=== PATIENT | male | born 1935 | race Caucasian/White ===

== ENCOUNTER → 2016-10-21 | Day surgery (SDC) | payer OTHER ==
[2016-10-09 12:16] VITALS: Ht 170.2 cm; Wt 95.5 kg
[~2016-10-21] VITALS: Ht 170.2 cm; Wt 95.5 kg
[~2016-10-21] MED LIST: EPP3/2 IM; FLEC50TA20 PO; GLUC10007 PO; IBUP-1050 PO; LIDOCAINE HCL 2% 2 ML VIAL (20MG/ML) ONE; LOPE-5 PO; METO50TA7 PO; MULT-506 PO; OMEG10007 PO; PROPOFOL IV EMULSION 10 MG/ML 20 ML VIAL IV ONE; RIVA1TAB4 PO; [UNRECOGNIZED DRUG - CODE] PO
--- NOTE | 2016-10-21 10:53 | Endo History and Physical ---
History & Physical Date of Service: October 21, 2016. Chief Complaint: diarrhea Referring Physician: Dr. Domo Montano History of Present Illness 81 yo CM who presents for Colonoscopy secondary to diarrhea. Past Medical History Atrial Fibrillation, Arthritis, Anxiety, Cancer Past Surgical History Hx Cardiac Surgery: Yes (CARDIOVERSION) Hx Internal Defibrillator: No Hx Pacemaker: No Hx Abdominal Surgery: No Hx Post-Op Nausea and Vomiting: No Hx Cancer Surgery: Yes (PROSTATECTOMY) Hx Thoracic Surgery: No Hx Orthopedic: Yes (L/R TSA, L/R TKA, LT ELBOW SURGERY (CANNOT STRAIGHTEN ARM), L/R BUNIONECTOMY) Hx Urinary Tract Surgery: No Family History Colon CA Social History Smoking Status: Never Smoker Hx Substance Use: No Hx Alcohol Use: Yes (OCCASIONAL) Allergies Coded Allergies: Yellow Hornet (Verified Allergy, Severe, ANAPHYLAXIS, 10/09/16) Yellow Jacket (Verified Allergy, Severe, ANAPHYLAXIS, 10/09/16) BEE STING (Verified Allergy, Unknown, SWELLING,SOB, 10/09/16) [place] Tree (Verified Allergy, Unknown, HIVES, 10/09/16) allergic to nuts from the trees Fire Ant (Verified Allergy, Unknown, HIVES, 10/09/16) NO KNOWN DRUG ALLERGIES (Verified Allergy, Unknown, NONE, 10/09/16) Current Medications Reported Home Medications Medications Dose Route/Sig Max Daily Dose Days Date Category Dose Instructions Diphenatol (Diphenoxylate W/ Atropine) 1 Tab Tab 1 Tab PO DIRECTED PRN 10/09/16 Reported Imodium A-D (Loperamide Hcl) 2 Mg Tab 1 Tab PO UD PRN 04/16/16 Reported Epipen (Epinephrine) 0.3 Mg/0.3 Ml Inj 0.3 Mg IM UD PRN 04/16/16 Reported Glucosamine (Glucosamine Sulfate) 1,000 Mg Tab 1,200 Mg PO BID 01/18/15 Reported GLUCOSAMINE CONDROITIN Toprol-Xl (Metoprolol Succinate) 50 Mg Tabcr 50 Mg PO QPM 01/18/15 Reported Advil (Ibuprofen) 200 Mg Tab 400 Mg PO DAILY PRN 12/26/14 Reported Jackson-3 (Fish Oil) 1 Ea Cap 1 Cap PO BID 12/26/14 Reported Xarelto (Rivaroxaban) 20 Mg Tab 20 Mg PO QPM 03/20/13 Reported Multivitamin (Multivitamins) Tab 1 Tab PO QAM 4/13/12 Reported Tambocor (Flecainide Acetate) 50 Mg Tab 50 Mg PO BID 09/18/11 Reported Vital Signs Weight (Kilograms): 95.45 Height (Feet): 5 Height (Inches): 7 Physical Exam General Appearance: WD/WN, no apparent distress Respiratory/Chest: Auscultation: breath sounds normal Cardiovascular: Heart Auscultation: RRR Abdomen: Bowel Sounds: normal Inspection & Palpation: soft, non-distended, no tenderness, guarding & rebound Assessment and Plan Assessment: 81 yo CM who presents for Colonoscopy secondary to diarrhea. Plan: Proceed with colonoscopy.
--- NOTE | 2016-10-21 12:19 | Discharge Instructions ---
Endoscopy Patient Instructions Date / Procedure(s) Performed October 21, 2016. Colonoscopy Allergy Information Coded Allergies: Yellow Hornet (Verified Allergy, Severe, ANAPHYLAXIS, 10/09/16) Yellow Jacket (Verified Allergy, Severe, ANAPHYLAXIS, 10/09/16) BEE STING (Verified Allergy, Unknown, SWELLING,SOB, 10/09/16) [place] Tree (Verified Allergy, Unknown, HIVES, 10/09/16) allergic to nuts from the trees Fire Ant (Verified Allergy, Unknown, HIVES, 10/09/16) NO KNOWN DRUG ALLERGIES (Verified Allergy, Unknown, NONE, 10/09/16) Discharge Date / Findings October 21, 2016. Non-specific colitis s/p biopsies Diverticulosis Internal hemorrhoids Stool aspirate collected Medication Instructions Stopped Medication(s): last dose Xarelto Wednesday at 17:00 OK to resume all medications today as prescribed. Start Uceris 9mg by mouth each morning for 8 weeks. Reported Home Medications Medications Dose Route/Sig Max Daily Dose Days Date Category Dose Instructions Diphenatol (Diphenoxylate W/ Atropine) 1 Tab Tab 1 Tab PO DIRECTED PRN 10/09/16 Reported Imodium A-D (Loperamide Hcl) 2 Mg Tab 1 Tab PO UD PRN 04/16/16 Reported Epipen (Epinephrine) 0.3 Mg/0.3 Ml Inj 0.3 Mg IM UD PRN 04/16/16 Reported Glucosamine (Glucosamine Sulfate) 1,000 Mg Tab 1,200 Mg PO BID 01/18/15 Reported GLUCOSAMINE CONDROITIN Toprol-Xl (Metoprolol Succinate) 50 Mg Tabcr 50 Mg PO QPM 01/18/15 Reported Advil (Ibuprofen) 200 Mg Tab 400 Mg PO DAILY PRN 12/26/14 Reported [place]-3 (Fish Oil) 1 Ea Cap 1 Cap PO BID 12/26/14 Reported Xarelto (Rivaroxaban) 20 Mg Tab 20 Mg PO QPM 03/20/13 Reported Multivitamin (Multivitamins) Tab 1 Tab PO QAM 09/18/11 Reported Tambocor (Flecainide Acetate) 50 Mg Tab 50 Mg PO BID 09/18/11 Reported Provider Instructions Activity Restrictions - No exercising or heavy lifting for 24 hours. - Do not drink alcohol the day of the procedure. - Do not drive a car or operate machinery until the day after the procedure. - Do not make any important decisions or sign important papers in 24 hours after the procedure. Following Day: - Return to full activity which may include returning to work/school. Diet Start your diet with liquids and light foods (jello, soup, juice, toast). Then eat your usual diet if not nauseated. Treatment For Common After Affects For mild abdominal pain, bloating, or excessive gas: - Rest - Eat lightly - Lie on right side Follow-Up Information Follow-up with Dr. Domo Montano as scheduled Anesthesia Information What You Should Know You have had a procedure that required some medicine to reduce anxiety and discomfort. This treatment is called moderate sedation. After receiving the treatment, you may be sleepy, but you will be able to breathe on your own. The effects of the treatment may last for several hours. Follow these instructions along with Activity/Diet recommendations noted above: * Do NOT do anything where dizziness or clumsiness would be dangerous. * Rest quietly at home today, then you can be up and about tomorrow. * Have a responsible person stay with you the rest of today. * You may have had an I.V. today. If so, you may take the dressing off later today. Recommendations Call your doctor if: * Trouble breathing * Continuous vomiting for more than 24 hours * Temperature above 101 degrees * Severe abdominal pain or bloating * Pain not relieved by pain medicine ordered * There is increased drainage or redness from any incision * A large amount of rectal bleeding greater than 2-3 tablespoons. (If you had a polyp/s removed or have hemorrhoids, a small amount of blood - from the rectum is to be expected.) * You have any unanswered questions or concerns. IN THE EVENT OF A SERIOUS EMERGENCY, GO TO THE NEAREST EMERGENCY ROOM Your discharge instructions were prepared by provider Graeme Cardona. Patient Instructions Signature Page Barry Saxena Patient (or Guardian) Signature/Date: I have read and understand the instructions given to me by my caregivers. Caregiver/RN/Doctor Signature/Date: The above-named patient and/or guardian has received patient instructions on this date. + Original Patient Signature Page (only) stays with chart. Please make copy for patient.
--- NOTE | 2016-10-21 12:27 | GI REPORT ---
Procedure Date: 10/21/2016 12:00 PM Procedure: Colonoscopy Indications: Chronic diarrhea Medicines: Monitored Anesthesia Care Complications: No immediate complications. Estimated Blood Loss: Estimated blood loss: none. Procedure: Pre-Anesthesia Assessment: - Prior to the procedure, a History and Physical was performed, and patient medications and allergies were reviewed. The patient's tolerance of previous anesthesia was also reviewed. The risks and benefits of the procedure and the sedation options and risks were discussed with the patient. All questions were answered, and informed consent was obtained. Prior Anticoagulants: The patient has taken Xarelto (rivaroxaban), last dose was 3 days prior to procedure. ASA Grade Assessment: III - A patient with severe systemic disease. After reviewing the risks and benefits, the patient was deemed in satisfactory condition to undergo the procedure. After I obtained informed consent, the scope was passed under direct vision. Throughout the procedure, the patient's blood pressure, pulse, and oxygen saturations were monitored continuously. The scope was introduced through the anus and advanced to the terminal ileum. The colonoscopy was performed without difficulty. The patient tolerated the procedure well. The quality of the bowel preparation was good. The terminal ileum, ileocecal valve, appendiceal orifice, and rectum were photographed. Findings: Diffuse mild inflammation characterized by erythema and loss of vascularity was found in the entire colon. Biopsies were taken with a cold forceps for histology. Fluid aspiration for cytology was performed in the entire colon. Multiple small-mouthed diverticula were found in the sigmoid colon. Non-bleeding internal hemorrhoids were found during retroflexion. The hemorrhoids were small. Impression: - Diffuse mild inflammation was found in the entire examined colon secondary to colitis. Biopsied. - Diverticulosis in the sigmoid colon. - Non-bleeding internal hemorrhoids. - Fluid aspiration was performed. Recommendation: - Resume previous diet. - Use Uceris (budesonide) 9 mg PO daily for 8 weeks. - Await pathology results. - Return to GI office as previously scheduled. Graeme Cardona DO 10/21/2016 12:26:50 PM This report has been signed electronically. Note Initiated On: 10/21/2016 12:00 PM I attest to the content of the Intraoperative Record and orders documented therein, exceptions below
--- NOTE | 2016-10-21 12:43 | Anesthesiology Progress Note ---
Anesthesia Post Op Note Date & Time October 21, 2016 at 12:43 Vital Signs Pain Intensity: 0 Vital Signs Past 12 Hours Date Time Temp Pulse Resp B/P Pulse Ox O2 Delivery O2 Flow Rate FiO2 10/21/16 12:34 59 18 122/69 97 Room Air 10/21/16 12:19 58 20 120/56 97 Room Air 10/21/16 10:54 36.6 67 20 152/71 96 Room Air Notes Mental Status: alert / awake / arousable, participated in evaluation Pt Amnestic to Procedure: Yes Nausea / Vomiting: adequately controlled Pain: adequately controlled Airway Patency, RR, SpO2: stable & adequate BP & HR: stable & adequate Hydration State: stable & adequate Anesthetic Complications: no major complications apparent
[2016-10-21 12:48] VITALS: BP 143/77; PULSE 59; O2SAT 98
== END | disposition home or self-care (01) ==
LOC: C.GI 10:26
PROVIDERS: ATTEND Internal Medicine
DX: K52.9 Noninfective gastroenteritis and colitis, unspecified (principal); K57.30 Diverticulosis of large intestine without perforation or abscess without bleeding; K64.8 Other hemorrhoids; I48.91 Unspecified atrial fibrillation; Z85.46 Personal history of malignant neoplasm of prostate; Z96.653 Presence of artificial knee joint, bilateral; M19.90 Unspecified osteoarthritis, unspecified site; Z90.89 Acquired absence of other organs; Z98.41 Cataract extraction status, right eye; Z98.42 Cataract extraction status, left eye; E66.9 Obesity, unspecified; Z68.33 Body mass index [BMI] 33.0-33.9, adult

== ENCOUNTER → 2016-11-05 | Outpatient (CLI) | payer OTHER ==
[~2016-11-05] MED LIST changes: -LIDOCAINE HCL 2% 2 ML VIAL (20MG/ML) ONE; -PROPOFOL IV EMULSION 10 MG/ML 20 ML VIAL IV ONE
[2016-11-05 17:04] LABS: BASO % 0.1 %; BASO ABS # 0.01 K/uL (0-0.2); COMPLETE YES; EOS % 1.5 %; HEMATOCRIT 39.6 % (42-52); IG% 0.3 %; LYMPH % 17.6 %; LYMPH ABS # 1.37 K/uL (1.2-3.4); MEAN CELL VOLUME 95.7 fL (80-100); MEAN CORPUSCULAR HEMOGLOBIN 31.4 pg (25-34); MEAN CORPUSCULAR HGB CONC 32.8 g/dl (32-36); MEAN PLATELET VOLUME 10.9 fL (7.4-10.4); MONO % 11.5 %; PLATELET COUNT 199 K/uL (130-400); RED BLOOD COUNT 4.14 M/uL (4.7-6.1)
[2016-11-05 17:23] LABS: ALT/SGPT 27 U/L (12-78); BLOOD UREA NITROGEN 21 mg/dl (7-18); BUN/CREATININE RATIO 26.4 (10-20); CALCIUM 8.4 mg/dl (8.5-10.1); CARBON DIOXIDE 29 mmol/L (21-32); CHLORIDE 105 mmol/L (98-107); CREATININE 0.79 mg/dl (0.60-1.40); GLUCOSE 90 mg/dl (70-99); SODIUM 140 mmol/L (136-145)
[2016-11-05 17:31] LABS: ALKALINE PHOSPHATASE 98 U/L (45-117); AST/SGOT 15 U/L (15-37); C-REACTIVE PROTEIN < 0.29 mg/dl (0-0.29); CHOLESTEROL 207 mg/dl (0-200); CHOLESTEROL/HDL RATIO 2.1; HDL CHOLESTEROL 97 mg/dl; LDL CHOLESTEROL CALCULATED 92 mg/dl; PROSTATE SPECIFIC ANTIGEN < 0.010 ng/ml (0.000-4.000); TRIGLYCERIDES 89 mg/dl (0-150); VERY LOW DENSITY LIPOPROT CALC 18 mg/dl
--- NOTE | 2016-11-09 09:00 | CODING QUERY MEDICAL NECESSITY ---
SUPPORTING DIAGNOSIS NEEDED Dr. Montano, A supporting diagnosis is required for the test/procedure performed on this patient in order for us to be reimbursed by the patient's insurance. Please provide a supporting diagnosis for the following test/procedure listed below next to the test name along with your signature. *If there is no additional diagnosis for this patient that would support the following test/procedure please document that below next to the test/procedure. Test(s)/Procedure(s) that require a supporting diagnosis: * ([id number]) VITAMIN D ASSAY DIAGNOSIS: * ([id number]) B12 VITAMIN LEVEL DIAGNOSIS: DATE OF SERVICE: 11/05/16 Provider Signature: Date: Thank you Jean Claude [facility] Information Management Once completed, please kindly fax back to [phone] For questions please call [phone]
[2016-11-11 16:52] LABS: 5-HIAA 3.2 mg/24 h (<=6.0)
== END | disposition home or self-care (01) ==
LOC: C.LABBC 15:27
PROVIDERS: ATTEND Internal Medicine Geriatric Medicine
DX: I48.0 Paroxysmal atrial fibrillation (principal); C61 Malignant neoplasm of prostate; D64.9 Anemia, unspecified; R19.7 Diarrhea, unspecified; E04.2 Nontoxic multinodular goiter; K52.832 Lymphocytic colitis; I25.10 Atherosclerotic heart disease of native coronary artery without angina pectoris; R63.4 Abnormal weight loss; E53.8 Deficiency of other specified B group vitamins; Z79.899 Other long term (current) drug therapy

== ENCOUNTER → 2017-03-10 | Outpatient (CLI) | payer OTHER | END | disposition home or self-care (01) | LOC: C.LABSPEC 17:23 | PROVIDERS: ATTEND Urology | DX: N39.0 Urinary tract infection, site not specified (principal); N35.9 Urethral stricture, unspecified ==

== ENCOUNTER → 2017-03-19 | Outpatient (CLI) | payer OTHER | END | disposition home or self-care (01) | LOC: C.LABSPEC 14:59 | PROVIDERS: ATTEND Urology | DX: N39.0 Urinary tract infection, site not specified (principal) ==

== ENCOUNTER → 2017-03-25 | Outpatient (CLI) | payer OTHER ==
[2017-03-25 14:12] LABS: BASO % 0.2 %; BASO ABS # 0.02 K/uL (0-0.2); COMPLETE YES; EOS % 1.1 %; HEMATOCRIT 36.9 % (42-52); IG% 0.1 %; LYMPH % 17.4 %; LYMPH ABS # 1.43 K/uL (1.2-3.4); MEAN CELL VOLUME 98.7 fL (80-100); MEAN CORPUSCULAR HEMOGLOBIN 32.1 pg (25-34); MEAN CORPUSCULAR HGB CONC 32.5 g/dl (32-36); MEAN PLATELET VOLUME 10.5 fL (7.4-10.4); MONO % 10.2 %; PLATELET COUNT 194 K/uL (130-400); RED BLOOD COUNT 3.74 M/uL (4.7-6.1); WHITE BLOOD COUNT 8.21 K/uL (4.8-10.8)
[2017-03-25 16:59] LABS: BLOOD UREA NITROGEN 19 mg/dl (7-18); BUN/CREATININE RATIO 20.1 (10-20); CALCIUM 9.1 mg/dl (8.5-10.1); CARBON DIOXIDE 30 mmol/L (21-32); CHLORIDE 102 mmol/L (98-107); CREATININE 0.93 mg/dl (0.60-1.40); GLUCOSE 90 mg/dl (70-99); POTASSIUM 4.1 mmol/L (3.5-5.1); SODIUM 137 mmol/L (136-145)
== END | disposition home or self-care (01) ==
LOC: C.LABBC 12:14
PROVIDERS: ATTEND Internal Medicine Geriatric Medicine
DX: Z51.81 Encounter for therapeutic drug level monitoring (principal); D64.9 Anemia, unspecified; Z79.01 Long term (current) use of anticoagulants; K52.832 Lymphocytic colitis; E53.8 Deficiency of other specified B group vitamins

== ENCOUNTER → 2017-03-29 | Outpatient (CLI) | payer OTHER ==
[~2017-03-29] MED LIST changes: +OPTIRAY 320 IV PRN
--- NOTE | 2017-03-29 12:32 | DIAGNOSTIC IMAGING REPORT ---
ABD/PELVIS COMBO HISTORY: 81 years-old Male C61 Prostate zeetctI75.0 [id number] Urinary retentionN history of urethral stricture with urinary tract infection. COMPARISON: CT abdomen and pelvis 04/28/2016 TECHNIQUE: Multiple axial CT images of the abdomen and pelvis were obtained both with and without the use of 94 mL Optiray 320. A dose lowering technique was used consistent with the principals of CHAU. FINDINGS: Symmetric bilateral gynecomastia. Mild dependent bibasilar atelectasis. Mild cardiomegaly with coronary arterial disease. No pneumoperitoneum identified. Diffuse fatty infiltration of the liver. No focal hepatic mass lesions or intrahepatic biliary ductal dilation. Small gallstones are seen layering within the gallbladder lumen. No CT evidence of acute cholecystitis. There are a few nonspecific scattered punctate splenic calcifications present. Pancreas and adrenal glands are within normal limits. 7 x 6 mm calculus of the posterior aspect inferior pole right kidney is again seen. 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 No ureteral calculi or hydronephrosis. Postsurgical changes of prior prostatectomy. Surgical clips are seen within the pelvis. Calcifications are noted adjacent to the pubic symphysis, anterior to the urinary bladder lumen. Urinary bladder is mostly collapsed with trabeculation of the wall suggesting sequela of chronic bladder outlet obstruction. No filling defects identified within either collecting system or ureter. Ureters are normal in caliber. Bilateral low attenuating lesions suggesting renal cysts are present, largest the left measuring 2.9 x 2.7 cm. There are multiple left greater than right renal sinus cyst present. The abdominal aorta is normal in both course and caliber with moderate atherosclerotic plaquing. No bulky adenopathy. No evidence of metastatic disease. Small duodenal diverticulum. No bowel obstruction or focal bowel wall thickening. Colonic diverticulosis without diverticulitis. The appendix appears normal. Soft tissues are within normal limits. The bones are moderately demineralized. No suspicious lytic or blastic bony lesions. Severe multilevel degenerative changes of the spine. Age-indeterminate anterior endplate compression deformity of T10, new from 04/28/2016. No associated retropulsion. IMPRESSION: 1. Prior prostatectomy with findings of the bladder suggesting sequela of chronic bladder outlet obstruction. Bladder however is mostly collapsed. 2. 7 x 6 mm nonobstructing calculus of the right kidney. No ureteral calculi, obstructive uropathy or collecting system filling defects identified. 3. Bilateral renal cysts with left greater than right renal sinus cysts. 4. Age-indeterminate anterior endplate compression deformity of T10 is new from 04/28/2016 however appears chronic without retropulsion. 5. Fatty infiltration of the liver. 6. Cholelithiasis without CT evidence of acute cholecystitis. The above report was generated using voice recognition software. It may contain grammatical, syntax or spelling errors. Electronically signed by: David Betancourt M.D. 03/29/2017 12:31 PM Dictated Date/Time: 03/29/2017 12:18 PM
== END | disposition home or self-care (01) ==
LOC: C.CTS 10:52
PROVIDERS: ATTEND Urology
DX: C61 Malignant neoplasm of prostate (principal); N20.0 Calculus of kidney; N35.9 Urethral stricture, unspecified; N39.0 Urinary tract infection, site not specified; R33.9 Retention of urine, unspecified; Z90.79 Acquired absence of other genital organ(s); N28.1 Cyst of kidney, acquired; R93.7 Abnormal findings on diagnostic imaging of other parts of musculoskeletal system; K76.0 Fatty (change of) liver, not elsewhere classified; K80.20 Calculus of gallbladder without cholecystitis without obstruction

== ENCOUNTER → 2017-10-06 | Outpatient (CLI) | payer OTHER ==
[~2017-10-06] MED LIST changes: -METO50TA7 PO; +METO50TA8 PO; -OPTIRAY 320 IV PRN
== END | disposition home or self-care (01) ==
LOC: C.LABSPEC 16:56
PROVIDERS: ATTEND Urology
DX: N39.0 Urinary tract infection, site not specified (principal)

== ENCOUNTER 2020-03-29 15:00 | Observation (INO) ==
--- NOTE | 2020-03-29 15:32 | Emergency Department Note ---
Impression & Plan Acute UTI, Abdominal pain, lower ED Provider Note INFORMANT: Patient ED PROVIDER(S): Lazaro Coleman MD CHIEF COMPLAINT: Urinary symptoms PLAN: Disposition: Admitted Condition: Good MEDICAL DECISION MAKING: Patient presented to the emergency department because of continued urinary symptoms and lower abdominal pain. He declined analgesia initially and on reassessment. He noted moderate pain but did not want to have medication for it. He was concerned about an intra-abdominal process in light of his symptoms. He underwent a work-up. His blood work revealed a moderate leukocytosis concerning for infection. Urinalysis is still concerning for infection despite being on the Bactrim. Chemistry panel revealed some mild dehydration. CT scan of the abdomen pelvis was performed. There was no evidence of acute intra- abdominal pathology. I discussed the case with the ED pharmacist because of the Enterobacter identified. Given his age, white blood cell count, and symptoms it was felt that he would be best treated by using IV Invanz and if improved could be switched to oral quinolone after inpatient treatment. I did discuss this with Dr. Figueroa of the hospitalist service. He evaluated the patient for further management. Triage Nursing notes reviewed and agree them. Additional history obtained from patient's Prior medical records reviewed regarding recent visit and his culture. Nitrofurantoin resistant Enterobacter. Vital Signs: reviewed and remarkable for no significant abnormalities Differential diagnosis: Appendicitis, cystitis, UTI, testicular torsion, infections, diverticulitis, obstruction, mesenteric ischemia, aortic pathology, inflammatory bowel disease, renal colic, PUD, pancreatitis, biliary pathology, hernia, volvulus, constipation, as well as other pathologies. Diagnostics interpreted by me: Imaging studies: CT scan of the abdomen pelvis was negative for acute pathology. I refer you to the EMR for further details. Consultation(s): Dr. Figueroa of internal medicine HPI: The patient is a 84 year old male who presents to the Emergency Room with complaints of lower abd pain. This started 3-4 days ago and is persisting. The patient also notes the following associated symptoms, urinary difficultly, weakness. The patient has been given bactrim for relieving factors. Current pain is rated as 8/10. Gave a urine culture at [facility] and it is growing a bactrim sensitive enterobacter. Pt denies LOC, headache, fevers, chills, diaphoresis, visual changes, neck pain, chest pain, breathing difficulties, nausea, vomiting, back pain, melena, hematochezia, numbness, lymphadenopathy, rash, or other complaints. ROS: See above HPI for pertinent positives & negatives. A total of 10 systems reviewed and were otherwise negative. PAST MEDICAL HISTORY:See Below, AFIB PAST SURGICAL HISTORY:See Below,anticoagulated FAMILY HISTORY:See Below SOCIAL HISTORY:See Below, HOME MEDICATIONS:See Below ALLERGIES:See Below VITALS:See Below PHYSICAL EXAMINATION: GENERAL: Awake, alert, uncomfortable-appearing, in no distress HENT: Normocephalic, atraumatic. Oropharynx unremarkable. EYES: Normal conjunctiva. Sclera non-icteric. NECK: Inspection normal. Non-tender. Supple. No nuchal rigidity. FROM. No masses. RESPIRATORY: Clear to auscultation. No wheezes. No rales. Normal respiratory effort. CARDIAC: Normal rate. Normal rhythm. No murmurs. No rubs. Extremities warm and well perfused. Pulses equal. No JVD. GI: Soft, non-distended. Lower tenderness to palpation. No rebound or guarding. No masses. RECTAL: Deferred. MUSCULOSKELETAL: Atraumatic. Chest examination reveals no tenderness. The back is symmetrical on inspection without obvious abnormality. There is no CVA tenderness to palpation. No joint edema. LOWER EXTREMITIES: Calves are equal size bilaterally and non-tender. No edema. No discoloration. NEURO: Normal sensorium. No sensory or motor deficits noted. SKIN: No rash or jaundice noted. Lazaro Coleman MD Past Med/Surg History Medical History (Updated 03/29/20 @ 18:08 by Ghassan Figueroa MD) Chronic low back pain Chronic venous stasis History of prostate cancer (~1999) Followed by Urology Lymphocytic colitis followed by GI. colonoscopy (10/21) demonstrated diffuse inflammation. Biopsies were consistent with lymphocytic colitis. Treated with Uceris which he has since discontinued. He also had IBD 7 panel consistent with Crohn's disease. Video swallow 11/2017 unremarkable. Obstructive sleep apnea CPAP Paroxysmal atrial fibrillation Followed by Cardiology Urinary retention Self Catheterization Surgical History (Updated 01/09/20 @ 14:03 by Tonny Huber DO) H/O elbow surgery History of colonoscopy History of prostate surgery S/P bunionectomy S/P cataract surgery S/P total knee arthroplasty Bilateral Status post total shoulder arthroplasty Bilateral Family History (Updated 01/02/20 @ 14:29 by Halley Da Silva) Father Prostate cancer Diabetes Mother Leukemia Cancer Denies family history of Ovarian cancer Alzheimer disease Crohn's disease Myocardial infarction Breast cancer Lung cancer Colorectal cancer Hypertension Stroke Social History (Updated 01/02/20 @ 14:30 by Halley Da Silva) Smoking Status: Never smoker Second Hand Exposure: No; Hx Alcohol Use: Yes Hx Substance Use: No Preferred Language: Turkish Communication Ability: Effective Visual Impairment: No Limitations Hearing Ability: Normal 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 Beliefs That Will Affect Care: None marital status: Current Living Situation: Spouse current occupational status: retired Other Information That Helps Us Care for You: Yes Feels Safe at Home: Yes Safety Concerns: Feels Safe At This Time Childhood Exposure to Second-Hand Smoke: No Dental Care, Regularly: Yes Physical Activity Frequency: 1-2 Times per Week Seatbelt Use: always Sunscreen Use: No Assistive Devices: Cane and Glasses Allergies Allergies Allergy/AdvReac Type Severity Reaction Status Date / Time hornet venom Allergy Severe ANAPHYLAXIS Verified 01/24/20 08:43 bee venom protein (honey bee) Allergy Unknown SWELLING,SO Verified 01/24/20 08:43 B black walnut Allergy Unknown HIVES Verified 01/24/20 08:43 fire ant Allergy Unknown HIVES Verified 01/24/20 08:43 No Known Drug Allergies Allergy Unknown NONE Verified 01/24/20 08:43 Home Meds Home Medications Medication Instructions Recorded Confirmed acetaminophen 500 mg tablet 1,000 mg PO TID PRN #90 tab 02/28/19 03/29/20 epinephrine 0.3 mg/0.3 mL 0.3 ml IM DIRECTED PRN #1 ea 02/28/19 03/29/20 injection, auto-injector multivitamin 1 tab PO DAILY 02/28/19 03/29/20 flecainide 50 mg tablet 50 mg PO Q12H tab 01/09/20 03/29/20 budesonide 9 mg PO QAM 03/29/20 03/29/20 glucosamine sulfate [Glucosamine] 0 mg PO BID 03/29/20 03/29/20 krill oil 0 mg PO QAM 03/29/20 03/29/20 rivaroxaban [Xarelto] 20 mg PO QPM 03/29/20 03/29/20 Previous Rx's Medication Instructions Recorded methenamine hippurate 1 gram tablet 1 gm PO HS #30 tab 12/26/19 sulfamethoxazole 800 1 tab PO BID 4 Days #8 tab 03/27/20 mg-trimethoprim 160 mg tablet Results & Data (ED) Vital Signs Vital Signs - 24 hr 03/29/20 15:08 03/29/20 17:24 Temperature 36.8 C Temperature Source Oral Pulse Rate 98 H Pulse Rate [Finger] 72 Pulse Rhythm Regular Pulse Rhythm [Finger] Regular Pulse Strength Normal Respiratory Rate 20 18 Respiratory Effort / Characteristics Non-Labored Non-Labored Respiratory Depth Normal Normal Respiratory Pattern Regular Regular Blood Pressure 122/71 Blood Pressure [Right Arm] 143/92 H Blood Pressure Mean 88 Blood Pressure Mean [Right Arm] 109 Blood Pressure Position Sitting Blood Pressure Position [Right Arm] Lying Pulse Oximetry 95 96 Oxygen Delivery Method Room Air Room Air Sepsis Recent Fever Within 48 Hours No Sepsis New/Unexplained Change in Mental Status No Sepsis Action Taken by Nursing No Action Required Laboratory Data Result diagrams: 03/29/20 15:56 03/29/20 15:56 Lab Results 03/29/20 03/29/20 03/29/20 Range/Units 15:56 15:56 16:13 WBC 13.43 H (4.8-10.8) K/uL RBC 3.47 L (4.7-6.1) M/uL Hgb 11.3 L (14.0-18.0) g/dL Hct 33.9 L (42-52) % MCV 97.7 (80-100) fL MCH 32.6 (25-34) pg MCHC 33.3 (32-36) g/dL RDW Std Deviation 47.4 H (36.4-46.3) fL RDW Coeff of [place] 13.3 (11.5-14.5) % Plt Count 187 (130-400) K/uL MPV 10.4 (7.4-10.4) fL Immature Gran % (Auto) 0.6 % Neut % (Auto) 85.7 % Lymph % (Auto) 4.8 % Coal % (Auto) 8.7 % Eos % (Auto) 0.1 % Baso % (Auto) 0.1 % Neut # (Auto) 11.52 H (1.4-6.5) K/uL Lymph # (Auto) 0.64 L (1.2-3.4) K/uL Coal # (Auto) 1.17 H (0.11-0.59) K/uL Eos # (Auto) 0.01 (0-0.5) K/uL Baso # (Auto) 0.01 (0-0.2) K/uL Immature Gran # (Auto) 0.08 H (0.00-0.02) K/uL Sodium 135 L (136-145) mmol/L Potassium 3.9 (3.5-5.1) mmol/L Chloride 102 (98-107) mmol/L Carbon Dioxide 26 (21-32) mmol/L Anion Gap 7.0 (3-11) BUN 23 H (7-18) mg/dl Creatinine 1.10 (0.6-1.4) mg/dl Est Cr Clr Drug Dosing 54.0 ml/min Est GFR ( Amer) 70.1 Est GFR (Non-Af Amer) 60.5 BUN/Creatinine Ratio 20.6 H (10-20) Glucose 125 H (70-99) mg/dl Calcium 8.9 (8.5-10.1) mg/dl Total Bilirubin 0.3 (0.2-1) mg/dl AST 28 (15-37) U/L ALT 38 (12-78) U/L Alkaline Phosphatase 111 (45-117) U/L Total Protein 7.0 (6.4-8.2) gm/dl Albumin 2.3 L (3.4-5.0) gm/dl Globulin 4.7 H (2.5-4.0) gm/dl Albumin/Globulin Ratio 0.5 L (0.9-2) Lipase 70 L (73-393) U/L Urine Color Yellow Urine Appearance Clear (Clear) Urine pH 5.5 (4.5-7.5) Ur Specific [place] 1.019 (1.000-1.030) Urine Protein Trace H (Negative) Urine Glucose (UA) Negative (Negative) Urine Ketones Negative (Negative) Urine Blood 1+ H (Negative) Urine Nitrite Negative (Negative) Urine Bilirubin Negative (Negative) Urine Urobilinogen Negative (Negative) Ur Leukocyte Esterase 1+ H (Negative) Urine WBC (Auto) 10-30 H (0-5) /hpf Urine RBC (Auto) 5-10 H (0-4) /hpf U Hyaline Cast (Auto) 1-5 (0-5) /lpf U Epithel Cells (Auto) 10-20 H (0-5) /lpf Urine Bacteria (Auto) Negative (Negative) Administered Medications Acetaminophen (Acetaminophen 500 Mg Tab) 1,000 mg PO TID HERLINDA Stop: 04/28/20 20:59 Last Admin: 03/29/20 21:22 Dose: 1,000 mg Documented by: [id number] Celecoxib (Celecoxib 100 Mg Cap) 100 mg PO DAILY HERLINDA Stop: 04/28/20 19:11 Last Admin: 03/29/20 21:23 Dose: 100 mg Documented by: [id number] Hydrocortisone Sodium (Succinate 50 mg/ Syringe) 1 mls @ 4 mls/min IV Q8H HERLINDA Stop: 03/30/20 12:01 Last Admin: 03/29/20 20:40 Dose: 4 mls/min Documented by: [id number] Lidocaine (Lidocaine 5% 1 Patch) 1 patch TD QAM HERLINDA Stop: 04/28/20 19:11 Last Admin: 03/29/20 21:23 Dose: 1 patch Documented by: [id number] Miscellaneous (Remove Lidoderm Patch) 1 ea N/A DAILY@2100 HERLINDA Stop: 04/28/20 22:59 Last Admin: 03/29/20 21:25 Dose: Not Given Documented by: [id number] Discontinued Medications Ertapenem (Invanz) 10 mls @ 2 mls/min IV NOW STA Stop: 03/29/20 17:03 Last Admin: 03/29/20 17:25 Dose: 2 mls/min Documented by: [id number] Discharge Plan Visit Data Chief Complaint: Urinary Symptoms Stated Complaint: UTI,NOT GETTING BETTER ON MEDS,BODYACHES ED Provider: Lazaro Coleman Discharge Problem: Acute UTI, Abdominal pain, lower Patient Disposition: Admitted As Inpatient Discharge Instructions Interventions: ED Discharge Assessment Last Done: 03/29/20 18:29
[2020-03-29 16:18] LABS: Basophils # (auto) 0.01 K/uL (0-0.2); Basophils % (auto) 0.1 %; Eosinophils # (auto) 0.01 K/uL (0-0.5); Eosinophils % (auto) 0.1 %; Hematocrit (blood only) 33.9 % (42-52); Hemoglobin 11.3 g/dL (14.0-18.0); Immature Granulocytes # (auto) 0.08 K/uL (0.00-0.02); Immature Granulocytes % (auto) 0.6 %; Lymphocytes # (auto) 0.64 K/uL (1.2-3.4); Lymphocytes % (auto) 4.8 %; Mean Corpuscular Hemoglobin 32.6 pg (25-34); Mean Corpuscular Hgb Conc 33.3 g/dL (32-36); Mean Corpuscular Volume 97.7 fL (80-100); Mean Platelet Volume 10.4 fL (7.4-10.4); Monocytes # (auto) 1.17 K/uL (0.11-0.59); Monocytes % (auto) 8.7 %; Neutrophils # (auto) 11.52 K/uL (1.4-6.5); Neutrophils % (auto) 85.7 %; Platelet Count 187 K/uL (130-400); RDW Coefficient of Variation 13.3 % (11.5-14.5); RDW Standard Deviation 47.4 fL (36.4-46.3); Red Blood Count 3.47 M/uL (4.7-6.1); White Blood Count 13.43 K/uL (4.8-10.8)
--- NOTE | 2020-03-29 16:27 | CT Scan Report ---
CT SCAN OF THE ABDOMEN AND PELVIS WITHOUT CONTRAST CLINICAL HISTORY: Lower abdominal pain COMPARISON STUDY: March 2017 TECHNIQUE: CT scan of the abdomen and pelvis was performed from the lung bases to the proximal femurs . Images are reviewed in the axial, sagittal, and coronal planes. IV contrast was not administered fo r this examination. A dose lowering technique was utilized adhering to the principles of ALARA. CT DOSE: 793.78 mGy.cm FINDINGS: Lower chest: There is respiratory motion artifact. There is no basilar consolidation. There are no si gnificant pleural effusions. Liver: There is hepatic steatosis. No masses are visualized on this noncontrast study. Gallbladder: Unremarkable. Spleen: Normal in size and attenuation. Pancreas: Unremarkable. Adrenal glands: Unremarkable. Kidneys: There are hypodense left renal lesions consistent with cortical and parapelvic cysts. There is a 2.5 mm lower pole left renal calculus. There is a 1 cm lower pole right renal calculus. 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 No ureteral or bladder calculi are visualized. Bowel: There are no transition zones indicate bowel obstruction. There is no evidence of acute divert iculitis. There is barba colonic diverticulosis. There is no evidence of acute appendicitis. The append ix is visualized and appears normal Peritoneum: There is no intraperitoneal free air or abdominal ascites. There is a tiny fat-containing umbilical hernia Vasculature: The abdominal aorta is normal in course and caliber. Adenopathy: None. Pelvic viscera: There are postsurgical changes of a prior prostatectomy. Skeletal structures: There is posterior spurring arising from the symphysis pubis. Arthritic changes are present within the hips. No destructive lesions are visualized. There is multilevel degenerative changes within the lumbar spine with multilevel spinal stenosis. IMPRESSION: 1. No evidence of bowel obstruction. No evidence of free air 2. Normal appendix 3. Diverticulosis. No evidence of acute diverticulitis 4. Bilateral nephrolithiasis. No ureteral calculi identified 5. Hepatic steatosis ACT 112: Negative or not required by law. Electronically signed by: Krzysztof Craft M.D. 03/29/2020 4:26 PM
[2020-03-29 16:35] LABS: Appearance Urine Clear (Clear); Bacteria Urine Automated Negative (Negative); Bilirubin Urine Negative (Negative); Blood Urine 1+ (Negative); Color Urine Yellow; Glucose Urine UA Negative (Negative); Ketones Urine Negative (Negative); Leukocyte Esterase Urine 1+ (Negative); Nitrite Urine Negative (Negative); Protein Urine Trace (Negative); Specific Gravity Urine 1.019 (1.000-1.030); Urobilinogen Urine Negative (Negative); pH Urine 5.5 (4.5-7.5)
[2020-03-29 16:35] LABS: Albumin Level 2.3 gm/dl (3.4-5.0); BUN Creatinine Ratio 20.6 (10-20); Calcium 8.9 mg/dl (8.5-10.1); Est GFR (African American) 70.1; Est GFR (Non-African American) 60.5; Potassium 3.9 mmol/L (3.5-5.1)
[2020-03-29 16:38] LABS: Albumin Globulin Ratio 0.5 (0.9-2); Bilirubin,Total 0.3 mg/dl (0.2-1); Globulin 4.7 gm/dl (2.5-4.0)
[2020-03-29] MEDS ORDERED: ERTAPENEM SODIUM 10 ML IV STA (16:59)
--- NOTE | 2020-03-29 17:11 | History & Physical Report ---
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 will try to reduce inflamation by 24 hours of stress steroids given his endocort use, lidoderm, scheduled tylenol and celebrex along with prn opiates, will have PT/OT. May need ortho referral, or pain management (2) Acute UTI: Patient had persistent abdominal symptoms with a recent Enterobacter urinary tract infection. He had Enterobacter in his urine also previously and December 2019 prior to that he had coagulation negative staph followed by urology. He was referred to our office from their office. He was placed on outpatient Bactrim therapy but did not feel in any good improvement. In the emergency department there was some concern about an in vivo resistant to sulfa drugs for Enterobacter by pharmacy advisor. Subsequent is felt he should be given a dose of ertapenem which he was administered. She was on methenamine hippurate to try to suppress infection prior to this (3) Paroxysmal atrial fibrillation: Flecainide therapy will be continued is also on rivaroxaban for anticoagulation his heart rate is mildly elevated on presentation (4) Obstructive sleep apnea: pt uses cpap at night (5) Chronic low back pain: (6) Lymphocytic colitis: Pt takes endocort, will use 24 hours of steroids, and return to endocort History of Present Illness Primary Care Provider: Tonny Huber, Allergies Allergy/AdvReac Type Severity Reaction Status Date / Time hornet venom Allergy Severe ANAPHYLAXIS Verified 01/24/20 08:43 bee venom protein (honey bee) Allergy Unknown SWELLING,SO Verified 01/24/20 08:43 B black walnut Allergy Unknown HIVES Verified 01/24/20 08:43 fire ant Allergy Unknown HIVES Verified 01/24/20 08:43 No Known Drug Allergies Allergy Unknown NONE Verified 01/24/20 08:43 Home Medications Home Medications Medication Instructions Recorded Confirmed Type acetaminophen 500 mg tablet 1,000 mg PO TID PRN #90 tab 02/28/19 03/29/20 Hi story epinephrine 0.3 mg/0.3 mL 0.3 ml IM DIRECTED PRN #1 ea 02/28/19 03/29/20 History injection, auto-injector multivitamin 1 tab PO DAILY 02/28/19 03/29/20 History methenamine hippurate 1 gram tablet 1 gm PO HS #30 tab 12/26/19 03/29/20 Rx flecainide 50 mg tablet 50 mg PO Q12H tab 01/09/20 03/29/20 History sulfamethoxazole 800 1 tab PO BID 4 Days #8 tab 03/27/20 03/29/20 Rx mg-trimethoprim 160 mg tablet budesonide 9 mg PO QAM 03/29/20 03/29/20 History glucosamine sulfate [Glucosamine] 0 mg PO BID 03/29/20 03/29/20 History krill oil 0 mg PO QAM 03/29/20 03/29/20 History rivaroxaban [Xarelto] 20 mg PO QPM 03/29/20 03/29/20 History Past Med/Surg History Medical History (Updated 03/29/20 @ 18:08 by Ghassan Figueroa MD) Chronic low back pain Chronic venous stasis History of prostate cancer (~1999) Followed by Urology Lymphocytic colitis followed by GI. colonoscopy (10/21) demonstrated diffuse inflammation. Biopsies were consistent with lymphocytic colitis. Treated with Uceris which he has since discontinued. He also had IBD 7 panel consistent with Crohn's disease. Video swallow 11/2017 unremarkable. Obstructive sleep apnea CPAP Paroxysmal atrial fibrillation Followed by Cardiology Urinary retention Self Catheterization Surgical History (Updated 01/09/20 @ 14:03 by Tonny Huber DO) H/O elbow surgery History of colonoscopy History of prostate surgery S/P bunionectomy S/P cataract surgery S/P total knee arthroplasty Bilateral Status post total shoulder arthroplasty Bilateral Family History (Updated 01/02/20 @ 14:29 by Halley Da Silva) Father Prostate cancer Diabetes Mother Leukemia Cancer Denies family history of Ovarian cancer Alzheimer disease Crohn's disease Myocardial infarction Breast cancer Lung cancer Colorectal cancer Hypertension Stroke Social History (Updated 01/02/20 @ 14:30 by Halley Da Silva) Smoking Status: Never smoker Second Hand Exposure: No; Hx Alcohol Use: Yes (social) Hx Substance Use: No Preferred Language: Slovenian Communication Ability: Effective Visual Impairment: No Limitations Hearing Ability: Normal marital status: Current Living Situation: Spouse current occupational status: retired Feels Safe at Home: Yes Childhood Exposure to Second-Hand Smoke: No Dental Care, Regularly: Yes Physical Activity Frequency: 1-2 Times per Week Seatbelt Use: always Sunscreen Use: No Review of Systems Review of Systems: Mild distress and fatigue no headache, blurry or double vision no speech or swallowing issues no chest pain, pressure or palpitations no shortness of breath, cough or wheezes no abdominal pain, nausea or vomiting, diarrhea or constipation no dysuria, hematuria or frequency no focal joint pain or swelling no back pain, CVA tenderness or radicular pain no bruising, bleeding or rashes no focal signs of weakness or numbness or altered sensation no complaints of anxiety or depression. Physical Exam Physical Exam: The patient appeared well nourished and normally developed. Vital signs as documented. Head exam is normocephalic atraumatic no scleral icterus Neck is without JVD, thyromegaly, or carotid bruits. Lungs are clear to auscultation, no focal loss of breath sounds Cardiac exam, Rhythm is regular.. No murmurs, rubs or gallops. Abdominal exam reveals normal bowel sounds, soft non tender, no masses Extremities are nonedematous and both pedal pulses are present Neurologic exam is alert and oriented, no focal loss of strength or sensation Skin is without bruises or rashes Psychologically is without concerns for anxiety or depression. Results & Data Results & Data ([facility]) Vital Signs (Past 12 Hours) Vital Signs Temp Pulse Resp BP Pulse Ox 03/29/20 15:08 98.2 F 98 H 20 122/[address] Abd pelvis 03/29/20 IMPRESSION: 1. No evidence of bowel obstruction. No evidence of free air 2. Normal appendix 3. Diverticulosis. No evidence of acute diverticulitis 4. Bilateral nephrolithiasis. No ureteral calculi identified 5. Hepatic steatosis PG Care Time/CCT Total # of Minutes Spent Total Time Spent with Patient: Total time spent is greater than 50% in coordination of care (as documented) at patient's floor/unit and/or counseling patient: Coding Level of Care Code 88675 OBS Care - Level 3 Diagnoses Osteitis pubis M86.9 Acute UTI N39.0 Paroxysmal atrial fibrillation I48.0 Obstructive sleep apnea G47.33 Chronic low back pain M54.5; G89.29 Lymphocytic colitis K52.832
[2020-03-29] MEDS ORDERED: MoRPHine SULFATE 2 MG/ML CARP IV PRN (19:12)
[2020-03-29] MEDS ORDERED: HYDROCORTISONE SOD SUCCINATE 100 MG/2 ML VIAL IV SCH (19:12)
[2020-03-29] MEDS ORDERED: ONDANSETRON INJ 2 MG/ML 2 ML VIAL IV PRN (19:12)
[2020-03-29] MEDS ORDERED: ACETAMINOPHEN 500 MG TAB PO PRN (19:12)
[2020-03-29] MEDS ORDERED: oxyCODONE HCL IR 5 MG TAB (IMMEDIATE RELEASE) PO PRN (19:12)
[2020-03-29] MEDS: HYDROCORTISONE SOD 50 MG in SYRINGE 0 ML IV SCH (20:40)
[2020-03-29] MEDS ORDERED: HEPARIN SOD 5,000 UNIT/0.5 ML VIAL SQ SCH (21:00)
[2020-03-29] MEDS: ACETAMINOPHEN 500 MG TAB PO SCH (21:22)
[2020-03-29] MEDS: CELECOXIB 100 MG CAP PO SCH (21:23)
[2020-03-29] MEDS: LIDOCAINE 5% 1 PATCH TD SCH (21:23)
[2020-03-30] MEDS: HYDROCORTISONE SOD 50 MG in SYRINGE 0 ML IV SCH ×2 (03:56→11:36)
[2020-03-30 06:58] LABS: BUN Creatinine Ratio 25.2 (10-20); Calcium 8.8 mg/dl (8.5-10.1); Creatinine Clr Calc Pharmacy 63.8 ml/min; Est GFR (African American) 85.9; Est GFR (Non-African American) 74.1; Potassium 4.7 mmol/L (3.5-5.1)
[2020-03-30] MEDS: LIDOCAINE 5% 1 PATCH TD SCH (08:16)
[2020-03-30] MEDS: CELECOXIB 100 MG CAP PO SCH (08:16)
[2020-03-30] MEDS: ACETAMINOPHEN 500 MG TAB PO SCH ×3 (08:18→20:01)
[2020-03-30] MEDS ORDERED: RIVAROXABAN 20 MG TAB PO SCH (09:00)
[2020-03-30] MEDS ORDERED: FLECAINIDE ACETATE 100 MG TABLET PO SCH (09:00)
--- NOTE | 2020-03-30 11:54 | Hospitalist Progress Note ---
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 CT scan shows significant destruction at that site after review with urology. He has had multiple recurrences of UTIs. He self catheterizes for urinary r etention Has a history of prostatectomy Urology recommends continuing antibiotics, and involving orthopedic surgery and infectious disease consultations ESR checked and is greater than 90, CRP also significantly elevated at 13.5 Blood cultures were drawn today, of note he had already received 1 dose of IV ertapenem the day prior to blood cultures being drawn -Given history of Enterobacter cloacae as well as coagulase-negative Staphylococcus and urine cultures, will continue with IV ceftriaxone for now Okay to continue Celebrex and lidocaine patch for pain, make Tylenol as needed instead of scheduled Morphine for severe pain however he seems to be much improved (2) Acute UTI: With frequent UTIs, most recently growing Enterobacter Failed Bactrim treatment most likely due to the fact that he has osteitis pubis as above Continue IV ceftriaxone as above (3) Paroxysmal atrial fibrillation: Is in a regular rhythm here -Continue flecainide but this is actually prescribed as twice daily-changed today -Continue Xarelto and moved to p.m. with dinner as he takes it like this at home (4) Obstructive sleep apnea: pt uses cpap at night (5) Chronic low back pain: No acute issues (6) Lymphocytic colitis: Continue home budesonide but changed to 9 mg once daily which is home dose Received IV hydrocortisone stress dose steroids x24 hours which are now discontinued (7) Anticoagulant long-term use: Xarelto as above for atrial fibrillation (8) Urinary retention: Self catheterizes about once daily-ordered this for once daily and ordered bladder scans every shift (9) DVT prophylaxis: Xarelto Disposition-continued stay Admission and Anticipated Discharge Date Admission Date: March 29, 2020 Subjective Patient reports pain control is much improved since being here and having lidocaine patch and steroids as well as Celebrex given. He denies any fevers at home. He self catheterizes his bladder for a long time and follows with sophy ellis. I discussed his care with Dr. Venegas of urology who thinks that the patient has a significant osteitis pubis which could be related to his frequent episodes of cystitis. He recommends orthopedic surgery input, continued pain control possibly with steroids or anti-inflammatories, and possible infectious disease consultation. Patient denies chest pain or shortness of breath, no nausea or vomiting. Review of Systems Review of Systems: All systems reviewed & are unremarkable except as noted in HPI & below Physical Exam Constitutional: WD/WN, vitals as above Eyes: + anicteric sclerae Neck: trachea midline, no thyromegaly Respiratory: normal respiratory effort, lungs clear to auscultation Cardiovascular: RRR, no murmur, no edema Chest (Breasts): Chest: normal inspection of chest Gastrointestinal (Abdomen): Inspection/Auscultation: abdomen normal to inspection and normal bowel sounds; abdomen not distended Percussion/Palpation: + abdomen tender (Direct tenderness to palpation over the pubic symphysis) and abdomen soft; no guarding Musculoskeletal: Extremities: extremities normal to inspection; no cyanosis a nd no clubbing Skin: no rashes, warm and dry Neurologic: moves all extremities and awake; no focal motor deficits Psychiatric: A+Ox3, euthymic affect Lymphatic: no lymphedema Results & Data Results & Data ([facility]) Vital Signs (Past 12 Hours) Vital Signs Temp Pulse Resp BP BP Pulse Ox 03/30/20 11:30 37.1 C 60 18 157/89 H 146/80 H 95 03/30/20 08:00 37.1 C 60 18 157/89 H 95 Laboratory Results 03/30/20 03/30/20 03/30/20 Range/Units 12:01 12:01 12:01 WBC 12.67 H (4.8-10.8) K/uL RBC 3.86 L (4.7-6.1) M/uL Hgb 12.5 L (14.0-18.0) g/dL Hct 37.9 L (42-52) % MCV 98.2 (80-100) fL MCH 32.4 (25-34) pg MCHC 33.0 (32-36) g/dL RDW Std Deviation 47.1 H (36.4-46.3) fL RDW Coeff of [place] 13.2 (11.5-14.5) % Plt Count 275 (130-400) K/uL MPV 10.7 H (7.4-10.4) fL Immature Gran % (Auto) 0.5 % Neut % (Auto) 87.0 % Lymph % (Auto) 6.4 % Dougherty % (Auto) 6.0 % Eos % (Auto) 0.0 % Baso % (Auto) 0.1 % Neut # (Auto) 11.03 H (1.4-6.5) K/uL Lymph # (Auto) 0.81 L (1.2-3.4) K/uL Dougherty # (Auto) 0.76 H (0.11-0.59) K/uL Eos # (Auto) 0.00 (0-0.5) K/uL Baso # (Auto) 0.01 (0-0.2) K/uL Immature Gran # (Auto) 0.06 H (0.00-0.02) K/uL ESR > 90 H (0-14) mm/hr Sodium (136-145) mmol/L Potassium (3.5-5.1) mmol/L Chloride (98-107) mmol/L Carbon Dioxide (21-32) mmol/L Anion Gap (3-11) BUN (7-18) mg/dl Creatinine (0.6-1.4) mg/dl Est Cr Clr Drug Dosing ml/min Est GFR ( Amer) Est GFR (Non-Af Amer) BUN/Creatinine Ratio (10-20) Glucose (70-99) mg/dl Calcium (8.5-10.1) mg/dl C-Reactive Protein 13.50 H (0-0.29) mg/dl 03/30/20 Range/Units 06:05 WBC (4.8-10.8) K/uL RBC (4.7-6.1) M/uL Hgb (14.0-18.0) g/dL Hct (42-52) % MCV (80-100) fL MCH (25-34) pg MCHC (32-36) g/dL RDW Std Deviation (36.4-46.3) fL RDW Coeff of Gordo (11.5-14.5) % Plt Count (130-400) K/uL MPV (7.4-10.4) fL Immature Gran % (Auto) % Neut % (Auto) % Lymph % (Auto) % Dougherty % (Auto) % Eos % (Auto) % Baso % (Auto) % Neut # (Auto) (1.4-6.5) K/uL Lymph # (Auto) (1.2-3.4) K/uL Dougherty # (Auto) (0.11-0.59) K/uL Eos # (Auto) (0-0.5) K/uL Baso # (Auto) (0-0.2) K/uL Immature Gran # (Auto) (0.00-0.02) K/uL ESR (0-14) mm/hr Sodium 137 (136-145) mmol/L Potassium 4.7 D (3.5-5.1) mmol/L Chloride 104 (98-107) mmol/L Carbon Dioxide 28 (21-32) mmol/L Anion Gap 5.0 (3-11) BUN 23 H (7-18) mg/dl Creatinine 0.93 (0.6-1.4) mg/dl Est Cr Clr Drug Dosing 63.8 ml/min Est GFR ( Amer) 85.9 Est GFR (Non-Af Amer) 74.1 BUN/Creatinine Ratio 25.2 H (10-20) Glucose 120 H (70-99) mg/dl Calcium 8.8 (8.5-10.1) mg/dl C-Reactive Protein (0-0.29) mg/dl PG Care Time/CCT Total # of Minutes Spent Total Time Spent with Patient: Total time spent is greater than 50% in coordination of care (as documented) at patient's floor/unit and/or counseling patient: Coding Level of Care Code 31961 Subseq Hosp Care Lvl 3 Diagnoses Osteitis pubis M86.9 Acute UTI N39.0 Paroxysmal atrial fibrillation I48.0 Obstructive sleep apnea G47.33 Chronic low back pain M54.5; G89.29 Lymphocytic colitis K52.832 Anticoagulant long-term use Z79.01 Urinary retention R33.9 DVT prophylaxis Z29.9
[2020-03-30] MEDS ORDERED: cefTRIAXone SODIUM 1,000 MG in DEXTROSE 5% 50 ML IV SCH (12:00)
--- NOTE | 2020-03-30 12:10 | Urology Consultation ---
Date of Consultation March 30, 2020 Assessment & Plan (1) Osteitis pubis: Longtime patient of urology with known history of incomplete emptying, history of prostate cancer status post prostatectomy and radiation, and UTI issues. Patient had presumed UTI and was placed on Bactrim but did not improve. Developed sudden severe pain in the pelvic and groin going down into the legs with issues walking. Was then seen in the ER started on broad-spectrum antibiotics for presumed resistant infection and found to have severe osteitis of the pubic bone. Major destructive process on imaging. Discussed findings. Discussed possible preventions. Patient will likely need intervention. Difficult to determine if infectious or inflammatory or combination of issues. Patient does have a history of pelvic radiation. Would likely need to consider antibiotic coverage. Consultation has been placed and patient is going to be seen by orthopedics to assess and discuss different options. Likely explains a majority of the patient's severe pelvic pain issues and episodes of cystitis which may be due to inflammation due to severity of local disease of the pubic bone. At this point agree with plans for supportive care. Will defer management to orthopedics and possibly infectious disease if felt to be dealing with a true infection into the bone. May need to consider catheter. Also would be available if any issues if patient does require surgical debridement. Patient complicated medical and surgical history was reviewed and summarized above. All imaging was reviewed interpreted by myself. History of Present Illness Attending Physician: Mary Lou Cotter MD History of Present Illness New consultation for known urology patient with history of radical prostatectomy and radiation with history of incomplete emptying, UTI/Pyelo, discomfort, and ill feelings. Patient developed sudden onset of pain into leg and pelvis going down and radiating into groin and back in waves comes and goes. Can be severe at times. Patient had been on antibiotics with no major improvement. Was sent to the ER after contacting our office due to the severity of pain in the groin with difficulty walking. On evaluation in the ER patient found to have severe osteitis of the pubic bone with considerable destruction of the architecture. Patient was given supportive care and broad-spectrum antibiotics. There was a presumed resistant infection and was given ertapenem. Discussed and reviewed patient's family history for any history of issues, infections, and disease. Also, discussed patient's medical/surgery history especially related to any history of urinary issues or stone disease. Patient was admitted and is undergoing observation with broad spectrum IV an tibiotics. Allergies Allergy/AdvReac Type Severity Reaction Status Date / Time hornet venom Allergy Severe ANAPHYLAXIS Verified 01/24/20 08:43 bee venom protein (honey bee) Allergy Unknown SWELLING,SO Verified 01/24/20 08:43 B black walnut Allergy Unknown HIVES Verified 01/24/20 08:43 fire ant Allergy Unknown HIVES Verified 01/24/20 08:43 No Known Drug Allergies Allergy Unknown NONE Verified 01/24/20 08:43 Home Medications Home Medications Medication Instructions Recorded Confirmed Type acetaminophen 500 mg tablet 1,000 mg PO TID PRN #90 tab 02/28/19 03/29/20 History epinephrine 0.3 mg/0.3 mL 0.3 ml IM DIRECTED PRN #1 ea 02/28/19 03/29/20 H istory injection, auto-injector multivitamin 1 tab PO DAILY 02/28/19 03/29/20 History methenamine hippurate 1 gram tablet 1 gm PO HS #30 tab 12/26/19 03/29/20 Rx flecainide 50 mg tablet 50 mg PO Q12H tab 01/09/20 03/29/20 History sulfamethoxazole 800 1 tab PO BID 4 Days #8 tab 03/27/20 03/29/20 Rx mg-trimethoprim 160 mg tablet budesonide 9 mg PO QAM 03/29/20 03/29/20 History glucosamine sulfate [Glucosamine] 0 mg PO BID 03/29/20 03/29/20 History krill oil 0 mg PO QAM 03/29/20 03/29/20 History rivaroxaban [Xarelto] 20 mg PO QPM 03/29/20 03/29/20 History Patient History Medical History Chronic low back pain Chronic venous stasis History of prostate cancer (~1999) Followed by Urology Lymphocytic colitis followed by GI. colonoscopy (10/21) demonstrated diffuse inflammation. Biopsies were consistent with lymphocytic colitis. Treated with Uceris which he has since discontinued. He also had IBD 7 panel consistent with Crohn's disease. Video swallow 11/2017 unremarkable. Obstructive sleep apnea CPAP Paroxysmal atrial fibrillation Followed by Cardiology Urinary retention Self Catheterization Surgical History H/O elbow surgery History of colonoscopy History of prostate surgery S/P bunionectomy S/P cataract surgery S/P total knee arthroplasty Bilateral Status post total shoulder arthroplasty Bilateral Family History Father Prostate cancer Diabetes Mother Leukemia Cancer Denies family history of Ovarian cancer Alzheimer disease Crohn's disease Myocardial infarction Breast cancer Lung cancer Colorectal cancer Hypertension Stroke Social History Smoking Status: Never smoker Second Hand Exposure: No; Hx Alcohol Use: Yes Hx Substance Use: No Preferred Language: Hungarian Communication Ability: Effective Visual Impairment: No Limitations Hearing Ability: Normal Ornament Stapler Required: No Beliefs That Will Affect Care: None marital status: Current Living Situation: Spouse current occupational status: retired Other Information That Helps Us Care for You: Yes Feels Safe at Home: Yes Safety Concerns: Feels Safe At This Time Childhood Exposure to Second-Hand Smoke: No Dental Care, Regularly: Yes Physical Activity Frequency: 1-2 Times per Week Seatbelt Use: always Sunscreen Use: No Assistive Devices: Glasses Review of Systems Review of Systems: All systems reviewed & are unremarkable except as noted in HPI & below Physical Exam Physical Exam: General: Alert and oriented x 3 in no acute distress. Patient is well nourished and well kept. HEENT: Normocephalic Atraumatic. Inspection normal. Cranial Nerves 2-12 Brannon sly intact. Nares are clear. Neck is supple. Normal inspection of face. Normal inspection of neck. Neurologic: No deficits on inspection. Baseline for motor function and sensory. Psychologic: Normal affect. Respiratory: Nonlabored. No use of accessory muscles. No tachypnea or dyspnea. Cardiovascular: No tachycardia Skin: [place] and Dry. No rashes or visible lesions. Extremities: Moving without issues. No motor deficits on inspection Lymphatics: No edema Abdomen: Soft Non-distended. No acites. No rebound or guarding. Results & Data ([facility]) Vital Signs (Past 12 Hours) Vital Signs Temp Pulse Resp BP BP Pulse Ox 03/30/20 11:30 37.1 C 60 18 157/89 H 146/80 H 95 03/30/20 08:00 37.1 C 60 18 157/89 H 95 PG Care Time/CCT Total # of Minutes Spent Total Time Spent with Patient: Total time spent is greater than 50% in coordination of care (as documented) at patient's floor/unit and/or counseling patient: Coding Level of Care Code 53984 Initial Inpt Care Lvl 3 Diagnoses Osteitis pubis M86.9
[2020-03-30 12:35] LABS: Basophils # (auto) 0.01 K/uL (0-0.2); Basophils % (auto) 0.1 %; Hematocrit (blood only) 37.9 % (42-52); Hemoglobin 12.5 g/dL (14.0-18.0); Immature Granulocytes # (auto) 0.06 K/uL (0.00-0.02); Immature Granulocytes % (auto) 0.5 %; Lymphocytes # (auto) 0.81 K/uL (1.2-3.4); Lymphocytes % (auto) 6.4 %; Mean Corpuscular Hemoglobin 32.4 pg (25-34); Mean Corpuscular Volume 98.2 fL (80-100); Mean Platelet Volume 10.7 fL (7.4-10.4); Monocytes # (auto) 0.76 K/uL (0.11-0.59); Neutrophils # (auto) 11.03 K/uL (1.4-6.5); Platelet Count 275 K/uL (130-400); RDW Coefficient of Variation 13.2 % (11.5-14.5); RDW Standard Deviation 47.1 fL (36.4-46.3); Red Blood Count 3.86 M/uL (4.7-6.1); White Blood Count 12.67 K/uL (4.8-10.8)
[2020-03-30] MEDS: cefTRIAXone SODIUM 2,000 MG in DEXTROSE 5% 50 ML IV SCH (13:06)
[2020-03-31] MEDS ORDERED: ACETAMINOPHEN 500 MG TAB PO PRN
[2020-03-31 06:32] LABS: Hematocrit (blood only) 33.6 % (42-52); Hemoglobin 11.2 g/dL (14.0-18.0); Mean Corpuscular Hemoglobin 32.7 pg (25-34); Mean Corpuscular Hgb Conc 33.3 g/dL (32-36); Mean Corpuscular Volume 98.2 fL (80-100); Platelet Count 239 K/uL (130-400); RDW Coefficient of Variation 13.2 % (11.5-14.5); RDW Standard Deviation 47.2 fL (36.4-46.3); Red Blood Count 3.42 M/uL (4.7-6.1); White Blood Count 10.25 K/uL (4.8-10.8)
[2020-03-31 07:05] LABS: BUN Creatinine Ratio 32.2 (10-20); Calcium 8.5 mg/dl (8.5-10.1); Creatinine Clr Calc Pharmacy 69.8 ml/min; Est GFR (African American) 91.4; Est GFR (Non-African American) 78.9; Potassium 3.6 mmol/L (3.5-5.1)
[2020-03-31] MEDS: CELECOXIB 100 MG CAP PO SCH (08:27)
[2020-03-31] MEDS: LIDOCAINE 5% 1 PATCH TD SCH (08:28)
--- NOTE | 2020-03-31 08:47 | Orthopedic Consultation ---
Date of Consultation March 31, 2020 Assessment & Plan (1) Osteitis pubis: Fortunately I do not believe that there is infection going on in his pubic symphysis. I reviewed the CT scan in detail with the radiologist and we do not see anything more than age-related arthritic changes. He can be treated for his urinary tract infection with antibiotics. He is feeling better. We will see how he does today when he is up and ambulating. He is orthopedically stable for discharge when medically ready. He can follow-up with me in the office as needed. Present on Admission?: Yes History of Present Illness Reason for Consultation: Osteitis pubis Attending Physician: Mary Lou Cotter MD History of Present Illness 4-year-old male who is well-known to me. I have done a couple shoulder replacement on him in the past. He has a long history of prostate and urinary issues. He has had radiation to that area. He presented to the hospital with significant pelvic and groin pain. CT of the abdomen pelvis did show some osteophytes around the pubic symphysis. He was treated for a UTI and placed on some antibiotics. He was evaluated by the urologist. The urologist was a little bit concerned about the advanced arthritis in the pubic symphysis area and wanted to rule out any possibilities of infection. Fortunately he is already feeling better in the area. Orthopedics was consulted to evaluate and treat. Allergies Allergy/AdvReac Type Severity Reaction Status Date / Time hornet venom Allergy Severe ANAPHYLAXIS Verified 01/24/20 08:43 bee venom protein (honey bee) Allergy Unknown SWELLING,SO Verified 01/24/20 08:43 B black walnut Allergy Unknown HIVES Verified 01/24/20 08:43 fire ant Allergy Unknown HIVES Verified 01/24/20 08:43 No Known Drug Allergies Allergy Unknown NONE Verified 01/24/20 08:43 Home Medications Home Medications Medication Instructions Recorded Confirmed Type acetaminophen 500 mg tablet 1,000 mg PO TID PRN #90 tab 02/28/19 03/29/20 History epinephrine 0.3 mg/0.3 mL 0.3 ml IM DIRECTED PRN #1 ea 02/28/19 03/29/20 History injection, auto-injector multivitamin 1 tab PO DAILY 02/28/19 03/29/20 History methenamine hippurate 1 gram tablet 1 gm PO HS #30 tab 12/26/19 03/29/20 Rx flecainide 50 mg tablet 50 mg PO Q12H tab 01/09/20 03/29/20 History sulfamethoxazole 800 1 tab PO BID 4 Days #8 tab 03/27/20 03/29/20 Rx mg-trimethoprim 160 mg tablet budesonide 9 mg PO QAM 03/29/20 03/29/20 History glucosamine sulfate [Glucosamine] 0 mg PO BID 03/29/20 03/29/20 History krill oil 0 mg PO QAM 03/29/20 03/29/20 History rivaroxaban [Xarelto] 20 mg PO QPM 03/29/20 03/29/20 History Patient History Medical History Anticoagulant long-term use Chronic low back pain Chronic venous stasis History of prostate cancer (~1999) Followed by Urology Lymphocytic colitis followed by GI. colonoscopy (10/21) demonstrated diffuse inflammation. Biopsies were consistent with lymphocytic colitis. Treated with Uceris which he has since discontinued. He also had IBD 7 panel consistent with Crohn's disease. Video swallow 11/2017 unremarkable. Obstructive sleep apnea CPAP Osteitis pubis Paroxysmal atrial fibrillation Followed by Cardiology Urinary retention Self Catheterization Surgical History H/O elbow surgery History of colonoscopy History of prostate surgery S/P bunionectomy S/P cataract surgery S/P total knee arthroplasty Bilateral Status post total shoulder arthroplasty Bilateral Family History Father Prostate cancer Diabetes Mother Leukemia Cancer Denies family history of Ovarian cancer Alzheimer disease Crohn's disease Myocardial infarction Breast cancer Lung cancer Colorectal cancer Hypertension Stroke Social History Smoking Status: Never smoker Second Hand Exposure: No; Hx Alcohol Use: Yes Hx Substance Use: No Preferred Language: American Communication Ability: Effective Visual Impairment: No Limitations Hearing Ability: Normal Gill Box Operator Required: No Beliefs That Will Affect Care: None marital status: Current Living Situation: Spouse current occupational status: retired Other Information That Helps Us Care for You: Yes Feels Safe at Home: Yes Safety Concerns: Feels Safe At This Time Childhood Exposure to Second-Hand Smoke: No Dental Care, Regularly: Yes Physical Activity Frequency: 1-2 Times per Week Seatbelt Use: always Sunscreen Use: No Assistive Devices: Glasses Review of Systems Review of Systems: All systems reviewed & are unremarkable except as noted in HPI & below Physical Exam Constitutional: WD/WN, vitals as above Eyes: PERRL, conjunctivae normal, anicteric sclerae ENMT: external ear and nose normal, oropharynx normal Neck: trachea midline, no thyromegaly Respiratory: normal respiratory effort Cardiovascular: RRR, no murmur, no edema Gastrointestinal (Abdomen): normal bowel sounds, soft, nontender, no hepatosplenomegaly Musculoskeletal: On physical examination, he has no pain over the pubic symp hysis today. He has good range of motion of his hips. There is no swelling or erythema in the area. There is no signs of acute infection. Psychiatric: A+Ox3, euthymic affect Results & Data ([facility]) Vital Signs (Past 12 Hours) Vital Signs Temp Pulse Resp BP Pulse Ox 03/31/20 07:00 36.5 C 67 18 151/83 H 95 03/30/20 23:02 36.6 C 61 20 156/[address] scan of the abdomen and pelvis was reviewed extensively. There is some degenerative changes of the pubic symphysis and some posterior osteophyte formation. There is possible old fractures of the right pubic rami. I do not see any signs of infection. It appears to be mostly age-related degenerative changes. I spoke with the radiologist personally as well. We reviewed the CT scan together I did not see any evidence of infection or destructive process. PG Care Time/CCT Total # of Minutes Spent Total Time Spent with Patient: Total time spent is greater than 50% in coordination of care (as documented) at patient's floor/unit and/or counseling patient: Coding Level of Care Code 93794 Inpt Consult Level 3 Diagnoses Osteitis pubis M86.9
[2020-03-31] MEDS ORDERED: FLECAINIDE ACETATE 100 MG TABLET PO SCH (09:00)
[2020-03-31] MEDS ORDERED: BUDESONIDE EC 3 MG CAP PO SCH ×2 (09:00)
[2020-03-31] MEDS: cefTRIAXone SODIUM 2,000 MG in DEXTROSE 5% 50 ML IV SCH (12:30)
--- NOTE | 2020-03-31 12:37 | Discharge Summary ---
Date of Service March 31, 2020 Admission HPI Per Admitting Provider Patient is an 84-year-old male who presented with lower abdominal pain, ongoing UTI and concern for osteitis pubis. Principal Diagnosis Osteitis pubis, UTI Discharge Exam Constitutional WD/WN, vitals as above Eyes + anicteric sclerae Neck trachea midline, no thyromegaly Respiratory normal respiratory effort, lungs clear to auscultation Cardiovascular RRR, no murmur, no edema Chest (Breasts) Chest: normal inspection of chest Gastrointestinal (Abdomen) Inspection/Auscultation: abdomen normal to inspection and normal bowel sounds; abdomen not distended Percussion/Palpation: + abdomen tender (Direct tenderness to palpation over the pubic symphysis very mild and improved from previous) and abdomen soft; no guarding Musculoskeletal Extremities: extremities normal to inspection; no cyanosis and no clubbing Skin no rashes, warm and dry Neurologic moves all extremities and awake; no focal motor deficits Psychiatric A+Ox3, euthymic affect Lymphatic no lymphedema Discharge Data Allergies Allergy/AdvReac Type Severity Reaction Status Date / Time hornet venom Allergy Severe ANAPHYLAXIS Verified 01/24/20 08:43 bee venom protein (honey bee) Allergy Unknown SWELLING,SO Verified 01/24/20 08:43 B black walnut Allergy Unknown HIVES Verified 01/24/20 08:43 fire ant Allergy Unknown HIVES Verified 01/24/20 08:43 No Known Drug Allergies Allergy Unknown NONE Verified 01/24/20 08:43 Consultations 03/30/20 11:40 Consult Urology Routine 03/30/20 11:41 Consult Orthopedic Surgery Routine Ordered Studies 03/29/20 15:32 CT abd pelvis wo con Stat Hospital Course (1) Osteitis pubis: Patient presents with pain and tenderness at the pubic symphysis. CT scan of the abdomen/pelvis read as radiology as posterior spurring arising from the symphysis pubis. Urology interpretation of CT was that it shows significant destruction at the symphysis pubis and there was concern for the possibility of infection He has had multiple recurrences of UTIs. He self catheterizes for urinary retention Has a history of prostatectomy Urology recommended continuing antibiotics, and involving orthopedic surgery and possibly infectious disease consultations ESR checked and is greater than 90, CRP also significantly elevated at 13.5 Blood cultures were drawn and remain no growth to date-of note he had already received 1 dose of IV ertapenem the day prior to blood cultures being drawn Orthopedic surgery saw the patient and because his pain was improved after receiving some IV steroids and Celebrex, did not think that it seemed infectious in nature. Orthopedics also reviewed the CAT scan with the radiologist who did not think that there was evidence of an infectious bony process going on. Recommended discharge to home with pain control as needed Okay to continue Celebrex 100 mg p.o. once daily as needed for pain Recommend following up with PCP and repeating the ESR and CRP within 1 week. If pain in symphysis pubis increases again or develops fevers, would recommend further work-up for osteomyelitis and follow-up with orthopedic surgery as an outpatient. Could also consider outpatient follow-up with infectious disease at [facility] with Dr. Palencia. Of note, infectious disease consultation was not available through the weekend when the patient was admitted. (2) Acute UTI: With frequent UTIs, most recently growing Enterobacter Possibly failed Bactrim treatment although pain on presentation was from the osteitis pubis and not from the UTI Received 1 dose of IV ertapenem, followed by 2 doses of IV ceftriaxone after admission -We will send home to finish out a 7-day course of antibiotics with cefdinir 300 mg p.o. twice daily as per urology recommendations for 1 week of antibiotics Follow-up with urology-consider prophylactic daily antibiotics Hold home methenamine and restart after antibiotics completed. He self catheterizes and this may just be colonization (3) Paroxysmal atrial fibrillation: Is in a regular rhythm here -Continue flecainide -Continue Xarelto (4) Obstructive sleep apnea: pt uses cpap at night (5) Chronic low back pain: No acute issues (6) Lymphocytic colitis: Continue home budesonide 9 mg once daily Received IV hydrocortisone stress dose steroids x24 hours which are now discontinued (7) Anticoagulant long-term use: Xarelto as above for atrial fibrillation (8) Urinary retention: Self catheterizes about once daily-ordered this for once daily and ordered bladder scans every shift (9) DVT prophylaxis: Xarelto Disposition-stable for discharge to home with close follow-up with PCP Total Time Total Time Spent Total Time Spent (In Minutes): 40 minutes Total Time Includes: Examination of the Patient, Discharge Planning, Medication Reconciliation and Communication With Other Providers (Urology) Discharge Plan Discharge Items Patient Disposition: Home - Self-Care Reason For Visit: ABDOMINAL PAIN Discharge Diagnosis: Osteitis pubis, urinary tract infection Condition on Discharge: Good Activity: As commented below Lifting: Gradually increase as tolerated Bathing: No limitations Exercise/Sports: Gradually increase as tolerated Non-emergency contact: Primary Care Provider, Surgeon and Urologist Call non-emergency contact if: you have any medication questions, your symptoms worsen, your pain is not controlled, your pain is worsening, your pain is unusual for you, your pain is concerning for you, you have a fever and your temperature is above 101 Follow-up/Referrals: Chilango Jacinto MD [Physician] - (Follow-up within 1 to 2 weeks.) Tonny Huber DO [Primary Care Provider] - 04/09/20 2:30 pm () Tonny Gandhi DO [Physician] - (Follow-up only as needed if pubic bone pain returns.) Diet: Regular Addtl Attending Provider Instructions: Please finish out the course of oral antibiotics for 4 more days. You can take Celebrex once daily as needed for pain. Follow-up with Dr. Jacinto of urology within 2 weeks. You will need to follow-up with Dr. Gandhi orthopedic surgery if your pubic bone pain returns. Please follow-up with your primary care physician within 1 to 2 weeks. He should repeat blood work to check your markers of inflammation at that time. Pending Studies at Discharge: Yes (Blood cultures-no growth to date) Stand-Alone Forms: My [facility] Medications and DC Order Prescriptions: New celecoxib [Celebrex] 100 mg Capsule 100 mg PO DAILY PRN (Reason: Pain) Qty: 14 RF: 0 cefdinir 300 mg capsule 300 mg PO BID 5 Days Qty: 10 RF: 0 Continued methenamine hippurate 1 gram tablet 1 gm PO HS Qty: 30 RF: 11 flecainide 50 mg tablet 50 mg PO Q12H RF: 0 multivitamin [Daily Multi-Vitamin] tablet 1 tab PO DAILY RF: 0 acetaminophen 500 mg tablet 1,000 mg PO TID PRN (Reason: Fever Or Pain) Qty: 90 RF: 0 epinephrine 0.3 mg/0.3 mL auto-injector 0.3 ml IM DIRECTED PRN (Reason: hypersensitivity reaction) Qty: 1 RF: 0 glucosamine sulfate [Glucosamine] 500 mg Tablet 0 mg PO BID RF: 0 krill oil 500 mg Capsule 0 mg PO QAM RF: 0 Xarelto 20 mg Tablet 20 mg PO QPM RF: 0 budesonide 9 mg tablet,delayed and ext.release 9 mg PO QAM RF: 0 Discontinued sulfamethoxazole-trimethoprim [Bactrim DS] 800-160 mg tablet 1 tab PO BID 4 Days Qty: 8 RF: 0 Discharge Orders: Discharge Order (Routine); Ordered 03/31/20 Ordered By: Mary Lou Cotter Admission Data Admit Date/Time: 03/29/20 17:31 Attending Provider: Mary Lou Cotter Admit Provider: Ghassan Figueroa Primary Care Provider: Tonny Huber Other Providers: Alek Venegas ; Tonny Gandhi Other Interventions: Discharge Summary Assessment (RN) Last Done: 03/31/20 12:24 Coding Level of Care Code 64668 OBS Care - Discharge Diagnoses Osteitis pubis M86.9 Acute UTI N39.0 Paroxysmal atrial fibrillation I48.0 Obstructive sleep apnea G47.33 Chronic low back pain M54.5; G89.29 Lymphocytic colitis K52.832 Anticoagulant long-term use Z79.01 Urinary retention R33.9 DVT prophylaxis Z29.9
[2020-03-31] MEDS ORDERED: RIVAROXABAN 20 MG TAB PO SCH (16:30)
== END 2020-03-31 13:25 | disposition home or self-care (01) ==
LOC: ED 15:00 → 2N 15:00 → SUATTDRO 17:31 → 2N 18:29

== ENCOUNTER 2020-05-19 18:26 | Inpatient (IN) ==
[2020-05-19] MEDS ORDERED: ACETAMINOPHEN 1,000 MG/100 ML VIAL IV STA (18:40)
[2020-05-19] MEDS ORDERED: SODIUM CHLORIDE 0.9% 1000ML 1,000 ML IV ONE ×2 (18:43→19:59)
[2020-05-19] MEDS ORDERED: PIPERACILLIN/TAZOBACTAM 4.5 GM/120 ML BAG IV ONE (18:44)
[2020-05-19] MEDS ORDERED: levoFLOXacin/D5W 750 MG/150 ML BAG IV STA (18:44)
[2020-05-19] MEDS ORDERED: VANCOMYCIN HCL 1,000 MG in SODIUM CHLORIDE 0.9% 500 ML IV ONE (18:44)
[2020-05-19] MEDS ORDERED: PIPERACILL/TAZOBAC CONSULT ACTIVE PRN ×2 (18:44→23:37)
[2020-05-19] MEDS ORDERED: VANCOMYCIN CONSULT ACTIVE PRN ×2 (18:44→23:37)
[2020-05-19 18:53] LABS: Eosinophils # (auto) 0.01 K/uL (0-0.5); Eosinophils % (auto) 0.2 %; Hematocrit (blood only) 31.5 % (42-52); Hemoglobin 10.6 g/dL (14.0-18.0); Immature Granulocytes # (auto) 0.01 K/uL (0.00-0.02); Immature Granulocytes % (auto) 0.2 %; Lymphocytes # (auto) 0.18 K/uL (1.2-3.4); Lymphocytes % (auto) 4.3 %; Mean Corpuscular Hemoglobin 31.8 pg (25-34); Mean Corpuscular Hgb Conc 33.7 g/dL (32-36); Mean Corpuscular Volume 94.6 fL (80-100); Mean Platelet Volume 9.9 fL (7.4-10.4); Monocytes # (auto) 0.02 K/uL (0.11-0.59); Monocytes % (auto) 0.5 %; Neutrophils # (auto) 3.98 K/uL (1.4-6.5); Neutrophils % (auto) 94.8 %; Platelet Count 239 K/uL (130-400); RDW Coefficient of Variation 13.7 % (11.5-14.5); RDW Standard Deviation 47.4 fL (36.4-46.3); Red Blood Count 3.33 M/uL (4.7-6.1)
[2020-05-19 19:01] LABS: Alanine Aminotransferase 106 U/L (12-78); Albumin Level 2.3 gm/dl (3.4-5.0); Aspartate Aminotransferase 233 U/L (15-37); BUN Creatinine Ratio 14.4 (10-20); Blood Urea Nitrogen 28 mg/dl (7-18); Carbon Dioxide 23 mmol/L (21-32); Chloride 101 mmol/L (98-107); Est GFR (African American) 35.3; Est GFR (Non-African American) 30.5; Glucose 118 mg/dl (70-99); Magnesium 1.6 mg/dl (1.8-2.4); Sodium 135 mmol/L (136-145)
[2020-05-19 19:04] LABS: Albumin Globulin Ratio 0.4 (0.9-2); Alkaline Phosphatase 283 U/L (45-117); Bilirubin,Total 1.2 mg/dl (0.2-1); Creatine Kinase 27 U/L (39-308); Creatine Kinase MB < 1.0 ng/ml (0.5-3.6); Globulin 5.2 gm/dl (2.5-4.0); NT Pro B Type Natriuretic Pept 2477 pg/ml (0-1800); Total Protein 7.5 gm/dl (6.4-8.2); Troponin I < 0.015 ng/ml (0-0.045)
[2020-05-19 19:06] LABS: iSTAT Creatinine 1.5 mg/dl (0.6-1.3); iSTAT Hemoglobin 9.9 g/dl (14.0-18.0); iSTAT Ionized Calcium 1.03 mmol/l (1.12-1.32); iSTAT Potassium 5.6 mmol/L (3.3-5.0)
[2020-05-19 19:11] LABS: INR 1.4 (0.9-1.1); Partial Thromboplastin Time 27.7 Seconds (21.0-31.0); Prothrombin Time 14.5 Seconds (9.0-12.0)
--- NOTE | 2020-05-19 19:17 | XRay Report ---
XR chest 1V portable HISTORY: SEPSIS COMPARISON: Chest 12/24/2014. FINDINGS: Progressive perihilar interstitial and vascular thickening consistent with mild congestive change. No pneumothorax. The heart is mildly enlarged. Suspect trace bilateral pleural effusions. The re is a left shoulder prosthesis. No pneumothorax. IMPRESSION: Cardiomegaly with mild congestive change and trace bilateral pleural effusions. ACT 112: Negative or not required by law. Electronically signed by: Niko Woodson M.D. 05/19/2020 7:16 PM
[2020-05-19 19:30] LABS: D Dimer 7830 ug/L FEU (0-500)
[2020-05-19] MEDS ORDERED: OPTIRAY 320 125ml IV ONE (19:42)
--- NOTE | 2020-05-19 20:01 | CT Scan Report ---
CHEST CTA for PULMONARY ARTERIES CT DOSE: HISTORY: Shortness of breath. TECHNIQUE: Multiaxial CT images of the chest were performed following the intravenous administration of contrast to evaluate the pulmonary arteries. Maximal intensity projection images were also obtaine d. A dose lowering technique was utilized adhering to the principles of ALARA. COMPARISON STUDY: Chest CT 05/09/2009. FINDINGS: Old mild anterior wedge-shaped compression deformity at T11. Normal caliber thoracic aorta with no evidence for dissection. The heart is mildly enlarged. No pleural or pericardial effusions. N ondiagnostic evaluation of the majority of the segmental and subsegmental pulmonary arteries due to t he respiratory motion artifact. The main and lobar pulmonary arteries appear patent. Please refer to the same day abdomen and pelvis CT for further evaluation of the abdominal structures. No mediastinal or hilar lymphadenopathy. Bilateral shoulder prostheses are noted. No suspicious lytic or blastic os seous lesions. No pneumothorax. The central airways appear patent. Suboptimal evaluation of the lungs due to the respiratory motion. Mild dependent changes seen at the lung bases. There appears be a yariel nt groundglass density within the left upper lobe anteriorly on image 148. IMPRESSION: 1. No evidence for central pulmonary embolus. 2. Possible faint groundglass density within the left upper lobe anteriorly. This could represent a v iral pneumonia. 3. Please refer to the same day abdomen and pelvis CT for further evaluation of the abdominal structu res. ACT 112: Negative or not required by law. Electronically signed by: Niko Woodson M.D. 05/19/2020 8:00 PM
--- NOTE | 2020-05-19 20:12 | CT Scan Report ---
ABDOMEN AND PELVIS CT WITH IV CONTRAST CT DOSE: 2209.63 mGy.cm HISTORY: Pt c/o Sepsis TECHNIQUE: Multiaxial CT images of the abdomen and pelvis were performed following the use of intrave nous contrast. A dose lowering technique was utilized adhering to the principles of ALARA. COMPARISON STUDY: Abdomen and pelvis CT 03/29/2020. FINDINGS: No pneumoperitoneum. No pneumatosis. Old, healed right pubic ring fractures. Soft tissue th ickening at the symphysis pubis with focal area of erosive change within the left side of the symphys is pubis best in image 393. The focal erosion measures 9 mm. This is new from the prior study. There is also punctate foci of gas at the symphysis pubis which is new from the prior study. The large oste ophytes at this location abut the anterior bladder wall. This remains unchanged. The bladder jacobson mo derately thickened. There is a small amount of gas within the bladder lumen. The prostate gland is palacios rgically absent. There is a punctate stone within the left kidney. There are multiple left peripelvic renal cysts. There are few bilateral cortical renal cysts. There is moderate right hydroureteronephr osis secondary to an obstructing 8 mm stone within the mid right ureter best seen on image 262. The l iver, spleen, and pancreas appear unremarkable. A few small diverticula within the duodenum. Essentia lly nondiagnostic evaluation of the gallbladder. Normal caliber abdominal aorta. No retroperitoneal l ymphadenopathy. Colonic diverticulosis. No evidence for acute diverticulitis. No evidence for bowel o bstruction. Normal appendix. IMPRESSION: 1. Moderate right hydroureteronephrosis secondary to an obstructing 8 mm stone within the mid right u reter. 2. Left-sided nephrolithiasis. No left-sided left hydronephrosis. 3. Progressive soft tissue thickening with a new focal erosion and small amount of gas at the symphys is pubis. Findings raise the possibility of a septic arthritis/osteomyelitis. Of note, the anterior b ladder wall abuts this region and also contains a small focus of gas. Although considered less likely , a fistula from the anterior bladder wall to the symphysis pubis cannot be excluded. 4. Moderate bladder wall thickening. Recommend correlation with urinalysis. This could be reactive to the adjacent abnormality of the symphysis pubis. 5. Additional findings as described above. ACT 112: Negative or not required by law. Electronically signed by: Niko Woodson M.D. 05/19/2020 8:11 PM
[2020-05-19 20:13] LABS: Influenza A virus by PCR Negative (Neg); Influenza B virus by PCR Negative (Neg); RSV by PCR Negative (Neg); SARS CoV2 RNA(COVID-19) InHosp NEGATIVE (Negative)
--- NOTE | 2020-05-19 20:15 | CT Scan Report ---
HEAD CT NONCONTRAST CT DOSE: HISTORY: Altered mental status. Pt c/o sepsis TECHNIQUE: Multiaxial CT images of the head were performed without the use of intravenous contrast. A utomated exposure control was utilized for this study. A dose lowering technique was utilized adheri ng to the principles of ALARA. Comparison: Head CT 09/18/2011. Findings: The paranasal sinuses and mastoid air cells are clear. The calvarium and skull base are int act. There is no mass, hematoma, midline shift, acute infarct. White matter hypodensity is nonspecifi c but suggestive of microvascular ischemic change. The ventricles and sulci demonstrate mild age-rela howie involutional changes. Impression: No acute intracranial abnormality. Atrophy and microvascular ischemic changes. ACT 112: Negative or not required by law. Electronically signed by: Niko Woodson M.D. 05/19/2020 8:14 PM
--- NOTE | 2020-05-19 21:15 | Urology Consultation ---
Date of Consultation May 19, 2020 Assessment & Plan (1) Bladder neck contracture: Patient with severe sepsis with multi organ effects and septic shock with a obstructing right ureteral stone and history of bladder neck contracture with retention. Spoke with son who is a joint power of tax associate attorney. Patient is acutely ill and delirious. Need for emergent stent placement. Risk and benefits have been discussed. Patient's family knowledge need. They are hesitant about need for intubation did explain that likely will be able to utilize sedation but patient would be at risk for respiratory failure due to severity of infection and sepsis. Discussed possible issues related to patient's known history of retention of bladder neck contracture. Discussed retention issues. Discussed stone disease and problems. Discussed need for emergent decompression. We will proceed with emergent cystoscopy with right stent. (2) Ureteral stone: (3) Sepsis: (4) History of prostate cancer: History of Present Illness History of Present Illness Urgent/emergent consultation for acutely ill and septic patient with UTI/Pyelo, discomfort, and ill feelings. Patient developed sudden onset of pain into flank going down and radiating into groin and back in waves comes and goes. Can be severe at times. Altered mental status due to acute illness Discussed and reviewed patient's personal medical, surgical, social, and family history for any history of issues, infections, and disease. Also, discussed patient's medical/surgery history especially related to any history of urinary issues or stone disease. Patient is undergoing intense/critical management for acute illness and is being admitted to undergo critical care. Hospitalist/ICU team has admitted and is undergoing observation with broad spectrum IV antibiotics. Allergies Allergy/AdvReac Type Severity Reaction Status Date / Time bee venom protein (honey bee) Allergy Severe SWELLING,SO Verified 05/19/20 20:11 B hornet venom Allergy Severe ANAPHYLAXIS Verified 05/19/20 20:10 black walnut Allergy Intermediate HIVES Verified 05/19/20 20:11 fire ant Allergy Intermediate HIVES Verified 05/19/20 20:11 Home Medications Medication Instructions Recorded Confirmed Type acetaminophen 500 mg tablet 1,000 mg PO TID PRN #90 tab 02/28/19 05/19/20 History epinephrine 0.3 mg/0.3 mL 0.3 ml IM DIRECTED PRN #1 ea 02/28/19 05/19/20 History injection, auto-injector multivitamin 1 tab PO DAILY 02/28/19 05/19/20 History methenamine hippurate 1 gram tablet 1 gm PO HS #30 tab 12/26/19 05/19/20 Rx Xarelto 20 mg PO QPM 03/29/20 05/19/20 History glucosamine sulfate [Glucosamine] 0 mg PO BID 03/29/20 05/19/20 History krill oil 0 mg PO QAM 03/29/20 05/19/20 History celecoxib [Celebrex] 100 mg PO DAILY PRN #14 cap 03/31/20 05/19/20 Rx budesonide 9 mg tablet,delayed and See Rx Instructions .ROUTE 04/03/20 05/19/20 Rx extended release .COMPLEX #30 tablet flecainide 50 mg tablet 50 mg PO BID tab 04/09/20 05/19/20 History cefuroxime axetil 250 mg tablet 250 mg PO BID 10 Days #20 tab 05/15/20 05/19/20 Rx Patient History Medical History (Updated 05/19/20 @ 21:17 by Alek Venegas DO) Anticoagulant long-term use Chronic low back pain Chronic venous stasis History of prostate cancer (~1999) Followed by Urology Obstructive sleep apnea CPAP Osteitis pubis Paroxysmal atrial fibrillation Followed by Cardiology Urinary retention Self Catheterization Surgical History H/O elbow surgery History of colonoscopy History of prostate surgery S/P bunionectomy S/P cataract surgery S/P total knee arthroplasty Bilateral Status post total shoulder arthroplasty Bilateral Family History Father Prostate cancer Diabetes Mother Leukemia Cancer Denies family history of Ovarian cancer Alzheimer disease Crohn's disease Myocardial infarction Breast cancer Lung cancer Colorectal cancer Hypertension Stroke Social History Smoking Status: Never smoker Second Hand Exposure: No; Hx Alcohol Use: Yes Hx Substance Use: No Preferred Language: Irish Communication Ability: Effective Visual Impairment: No Limitations Hearing Ability: Normal 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 Undergoing critical care management for acute severe infection HEENT: Normocephalic Atraumatic. Inspection normal. Cranial Nerves 2-12 Grossly intact. Nares are clear. Neck is supple. Normal inspection of face. Normal inspection of neck. Neurologic: No deficits on inspection. Baseline for motor function and sensory. Psychologic: Anxious, acute delirium secondary to illness Respiratory: Mild labored. No use of accessory muscles. No severe dyspnea. Cardiovascular: tachycardia Skin: [place] and Dry. No rashes or visible lesions. Febrile Extremities: Moving without issues. No motor deficits on inspection Lymphatics: Mild edema Abdomen: Mildly distended. No rebound or guarding. Mild suprapubic/flank tenderness Results & Data ([facility]) Vital Signs (Past 12 Hours) Vital Signs Temp Pulse Resp BP Pulse Ox 05/19/20 20:21 120 H 29 H 100 05/19/20 20:20 119 H 29 H 68/44 L 100 05/19/20 20:11 120 H 29 H 100 05/19/20 20:10 122 H 29 H 70/50 L 100 05/19/20 20:06 122 H 31 H 82/49 L 100 05/19/20 20:01 124 H 29 H 146/128 H 100 05/19/20 20:00 126 H 34 H 100 05/19/20 19:57 127 H 30 H 05/19/20 19:31 130 H 34 H 100 05/19/20 19:30 131 H 34 H 93/60 L 100 05/19/20 19:20 128 H 05/19/20 19:16 141 H 101/71 05/19/20 19:10 145 H 100 05/19/20 19:01 152 H 89/48 L 05/19/20 19:00 152 H 05/19/20 18:51 38.0 C H 145 H 30 H 97 05/19/20 18:50 146 H 05/19/20 18:40 143 H 99 05/19/20 18:39 152 H 24 100/67 94 05/19/20 18:37 154 H 24 95 PG Care Time/CCT Total # of Minutes Spent Total Time Spent with Patient: Total time spent is greater than 50% in coordination of care (as documented) at patient's floor/unit and/or counseling patient: Coding Level of Care Code 71145 Inpt Consult Level 5 Diagnoses Bladder neck contracture N32.0 Ureteral stone N20.1 Sepsis A41.9 History of prostate cancer Z85.46
[2020-05-19] MEDS: ALBUMIN 25% 12.5 GM/50 ML VIAL IV SCH ×3 (21:28→22:27)
--- NOTE | 2020-05-19 21:36 | Anesthesiology Consultation ---
Date of Service May 19, 2020 Covid 19 negative today. The patient is hypotensive with sepsis in the ER. Dr. Venegas believes that the obstruction is causing the sepsis and that stent placement is necessary. Consent was obtained from his son by phone. Assessment & Plan (1) Encounter for pre-operative examination: (2) Encounter for pre-operative examination: Chart Review Chart Review: Acceptable Risk for Surgery (necessary surgery) and Patient NOT seen in Pre Admission Testing Consults Requested none History Surgery Operation Date: 05/19/20 21:00 Proposed Procedures p Cystoscopy Retrograde - Alek Venegas, DO Height/Weight Height: 5 ft 8 in Weight: 91.3 kg Allergies Allergy/AdvReac Type Severity Reaction Status Date / Time bee venom protein (honey bee) Allergy Severe SWELLING,SO Verified 05/19/20 20:11 B hornet venom Allergy Severe ANAPHYLAXIS Verified 05/19/20 20:10 black walnut Allergy Intermediate HIVES Verified 05/19/20 20:11 fire ant Allergy Intermediate HIVES Verified 05/19/20 20:11 Medications Home Medications Medication Instructions Recorded Confirmed Last Taken acetaminophen 500 mg tablet 1,000 mg PO TID PRN #90 tab 02/28/19 05/19/20 Unknown epinephrine 0.3 mg/0.3 mL 0.3 ml IM DIRECTED PRN #1 ea 02/28/19 05/19/20 Unknown injection, auto-injector multivitamin 1 tab PO DAILY 02/28/19 05/19/20 03/29/20 methenamine hippurate 1 gram tablet 1 gm PO HS #30 tab 12/26/19 05/19/20 03/28/20 Xarelto 20 mg PO QPM 03/29/20 05/19/20 03/28/20 glucosamine sulfate [Glucosamine] 0 mg PO BID 03/29/20 05/19/20 03/29/20 AM DOSE krill oil 0 mg PO QAM 03/29/20 05/19/20 03/29/20 celecoxib [Celebrex] 100 mg PO DAILY PRN #14 cap 03/31/20 05/19/20 Unknown budesonide 9 mg tablet,delayed and See Rx Instructions .ROUTE 04/03/20 05/19/20 Unknown extended release .COMPLEX #30 tablet flecainide 50 mg tablet 50 mg PO BID tab 11/03/20 12/13/20 Unknown cefuroxime axetil 250 mg tablet 250 mg PO BID 10 Days #20 tab 05/15/20 05/19/20 Unknown Active Medications Generic Name Dose Route Start Last Admin Trade Name Aggie PRN Reason Stop Dose Admin Albumin Human 12.5 gm in 50 mls @ 50 mls/hr 05/19/20 21:00 05/19/20 21:28 Albumin 25% IV 05/20/20 00:59 50 mls/hr Q1H HERLINDA Administration Past Medical History Medical History Anemia Anticoagulant long-term use Chronic low back pain Chronic venous stasis History of prostate cancer (~1999) Followed by Urology Obstructive sleep apnea CPAP Osteitis pubis Paroxysmal atrial fibrillation Followed by Cardiology Urinary retention Self Catheterization Past Family History Family History Father Prostate cancer Diabetes Mother Leukemia Cancer Denies family history of Ovarian cancer Alzheimer disease Crohn's disease Myocardial infarction Breast cancer Lung cancer Colorectal cancer Hypertension Stroke Past Surgical History Surgical History H/O elbow surgery History of colonoscopy History of prostate surgery S/P bunionectomy S/P cataract surgery S/P total knee arthroplasty Bilateral Status post total shoulder arthroplasty Bilateral Social History Smoking Status: Never smoker Hx Alcohol Use: Yes alcohol intake frequency: holidays/special occasions only Hx Substance Use: No Physical Exam Vital Signs Last Vital Signs Temp 38.0 C H 05/19/20 18:51 Pulse 120 H 05/19/20 20:21 Resp 29 H 05/19/20 20:21 BP 68/44 L 05/19/20 20:20 Pulse Ox 100 05/19/20 20:21 Testing Laboratory Results 05/19/20 18:30 05/19/20 18:30 PT 14.5 Seconds (9.0-12.0) H 05/19/20 18:30 INR 1.4 (0.9-1.1) H 05/19/20 18:30 APTT 27.7 Seconds (21.0-31.0) 05/19/20 18:30 Blood Type A Positive 05/19/20 18:55 Antibody Screen NEGATIVE 05/19/20 18:55 05/19/20 18:53 POC Glucose (other) 128 H Electrocardiogram Date: 05/13/20 Findings: + AFIB @ (71) pulmonary disease pattern Chest X-Ray Date: 05/19/20 XR chest 1V portable HISTORY: SEPSIS COMPARISON: Chest 12/24/2014. FINDINGS: Progressive perihilar interstitial and vascular thickening consistent with mild congestive change. No pneumothorax. The heart is mildly enlarged. Suspect trace bilateral pleural effusions. There is a left shoulder prosthesis. No pneumothorax. IMPRESSION: Cardiomegaly with mild congestive change and trace bilateral pleural effusions. ACT 112: Negative or not required by law. Electronically signed by: Niko Woodson M.D. 05/19/2020 7:16 PM Dictated: 05/19/201913 Echocardiogram Date: 04/23/20 EF: 55-60 Other Findings: + LVH (moderate) Other Testing HEAD CT NONCONTRAST CT DOSE: HISTORY: Altered mental status. Pt c/o sepsis TECHNIQUE: Multiaxial CT images of the head were performed without the use of intravenous contrast. Automated exposure control was utilized for this study. A dose lowering technique was utilized adhering to the principles of ALARA. Comparison: Head CT 09/18/2011. Findings: The paranasal sinuses and mastoid air cells are clear. The calvarium and skull base are intact. There is no mass, hematoma, midline shift, acute infarct. White matter hypodensity is nonspecific but suggestive of microvascular ischemic change. The ventricles and sulci demonstrate mild age-related involutional changes. Impression: No acute intracranial abnormality. Atrophy and microvascular ischemic changes. ACT 112: Negative or not required by law. Electronically signed by: Niko Woodson M.D. 05/19/2020 8:14 PM Dictated: 05/19/202010Transcribed: 05/19/202010 ' CHEST CTA for PULMONARY ARTERIES CT DOSE: HISTORY: Shortness of breath. TECHNIQUE: Multiaxial CT images of the chest were performed following the intravenous administration of contrast to evaluate the pulmonary arteries. Maximal intensity projection images were also obtained. A dose lowering technique was utilized adhering to the principles of ALARA. COMPARISON STUDY: Chest CT 05/09/2009. FINDINGS: Old mild anterior wedge-shaped compression deformity at T11. Normal caliber thoracic aorta with no evidence for dissection. The heart is mildly enlarged. No pleural or pericardial effusions. Nondiagnostic evaluation of the majority of the segmental and subsegmental pulmonary arteries due to the respiratory motion artifact. The main and lobar pulmonary arteries appear patent. Please refer to the same day abdomen and pelvis CT for further evaluation of the abdominal structures. No mediastinal or hilar lymphadenopathy. Bilateral shoulder prostheses are noted. No suspicious lytic or blastic osseous lesions. No pneumothorax. The central airways appear patent. Suboptimal evaluation of the lungs due to the respiratory motion. Mild dependent changes seen at the lung bases. There appears be a faint groundglass density within the left upper lobe anteriorly on image 148. IMPRESSION: 1. No evidence for central pulmonary embolus. 2. Possible faint groundglass density within the left upper lobe anteriorly. This could represent a viral pneumonia. 3. Please refer to the same day abdomen and pelvis CT for further evaluation of the abdominal structures. ACT 112: Negative or not required by law. Electronically signed by: Niko Woodson M.D. 05/19/2020 8:00 PM Dictated: 05/19/201954Transcribed: 05/19/201954 ABDOMEN AND PELVIS CT WITH IV CONTRAST CT DOSE: 2209.63 mGy.cm HISTORY: Pt c/o Sepsis TECHNIQUE: Multiaxial CT images of the abdomen and pelvis were performed following the use of intravenous contrast. A dose lowering technique was utilized adhering to the principles of ALARA. COMPARISON STUDY: Abdomen and pelvis CT 03/29/2020. FINDINGS: No pneumoperitoneum. No pneumatosis. Old, healed right pubic ring fractures. Soft tissue thickening at the symphysis pubis with focal area of erosive change within the left side of the symphysis pubis best in image 393. The focal erosion measures 9 mm. This is new from the prior study. There is also punctate foci of gas at the symphysis pubis which is new from the prior study. The large osteophytes at this location abut the anterior bladder wall. This remains unchanged. The bladder jacobson moderately thickened. There is a small amount of gas within the bladder lumen. The prostate gland is surgically absent. There is a punctate stone within the left kidney. There are multiple left peripelvic renal cysts. There are few bilateral cortical renal cysts. There is moderate right hydroureteronephrosis secondary to an obstructing 8 mm stone within the mid right ureter best seen on image 262. The liver, spleen, and pancreas appear unremarkable. A few small diverticula within the duodenum. Essentially nondiagnostic evaluation of the gallbladder. Normal caliber abdominal aorta. No retroperitoneal lymphadenopathy. Colonic diverticulosis. No evidence for acute diverticulitis. No evidence for bowel obstruction. Normal appendix. IMPRESSION: 1. Moderate right hydroureteronephrosis secondary to an obstructing 8 mm stone within the mid right ureter. 2. Left-sided nephrolithiasis. No left-sided left hydronephrosis. 3. Progressive soft tissue thickening with a new focal erosion and small amount of gas at the symphysis pubis. Findings raise the possibility of a septic arthritis/osteomyelitis. Of note, the anterior bladder wall abuts this region and also contains a small focus of gas. Although considered less likely, a fistula from the anterior bladder wall to the symphysis pubis cannot be excluded. 4. Moderate bladder wall thickening. Recommend correlation with urinalysis. This could be reactive to the adjacent abnormality of the symphysis pubis. 5. Additional findings as described above. ACT 112: Negative or not required by law. Electronically signed by: Niko Woodson M.D. 05/19/2020 8:11 PM Dictated: 05/19/201999Transcribed: 05/19/201999
[2020-05-19] MEDS ORDERED: ePHEDrine sulfate 50 MG/ML AMP IV PRN (21:40)
[2020-05-19] MEDS ORDERED: PHENYLEPHRINE 100MCG/ML 5ML SYR IV PRN (21:40)
[2020-05-19] MEDS ORDERED: ONDANSETRON INJ 2 MG/ML 2 ML VIAL IV PRN (21:40)
[2020-05-19] MEDS ORDERED: ATROPINE SULFATE 0.1 MG/ML 10ML SYR IV PRN (21:40)
[2020-05-19] MEDS ORDERED: STAT IV Infusion **Titration per Protocol STA (21:42)
--- NOTE | 2020-05-19 21:43 | Critical Care Consultation ---
Date of Consultation May 19, 2020 Assessment & Plan (1) Admitted to intensive care unit: Reason Critically Ill: 84-year-old male with severe sepsis and septic shock from UTI with retained right-sided ureteral stone with associated ureteral hydronephrosis requiring emergent cystoscopy with RIGHT-sided stent placement. Patient requiring close hemodynamic monitoring with need for vasoactive support to maintain adequate blood pressure/MAPs. NEURO - * CAM ICU: Initially positive in the emergency department. Patient has improved with improvement of his blood pressure. * Altered mental status: * Degree of metabolic encephalopathy secondary to severity of illness. * CT head unremarkable. * No focal neurological deficits. * Patient is already starting to clear status post surgical intervention. CARDIAC/VASCULAR - * Hypotension: * Secondary to severe sepsis with septic shock. * Initially resuscitated with 3 L crystalloid. * Requiring Levophed at low doses. * Initial H&H of 10.6 and 31.5 which is down from his baseline. Will repeat and transfuse if needed. * Will check random cortisol. * Paroxysmal A. fib: * Will hold on flecainide for now. * Continue Xarelto when felt appropriate by surgical team. * EKG: Sinus tachycardia at [address] depressions inferiorly and laterally. No ST elevations appreciated. QTc 485 ms. * Monitor on telemetry. RESPIRATORY - * Initially requiring supplemental oxygen in the emergency department. * Not requiring supplemental oxygen to this point. * Question degree of poor perfusion resulting in hypoxemia. * Chest x-ray without significant infiltrative findings. * Supplemental oxygen as needed. * Home CPAP as required. GI/NUTRITION - * Transaminitis: * Likely secondary to hypoperfusion in the hypotensive, septic patient. * Continue to monitor. * N.p.o. status post surgical intervention and while on pressors. * Prophylaxis: Famotidine RENAL/LYTES - * SCARLET: * Initially received 3 L crystalloid in the emergency department. * Continue with ongoing IV fluids for now. * IVF: LR at 100 mL's per hour - * Infected retained RIGHT ureteral stone with hydroureteronephrosis: * Resulting in severe sepsis. * Status post cystoscopy with RIGHT-sided ureteral stent placement. * Continue with antibiotics. See ID. * Fernandez in place - Strict I&Os. ENDO - * No history of diabetes or thyroid disease. * BSGs per unit protocol. ISS --> gtt per unit policy. HEME - * Anemia: * Patient with slight anemia from baseline with a hemoglobin and hematocrit of 10.6 and 31.5, respectively * Will repeat H&H status post surgical intervention. * No overt signs of bleeding at this time. * Patient currently anticoagulated on Xarelto. * Will hold Xarelto in the interim. * Transfuse PRBCs if needed. Patient verbally consents. Transfusion consent on operative consent. ID - * Severe sepsis with septic shock - urinary source: * Initially received vancomycin, Zosyn, and Levaquin in the emergency department. * CT findings also demonstrated air near the pubic symphysis. While this may reflect normal finding of osteoporotic individual, given the acuity of illness, will cover with clindamycin for rare chance of gas producing organism. * Antibiotics to be changed to Zosyn and clindamycin. * Lactate greater than 4. Trending down at this time. * Procalcitonin elevated. * PCR COVID-19 testing negative. LINES/IV ACCESS - * PIVs x2 * RIGHT IJ CVL * RIGHT radial arterial line * Fernandez catheter DVT PROPHYLAXIS - * Previously anticoagulated on Xarelto for A. fib. * Holding chemoprophylaxis at this time in the setting of recent surgical intervention and drop in H&H. * SCDs I have personally spent 65 minutes of critical care time in the direct management of this patient. This is a life/limb threatening event. This includes time spent evaluating patient, direct bedside care, chart review, placing orders, interpretation of diagnostic studies, discussion with consultants, patient, and family members, as well as other required patient management activities. This time is exclusive of all separately billable procedures, and teaching time and separate from and in addition to any other critical care service time. Thank you for allowing us to participate in the care of this patient. Please refer to my attending physician's documentation for any further recommendations. (2) Severe sepsis with septic shock: (3) Ureteral stone with hydronephrosis: (4) S/P cystoscopy with ureteral stent placement: (5) Anemia: (6) Recurrent UTI (urinary tract infection): (7) Bladder neck contracture: (8) Paroxysmal atrial fibrillation: (9) Anticoagulant long-term use: (10) Obstructive sleep apnea: (11) SCARLET (acute kidney injury): (12) Hypotension: (13) Transaminitis: History of Present Illness History of Present Illness Patient is an 84-year-old male with a significant past medical history of obstructive sleep apnea, history of prostate cancer, bladder neck contracture, paroxysmal atrial fibrillation anticoagulated on Xarelto, recurrent UTI, and history of nephrolithiasis. In conversation with the patient's , she reports that patient was doing fine this morning. She states that he did have a decreased appetite, but otherwise was without complaint. She reported that earlier in the afternoon, he stated that he was feeling tired. He sat in the living room and was watching television and she reports that at approximately 430 to 5 PM, he was complaining of shivering and feeling cold. She provided warm blankets and states that he began to mumble and become incoherent. At this point, she contacted EMS and the patient was brought directly to the emergency department. On evaluation in the emergency department, the patient was found to be hypotensive, tachycardic, and febrile. Extensive laboratory assessment demonstrates leukopenia with elevated lactate of 4.5. Procalcitonin greater than 9. Multiple imaging studies concerning for obstructing 8 mm stone in the RIGHT ureter with hydroureteronephrosis. Additionally, findings are concerning for bladder wall thickening as well as small area of erosion with gas at the symphysis pubis. Patient received aggressive antibiotics in the form of Levaquin, vancomycin, and Zosyn. Central line was placed, the patient was started on Levophed. Patient was taken to the operative suite where he underwent cystoscopy with ureteral stent placement. Initially, I had assessed the patient at bedside in the emergency department. The patient was awake, but pleasantly confused and ill-appearing. Upon assessment in the ICU, the patient is awake, alert, and oriented. He is ill- appearing, but does report feeling better than initially when he arrived to the emergency department. He is requesting that I call his to provide her an update. Other than complaints of burning in his penis and sensation of needing to void, he offers no other complaints other than generally feeling poor. Allergies Allergy/AdvReac Type Severity Reaction Status Date / Time bee venom protein (honey bee) Allergy Severe SWELLING,SO Verified 05/19/20 20:11 B hornet venom Allergy Severe ANAPHYLAXIS Verified 05/19/20 20:10 black walnut Allergy Intermediate HIVES Verified 05/19/20 20:11 fire ant Allergy Intermediate HIVES Verified 05/19/20 20:11 Home Medications Medication Instructions Recorded Confirmed Type acetaminophen 500 mg tablet 1,000 mg PO TID PRN #90 tab 02/28/19 05/19/20 History epinephrine 0.3 mg/0.3 mL 0.3 ml IM DIRECTED PRN #1 ea 02/28/19 05/19/20 History injection, auto-injector multivitamin 1 tab PO DAILY 02/28/19 05/19/20 History methenamine hippurate 1 gram tablet 1 gm PO HS #30 tab 12/26/19 05/19/20 Rx Xarelto 20 mg PO QPM 03/29/20 05/19/20 History glucosamine sulfate [Glucosamine] 0 mg PO BID 03/29/20 05/19/20 History krill oil 0 mg PO QAM 03/29/20 05/19/20 History celecoxib [Celebrex] 100 mg PO DAILY PRN #14 cap 03/31/20 05/19/20 Rx budesonide 9 mg tablet,delayed and See Rx Instructions .ROUTE 04/03/20 05/19/20 Rx extended release .COMPLEX #30 tablet flecainide 50 mg tablet 50 mg PO BID tab 04/09/20 05/19/20 History cefuroxime axetil 250 mg tablet 250 mg PO BID 10 Days #20 tab 05/15/20 05/19/20 Rx Patient History Medical History Anemia Anticoagulant long-term use Chronic low back pain Chronic venous stasis History of prostate cancer (~1999) Followed by Urology Obstructive sleep apnea CPAP Osteitis pubis Paroxysmal atrial fibrillation Followed by Cardiology Urinary retention Self Catheterization Surgical History H/O elbow surgery History of colonoscopy History of prostate surgery S/P bunionectomy S/P cataract surgery S/P total knee arthroplasty Bilateral Status post total shoulder arthroplasty Bilateral Family History Father Prostate cancer Diabetes Mother Leukemia Cancer Denies family history of Ovarian cancer Alzheimer disease Crohn's disease Myocardial infarction Breast cancer Lung cancer Colorectal cancer Hypertension Stroke Social History Smoking Status: Never smoker Second Hand Exposure: No; Hx Alcohol Use: Yes Alcohol type: beer Hx Substance Use: No Preferred Language: [place] Communication Ability: Effective Visual Impairment: No Limitations Hearing Ability: Normal Steel 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 All else were negative. Physical Exam Physical Exam: VITAL SIGNS - Vital signs and nursing notes were reviewed. GENERAL - 84-year-old male appearing his stated age who is in no acute distress. Slightly confused, but answers questions appropriately and is oriented. SKIN - Without rashes. HEAD - NC/AT. EYES - PERRL with EOMI bilaterally. Sclera anicteric. EARS - No deformities of external structures noted on gross examination bilaterally. NOSE - Midline and without cyanosis. No epistaxis or purulent drainage noted. MOUTH/OROPHARYNX - Without perioral cyanosis. Buccal mucosa pink and dry. NECK - Neck with FROM. Supple to palpation. No nuchal rigidity. LUNGS - Chest wall symmetric without accessory muscle use, intercostals retractions, or central cyanosis. Normal vesicular breath sounds CTA B/L. No wheezes, rales, or rhonchi appreciated. CARDIAC - RRR with S1/S2. No murmur, rubs, or gallops appreciated. ABDOMEN - Abdominal contour obese without pulsations or visible masses. BS nor moactive all four quadrants. No tenderness, palpable masses, hepatosplenomegaly, or ascites noted. EXTREMITIES - No clubbing or peripheral cyanosis. No pretibial edema present. +3/5 radial and dorsalis pedis pulses palpated throughout. +5/5 strength noted in UE/LE bilaterally. NEUROLOGIC - Cranial nerves II through XII grossly intact. Sensory intact to light touch throughout. PSYCH - A&Ox3 and cooperates fully with examiner. He is drowsy and occasionally repeats questions. Otherwise, he is able to carry on normal conversation when asked complex questions. Results & Data Results & Data ([facility]) Vital Signs (Past 12 Hours) Vital Signs Temp Pulse Resp BP Pulse Ox 05/19/20 20:21 120 H 29 H 100 05/19/20 20:20 119 H 29 H 68/44 L 100 05/19/20 20:11 120 H 29 H 100 05/19/20 20:10 122 H 29 H 70/50 L 100 05/19/20 20:06 122 H 31 H 82/49 L 100 05/19/20 20:01 124 H 29 H 146/128 H 100 05/19/20 20:00 126 H 34 H 100 05/19/20 19:57 127 H 30 H 05/19/20 19:31 130 H 34 H 100 05/19/20 19:30 131 H 34 H 93/60 L 100 05/19/20 19:20 128 H 05/19/20 19:16 141 H 101/71 05/19/20 19:10 145 H 100 05/19/20 19:01 152 H 89/48 L 05/19/20 19:00 152 H 05/19/20 18:51 38.0 C H 145 H 30 H 97 05/19/20 18:50 146 H 05/19/20 18:40 143 H 99 05/19/20 18:39 152 H 24 100/67 94 05/19/20 18:37 154 H 24 95 Coding Level of Care Code Critical Care 1st 30-74 mins Diagnoses Admitted to intensive care unit Z78.9 Severe sepsis with septic shock A41.9; R65.21 Ureteral stone with hydronephrosis N13.2 S/P cystoscopy with ureteral stent placement Z96.0 Anemia D64.9 Recurrent UTI (urinary tract infection) N39.0 Bladder neck contracture N32.0 Paroxysmal atrial fibrillation I48.0 Anticoagulant long-term use Z79.01 Obstructive sleep apnea G47.33 SCARLET (acute kidney injury) N17.9 Hypotension I95.9 Transaminitis R74.01 Time Spent (min) 65
--- NOTE | 2020-05-19 21:45 | Procedure Note ---
Procedure Note Date of Service May 19, 2020 Procedure: Arterial Line Placement Attending: Dr. Pham APC: Harshad Sawant PA-C Indication: Monitoring on Pressors Anesthesia: Lidocaine 1% Emergent consent implied in the setting of severe sepsis with septic shock secondary to retained ureteral stone requiring close hemodynamic monitoring, particularly with need to go to the OR urgently. Patient unable to make decisions at this time. A time-out was completed verifying correct patient, procedure, site, positioning, and implant(s) or special equipment if applicable. Allens test was performed to ensure adequate perfusion. Patients RIGHT wrist was prepped and draped in the usual sterile fashion. Ultrasound guidance was used to aid needle placement. A 20g Arrow arterial line was introduced into the RIGHT Radial artery. Catheter was threaded, and the needle was removed with appropriate blood return. Good waveform was observed. The patient tolerated the procedure well. Confirmation of placement with ultrasound. Blood Loss: Minimal Complications: None Procedural Ultrasound Guidance: Procedure Date: 05/19/2020 Indication: Pressors, frequent labs, poor peripheral access Attending: Dr. Pham APC: Harshad Sawant PA-C Artery Identified: YES Line confirmed in Artery with ultrasound: YES Complications: NONE Patient tolerated procedure: WELL Coding CPT Codes Tubes, Drains, and Vasc Access - Tubes, Drains, and Vasc Access: [id number] Place Catheter In Artery ([id number]) [facility] [place] Procedure Codes (Charges) Tubes, Drains, and Vasc Access Procedure 1: Tubes, Drains, and Vasc Access: [id number] Place Catheter In Artery
--- NOTE | 2020-05-19 22:18 | History & Physical Report ---
Date of Service May 19, 2020 Assessment & Plan (1) Severe sepsis with septic shock: Severe sepsis with septic shock/hypotension/status post cystoscopy with ureteral stent placement for obstructing stone and pyelonephritis- Broad-spectrum antibiotic coverage: Vancomycin IV, Zosyn IV and levofloxacin IV. Levophed drip. Continue IV fluid resuscitation and completion of albumin load Present on Admission?: Yes (2) Hypotension: See above Present on Admission?: Yes (3) Ureteral stone with hydronephrosis: See above Present on Admission?: Yes (4) S/P cystoscopy with ureteral stent placement: See above Present on Admission?: Yes (5) Paroxysmal atrial fibrillation: On flecainide 50 mg p.o. twice daily, and Xarelto, both of which will be held while n.p.o. We will monitor patient, and determine if control can be had with IV Lopressor, or whether patient may need amiodarone drip Present on Admission?: Yes (6) Anticoagulant long-term use: Has been on Xarelto. When okay with urology, patient will need to be placed on therapeutic Lovenox Present on Admission?: Yes (7) Admitted to intensive care unit: Service Liaison Representative team has been consulted Present on Admission?: Yes (8) Transaminitis: Likely secondary to sepsis. Full laboratory serially Present on Admission?: Yes History of Present Illness Chief Complaint: The patient is brought to the emergency department in a semiresponsive state, due to an unresponsive episode that occurred prior to arrival. Primary Care Provider: Tonny Huber DO The patient is a 84-year-old male with a past medical history including anemia, sepsis, ureteral stone, bilateral nephrolithiasis, recurrent UTI, bladder neck contracture, paroxysmal atrial fibrillation, long-term anticoagulant use, chronic low back pain, osteitis pubis, lymphocytic colitis, frequent PVCs, history of prostate cancer, chronic venous stasis and obstructive sleep apnea. He had unresponsive episode prior to arrival, and was minimally responsive upon arrival to the ED, with increased heart rate and decreased blood pressure. Patient was assessed via septic protocol, was found to have an infected kidney stone as probable source, had a central line placed while in ED, and was given 3 L of normal saline IV, 50 g of albumin IV, and started on the Levophed drip. Patient was going to be taken to the OR emergently by urology Dr. Alek Venegas, with plan to admit to the ICU afterwards Allergies Allergy/AdvReac Type Severity Reaction Status Date / Time bee venom protein (honey bee) Allergy Severe SWELLING,SO Verified 05/19/20 20:11 B hornet venom Allergy Severe ANAPHYLAXIS Verified 05/19/20 20:10 black walnut Allergy Intermediate HIVES Verified 05/19/20 20:11 fire ant Allergy Intermediate HIVES Verified 05/19/20 20:11 Home Medications Medication Instructions Recorded Confirmed Type acetaminophen 500 mg tablet 1,000 mg PO TID PRN #90 tab 02/28/19 05/19/20 History epinephrine 0.3 mg/0.3 mL 0.3 ml IM DIRECTED PRN #1 ea 02/28/19 05/19/20 History injection, auto-injector multivitamin 1 tab PO DAILY 02/28/19 05/19/20 History methenamine hippurate 1 gram tablet 1 gm PO HS #30 tab 12/26/19 05/19/20 Rx Xarelto 20 mg PO QPM 03/29/20 05/19/20 History glucosamine sulfate [Glucosamine] 0 mg PO BID 03/29/20 05/19/20 History krill oil 0 mg PO QAM 03/29/20 05/19/20 History celecoxib [Celebrex] 100 mg PO DAILY PRN #14 cap 03/31/20 05/19/20 Rx budesonide 9 mg tablet,delayed and See Rx Instructions .ROUTE 04/03/20 05/19/20 Rx extended release .COMPLEX #30 tablet flecainide 50 mg tablet 50 mg PO BID tab 04/09/20 05/19/20 History cefuroxime axetil 250 mg tablet 250 mg PO BID 10 Days #20 tab 05/15/20 05/19/20 Rx Past Med/Surg History Medical History Anemia Anticoagulant long-term use Chronic low back pain Chronic venous stasis History of prostate cancer (~1999) Followed by Urology Obstructive sleep apnea CPAP Osteitis pubis Paroxysmal atrial fibrillation Followed by Cardiology Urinary retention Self Catheterization Surgical History H/O elbow surgery History of colonoscopy History of prostate surgery S/P bunionectomy S/P cataract surgery S/P total knee arthroplasty Bilateral Status post total shoulder arthroplasty Bilateral Family History Father Prostate cancer Diabetes Mother Leukemia Cancer Denies family history of Ovarian cancer Alzheimer disease Crohn's disease Myocardial infarction Breast cancer Lung cancer Colorectal cancer Hypertension Stroke Social History Smoking Status: Never smoker Second Hand Exposure: No; Hx Alcohol Use: Yes Alcohol type: beer Hx Substance Use: No Preferred Language: Spanish Communication Ability: Effective Visual Impairment: No Limitations Hearing Ability: Normal 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 HEENT--PERRL, EOMI, mucous membranes and oropharynx very dry. Neck--supple. No JVD. No bruits. Thyroid normal, trachea midline, no adenopathy. Heart--normal S1 and S2. No murmurs, rubs or gallops. Lungs--coarse breath sounds bilaterally. Mild respiratory distress with accessory muscle use. Abdomen--normal bowel sounds and soft. Nondistended. Extremities--no cyanosis or clubbing. No edema. Dermatologic--extremities are mottled appearing Neurologic--cranial nerves II through XII grossly intact. Rheumatologic--limited exam Psychiatric--unresponsive Results & Data Results & Data ([facility]) Vital Signs (Past 12 Hours) Vital Signs Temp Pulse Resp BP Pulse Ox 05/19/20 21:50 117 H 29 H 100 05/19/20 21:40 119 H 100 05/19/20 21:31 120 H 27 H 100 05/19/20 21:30 120 H 31 H 67/38 L 100 05/19/20 21:21 120 H 22 91 05/19/20 21:20 119 H 90/56 L 100 12/13/20 21:11 117 H 31 H 95 20 21:10 120 H 32 H 95/53 L 95 20 21:01 117 H 32 H 71/52 L 100 20 21:00 120 H 31 H 100 20 20:50 118 H 31 H 100 1320 20:41 119 H 28 H 100 20 20:40 120 H 31 H 78/48 L 100 20 20:31 119 H 22 100 20 20:30 119 H 30 H 81/43 L 100 20 20:21 120 H 29 H 100 20 20:20 119 H 29 H 68/44 L 100 20 20:11 120 H 29 H 100 20 20:10 122 H 29 H 70/50 L 100 20 20:06 122 H 31 H 82/49 L 100 20 20:01 124 H 29 H 146/128 H 100 05/19/20 20:00 126 H 34 H 100 05/19/20 19:57 127 H 30 H 05/19/20 19:31 130 H 34 H 100 20 19:30 131 H 34 H 93/60 L 100 20 19:20 128 H 05/19/20 19:16 141 H 101/71 05/19/20 19:10 145 H 100 20 19:01 152 H 89/48 L 05/19/20 19:00 152 H 05/19/20 18:51 100.4 F H 145 H 30 H 97 05/19/20 18:50 146 H 20 18:40 143 H 99 05/19/20 18:39 152 H 24 100/67 94 05/19/20 18:37 154 H 24 95 Laboratory Results Laboratory Results WBC 27.83 K/uL (4.8-10.8) H D 05/20/20 03:31 RBC 2.51 M/uL (4.7-6.1) L 05/20/20 03:31 Hgb 7.8 g/dL (14.0-18.0) L 05/20/20 03:31 POC Hgb 9.9 g/dl (14.0-18.0) L 05/19/20 18:53 Hct 23.7 % (42-52) L 05/20/20 03:31 POC Hct 29 % (42-52) L 05/19/20 18:53 MCV 94.4 fL (80-100) 05/20/20 03:31 MCH 31.1 pg (25-34) 05/20/20 03:31 MCHC 32.9 g/dL (32-36) 05/20/20 03:31 RDW Std Deviation 47.9 fL (36.4-46.3) H 05/20/20 03:31 RDW Coeff of [place] 13.9 % (11.5-14.5) 05/20/20 03:31 Plt Count 161 K/uL (130-400) 05/20/20 03:31 MPV 9.0 fL (7.4-10.4) 05/20/20 03:31 Immature Gran % (Auto) 2.6 % 05/20/20 03:31 Neut % (Auto) 93.2 % 05/20/20 03:31 Lymph % (Auto) 0.9 % 05/20/20 03:31 Cloud % (Auto) 3.0 % 05/20/20 03:31 Eos % (Auto) 0.3 % 05/20/20 03:31 Baso % (Auto) 0.0 % 05/20/20 03:31 Neut # (Auto) 25.93 K/uL (1.4-6.5) H 05/20/20 03:31 Lymph # (Auto) 0.26 K/uL (1.2-3.4) L 05/20/20 03:31 Cloud # (Auto) 0.84 K/uL (0.11-0.59) H 05/20/20 03:31 Eos # (Auto) 0.08 K/uL (0-0.5) 05/20/20 03:31 Baso # (Auto) 0.00 K/uL (0-0.2) 05/20/20 03:31 Immature Gran # (Auto) 0.72 K/uL (0.00-0.02) H 05/20/20 03:31 Dohle Bodies Occasional 05/20/20 03:31 ESR > 90 mm/hr (0-14) H 05/19/20 18:30 PT 16.3 Seconds (9.0-12.0) H 05/20/20 03:31 INR 1.6 (0.9-1.1) H 05/20/20 03:31 APTT 39.6 Seconds (21.0-31.0) H 05/20/20 03:31 PTT Ratio 1.4 05/20/20 03:31 D-Dimer 7830 ug/L FEU (0-500) H* 05/19/20 18:30 POC Sodium 132 mmol/L (135-144) L 05/19/20 18:53 Sodium 138 mmol/L (136-145) 05/20/20 03:31 POC Potassium 5.6 mmol/L (3.3-5.0) H 05/19/20 18:53 Potassium 4.2 mmol/L (3.5-5.1) D 05/20/20 03:31 POC Chloride 101 mmol/L (101-112) 05/19/20 18:53 Chloride 107 mmol/L (98-107) 05/20/20 03:31 Carbon Dioxide 22 mmol/L (21-32) 05/20/20 03:31 POC Total CO2 24 mmol/L (24-31) 05/19/20 18:53 Anion Gap 9.0 (3-11) 05/20/20 03:31 POC Anion Gap 13.0 mmol/L (16-25) L 05/19/20 18:53 POC BUN 39 mg/dl (7-18) H 05/19/20 18:53 BUN 26 mg/dl (7-18) H 05/20/20 03:31 Creatinine 1.54 mg/dl (0.6-1.4) H 05/20/20 03:31 POC Creatinine 1.5 mg/dl (0.6-1.3) H 05/19/20 18:53 Est Cr Clr Drug Dosing 37.6 ml/min 05/20/20 03:31 Est GFR ( Amer) 46.7 05/20/20 03:31 Est GFR (Non-Af Amer) 40.3 05/20/20 03:31 BUN/Creatinine Ratio 16.9 (10-20) 05/20/20 03:31 Glucose 125 mg/dl (70-99) H 05/20/20 03:31 POC Glucose (other) 128 mg/dl (70-99) H 05/19/20 18:53 Lactate 2.9 mmol/L (0.4-2.0) H* 05/19/20 23:32 Calcium 7.9 mg/dl (8.5-10.1) L 05/20/20 03:31 POC Ioniz Calcium Josafat 1.03 mmol/l (1.12-1.32) L 05/19/20 18:53 Phosphorus 3.3 mg/dl (2.5-4.9) D 05/20/20 03:31 Magnesium 2.0 mg/dl (1.8-2.4) 05/20/20 03:31 Ferritin 450.0 ng/ml (8-388) H 05/19/20 18:30 Total Bilirubin 1.0 mg/dl (0.2-1) 05/20/20 03:31 AST 87 U/L (15-37) H 05/20/20 03:31 ALT 77 U/L (12-78) 05/20/20 03:31 Alkaline Phosphatase 159 U/L (45-117) H 05/20/20 03:31 Lactate Dehydrogenase 369 U/L (87-241) H 05/19/20 18:30 Total Creatine Kinase 27 U/L (39-308) L 05/19/20 18:30 CK-MB (CK-2) < 1.0 ng/ml (0.5-3.6) 05/19/20 18:30 CK/CKMB % Calc TNP 05/19/20 18:30 Troponin I < 0.015 ng/ml (0-0.045) 05/19/20 18:30 C-Reactive Protein 15.50 mg/dl (0-0.29) H 05/19/20 18:30 NT-Pro-B Natriuret Pep 2477 pg/ml (0-1800) H 05/19/20 18:30 Total Protein 5.7 gm/dl (6.4-8.2) L D 05/20/20 03:31 Albumin 2.0 gm/dl (3.4-5.0) L 05/20/20 03:31 Globulin 3.7 gm/dl (2.5-4.0) 05/20/20 03:31 Albumin/Globulin Ratio 0.5 (0.9-2) L 05/20/20 03:31 Procalcitonin 9.23 ng/ml (0-0.5) H 05/19/20 18:30 Random Cortisol 70.52 mcg/dl 05/19/20 23:32 Urine Color Dark Yellow 05/19/20 22:45 Urine Appearance Turbid (Clear) A 05/19/20 22:45 Urine pH 5.0 (4.5-7.5) 05/19/20 22:45 Ur Specific [place] 1.042 (1.000-1.030) H 05/19/20 22:45 Urine Protein 1+ (Negative) H 05/19/20 22:45 Urine Glucose (UA) Negative (Negative) 05/19/20 22:45 Urine Ketones Negative (Negative) 05/19/20 22:45 Urine Blood 3+ (Negative) H 05/19/20 22:45 Urine Nitrite Positive (Negative) A 05/19/20 22:45 Urine Bilirubin Negative (Negative) 05/19/20 22:45 Urine Urobilinogen Negative (Negative) 05/19/20 22:45 Ur Leukocyte Esterase 3+ (Negative) H 05/19/20 22:45 Urine WBC (Auto) >30 /hpf (0-5) H 05/19/20 22:45 Urine RBC (Auto) >30 /hpf (0-4) H 05/19/20 22:45 U Hyaline Cast (Auto) 1-5 /lpf (0-5) 05/19/20 22:45 U Epithel Cells (Auto) 10-20 /lpf (0-5) H 05/19/20 22:45 Urine Bacteria (Auto) 2+ (Negative) H 05/19/20 22:45 Granular Casts 1-5 /lpf (0) H 05/19/20 22:45 Urine Yeast Budding w/ Hyphae (None Prsent) A 05/19/20 22:45 Nasal Screen MRSA (PCR) Negative (Negative) 05/19/20 23:18 COVID-19 Eval Order [facility]Rsv at [facility] 05/19/20 19:00 SARS-CoV-2 (PCR) NEGATIVE (Negative) 05/19/20 19:00 Influenza Type A (PCR) Negative (Neg) 05/19/20 19:00 Influenza Type B (PCR) Negative (Neg) 05/19/20 19:00 RSV (RT-PCR) Negative (Neg) 05/19/20 19:00 Blood Type A Positive 05/19/20 18:55 Antibody Screen NEGATIVE 05/19/20 18:55 Diagnostic Findings [facility], [id number] CT Scan Report Patient: SEB DAVIS Date: 05/19/20MR#: [id number]: [address] [facility] DRAcct ID:[id number]: [facility] Zip: [place], [place] [address]Sun: 84Location: EDSex: MRoom/Bed:Att Phy:Diagnosis: SEMI RESPONSIVEPri Phy: Tonny Huber, DOService Date: 05/19/20Fam Phy:Interpreting Phy: Niko Woodson MDAdmit Phy: Ordering Phy: Elbert Damon MD cc: ~ ABDOMEN AND PELVIS CT WITH IV CONTRAST CT DOSE: 2209.63 mGy.cm HISTORY: Pt c/o Sepsis TECHNIQUE: Multiaxial CT images of the abdomen and pelvis were performed following the use of intravenous contrast. A dose lowering technique was utilized adhering to the principles of ALARA. COMPARISON STUDY: Abdomen and pelvis CT 03/29/2020. FINDINGS: No pneumoperitoneum. No pneumatosis. Old, healed right pubic ring fractures. Soft tissue thickening at the symphysis pubis with focal area of erosive change within the left side of the symphysis pubis best in image 393. The focal erosion measures 9 mm. This is new from the prior study. There is also punctate foci of gas at the symphysis pubis which is new from the prior study. The large osteophytes at this location abut the anterior bladder wall. This remains unchanged. The bladder jacobson moderately thickened. There is a small amount of gas within the bladder lumen. The prostate gland is surgically absent. There is a punctate stone within the left kidney. There are multiple left peripelvic renal cysts. There are few bilateral cortical renal cysts. There is moderate right hydroureteronephrosis secondary to an obstructing 8 mm stone within the mid right ureter best seen on image 262. The liver, spleen, and pancreas appear unremarkable. A few small diverticula within the duodenum. Essentially nondiagnostic evaluation of the gallbladder. Normal caliber abdominal aorta. No retroperitoneal lymphadenopathy. Colonic diverticulosis. No evidence for acute diverticulitis. No evidence for bowel obstruction. Normal appendix. IMPRESSION: 1. Moderate right hydroureteronephrosis secondary to an obstructing 8 mm stone within the mid right ureter. 2. Left-sided nephrolithiasis. No left-sided left hydronephrosis. 3. Progressive soft tissue thickening with a new focal erosion and small amount of gas at the symphysis pubis. Findings raise the possibility of a septic arthritis/osteomyelitis. Of note, the anterior bladder wall abuts this region and also contains a small focus of gas. Although considered less likely, a fistula from the anterior bladder wall to the symphysis pubis cannot be excluded. 4. Moderate bladder wall thickening. Recommend correlation with urinalysis. This could be reactive to the adjacent abnormality of the symphysis pubis. 5. Additional findings as described above. ACT 112: Negative or not required by law. Electronically signed by: Niko Woodson M.D. 05/19/2020 8:11 PM Dictated: 05/19/201999Transcribed: 05/19/201999 [facility], [id number] CT Scan Report Patient: SEB DAVIS Date: 05/19/20#: [id number]: [address] [facility] DRAcct ID:[id number]: Date: [address] [place] [address] Zip: [place], [place] [address]Cao: 84Location: EDSex: MRoom/Bed:Att Phy:Diagnosis: SEMI RESPONSIVEPri Phy: Tonny Huber, DOService Date: 05/19/20Fa Phy:Interpreting Phy: Niko Woodson MDAdmit Phy: Ordering Phy: Elbert Damon MD cc: ~ CHEST CTA for PULMONARY ARTERIES CT DOSE: HISTORY: Shortness of breath. TECHNIQUE: Multiaxial CT images of the chest were performed following the intravenous administration of contrast to evaluate the pulmonary arteries. Maximal intensity projection images were also obtained. A dose lowering technique was utilized adhering to the principles of ALARA. COMPARISON STUDY: Chest CT 05/09/2009. FINDINGS: Old mild anterior wedge-shaped compression deformity at T11. Normal caliber thoracic aorta with no evidence for dissection. The heart is mildly enlarged. No pleural or pericardial effusions. Nondiagnostic evaluation of the majority of the segmental and subsegmental pulmonary arteries due to the respiratory motion artifact. The main and lobar pulmonary arteries appear patent. Please refer to the same day abdomen and pelvis CT for further evaluation of the abdominal structures. No mediastinal or hilar lymphadenopathy. Bilateral shoulder prostheses are noted. No suspicious lytic or blastic osseous lesions. No pneumothorax. The central airways appear patent. Suboptimal evaluation of the lungs due to the respiratory motion. Mild dependent changes seen at the lung bases. There appears be a faint groundglass density within the left upper lobe anteriorly on image 148. IMPRESSION: 1. No evidence for central pulmonary embolus. 2. Possible faint groundglass density within the left upper lobe anteriorly. This could represent a viral pneumonia. 3. Please refer to the same day abdomen and pelvis CT for further evaluation of the abdominal structures. ACT 112: Negative or not required by law. Electronically signed by: Niko Woodson M.D. 05/19/2020 8:00 PM Dictated: 05/19/201954Transcribed: 05/19/201954 [facility], [id number] XRay Report Patient: SEB DAVIS Date: 05/19/20MR#: [id number]: [address] [facility] DRAcct ID:[id number]: Date: [address] [place] [address] Zip: [place], [place] [address]Zmu: 84Location: EDSex: MRoom/Bed:Att Phy:Diagnosis: SEMI RESPONSIVEPri Phy: Tonny Huber, DOService Date: 05/19/20Fa Phy:Interpreting Phy: Niko Woodson MDAdmit Phy: Ordering Phy: Elbert Damon MD cc: ~ XR chest 1V portable HISTORY: SEPSIS COMPARISON: Chest 12/24/2014. FINDINGS: Progressive perihilar interstitial and vascular thickening consistent with mild congestive change. No pneumothorax. The heart is mildly enlarged. Suspect trace bilateral pleural effusions. There is a left shoulder prosthesis. No pneumothorax. IMPRESSION: Cardiomegaly with mild congestive change and trace bilateral pleural effusions. ACT 112: Negative or not required by law. Electronically signed by: Niko Woodson M.D. 05/19/2020 7:16 PM Dictated: 05/19/201913Transcribed: 05/19/201913 [facility], [id number] CT Scan Report Patient: SEB DAVIS Date: 05/19/20MR#: [id number]: [address] [facility] DRAcct ID:[id number]: [facility] Zip: [place], [place] [address]Hzz: 84Location: EDSex: MRoom/Bed:Att Phy:Diagnosis: SEMI RESPONSIVEPri Phy: Tonny Huber, DOService Date: 05/19/20Fam Phy:Interpreting Phy: Niko Woodson MDAdmit Phy: Ordering Phy: Elbert Damon MD cc: ~ HEAD CT NONCONTRAST CT DOSE: HISTORY: Altered mental status. Pt c/o sepsis TECHNIQUE: Multiaxial CT images of the head were performed without the use of intravenous contrast. Automated exposure control was utilized for this study. A dose lowering technique was utilized adhering to the principles of ALARA. Comparison: Head CT 09/18/2011. Findings: The paranasal sinuses and mastoid air cells are clear. The calvarium and skull base are intact. There is no mass, hematoma, midline shift, acute infarct. White matter hypodensity is nonspecific but suggestive of microvascular ischemic change. The ventricles and sulci demonstrate mild age-related involutional changes. Impression: No acute intracranial abnormality. Atrophy and microvascular ischemic changes. ACT 112: Negative or not required by law. Electronically signed by: Niko Woodson M.D. 05/19/2020 8:14 PM Dictated: 05/19/202010Transcribed: 05/19/202010 Code Status & VTE Plan Code Status Full code VTE Prophylaxis Plan VTE Prophylaxis will be ordered: Yes Critical Care Time Critical Care Time: Yes Total Critical Care Time: 45 PG Care Time/CCT Total # of Minutes Spent Total Time Spent with Patient: Total time spent is greater than 50% in coordination of care (as documented) at patient's floor/unit and/or counseling patient: Critical Care Time: Yes Total Critical Care Time: 45 Coding Level of Care Code 51954 Initial Inpt Care Lvl 3 Diagnoses Severe sepsis with septic shock A41.9; R65.21 Hypotension I95.9 Ureteral stone with hydronephrosis N13.2 S/P cystoscopy with ureteral stent placement Z96.0 Paroxysmal atrial fibrillation I48.0 Anticoagulant long-term use Z79.01 Admitted to intensive care unit Z78.9 Transaminitis R74.01 Additional Codes Critical Care Time - Critical Care Time: Yes ([id number]) Time Spent (min) 45
--- NOTE | 2020-05-19 22:22 | Emergency Department Note ---
History of Present Illness General Chief complaint: Illness Stated complaint: SEMI RESPONSIVE Time Seen by Provider: 05/19/20 18:33 Source: patient, family (son), EMS, RN notes reviewed and old records reviewed Mode of arrival: EMS Limitations: altered mental status History of Present Illness Provider complaint: Unresponsive Onset (ago): hour(s) less than 1 Location: head Current Pain Intensity: 0 Associated symptoms: + confusion, + fever/chills, + shortness of breath and + weakness Treatments prior to arrival: other (oxygen) This is an 84-year-old male who presents the emergency department over concerns that the patient had an unresponsive episode prior to arrival. Upon arrival to the emergency department he is febrile tachycardic and hypotensive. The patient himself has no complaints and just moans. Home Medications Medication Instructions Recorded Confirmed Type acetaminophen 500 mg tablet 1,000 mg PO TID PRN #90 tab 02/28/19 05/19/20 History epinephrine 0.3 mg/0.3 mL 0.3 ml IM DIRECTED PRN #1 ea 02/28/19 05/19/20 History injection, auto-injector multivitamin 1 tab PO DAILY 02/28/19 05/19/20 History methenamine hippurate 1 gram tablet 1 gm PO HS #30 tab 12/26/19 05/19/20 Rx Xarelto 20 mg PO QPM 03/29/20 05/19/20 History glucosamine sulfate [Glucosamine] 0 mg PO BID 03/29/20 05/19/20 History krill oil 0 mg PO QAM 03/29/20 05/19/20 History celecoxib [Celebrex] 100 mg PO DAILY PRN #14 cap 03/31/20 05/19/20 Rx budesonide 9 mg tablet,delayed and See Rx Instructions .ROUTE 04/03/20 05/19/20 Rx extended release .COMPLEX #30 tablet flecainide 50 mg tablet 50 mg PO BID tab 04/09/20 05/19/20 History cefuroxime axetil 250 mg tablet 250 mg PO BID 10 Days #20 tab 05/15/20 05/19/20 Rx Allergies Allergy/AdvReac Type Severity Reaction Status Date / Time bee venom protein (honey bee) Allergy Severe SWELLING,SO Verified 05/19/20 20:11 B hornet venom Allergy Severe ANAPHYLAXIS Verified 05/19/20 20:10 black walnut Allergy Intermediate HIVES Verified 05/19/20 20:11 fire ant Allergy Intermediate HIVES Verified 05/19/20 20:11 Past Med/Surg History Medical History Anemia Anticoagulant long-term use Chronic low back pain Chronic venous stasis History of prostate cancer (~1999) Followed by Urology Obstructive sleep apnea CPAP Osteitis pubis Paroxysmal atrial fibrillation Followed by Cardiology Urinary retention Self Catheterization Surgical History H/O elbow surgery History of colonoscopy History of prostate surgery S/P bunionectomy S/P cataract surgery S/P total knee arthroplasty Bilateral Status post total shoulder arthroplasty Bilateral Family History Father Prostate cancer Diabetes Mother Leukemia Cancer Denies family history of Ovarian cancer Alzheimer disease Crohn's disease Myocardial infarction Breast cancer Lung cancer Colorectal cancer Hypertension Stroke Social History Smoking Status: Never smoker Second Hand Exposure: No; Hx Alcohol Use: Yes Alcohol type: beer Hx Substance Use: No Preferred Language: Andorran Communication Ability: Effective Visual Impairment: No Limitations Hearing Ability: Normal Group Cio Required: No Beliefs That Will Affect Care: None marital status: Current Living Situation: Spouse current occupational status: retired Feels Safe at Home: Yes Childhood Exposure to Second-Hand Smoke: No Dental Care, Regularly: Yes Physical Activity Frequency: 1-2 Times per Week Seatbelt Use: always Sunscreen Use: No Assistive Devices: Glasses Review of Systems Unobtainable due to reduced consciousness Physical Exam Vital Signs Vital Signs - 24 hr 05/19/20 18:37 05/19/20 18:39 05/19/20 18:40 Temperature Temperature Source Pulse Rate 154 H 152 H 143 H Pulse Rate from SpO2 Sensor 155 H 152 H 141 H Respiratory Rate 24 24 Respiratory Effort / Characteristics Blood Pressure 100/67 Blood Pressure Mean 82 Pulse Oximetry 95 94 99 Oxygen Delivery Method Oxygen Flow Rate Sepsis Recent Fever Within 48 Hours Sepsis New/Unexplained Change in Mental Status Sepsis Action Taken by Nursing 05/19/20 18:50 05/19/20 18:51 05/19/20 19:00 Temperature 38.0 C H Temperature Source Oral Pulse Rate 146 H 145 H 152 H Pulse Rate from SpO2 Sensor Respiratory Rate 30 H Respiratory Effort / Characteristics Non-Labored Blood Pressure Blood Pressure Mean Pulse Oximetry 97 Oxygen Delivery Method Nasal Cannula Oxygen Flow Rate 4 Sepsis Recent Fever Within 48 Hours Yes Sepsis New/Unexplained Change in Mental Status N/A Sepsis Action Taken by Nursing Physician Notified 05/19/20 19:01 05/19/20 19:10 05/19/20 19:16 Temperature Temperature Source Pulse Rate 152 H 145 H 141 H Pulse Rate from SpO2 Sensor 146 H Respiratory Rate Respiratory Effort / Characteristics Blood Pressure 89/48 L 101/71 Blood Pressure Mean 63 83 Pulse Oximetry 100 Oxygen Delivery Method Oxygen Flow Rate Sepsis Recent Fever Within 48 Hours Sepsis New/Unexplained Change in Mental Status Sepsis Action Taken by Nursing 05/19/20 19:20 05/19/20 19:30 05/19/20 19:31 Temperature Temperature Source Pulse Rate 128 H 131 H 130 H Pulse Rate from SpO2 Sensor 130 H 131 H 130 H Respiratory Rate 34 H 34 H Respiratory Effort / Characteristics Blood Pressure 93/60 L Blood Pressure Mean 71 Pulse Oximetry 100 100 Oxygen Delivery Method Oxygen Flow Rate Sepsis Recent Fever Within 48 Hours Sepsis New/Unexplained Change in Mental Status Sepsis Action Taken by Nursing 05/19/20 19:57 05/19/20 20:00 05/19/20 20:01 Temperature Temperature Source Pulse Rate 127 H 126 H 124 H Pulse Rate from SpO2 Sensor 126 H 124 H Respiratory Rate 30 H 34 H 29 H Respiratory Effort / Characteristics Blood Pressure 146/128 H Blood Pressure Mean 137 Pulse Oximetry 100 100 Oxygen Delivery Method Nasal Cannula Oxygen Flow Rate 4 Sepsis Recent Fever Within 48 Hours Sepsis New/Unexplained Change in Mental Status Sepsis Action Taken by Nursing 05/19/20 20:06 05/19/20 20:10 05/19/20 20:11 Temperature Temperature Source Pulse Rate 122 H 122 H 120 H Pulse Rate from SpO2 Sensor 122 H 122 H 121 H Respiratory Rate 31 H 29 H 29 H Respiratory Effort / Characteristics Blood Pressure 82/49 L 70/50 L Blood Pressure Mean 64 55 Pulse Oximetry 100 100 100 Oxygen Delivery Method Nasal Cannula Nasal Cannula Nasal Cannula Oxygen Flow Rate 4 4 4 Sepsis Recent Fever Within 48 Hours Sepsis New/Unexplained Change in Mental Status Sepsis Action Taken by Nursing 05/19/20 20:20 05/19/20 20:21 05/19/20 20:30 Temperature Temperature Source Pulse Rate 119 H 120 H 119 H Pulse Rate from SpO2 Sensor 119 H 120 H 119 H Respiratory Rate 29 H 29 H 30 H Respiratory Effort / Characteristics Blood Pressure 68/44 L 81/43 L Blood Pressure Mean 50 51 Pulse Oximetry 100 100 100 Oxygen Delivery Method Nasal Cannula Nasal Cannula Oxygen Flow Rate 4 4 Sepsis Recent Fever Within 48 Hours Sepsis New/Unexplained Change in Mental Status Sepsis Action Taken by Nursing 05/19/20 20:31 05/19/20 20:40 05/19/20 20:41 Temperature Temperature Source Pulse Rate 119 H 120 H 119 H Pulse Rate from SpO2 Sensor 119 H 120 H 119 H Respiratory Rate 22 31 H 28 H Respiratory Effort / Characteristics Blood Pressure 78/48 L Blood Pressure Mean 55 Pulse Oximetry 100 100 100 Oxygen Delivery Method Oxygen Flow Rate Sepsis Recent Fever Within 48 Hours Sepsis New/Unexplained Change in Mental Status Sepsis Action Taken by Nursing 05/19/20 20:50 05/19/20 21:00 05/19/20 21:01 Temperature Temperature Source Pulse Rate 118 H 120 H 117 H Pulse Rate from SpO2 Sensor 119 H 120 H 118 H Respiratory Rate 31 H 31 H 32 H Respiratory Effort / Characteristics Blood Pressure 71/52 L Blood Pressure Mean 55 Pulse Oximetry 100 100 100 Oxygen Delivery Method Oxygen Flow Rate Sepsis Recent Fever Within 48 Hours Sepsis New/Unexplained Change in Mental Status Sepsis Action Taken by Nursing VITAL SIGNS - Vital signs and nursing notes were reviewed. GENERAL - 84-year-old male appearing stated age who is in moderate distress. Pt moans in response to painful stimuli SKIN - Without rashes. HEAD - NC/AT. EYES - PERRL with EOMI bilaterally. Sclera anicteric. Palpebral conjunctiva pink and moist with no injection noted. EARS - No deformities of external structures noted on gross examination bilaterally. No pain elicited with palpation of the tragus bilaterally. External auditory canals without discharge or otorrhea. Tympanic membranes pearly leon without retraction or bulging. No fluid or purulent material visualized behind the TM. Handle of malleus, umbo, cone of light, pars tensa/flaccid all easily visualized. NOSE - Midline and without cyanosis. No epistaxis or purulent drainage noted. S eptum midline without deviation or septal hematoma noted. MOUTH/OROPHARYNX - Without perioral cyanosis. Buccal mucosa pink and moist and without leukoplakia. Tongue midline with equal elevation of palate bilaterally. No tonsillar hypertrophy, erythema, or exudates noted. dentition noted. NECK - Neck with FROM. Supple to palpation. lymphadenopathy noted. No nuchal rigidity. LUNGS - Chest wall symmetric without accessory muscle use, intercostals retractions, or central cyanosis. Normal vesicular breath sounds CTA B/L. No wheezes, rales, or rhonchi appreciated. CARDIAC - RRR with S1/S2. No murmur, rubs, or gallops appreciated. ABDOMEN - Abdominal contour without pulsations or visible masses. BS normoactive all four quadrants. No tenderness, palpable masses, hepatosplenomegaly, or ascites noted. EXTREMITIES - No clubbing or peripheral cyanosis. No pretibial edema present. +3/5 radial, posterior tibial, and dorsalis pedis pulses palpated throughout. +5/5 strength noted in UE/LE bilaterally. NEUROLOGIC - Cranial nerves II through XII grossly intact. Sensory intact to light touch throughout. Patellar reflexes +2/4. Procedures Central Line Placement Right IJ: Time Out Performed: Yes (I performed the procedure) Patient Placed on Monitor/Pulse Ox: Yes MD Prep: mask, gown and gloves Central Line Prep: Chlorhexidine scrub and sterile drapes applied Local Anesthetic: lidocaine 1% Amount of anesthesia used (mL): 4 Ultrasound Used for Placement: Yes Central Line Lumen Inserted: single and triple Post Procedure: sutured in place, good blood return, all ports aspirated, flushed, capped and sterile dressing applied Post Procedure X-Ray: tip of catheter in good position Patient Tolerated Procedure: well and no complications Course Administered Medications Norepinephrine Bitartrate (Levophed/D5w) 8 mg in 508 mls @ 17.393 mls/hr IV .Q24H [facility]; Protocol Stop: 06/18/20 21:44 Last Titration: 05/20/20 08:05 Dose: 0 mcg/kg/min, 0 mls/hr Documented by: [id number] Titration: 05/20/20 02:43 Dose: 0.02 mcg/kg/min, 7 mls/hr Documented by: [id number] Titration: 05/20/20 02:00 Dose: 0.03 mcg/kg/min, 10.4 mls/hr Documented by: [id number] Titration: 05/20/20 01:44 Dose: 0.04 mcg/kg/min, 13.9 mls/hr Documented by: [id number] Admin: 05/19/20 22:27 Dose: 0.05 mcg/kg/min, 17.4 mls/hr Documented by: [id number] Cosigned by: [id number] Piperacillin Sod/Tazobactam (Sod 3.375 gm/ Dextrose) 115 mls @ 30 mls/hr IV Q8H [facility]; Protocol Stop: 05/30/20 00:59 Last Infusion: 05/20/20 15:30 Dose: 0 mls/hr Documented by: [id number] Admin: 05/20/20 11:19 Dose: 30 mls/hr Documented by: [id number] Infusion: 05/20/20 05:17 Dose: 0 mls/hr Documented by: [id number] Admin: 05/20/20 01:15 Dose: 30 mls/hr Documented by: [id number] Discontinued Medications Acetaminophen (Ofirmev) 1,000 mg in 100 mls @ 400 mls/hr IV NOW STA Stop: 05/19/20 18:54 Last Infusion: 05/19/20 19:50 Dose: 0 mls/hr Documented by: [id number] Admin: 05/19/20 19:01 Dose: 400 mls/hr Documented by: [id number] Sodium Chloride (Nss 1000ml) 1,000 mls @ 999 mls/hr IV .Q1H1M ONE Stop: 05/19/20 19:43 Last Infusion: 05/19/20 20:02 Dose: 0 mls/hr Documented by: [id number] Admin: 05/19/20 19:01 Dose: 999 mls/hr Documented by: [id number] Piperacillin Sod/Tazobactam Sod (Zosyn) 4.5 gm in 120 mls @ 240 mls/hr IV NOW ONE Stop: 05/19/20 19:13 Last Infusion: 05/19/20 19:50 Dose: 0 mls/hr Documented by: [id number] Admin: 05/19/20 19:09 Dose: 240 mls/hr Documented by: [id number] Levofloxacin/Dextrose (Levaquin/D5w) 750 mg in 150 mls @ 100 mls/hr IV NOW STA Stop: 05/19/20 20:13 Last Infusion: 05/20/20 00:22 Dose: 0 mls/hr Documented by: [id number] Admin: 05/19/20 19:09 Dose: 100 mls/hr Documented by: [id number] Vancomycin HCl 1,000 mg/ (Sodium Chloride) 520 mls @ 200 mls/hr IV NOW ONE Stop: 05/19/20 21:13 Last Infusion: 05/20/20 00:22 Dose: 0 mls/hr Documented by: [id number] Admin: 05/19/20 19:09 Dose: 200 mls/hr Documented by: [id number] Sodium Chloride (Nss 1000ml) 1,000 mls @ 999 mls/hr IV .Q1H1M ONE Stop: 05/19/20 20:59 Last Infusion: 05/20/20 00:22 Dose: 0 mls/hr Documented by: [id number] Admin: 05/19/20 20:02 Dose: 999 mls/hr Documented by: [id number] Albumin Human (Albumin 25%) 12.5 gm in 50 mls @ 50 mls/hr IV Q1H [facility] Stop: 05/20/20 00:59 Last Infusion: 05/20/20 00:22 Dose: 0 mls/hr Documented by: [id number] Admin: 05/19/20 22:27 Dose: 50 mls/hr Documented by: [id number] Infusion: 05/19/20 22:27 Dose: 50 mls/hr Documented by: [id number] Admin: 05/19/20 22:27 Dose: 50 mls/hr Documented by: [id number] Infusion: 05/19/20 22:27 Dose: 50 mls/hr Documented by: [id number] Admin: 05/19/20 21:47 Dose: 50 mls/hr Documented by: [id number] Infusion: 05/19/20 21:47 Dose: 50 mls/hr Documented by: [id number] Admin: 05/19/20 21:28 Dose: 50 mls/hr Documented by: [id number] Lactated Ringer's (Lr) 1,000 mls @ 100 mls/hr IV .Q10H [facility] Stop: 06/18/20 23:44 Last Infusion: 05/20/20 10:48 Dose: 0 mls/hr Documented by: [id number] Admin: 05/20/20 00:23 Dose: 100 mls/hr Documented by: [id number] Sodium Chloride (Nss 1000ml) 1,000 mls @ 100 mls/hr IV .Q10H [facility] Stop: 06/18/20 23:36 Last Admin: 05/20/20 01:38 Dose: Not Given Documented by: [id number] Famotidine 20 mg/ Syringe 5 mls @ 2.5 mls/min IV Q12 [facility] Stop: 06/18/20 23:36 Last Admin: 05/20/20 13:47 Dose: Not Given Documented by: [id number] Admin: 05/20/20 00:31 Dose: 2.5 mls/min Documented by: [id number] Levofloxacin/Dextrose (Levaquin/D5w) 500 mg in 100 mls @ 100 mls/hr IV Q24H [facility] Stop: 05/29/20 23:36 Last Admin: 05/20/20 01:38 Dose: Not Given Documented by: [id number] Potassium Chloride (K Fercho / Wtr) 20 meq in 100 mls @ 50 mls/hr IV Q2H [facility] Stop: 05/20/20 04:05 Last Infusion: 05/20/20 04:44 Dose: 0 mls/hr Documented by: [id number] Admin: 05/20/20 02:41 Dose: 50 mls/hr Documented by: [id number] Infusion: 05/20/20 02:31 Dose: 50 mls/hr Documented by: [id number] Admin: 05/20/20 00:31 Dose: 50 mls/hr Documented by: [id number] Magnesium Sulfate/Dextrose (Magnesium Sulfate / D5w) 1 gm in 100 mls @ 50 mls/hr IV Q2H [facility] Stop: 05/20/20 04:05 Last Infusion: 05/20/20 05:17 Dose: 0 mls/hr Documented by: [id number] Admin: 05/20/20 03:15 Dose: 50 mls/hr Documented by: [id number] Infusion: 05/20/20 03:14 Dose: 50 mls/hr Documented by: [id number] Admin: 05/20/20 01:14 Dose: 50 mls/hr Documented by: [id number] Clindamycin Phosphate 600 mg/ (Dextrose) 54 mls @ 100 mls/hr IV Q8H [facility] Stop: 07/01/20 01:59 Last Infusion: 05/20/20 01:44 Dose: 0 mls/hr Documented by: [id number] Admin: 05/20/20 01:16 Dose: 100 mls/hr Documented by: [id number] Potassium Phosphate 21 mmol/ (Sodium Chloride) 507 mls @ 88 mls/hr IV ONE ONE Stop: 05/20/20 06:15 Last Infusion: 05/20/20 07:52 Dose: 0 mls/hr Documented by: [id number] Admin: 05/20/20 00:50 Dose: 88 mls/hr Documented by: [id number] Calcium Gluconate 2,000 mg/ (Sodium Chloride) 70 mls @ 280 mls/hr IV NOW STA Stop: 05/20/20 00:29 Last Infusion: 05/20/20 01:38 Dose: 0 mls/hr Documented by: [id number] Admin: 05/20/20 00:50 Dose: 280 mls/hr Documented by: [id number] Vancomycin HCl 2,000 mg/ (Sodium Chloride) 540 mls @ 200 mls/hr IV TODAY@0600 [facility] Stop: 05/20/20 08:41 Last Infusion: 05/20/20 08:38 Dose: 0 mls/hr Documented by: [id number] Admin: 05/20/20 06:06 Dose: 200 mls/hr Documented by: [id number] Albumin Human (Albumin 25%) 12.5 gm in 50 mls @ 50 mls/hr IV Q1H [facility] Stop: 05/20/20 11:59 Last Infusion: 05/20/20 13:20 Dose: 0 mls/hr Documented by: [id number] Admin: 05/20/20 12:20 Dose: 50 mls/hr Documented by: [id number] Infusion: 05/20/20 12:20 Dose: 50 mls/hr Documented by: [id number] Admin: 05/20/20 11:20 Dose: 50 mls/hr Documented by: [id number] Infusion: 05/20/20 11:20 Dose: 50 mls/hr Documented by: [id number] Admin: 05/20/20 10:48 Dose: 50 mls/hr Documented by: [id number] Infusion: 05/20/20 10:11 Dose: 0 mls/hr Documented by: [id number] Admin: 05/20/20 08:55 Dose: 50 mls/hr Documented by: [id number] Calcium Chloride 1,000 mg/ (Sodium Chloride) 60 mls @ 240 mls/hr IV NOW STA Stop: 05/20/20 08:29 Last Infusion: 05/20/20 10:08 Dose: 0 mls/hr Documented by: [id number] Admin: 05/20/20 08:55 Dose: 240 mls/hr Documented by: [id number] Ioversol (Optiray 320 125ml) 119 ml IV ONCE ONE Stop: 05/19/20 19:43 Last Admin: 05/19/20 19:42 Dose: 119 ml Documented by: [id number] Lidocaine HCl (Xylocaine 1%/Sod Bicarb 20 Ml Vial) 20 ml INFIL NOW ONE Stop: 05/20/20 00:09 Last Admin: 05/20/20 00:50 Dose: 20 ml Documented by: [id number] Critical Care Time I have personally spent greater than 90 minutes of critical care time in the direct management of this patient. This includes bedside care, interpretation of diagnostic studies, and testing, discussion with consultants, patient, and family members, and other required patient management activities. This 90 minutes is in excess of all separately billable procedures. Medical Decision Making Differential Diagnosis Sepsis, UTI, pneumonia, metabolic, electrolyte abnormalities, cardiac sources, intracerebral event, toxicologic, neurologic, as well as other pathologies. Medical Records Attestation: I reviewed the patient's medical records. Home Medications Current Medication List: was personally reviewed by me Laboratory Data Attestation: I reviewed the patient's lab results. Result diagrams: 05/20/20 10:19 05/20/20 03:31 Lab Results 05/19/20 05/19/20 05/19/20 Range/Units 18:30 18:30 18:30 WBC 4.20 L (4.8-10.8) K/uL RBC 3.33 L (4.7-6.1) M/uL Hgb 10.6 L (14.0-18.0) g/dL POC Hgb (14.0-18.0) g/dl Hct 31.5 L (42-52) % POC Hct (42-52) % MCV 94.6 (80-100) fL MCH 31.8 (25-34) pg MCHC 33.7 (32-36) g/dL RDW Std Deviation 47.4 H (36.4-46.3) fL RDW Coeff of Gordo 13.7 (11.5-14.5) % Plt Count 239 (130-400) K/uL MPV 9.9 (7.4-10.4) fL Immature Gran % (Auto) 0.2 % Neut % (Auto) 94.8 % Lymph % (Auto) 4.3 % [facility] % (Auto) 0.5 % Eos % (Auto) 0.2 % Baso % (Auto) 0.0 % Neut # (Auto) 3.98 (1.4-6.5) K/uL Lymph # (Auto) 0.18 L (1.2-3.4) K/uL [facility] # (Auto) 0.02 L (0.11-0.59) K/uL Eos # (Auto) 0.01 (0-0.5) K/uL Baso # (Auto) 0.00 (0-0.2) K/uL Immature Gran # (Auto) 0.01 (0.00-0.02) K/uL ESR > 90 H (0-14) mm/hr PT 14.5 H (9.0-12.0) Seconds INR 1.4 H (0.9-1.1) APTT 27.7 (21.0-31.0) Seconds PTT Ratio 1.0 D-Dimer 7830 H* (0-500) ug/L FEU POC Sodium (135-144) mmol/L Sodium (136-145) mmol/L POC Potassium (3.3-5.0) mmol/L Potassium (3.5-5.1) mmol/L POC Chloride (101-112) mmol/L Chloride (98-107) mmol/L Carbon Dioxide (21-32) mmol/L POC Total CO2 (24-31) mmol/L Anion Gap (3-11) POC Anion Gap (16-25) mmol/L POC BUN (7-18) mg/dl BUN (7-18) mg/dl Creatinine (0.6-1.4) mg/dl POC Creatinine (0.6-1.3) mg/dl Est Cr Clr Drug Dosing ml/min Est GFR ( Amer) Est GFR (Non-Af Amer) BUN/Creatinine Ratio (10-20) Glucose (70-99) mg/dl POC Glucose (other) (70-99) mg/dl Lactate (0.4-2.0) mmol/L Calcium (8.5-10.1) mg/dl POC Ioniz Calcium Josafat (1.12-1.32) mmol/l Magnesium (1.8-2.4) mg/dl Ferritin (8-388) ng/ml Total Bilirubin (0.2-1) mg/dl AST (15-37) U/L ALT (12-78) U/L Alkaline Phosphatase (45-117) U/L Lactate Dehydrogenase (87-241) U/L Total Creatine Kinase (39-308) U/L CK-MB (CK-2) (0.5-3.6) ng/ml CK/CKMB % Calc Troponin I (0-0.045) ng/ml C-Reactive Protein (0-0.29) mg/dl NT-Pro-B Natriuret Pep (0-1800) pg/ml Total Protein (6.4-8.2) gm/dl Albumin (3.4-5.0) gm/dl Globulin (2.5-4.0) gm/dl Albumin/Globulin Ratio (0.9-2) Procalcitonin (0-0.5) ng/ml COVID-19 Eval Order SARS-CoV-2 (PCR) (Negative) Influenza Type A (PCR) (Neg) Influenza Type B (PCR) (Neg) RSV (RT-PCR) (Neg) Blood Type Antibody Screen 05/19/20 05/19/20 05/19/20 Range/Units 18:30 18:30 18:30 WBC (4.8-10.8) K/uL RBC (4.7-6.1) M/uL Hgb (14.0-18.0) g/dL POC Hgb (14.0-18.0) g/dl Hct (42-52) % POC Hct (42-52) % MCV (80-100) fL MCH (25-34) pg MCHC (32-36) g/dL RDW Std Deviation (36.4-46.3) fL RDW Coeff of Gordo (11.5-14.5) % Plt Count (130-400) K/uL MPV (7.4-10.4) fL Immature Gran % (Auto) % Neut % (Auto) % Lymph % (Auto) % [facility] % (Auto) % Eos % (Auto) % Baso % (Auto) % Neut # (Auto) (1.4-6.5) K/uL Lymph # (Auto) (1.2-3.4) K/uL [facility] # (Auto) (0.11-0.59) K/uL Eos # (Auto) (0-0.5) K/uL Baso # (Auto) (0-0.2) K/uL Immature Gran # (Auto) (0.00-0.02) K/uL ESR (0-14) mm/hr PT (9.0-12.0) Seconds INR (0.9-1.1) APTT (21.0-31.0) Seconds PTT Ratio D-Dimer (0-500) ug/L FEU POC Sodium (135-144) mmol/L Sodium 135 L (136-145) mmol/L POC Potassium (3.3-5.0) mmol/L Potassium 4.0 (3.5-5.1) mmol/L POC Chloride (101-112) mmol/L Chloride 101 (98-107) mmol/L Carbon Dioxide 23 (21-32) mmol/L POC Total CO2 (24-31) mmol/L Anion Gap 11.0 (3-11) POC Anion Gap (16-25) mmol/L POC BUN (7-18) mg/dl BUN 28 H (7-18) mg/dl Creatinine 1.94 H (0.6-1.4) mg/dl POC Creatinine (0.6-1.3) mg/dl Est Cr Clr Drug Dosing 30.0 ml/min Est GFR ( Amer) 35.3 Est GFR (Non-Af Amer) 30.5 BUN/Creatinine Ratio 14.4 (10-20) Glucose 118 H (70-99) mg/dl POC Glucose (other) (70-99) mg/dl Lactate (0.4-2.0) mmol/L Calcium 9.0 (8.5-10.1) mg/dl POC Ioniz Calcium Josafat (1.12-1.32) mmol/l Magnesium 1.6 L (1.8-2.4) mg/dl Ferritin 450.0 H (8-388) ng/ml Total Bilirubin 1.2 H (0.2-1) mg/dl AST 233 H (15-37) U/L ALT 106 H (12-78) U/L Alkaline Phosphatase 283 H (45-117) U/L Lactate Dehydrogenase 369 H (87-241) U/L Total Creatine Kinase 27 L (39-308) U/L CK-MB (CK-2) < 1.0 (0.5-3.6) ng/ml CK/CKMB % Calc TNP Troponin I < 0.015 (0-0.045) ng/ml C-Reactive Protein 15.50 H (0-0.29) mg/dl NT-Pro-B Natriuret Pep 2477 H (0-1800) pg/ml Total Protein 7.5 (6.4-8.2) gm/dl Albumin 2.3 L (3.4-5.0) gm/dl Globulin 5.2 H (2.5-4.0) gm/dl Albumin/Globulin Ratio 0.4 L (0.9-2) Procalcitonin 9.23 H (0-0.5) ng/ml COVID-19 Eval Order SARS-CoV-2 (PCR) (Negative) Influenza Type A (PCR) (Neg) Influenza Type B (PCR) (Neg) RSV (RT-PCR) (Neg) Blood Type Antibody Screen 05/19/20 05/19/20 05/19/20 Range/Units 18:53 18:55 18:55 WBC (4.8-10.8) K/uL RBC (4.7-6.1) M/uL Hgb (14.0-18.0) g/dL POC Hgb 9.9 L (14.0-18.0) g/dl Hct (42-52) % POC Hct 29 L (42-52) % MCV (80-100) fL MCH (25-34) pg MCHC (32-36) g/dL RDW Std Deviation (36.4-46.3) fL RDW Coeff of Gordo (11.5-14.5) % Plt Count (130-400) K/uL MPV (7.4-10.4) fL Immature Gran % (Auto) % Neut % (Auto) % Lymph % (Auto) % [facility] % (Auto) % Eos % (Auto) % Baso % (Auto) % Neut # (Auto) (1.4-6.5) K/uL Lymph # (Auto) (1.2-3.4) K/uL [facility] # (Auto) (0.11-0.59) K/uL Eos # (Auto) (0-0.5) K/uL Baso # (Auto) (0-0.2) K/uL Immature Gran # (Auto) (0.00-0.02) K/uL ESR (0-14) mm/hr PT (9.0-12.0) Seconds INR (0.9-1.1) APTT (21.0-31.0) Seconds PTT Ratio D-Dimer (0-500) ug/L FEU POC Sodium 132 L (135-144) mmol/L Sodium (136-145) mmol/L POC Potassium 5.6 H (3.3-5.0) mmol/L Potassium (3.5-5.1) mmol/L POC Chloride 101 (101-112) mmol/L Chloride (98-107) mmol/L Carbon Dioxide (21-32) mmol/L POC Total CO2 24 (24-31) mmol/L Anion Gap (3-11) POC Anion Gap 13.0 L (16-25) mmol/L POC BUN 39 H (7-18) mg/dl BUN (7-18) mg/dl Creatinine (0.6-1.4) mg/dl POC Creatinine 1.5 H (0.6-1.3) mg/dl Est Cr Clr Drug Dosing ml/min Est GFR ( Amer) Est GFR (Non-Af Amer) BUN/Creatinine Ratio (10-20) Glucose (70-99) mg/dl POC Glucose (other) 128 H (70-99) mg/dl Lactate 4.5 H* (0.4-2.0) mmol/L Calcium (8.5-10.1) mg/dl POC Ioniz Calcium Josafat 1.03 L (1.12-1.32) mmol/l Magnesium (1.8-2.4) mg/dl Ferritin (8-388) ng/ml Total Bilirubin (0.2-1) mg/dl AST (15-37) U/L ALT (12-78) U/L Alkaline Phosphatase (45-117) U/L Lactate Dehydrogenase (87-241) U/L Total Creatine Kinase (39-308) U/L CK-MB (CK-2) (0.5-3.6) ng/ml CK/CKMB % Calc Troponin I (0-0.045) ng/ml C-Reactive Protein (0-0.29) mg/dl NT-Pro-B Natriuret Pep (0-1800) pg/ml Total Protein (6.4-8.2) gm/dl Albumin (3.4-5.0) gm/dl Globulin (2.5-4.0) gm/dl Albumin/Globulin Ratio (0.9-2) Procalcitonin (0-0.5) ng/ml COVID-19 Eval Order SARS-CoV-2 (PCR) (Negative) Influenza Type A (PCR) (Neg) Influenza Type B (PCR) (Neg) RSV (RT-PCR) (Neg) Blood Type A Positive Antibody Screen NEGATIVE 05/19/20 05/19/20 Range/Units 19:00 19:00 WBC (4.8-10.8) K/uL RBC (4.7-6.1) M/uL Hgb (14.0-18.0) g/dL POC Hgb (14.0-18.0) g/dl Hct (42-52) % POC Hct (42-52) % MCV (80-100) fL MCH (25-34) pg MCHC (32-36) g/dL RDW Std Deviation (36.4-46.3) fL RDW Coeff of [place]ordo (11.5-14.5) % Plt Count (130-400) K/uL MPV (7.4-10.4) fL Immature Gran % (Auto) % Neut % (Auto) % Lymph % (Auto) % [facility] % (Auto) % Eos % (Auto) % Baso % (Auto) % Neut # (Auto) (1.4-6.5) K/uL Lymph # (Auto) (1.2-3.4) K/uL [facility] # (Auto) (0.11-0.59) K/uL Eos # (Auto) (0-0.5) K/uL Baso # (Auto) (0-0.2) K/uL Immature Gran # (Auto) (0.00-0.02) K/uL ESR (0-14) mm/hr PT (9.0-12.0) Seconds INR (0.9-1.1) APTT (21.0-31.0) Seconds PTT Ratio D-Dimer (0-500) ug/L FEU POC Sodium (135-144) mmol/L Sodium (136-145) mmol/L POC Potassium (3.3-5.0) mmol/L Potassium (3.5-5.1) mmol/L POC Chloride (101-112) mmol/L Chloride (98-107) mmol/L Carbon Dioxide (21-32) mmol/L POC Total CO2 (24-31) mmol/L Anion Gap (3-11) POC Anion Gap (16-25) mmol/L POC BUN (7-18) mg/dl BUN (7-18) mg/dl Creatinine (0.6-1.4) mg/dl POC Creatinine (0.6-1.3) mg/dl Est Cr Clr Drug Dosing ml/min Est GFR ( Amer) Est GFR (Non-Af Amer) BUN/Creatinine Ratio (10-20) Glucose (70-99) mg/dl POC Glucose (other) (70-99) mg/dl Lactate (0.4-2.0) mmol/L Calcium (8.5-10.1) mg/dl POC Ioniz Calcium Josafat (1.12-1.32) mmol/l Magnesium (1.8-2.4) mg/dl Ferritin (8-388) ng/ml Total Bilirubin (0.2-1) mg/dl AST (15-37) U/L ALT (12-78) U/L Alkaline Phosphatase (45-117) U/L Lactate Dehydrogenase (87-241) U/L Total Creatine Kinase (39-308) U/L CK-MB (CK-2) (0.5-3.6) ng/ml CK/CKMB % Calc Troponin I (0-0.045) ng/ml C-Reactive Protein (0-0.29) mg/dl NT-Pro-B Natriuret Pep (0-1800) pg/ml Total Protein (6.4-8.2) gm/dl Albumin (3.4-5.0) gm/dl Globulin (2.5-4.0) gm/dl Albumin/Globulin Ratio (0.9-2) Procalcitonin (0-0.5) ng/ml COVID-19 Eval Order CovFluRsv at [facility] SARS-CoV-2 (PCR) NEGATIVE (Negative) Influenza Type A (PCR) Negative (Neg) Influenza Type B (PCR) Negative (Neg) RSV (RT-PCR) Negative (Neg) Blood Type Antibody Screen Imaging Data Radiologist's Impression: [facility], [phone] XRay Report Patient: SEB DAVIS RAdmit Date: 05/19/20MR#: [id number]: [address] [facility] DRAcct ID:[id number]: Date: 1935[facility] Zip: [place], [place] [address]Jql: 84Location: 1ESex: MRoom/Bed: [id number] Phy: Joselo Davis, MDDiagnosis: SEPSIS DUE TO INFECTED KIDNEY STONEPri Phy: Tonny Pinon, DOService Date: 05/19/20Fa Phy:Interpreting Phy: Niko Woodson MDAdmit Phy: Humberto Mendoza M.D. Ordering Phy: Elbert Damon MD cc: ~ XR chest 1V portable HISTORY: line placement COMPARISON: Chest 05/19/2020. FINDINGS: Interval placement of a right jugular central venous catheter with the tip terminating at the distal SVC. No pneumothorax. No pleural effusions. The heart is mildly enlarged. There is mild central pulmonary vascular congestion without overt edema. No new focal lung consolidations. A few bibasilar linear densities favor subsegmental atelectasis. There is a right shoulder prosthesis. IMPRESSION: Right jugular central venous catheter terminates at the distal SVC. No pneumothorax. ACT 112: Negative or not required by law. Electronically signed by: Niko Woodson M.D. 05/20/2020 8:22 AM Dictated: 05/20/20820Transcribed: 05/20/20820 [facility], [phone] CT Scan Report Patient: SEB DAVIS RAdmit Date: 05/19/20MR#: [id number]: [address] [facility] DRAcct ID:[id number]: Date: [address] [place] [address] Zip: [place], [place] [address]Ufn: 86Location: EDSex: MRoom/Bed:Att Phy:Diagnosis: SEMI RESPONSIVEPri Phy: Tonny Huber, DOService Date: 05/19/20Fam Phy:Interpreting Phy: Niko Anne Phy: Ordering Phy: Elbert Damon MD cc: ~ HEAD CT NONCONTRAST CT DOSE: HISTORY: Altered mental status. Pt c/o sepsis TECHNIQUE: Multiaxial CT images of the head were performed without the use of intravenous contrast. Automated exposure control was utilized for this study. A dose lowering technique was utilized adhering to the principles of ALARA. Comparison: Head CT 09/18/2011. Findings: The paranasal sinuses and mastoid air cells are clear. The calvarium and skull base are intact. There is no mass, hematoma, midline shift, acute infarct. White matter hypodensity is nonspecific but suggestive of microvascular ischemic change. The ventricles and sulci demonstrate mild age-related involutional changes. Impression: No acute intracranial abnormality. Atrophy and microvascular ischemic changes. ACT 112: Negative or not required by law. Electronically signed by: Niko Woodson M.D. 05/19/2020 8:14 PM Dictated: 05/19/202010Transcribed: 05/19/202010 [facility], [phone] XRay Report Patient: SEB DAVIS Date: 05/19/20MR#: [id number]: [address] [facility] DRAcct ID:[id number]: Date: [address] [place] [address] Zip: [place], [place] [address]Etb: 86Location: EDSex: MRoom/Bed:Att Phy:Diagnosis: SEMI RESPONSIVEPri Phy: Tonny Huber, DOService Date: 05/19/20Fam Phy:Interpreting Phy: Niko Woodson MDAdmit Phy: Ordering Phy: Elbert Damon MD cc: ~ XR chest 1V portable HISTORY: SEPSIS COMPARISON: Chest 12/24/2014. FINDINGS: Progressive perihilar interstitial and vascular thickening consistent with mild congestive change. No pneumothorax. The heart is mildly enlarged. Suspect trace bilateral pleural effusions. There is a left shoulder prosthesis. No pneumothorax. IMPRESSION: Cardiomegaly with mild congestive change and trace bilateral pleural effusions. ACT 112: Negative or not required by law. Electronically signed by: Niko Woodson M.D. 05/19/2020 7:16 PM Dictated: 05/19/201913Transcribed: 05/19/201913 [facility], [phone] CT Scan Report Patient: SEB DAVIS Date: 05/19/20MR#: [id number]: [address] [facility] DRAcct ID:[id number]: Date: [address] [place] [address] Zip: [place], [place] [address]Dol: 86Location: EDSex: MRoom/Bed:Att Phy:Diagnosis: SEMI RESPONSIVEPri Phy: Tonny Huber, DOService Date: 05/19/20Fam Phy:Interpreting Phy: Niko Woodson MDAdmit Phy: Ordering Phy: Elbert Damon MD cc: ~ CHEST CTA for PULMONARY ARTERIES CT DOSE: HISTORY: Shortness of breath. TECHNIQUE: Multiaxial CT images of the chest were performed following the intravenous administration of contrast to evaluate the pulmonary arteries. Maximal intensity projection images were also obtained. A dose lowering technique was utilized adhering to the principles of ALARA. COMPARISON STUDY: Chest CT 05/09/2009. FINDINGS: Old mild anterior wedge-shaped compression deformity at T11. Normal caliber thoracic aorta with no evidence for dissection. The heart is mildly enlarged. No pleural or pericardial effusions. Nondiagnostic evaluation of the majority of the segmental and subsegmental pulmonary arteries due to the respiratory motion artifact. The main and lobar pulmonary arteries appear patent. Please refer to the same day abdomen and pelvis CT for further evaluation of the abdominal structures. No mediastinal or hilar lymphadenopathy. Bilateral shoulder prostheses are noted. No suspicious lytic or blastic osseous lesions. No pneumothorax. The central airways appear patent. Suboptimal evaluation of the lungs due to the respiratory motion. Mild dependent changes seen at the lung bases. There appears be a faint groundglass density within the left upper lobe anteriorly on image 148. IMPRESSION: 1. No evidence for central pulmonary embolus. 2. Possible faint groundglass density within the left upper lobe anteriorly. This could represent a viral pneumonia. 3. Please refer to the same day abdomen and pelvis CT for further evaluation of the abdominal structures. ACT 112: Negative or not required by law. Electronically signed by: Niko Woodson M.D. 05/19/2020 8:00 PM Dictated: 05/19/201954Transcribed: 05/19/201954 [facility], [phone] CT Scan Report Patient: SEB DAVIS Date: 05/19/20MR#: [id number]: [address] [facility] DRAcct ID:[id number]: Date: [address] [place] [address] Zip: [place], [place] [address]Sby: 86Location: EDSex: MRoom/Bed:Att Phy:Diagnosis: SEMI RESPONSIVEPri Phy: Tonny Huber, DOService Date: 05/19/20Fam Phy:Interpreting Phy: Niko Woodson MDAdmit Phy: Ordering Phy: Elbert Damon MD cc: ~ ABDOMEN AND PELVIS CT WITH IV CONTRAST CT DOSE: 2209.63 mGy.cm HISTORY: Pt c/o Sepsis TECHNIQUE: Multiaxial CT images of the abdomen and pelvis were performed following the use of intravenous contrast. A dose lowering technique was utilized adhering to the principles of ALARA. COMPARISON STUDY: Abdomen and pelvis CT 03/29/2020. FINDINGS: No pneumoperitoneum. No pneumatosis. Old, healed right pubic ring fractures. Soft tissue thickening at the symphysis pubis with focal area of erosive change within the left side of the symphysis pubis best in image 393. The focal erosion measures 9 mm. This is new from the prior study. There is also punctate foci of gas at the symphysis pubis which is new from the prior study. The large osteophytes at this location abut the anterior bladder wall. This remains unchanged. The bladder jacobson moderately thickened. There is a small amount of gas within the bladder lumen. The prostate gland is surgically absent. There is a punctate stone within the left kidney. There are multiple left peripelvic renal cysts. There are few bilateral cortical renal cysts. There is moderate right hydroureteronephrosis secondary to an obstructing 8 mm stone within the mid right ureter best seen on image 262. The liver, spleen, and pancreas appear unremarkable. A few small diverticula within the duodenum. Essentially nondiagnostic evaluation of the gallbladder. Normal caliber abdominal aorta. No retroperitoneal lymphadenopathy. Colonic diverticulosis. No evidence for acute diverticulitis. No evidence for bowel obstruction. Normal appendix. IMPRESSION: 1. Moderate right hydroureteronephrosis secondary to an obstructing 8 mm stone within the mid right ureter. 2. Left-sided nephrolithiasis. No left-sided left hydronephrosis. 3. Progressive soft tissue thickening with a new focal erosion and small amount of gas at the symphysis pubis. Findings raise the possibility of a septic arthritis/osteomyelitis. Of note, the anterior bladder wall abuts this region and also contains a small focus of gas. Although considered less likely, a fistula from the anterior bladder wall to the symphysis pubis cannot be excluded. 4. Moderate bladder wall thickening. Recommend correlation with urinalysis. This could be reactive to the adjacent abnormality of the symphysis pubis. 5. Additional findings as described above. ACT 112: Negative or not required by law. Electronically signed by: Niko Woodson M.D. 05/19/2020 8:11 PM Dictated: 05/19/201999Transcribed: 05/19/201999 ECG Data Attestation: I personally reviewed and interpreted this ECG as follows: Indication: + weakness Rate (beats per minute): 149 Rhythm: + sinus tachycardia ECG Intervals/blocks: + Normal QT-c (485) ECG Bonham: + Left axis deviation ECG ST segments: no ST depression and no ST elevation Comparison ECG Date: from (03/20/2013) Change: the following changes noted (Vent rate increased by 92) MDM Narrative Patient was seen and evaluated as above in room B8. Review was performed of nursing notes and vital signs. I did review pertinent previous visits and p atient history. After obtaining a thorough history and physical examination the above work up was performed. This is an 84-year-old male who presents the emergency department with an altered mental status. Upon arrival to the emergency department patient was febrile tachycardic and hypotensive. A sepsis alert was immediately initiated. He was given 30 mils per kilogram of fluid with improvement in the patient's heart rate as well as his blood pressure. The patient continued to be hypotensi ve. Because of this a central line was placed as above. I did discuss the patient's prognosis and findings with his son x2 and expressed how critically ill the patient is. His Covid test is negative however he appears to have an infected stone on CAT scan of the abdomen pelvis. Based on this I did discuss the case with the urologist who asked that a central line be placed. He is going to take the patient to the operating room. In the meantime I did discuss the case with both the ICU as well as the hospitalist service who did agree to admit the patient. Patient's lactate was found to be elevated. While in the department, I personally reevaluated the patient several times and each time the patient was found to be resting comfortably. The patient was educated upon management, educated upon todays findings/results, educated upon importance of follow up from today's visit, educated upon symptoms in which to return, had questions answered prior to discharge, verbalized understanding, and was discharged home in good condition. An order was placed for continuous cardiac monitoring. The monitor shows a rate of 120 with Sinus rhythm. The patient was evaluated during a period of high volume and high acuity while the hospital was at overcapacity during the global COVID-19 pandemic, and that diagnosis was suspected/considered upon their initial presentation. Their evaluation, treatment and testing was consistent with current guidelines for patients who present with complaints or symptoms that may be related to COVID- 19. Impression & Plan Severe sepsis with septic shock, SCARLET (acute kidney injury), Hypotension, Ureteral stone with hydronephrosis Discharge Plan Visit Data Chief Complaint: Illness Stated Complaint: SEMI RESPONSIVE ED Provider: Elbert Damon Discharge Problem: Severe sepsis with septic shock, SCARLET (acute kidney injury), Hypotension, Ureteral stone with hydronephrosis Patient Disposition: Still a Patient Discharge Instructions Interventions: ED Discharge Assessment Last Done: 05/19/20 21:08 Discharge Problem: Hypotension Qualifiers: Hypotension type: unspecified hypotension type Qualified Code(s): I95.9 - Hypotension, unspecified
[2020-05-19] MEDS: NOREPINEPHRINE/D5W 8 MG/508 ML BAG IV SCH (22:27)
[2020-05-19] MEDS ORDERED: PHENYLEPHRINE 100MCG/ML 5ML SYR ONE (22:36)
[2020-05-19] MEDS ORDERED: PROPOFOL IV EMULSION 10 MG/ML 20 ML VIAL IV ONE (22:38)
--- NOTE | 2020-05-19 22:54 | Operative Report ---
PG Post Operative Report Pre & Post Diagnosis Operation Date: 05/19/20 21:00 Pre-Op Diagnosis: ureteral stone sepsis Post-Op Diagnosis: ureteral stone sepsis I identified the patient and participated in the time-out.: Yes Procedure Operation Date: 05/19/20 21:00 Actual Procedures Cystoscopy with retrograde urethrogram, urethral dilation, meatal dilation, dilation of bladder neck contracture Right Aspiration, Retrograde pyelogram, and stent - Alek Venegas, Surgeon Alek Venegas, II, DO Client Relations Associate None Estimated Blood Loss 1 Findings Consistent with Post-Op Diagnosis Stent placed in good position. Severe stricture of meatus, mid pendulous urethra, and bladder neck. Specimens Urine Right renal pelvis. Drains 6 Fr Multilength 20 Fr [place] Tip Catheter Anesthesia Type MAC Complications none Disposition Disposition: Recovery Room Indications Patient with obstruction and sepsis. Risks and benefits discussed at length. Description of Procedure Patient was consented and brought back to the operating room. Patient was placed under anesthesia in the supine position and moved to the dorsal lithotomy position. Patient was prepped and draped in the regular sterile fashion. A time out was completed. A 30degree Cystoscope was attempted to be placed. The meatus was severely na rrowed and required dilation. The scope then encountered a stricture. A retrograde urethrogram was completed with approx 5 cc of contrast. Multiple strictures were noted. A wire was advanced and able to enter into the bladder confirmed with fluoroscopy. The Aleks dilators were selected and the strictures dilated. The scope was advanced to the bladder neck and a final stricture/bladder neck contracture was discovered. This was dilated over the wire and then the scope was placed into the bladder and the entire bladder was examined. The UO's were identified. The UO was cannulized with a catheter and advanced past the stone. Urine from the pelvis was aspirated and a retrograde pyelogram was completed. A wire was then placed. With the wire in place, a 6 Fr Double J stent was placed. It was confirmed with fluoroscopy. With the stent in place, the bladder was emptied. The scope was removed. The patient was cleaned, aroused from anesthesia, and transferred to the pacu in stable condition having tolerated the procedure well with no complications. I was present and participated in all aspects of the procedure. The patient will be monitored in the PACU until transferred. I attest to the content of the Intraoperative Record and any orders documented therein. Any exceptions are noted below.
--- NOTE | 2020-05-19 23:16 | Anesthesiology Progress Note ---
Date of Service May 19, 2020 Anesthesia Post Procedure Vital Signs Vital Signs: Temp Pulse Pulse Resp BP BP Pulse Ox 05/19/20 23:00 36.4 C L 126 H 16 119/53 L 100 20 21:50 117 H 29 H 100 20 21:40 119 H 100 20 21:31 120 H 27 H 100 20 21:30 120 H 31 H 67/38 L 100 20 21:21 120 H 22 91 05/19/20 21:20 119 H 90/56 L 100 20 21:11 117 H 31 H 95 05/19/20 21:10 120 H 32 H 95/53 L 95 05/19/20 21:01 117 H 32 H 71/52 L 100 05/19/20 21:00 120 H 31 H 100 20 20:50 118 H 31 H 100 20 20:41 119 H 28 H 100 20 20:40 120 H 31 H 78/48 L 100 20 20:31 119 H 22 100 20 20:30 119 H 30 H 81/43 L 100 20 20:21 120 H 29 H 100 20 20:20 119 H 29 H 68/44 L 100 20 20:11 120 H 29 H 100 20 20:10 122 H 29 H 70/50 L 100 20 20:06 122 H 31 H 82/49 L 100 20 20:01 124 H 29 H 146/128 H 100 20 20:00 126 H 34 H 100 20 19:57 127 H 30 H 05/19/20 19:31 130 H 34 H 100 20 19:30 131 H 34 H 93/60 L 100 20 19:20 128 H 20 19:16 141 H 101/71 05/19/20 19:10 145 H 100 20 19:01 152 H 89/48 L 20 19:00 152 H 20 18:51 38.0 C H 145 H 30 H 97 20 18:50 146 H 20 18:40 143 H 99 05/19/20 18:39 152 H 24 100/67 94 05/19/20 18:37 154 H 24 95 Transfer of Care Handoff Completed per policy Notes Mental Status: alert / awake / arousable Patient Amnestic to Procedure: Yes Nausea / Vomiting: adequately controlled Pain: adequately controlled Airway Patency, RR, SpO2: stable & adequate BP & HR: see Notes below Hydration State: stable & adequate and see Notes below Anesthetic Complications: no major complications apparent and Pt Satisfied with anesthetic care Notes: The patient came to the ER in sepsis due to an obstructing ureteral stone. He had an arterial line and central line placed in the ER. He was given albumin IV and started on a norepinephrine. The patient was given minimum sedation in the OR. His SBP was greater than 100 throughout but he was in afib with RVR HR 130s throughout as well. SpO2 remained in the high 90s to 100. The patient is awake and alert in the ICU. Sign out was given to Harshad in the ICU.
[2020-05-19] MEDS ORDERED: VANCOMYCIN HCL 1,000 MG in SODIUM CHLORIDE 0.9% 250 ML IV SCH (23:37)
[2020-05-19] MEDS ORDERED: levoFLOXacin/D5W 500 MG/100 ML BAG IV SCH (23:37)
[2020-05-19] MEDS ORDERED: ACETAMINOPHEN 1000 MG/100 ML IV IV PRN (23:37)
[2020-05-19] MEDS ORDERED: ICU PROTOCOL FOR HYPERGLYCEMIA PRN (23:37)
[2020-05-19] MEDS ORDERED: SODIUM CHLORIDE 0.9% 1000ML 1,000 ML IV SCH (23:37)
[2020-05-19] MEDS ORDERED: ALBUT/IPRATROP 3MG/0.5MG NEB 3 ML VIAL INH PRN (23:37)
[2020-05-19] MEDS ORDERED: LACTATED RINGER'S 1,000 ML IV SCH (23:45)
[2020-05-20 00:01] LABS: Hematocrit (blood only) 23.3 % (42-52); Hemoglobin 7.7 g/dL (14.0-18.0)
[2020-05-20 00:02] LABS: BUN Creatinine Ratio 16.2 (10-20); Calcium 7.7 mg/dl (8.5-10.1); Creatinine Clr Calc Pharmacy 32.5 ml/min; Est GFR (African American) 39.2; Est GFR (Non-African American) 33.8; Magnesium 1.5 mg/dl (1.8-2.4); Phosphorus 1.4 mg/dl (2.5-4.9); Potassium 3.4 mmol/L (3.5-5.1)
[2020-05-20] MEDS ORDERED: POTASSIUM PHOS 3 MMOL/1 ML INFUSION IV STA (00:06)
[2020-05-20] MEDS ORDERED: CALCIUM GLUCONATE 10% 10 ML VIAL IV STA (00:06)
[2020-05-20] MEDS ORDERED: XYLOCAINE 1%/SOD BICARB 20 ML VIAL INFIL ONE (00:08)
[2020-05-20 00:12] LABS: Appearance Urine Turbid (Clear); Bacteria Urine Automated 2+ (Negative); Bilirubin Urine Negative (Negative); Blood Urine 3+ (Negative); Color Urine Dark Yellow; Glucose Urine UA Negative (Negative); Ketones Urine Negative (Negative); Leukocyte Esterase Urine 3+ (Negative); Nitrite Urine Positive (Negative); Protein Urine 1+ (Negative); Specific Gravity Urine 1.042 (1.000-1.030); Urobilinogen Urine Negative (Negative); WBC Urine Automated >30 /hpf (0-5)
[2020-05-20] MEDS ORDERED: CALCIUM GLUCONATE 10% 2,000 MG in SODIUM CHLORIDE 0.9% 50 ML IV STA (00:15)
[2020-05-20] MEDS ORDERED: POTASSIUM PHOSPHATE 21 MMOL in SODIUM CHLORIDE 0.9% 500 ML IV ONE (00:30)
[2020-05-20] MEDS: FAMOTIDINE 20 MG in SYRINGE 3 ML IV SCH ×2 (00:31→13:47)
[2020-05-20] MEDS: POTASSIUM CHLORIDE / WTR 20 MEQ/100 ML PLCT IV SCH ×2 (00:31→02:41)
[2020-05-20 00:35] LABS: RBC Urine Automated >30 /hpf (0-4)
[2020-05-20] MEDS: MAGNESIUM SULFATE / D5W 1 GM/100 ML BAG IV SCH ×2 (01:14→03:15)
[2020-05-20] MEDS: PIPERACILLIN/TAZOBACTAM 3.375 GM in DEXTROSE 5% 100 ML IV SCH ×3 (01:15→19:19)
[2020-05-20] MEDS ORDERED: CLINDAMYCIN 600 MG in DEXTROSE 5% 50 ML IV SCH (02:00)
[2020-05-20 03:55] LABS: INR 1.6 (0.9-1.1); Partial Thromboplastin Ratio 1.4; Partial Thromboplastin Time 39.6 Seconds (21.0-31.0); Prothrombin Time 16.3 Seconds (9.0-12.0)
[2020-05-20 03:59] LABS: Hematocrit (blood only) 23.7 % (42-52); Hemoglobin 7.8 g/dL (14.0-18.0); Mean Corpuscular Hemoglobin 31.1 pg (25-34); Mean Corpuscular Hgb Conc 32.9 g/dL (32-36); Mean Corpuscular Volume 94.4 fL (80-100); Platelet Count 161 K/uL (130-400); RDW Coefficient of Variation 13.9 % (11.5-14.5); RDW Standard Deviation 47.9 fL (36.4-46.3); Red Blood Count 2.51 M/uL (4.7-6.1); White Blood Count 27.83 K/uL (4.8-10.8)
[2020-05-20 04:08] LABS: Dohle Bodies Occasional; Eosinophils # (auto) 0.08 K/uL (0-0.5); Eosinophils % (auto) 0.3 %; Immature Granulocytes # (auto) 0.72 K/uL (0.00-0.02); Immature Granulocytes % (auto) 2.6 %; Lymphocytes # (auto) 0.26 K/uL (1.2-3.4); Lymphocytes % (auto) 0.9 %; Monocytes # (auto) 0.84 K/uL (0.11-0.59); Neutrophils # (auto) 25.93 K/uL (1.4-6.5); Neutrophils % (auto) 93.2 %
[2020-05-20 04:28] LABS: Albumin Globulin Ratio 0.5 (0.9-2); BUN Creatinine Ratio 16.9 (10-20); Calcium 7.9 mg/dl (8.5-10.1); Creatinine Clr Calc Pharmacy 37.6 ml/min; Est GFR (African American) 46.7; Est GFR (Non-African American) 40.3; Globulin 3.7 gm/dl (2.5-4.0); Phosphorus 3.3 mg/dl (2.5-4.9); Potassium 4.2 mmol/L (3.5-5.1); Total Protein 5.7 gm/dl (6.4-8.2)
[2020-05-20] MEDS ORDERED: VANCOMYCIN HCL 2,000 MG in SODIUM CHLORIDE 0.9% 500 ML IV SCH (06:00)
--- NOTE | 2020-05-20 08:00 | Critical Care Progress Note ---
Date of Service May 20, 2020 Assessment & Plan (1) Severe sepsis with septic shock: Impression: 84-year-old male admitted 05/19 with severe sepsis and acute renal failure due to hydronephrosis and infected stone status post emergent cystoscopy with right-sided stent placement. 24-hour events: The patient presented to the emergency room and was taken urgently to the OR for stent placement. He was initiated on broad-spectrum antibiotics and vasopressor agents. Central access was obtained. He is been observed in the ICU. His hemodynamics are improved but he still requires norepi nephrine. Recommendations: 1. Neuro: Patient presented with some acute delirium. This appears to be clearing and was likely metabolic in nature. Continue to follow. 2. Cardiovascular: Severe sepsis with septic shock: Patient appears adequately fluid resuscitated currently. We will continue to wean pressors as tolerated. May require blood products. See comments below. History of atrial fi brillation. Holding flecainide as well as Xarelto. Remains tachycardic and if this continues to be an issue we may need to transition from norepinephrine to phenylephrine. Lactate has decreased from 2.9 down to 2. Random cortisol over 70 indicating appropriate response. Will restart anticoagulation once hemoglobin and hematocrit are stable. 3. Pulmonary: Mild basilar atelectasis. Continue supplemental oxygen as needed titrated to keep saturations at or above 88 4. ID: Urosepsis/pyelonephritis with obstructing stone status post cystoscopy and stent placement. Blood cultures are showing E. coli. The patient is day #2 Zosyn, Clinda, and vancomycin. The patient grew a sensitive Klebsiella 05/13/2020 so suspect this may be the same organism. He was to be taking cefuroxime at home. Unclear if he failed this antibiotic or if the complicated UTI due to infected stone resulted in failure of outpatient antimicrobial therapy. Can discontinue clindamycin and vancomycin 5. Renal: Patient presented with mild acute renal injury which is improved this morning. Suspect this is related to hydronephrosis as well as septic shock and hypoperfusion. We will continue to trend over time. Judicious electrolyte replacement 6. GI: Okay to advance to a clear liquid diet and see how he does. Can advance diet further once he is off vasopressor agents. On H2 donald 7. Hematology oncology: Leukocytosis secondary to urosepsis. Continue to follow. No evidence of acute blood loss. Continue to trend hemoglobin and transfuse for hemoglobin less than 7. Patient remains critically ill at this point time with possibility of deterioration. A total of 40 minutes critical care time was spent in evaluation management of this patient including discussion with ICU staff and on multi disciplinary rounds. (2) Anemia: (3) Sepsis: (4) Ureteral stone: Admission and Anticipated Discharge Date Admission Date: May 19, 2020 Subjective Patient seen and examined. States he is feeling somewhat better. He is complaining of some pain in his right third fourth and fifth fingers associated with the arterial line. He is neurovascularly intact. Is not having any nausea or vomiting. No chest pain palpitations. He is thirsty and starting to get an appetite back. Review of Systems Review of Systems: All systems reviewed & are unremarkable except as noted in HPI & below Physical Exam Constitutional: well developed; no acute distress and not ill appearing Neck: trachea midline, no thyromegaly Respiratory: normal respiratory effort, lungs clear to auscultation Cardiovascular: RRR, no murmur, no edema Gastrointestinal (Abdomen): normal bowel sounds, soft, nontender, no hepatosplenomegaly Musculoskeletal: Extremities: extremities normal to inspection Skin: no rashes, warm and dry Neurologic: Nonfocal exam Lymphatic: no cervical lymphadenopathy Results & Data Results & Data ([facility]) Vital Signs (Past 12 Hours) Vital Signs Temp Pulse Pulse Resp BP BP BP 05/20/20 04:00 36.8 C 115 H 29 H 108/70 05/20/20 03:30 113 H 22 89/61 L 05/20/20 03:01 117 H 23 95/58 L 05/20/20 02:30 103 H 24 103/61 05/20/20 02:00 121 H 23 109/65 05/20/20 01:30 122 H 23 112/64 05/20/20 01:01 110 H 22 106/65 05/20/20 00:37 132 H 23 128/64 05/20/20 00:30 129 H 28 H 107/68 05/20/20 00:00 36.4 C L 126 H 23 102/66 05/19/20 23:30 129 H 22 125/67 05/19/20 23:24 127 H 24 101/59 L 05/19/20 23:20 36.4 C L 129 H 22 101/59 L 114/49 L 05/19/20 23:10 132 H 132 H 26 H 121/67 121/67 106/54 L 05/19/20 23:06 133 H 28 H 113/66 05/19/20 23:00 36.4 C L 126 H 16 119/53 L 20 21:50 117 H 29 H 20 21:40 119 H 05/19/20 21:31 120 H 27 H 05/19/20 21:30 120 H 31 H 67/38 L 20 21:21 120 H 22 05/19/20 21:20 119 H 90/56 L 20 21:11 117 H 31 H 05/19/20 21:10 120 H 32 H 95/53 L 05/19/20 21:01 117 H 32 H 71/52 L 05/19/20 21:00 120 H 31 H 05/19/20 20:50 118 H 31 H 05/19/20 20:41 119 H 28 H 05/19/20 20:40 120 H 31 H 78/48 L 05/19/20 20:31 119 H 22 05/19/20 20:30 119 H 30 H 81/43 L 20 20:21 120 H 29 H 20 20:20 119 H 29 H 68/44 L 20 20:11 120 H 29 H 05/19/20 20:10 122 H 29 H 70/50 L 05/19/20 20:06 122 H 31 H 82/49 L 05/19/20 20:01 124 H 29 H 146/128 H 05/19/20 20:00 126 H 34 H 05/19/20 19:57 127 H 30 H Pulse Ox 05/20/20 04:00 100 05/20/20 03:30 100 05/20/20 03:01 100 05/20/20 02:30 100 05/20/20 02:00 99 05/20/20 01:30 96 05/20/20 01:01 94 05/20/20 00:37 95 05/20/20 00:30 100 05/20/20 00:00 96 05/19/20 23:30 100 05/19/20 23:24 99 05/19/20 23:20 100 05/19/20 23:10 99 12/13/20 23:06 99 05/19/20 23:00 100 05/19/20 21:50 100 05/19/20 21:40 100 05/19/20 21:31 100 05/19/20 21:30 100 05/19/20 21:21 91 05/19/20 21:20 100 05/19/20 21:11 95 05/19/20 21:10 95 05/19/20 21:01 100 05/19/20 21:00 100 05/19/20 20:50 100 05/19/20 20:41 100 05/19/20 20:40 100 05/19/20 20:31 100 05/19/20 20:30 100 05/19/20 20:21 100 05/19/20 20:20 100 05/19/20 20:11 100 05/19/20 20:10 100 05/19/20 20:06 100 05/19/20 20:01 100 05/19/20 20:00 100 05/19/20 19:57 Laboratory Results 05/20/20 03:31 05/20/20 03:31 Diagnostic Findings No new imaging Coding Level of Care Code Critical Care 1st 30-74 mins Diagnoses Severe sepsis with septic shock A41.9; R65.21 Anemia D64.9 Sepsis A41.9 Ureteral stone N20.1 Time Spent (min) 40
[2020-05-20] MEDS ORDERED: CALCIUM CHLORIDE 10% 1,000 MG in SODIUM CHLORIDE 0.9% 50 ML IV STA (08:15)
--- NOTE | 2020-05-20 08:20 | Fluoroscopy Report ---
FL retrograde includes kub CLINICAL HISTORY: RIGHT SIDE CYSTO/STENT COMPARISON STUDY: None. FLUOROSCOPY TIME: 30 seconds. FINDINGS: 8 fluoroscopic spot images of the abdomen and pelvis were submitted. There is a Fernandez withi n the catheter. Retrograde opacification the right renal collecting system and ureter with placement of a right ureteral stent. The stent appears in good position. IMPRESSION: Fluoroscopy provided for right ureteral stent placement which appears in good position. ACT 112: Negative or not required by law. Electronically signed by: Niko Woodson M.D. 05/20/2020 8:19 AM
--- NOTE | 2020-05-20 08:23 | XRay Report ---
XR chest 1V portable HISTORY: line placement COMPARISON: Chest 05/19/2020. FINDINGS: Interval placement of a right jugular central venous catheter with the tip terminating at t he distal SVC. No pneumothorax. No pleural effusions. The heart is mildly enlarged. There is mild kole tral pulmonary vascular congestion without overt edema. No new focal lung consolidations. A few bibas ilar linear densities favor subsegmental atelectasis. There is a right shoulder prosthesis. IMPRESSION: Right jugular central venous catheter terminates at the distal SVC. No pneumothorax. ACT 112: Negative or not required by law. Electronically signed by: Niko Woodson M.D. 05/20/2020 8:22 AM
[2020-05-20] MEDS: ALBUMIN 25% 12.5 GM/50 ML VIAL IV SCH ×4 (08:55→12:20)
--- NOTE | 2020-05-20 09:38 | Urology Progress Note ---
Date of Service May 20, 2020 Assessment & Plan (1) Ureteral stone with hydronephrosis: (2) Sepsis: (3) S/P cystoscopy with ureteral stent placement: 84 yo M POD#1 s/p cystoscopy with retrograde urethrogram, urethral dilation, meatal dilation, dilation of bladder neck contracture, right aspiration, and right stent placement with Dr. Venegas. - Pt s/p emergent right stent placement secondary to 8 mm right ureteral stone, severe sepsis. - Labs reviewed - creatinine improved to 1.54 today, WBC elevated to 27.83, Hgb 7.8. - BCx showing gram negative bacilli, UC&S pending. Continue broad-spectrum IV antibiotics - follow cultures. - Continue supportive care and medical management per primary service. - Recommend maintain Fernandez catheter upon discharge. Likely maintain for extended period due to multiple strictures. - Will arrange outpatient follow-up with our service to discuss definitive stone management. Thank you for allowing us to participate in the acute care of Mr. Saxena. Please reconsult us with additional questions, concerns or changes in patient status. ATTENDING NOTE: Agree with note. Independently evaluated and assess and agree with findings and notation. Improving. Still on managing with volume control and pressors for hypotension. Titrating down. Urine from right renal pelvis pending. Continue supportive care. Maintain catheter until after stone treated in 2-4 weeks. Deesculate abx as cultures come back. Admission and Anticipated Discharge Date Admission Date: May 19, 2020 Subjective 84 yo M POD#1 s/p cystoscopy with retrograde urethrogram, urethral dilation, meatal dilation, dilation of bladder neck contracture, right aspiration, and right stent placement with Dr. Venegas. Patient s/p emergent right stent placement secondary to 8 mm right ureteral stone, severe sepsis. Patient seen and examined at bedside this AM. He is awake, alert and sitting up in bed finishing breakfast. Tolerating ureteral stent with minimal bother. Denies flank or abdominal pain. Tolerated breakfast this morning. No nausea or vomiting. Reports BM this morning. Fernandez catheter intact, patent, and draining clear yellow urine. No dysuria. No fever or chills. No additional concerns today. Chart review: Tmax 38.0 on 05/19 @ 1850 BCx - gram negative bacilli UC&S - pending Creatinine 1.54 (previously 1.78) WBC 27.83 (previously 4.20) Hgb 7.8 (previously 7.7) On IV Zosyn (Clindamycin and Vancomycin discontinued today) Per notes, weaning pressors today Review of Systems Constitutional: as per Subjective / HPI Gastrointestinal: as per Subjective / HPI Genitourinary: + as per Subjective / HPI Physical Exam Constitutional: well developed and well nourished; no acute distress and not ill appearing Respiratory: normal respiratory effort and able to speak in complete sentences; no respiratory distress and no labored breathing Cardiovascular: Extremities: no pedal edema Gastrointestinal (Abdomen): Inspection/Auscultation: abdomen normal to inspection; abdomen not distended Percussion/Palpation: abdomen soft; abdomen nontender and no guarding Musculoskeletal: Head/Neck/Chest: normocephalic and head atraumatic Skin: no rashes, warm and dry Neurologic: moves all extremities and awake Psychiatric: Orientation: alert and oriented x 3 forgetful at times Genitourinary: no CVA tenderness Fernandez catheter intact, patent and draining clear yellow urine Results & Data ([facility]) Vital Signs (Past 12 Hours) Vital Signs Temp Pulse Pulse Resp BP BP BP 05/20/20 04:00 36.8 C 115 H 29 H 108/70 05/20/20 03:30 113 H 22 89/61 L 05/20/20 03:01 117 H 23 95/58 L 05/20/20 02:30 103 H 24 103/61 05/20/20 02:00 121 H 23 109/65 05/20/20 01:30 122 H 23 112/64 05/20/20 01:01 110 H 22 106/65 05/20/20 00:37 132 H 23 128/64 05/20/20 00:30 129 H 28 H 107/68 05/20/20 00:00 36.4 C L 126 H 23 102/66 05/19/20 23:30 129 H 22 125/67 05/19/20 23:24 127 H 24 101/59 L 05/19/20 23:20 36.4 C L 129 H 22 101/59 L 114/49 L 05/19/20 23:10 132 H 132 H 26 H 121/67 121/67 106/54 L 05/19/20 23:06 133 H 28 H 113/66 05/19/20 23:00 36.4 C L 126 H 16 119/53 L 05/19/20 21:50 117 H 29 H 05/19/20 21:40 119 H Pulse Ox 05/20/20 04:00 100 05/20/20 03:30 100 05/20/20 03:01 100 05/20/20 02:30 100 05/20/20 02:00 99 05/20/20 01:30 96 05/20/20 01:01 94 05/20/20 00:37 95 05/20/20 00:30 100 05/20/20 00:00 96 05/19/20 23:30 100 05/19/20 23:24 99 05/19/20 23:20 100 05/19/20 23:10 99 05/19/20 23:06 99 05/19/20 23:00 100 05/19/20 21:50 100 05/19/20 21:40 100 PG Care Time/CCT Total # of Minutes Spent Total Time Spent with Patient: Total time spent is greater than 50% in coordination of care (as documented) at patient's floor/unit and/or counseling patient: Coding Level of Care Code 12619 Subseq Hosp Care Lvl 2 Diagnoses Ureteral stone with hydronephrosis N13.2 Sepsis A41.9 S/P cystoscopy with ureteral stent placement Z96.0
[2020-05-20 10:32] LABS: Hematocrit (blood only) 23.3 % (42-52); Hemoglobin 7.5 g/dL (14.0-18.0)
--- NOTE | 2020-05-20 12:16 | Hospitalist Progress Note ---
Date of Service May 20, 2020 Assessment & Plan (1) Ureteral stone with hydronephrosis: S/p cystoscopy with retrograde urethrogram, urethral dilation, meatal dilation, dilation of bladder neck contracture, right aspiration, and right stent placement with Dr. Venegas on 05/19. - Follow cultures - Zosyn per ICU team (2) Severe sepsis with septic shock: Severe sepsis with septic shock/hypotension/status post cystoscopy with ureteral stent placement for obstructing stone and pyelonephritis. - Pressors as needed per ICU (3) Paroxysmal atrial fibrillation: On flecainide 50 mg p.o. twice daily, and Xarelto, both of which will be held for now. - Per ICU team (4) Transaminitis: Likely secondary to sepsis. - Monitor (5) DVT prophylaxis: SCDs - Low DVT risk per admission calculator. Will restart Xarelto when able for afib. Admission and Anticipated Discharge Date Admission Date: May 19, 2020 Subjective No major issues at present. No dysuria. Reports no fevers/chills, chest pain, shortness of breath, abdominal pain, nausea, or vomiting. Physical Exam Constitutional: WD/WN, vitals as above Eyes: EOM intact bilaterally; no conjunctival abnormality ENMT: external ear and nose normal, oropharynx normal Neck: trachea midline, no thyromegaly normal visual inspection Respiratory: + labored breathing and + tachypneic; no respiratory distress Cardiovascular: RRR, no murmur, no edema Gastrointestinal (Abdomen): Inspection/Auscultation: abdomen normal to inspection; abdomen not distended Musculoskeletal: no cyanosis or clubbing, extremities motor strength 5/5 Skin: no rashes, warm and dry Neurologic: moves all extremities and awake Psychiatric: Orientation: alert, oriented to person and cooperative Results & Data Results & Data ([facility]) Vital Signs (Past 12 Hours) Vital Signs Temp Pulse Resp BP Pulse Ox 05/20/20 08:00 88 05/20/20 04:00 36.8 C 115 H 29 H 108/70 100 05/20/20 03:30 113 H 22 89/61 L 100 05/20/20 03:01 117 H 23 95/58 L 100 05/20/20 02:30 103 H 24 103/61 100 05/20/20 02:00 121 H 23 109/65 99 05/20/20 01:30 122 H 23 112/64 96 05/20/20 01:01 110 H 22 106/65 94 05/20/20 00:37 132 H 23 128/64 95 05/20/20 00:30 129 H 28 H 107/68 100 PG Care Time/CCT Total # of Minutes Spent Total Time Spent with Patient: Total time spent is greater than 50% in coordination of care (as documented) at patient's floor/unit and/or counseling patient: Coding Level of Care Code 38472 Subseq Hosp Care Lvl 3 Diagnoses Ureteral stone with hydronephrosis N13.2 Severe sepsis with septic shock A41.9; R65.21 Paroxysmal atrial fibrillation I48.0 Transaminitis R74.01 DVT prophylaxis Z29.9
--- NOTE | 2020-05-20 19:34 | Electrocardiogram Report ---
Test Reason : Blood Pressure : / mmHG Vent. Rate : 149 BPM Atrial Rate : 441 BPM P-R Int : 000 ms QRS Dur : 090 ms QT Int : 308 ms P-R-T Axes : 000 -61 075 degrees QTc Int : 485 ms Poor data quality, interpretation may be adversely affected Possible Sinus tachycardia Left axis deviation Possible Inferior infarct Possible Anterior infarct Abnormal ECG When compared with ECG of 20-MAR-2013 11:41, Vent. rate has increased BY 92 BPM QRS axis Shifted left ST now depressed in Lateral leads Nonspecific T wave abnormality has replaced inverted T waves in Inferior leads T wave inversion now evident in Lateral leads Confirmed by Martín De Leon ([id number]) on 05/20/2020 7:34:17 PM Referred By: REFERRED SELF Confirmed By:Martín De Leon
[2020-05-21] MEDS: ACETAMINOPHEN 325 MG TAB PO PRN ×2 (00:36→17:23)
[2020-05-21] MEDS: PIPERACILLIN/TAZOBACTAM 3.375 GM in DEXTROSE 5% 100 ML IV SCH ×3 (00:37→17:34)
[2020-05-21 05:02] LABS: Hematocrit (blood only) 21.1 % (42-52); Hemoglobin 6.9 g/dL (14.0-18.0); Mean Corpuscular Hemoglobin 30.5 pg (25-34); Mean Corpuscular Hgb Conc 32.7 g/dL (32-36); Mean Corpuscular Volume 93.4 fL (80-100); Mean Platelet Volume 10.2 fL (7.4-10.4); Platelet Count 149 K/uL (130-400); RDW Coefficient of Variation 13.9 % (11.5-14.5); RDW Standard Deviation 47.3 fL (36.4-46.3); Red Blood Count 2.26 M/uL (4.7-6.1); White Blood Count 23.75 K/uL (4.8-10.8)
[2020-05-21 05:03] LABS: INR 1.4 (0.9-1.1); Partial Thromboplastin Ratio 1.6; Partial Thromboplastin Time 44.7 Seconds (21.0-31.0); Prothrombin Time 14.4 Seconds (9.0-12.0)
[2020-05-21 05:04] LABS: Basophils # (auto) 0.01 K/uL (0-0.2); Echinocytes 1+; Eosinophils # (auto) 0.05 K/uL (0-0.5); Eosinophils % (auto) 0.2 %; Immature Granulocytes # (auto) 0.46 K/uL (0.00-0.02); Immature Granulocytes % (auto) 1.9 %; Lymphocytes # (auto) 0.61 K/uL (1.2-3.4); Lymphocytes % (auto) 2.6 %; Monocytes # (auto) 0.75 K/uL (0.11-0.59); Monocytes % (auto) 3.2 %; Neutrophils # (auto) 21.87 K/uL (1.4-6.5); Neutrophils % (auto) 92.1 %
[2020-05-21 05:07] LABS: Albumin Globulin Ratio 0.5 (0.9-2); Albumin Level 1.7 gm/dl (3.4-5.0); BUN Creatinine Ratio 21.7 (10-20); Bilirubin,Total 0.5 mg/dl (0.2-1); Calcium 6.9 mg/dl (8.5-10.1); Creatinine Clr Calc Pharmacy 71.9 ml/min; Est GFR (African American) 93.8; Est GFR (Non-African American) 80.9; Globulin 3.1 gm/dl (2.5-4.0); Magnesium 1.7 mg/dl (1.8-2.4); Total Protein 4.8 gm/dl (6.4-8.2)
[2020-05-21] MEDS ORDERED: SODIUM CHLORIDE 0.9% 250 ML IV PRN (05:16)
[2020-05-21] MEDS: MAGNESIUM SULFATE / D5W 1 GM/100 ML BAG IV SCH ×2 (06:41→07:47)
[2020-05-21 07:01] LABS: Phosphorus 2.1 mg/dl (2.5-4.9); Potassium 3.2 mmol/L (3.5-5.1)
[2020-05-21] MEDS ORDERED: POTASSIUM PHOS 3 MMOL/1 ML INFUSION IV STA (07:02)
[2020-05-21] MEDS ORDERED: POTASSIUM CHLORIDE CRTAB 20 MEQ TABCR PO ONE (07:15)
[2020-05-21 07:21] LABS: INR 1.4 (0.9-1.1); Partial Thromboplastin Ratio 1.6; Partial Thromboplastin Time 43.9 Seconds (21.0-31.0)
[2020-05-21] MEDS: NOREPINEPHRINE/D5W 8 MG/508 ML BAG IV SCH (07:21)
[2020-05-21] MEDS ORDERED: POTASSIUM PHOSPHATE 30 MMOL in SODIUM CHLORIDE 0.9% 500 ML IV ONE (07:30)
[2020-05-21] MEDS ORDERED: ALBUT/IPRATROP 3MG/0.5MG NEB 3 ML VIAL NEB STA (07:41)
--- NOTE | 2020-05-21 07:42 | Critical Care Progress Note ---
Date of Service May 21, 2020 Assessment & Plan (1) Severe sepsis with septic shock: Impression: 84-year-old male admitted 05/19 with severe sepsis and acute renal failure due to hydronephrosis and infected stone status post emergent cystoscopy with right-sided stent placement. 24-hour events: Patient is remained off vasopressor agents for over 24 hours and is doing well. He is actually on the hypertensive side. Kidney function and urine output have done well. He is tolerating a diet.. Recommendations: 1. Neuro: Patient presented with some acute delirium. This appears to be clearing and was likely metabolic in nature. Continue to follow. 2. Cardiovascular: Severe sepsis with septic shock: Resolved and now off pressors. Restart flecainide. Given his A. fib and hypertension, will place him on a low-dose of metoprolol. Would hold anticoagulation for now given the need for transfusion but again do not see an obvious source of bleeding or acute blood loss. Discontinue arterial line 3. Pulmonary: Mild basilar atelectasis. He is experiencing increasing wheezing this morning which may be secondary to fluid redistribution. Will give DuoNeb and Lasix and check chest x-ray. Continue oxygen supplementation to keep saturations at or above 88%. 4. ID: Urosepsis/pyelonephritis with obstructing stone status post cystoscopy and stent placement. Blood cultures are showing gram-negative rods 2 out of 2. The patient is day #3 Zosyn. The patient grew a sensitive Klebsiella 05/13/2020 so suspect this may be the same organism. He was to be taking cefuroxime at home. Unclear if he failed this antibiotic or if the complicated UTI due to infected stone resulted in failure of outpatient antimicrobial therapy. Continue Zosyn pending speciation and sensitivities 5. Renal: Patient presented with mild acute renal injury which is resolved this morning. Okay to discontinue Fernandez catheter at this point time. Potassium magnesium and calcium repletion ordered 6. GI: Advancing diet to regular. 7. Hematology oncology: Leukocytosis secondary to urosepsis. His hemoglobin continued to drop and he received a unit of packed cells this morning. No evidence of acute bleeding and unclear the etiology of his acute blood loss. Will follow posttransfusion hematocrit 8. Out of bed as tolerated. PT and OT consultations. Discontinue Fernandez and arterial line Patient was discussed on multidisciplinary rounds and with the bedside ICU nurse as well as with the patient bedside. He appears stable to downgrade from the ICU. We will sign off at this point time and defer additional care to his admitting hospitalist. Please contact us if we can be of additional assistance (2) Anemia: (3) Sepsis: (4) Ureteral stone: Admission and Anticipated Discharge Date Admission Date: May 19, 2020 Subjective Patient seen and examined. Has been off pressors for over 24 hours. He did have some shooting pain in the left side of his face last evening which resolved with magnesium supplementation. His blood pressure has been good to on the slightly high side his kidney functions improved. He is wheezing a little bit this morning. Review of Systems Review of Systems: All systems reviewed & are unremarkable except as noted in HPI & below Physical Exam Constitutional: well developed; no acute distress and not ill appearing Neck: trachea midline, no thyromegaly Respiratory: normal respiratory effort, lungs clear to auscultation Cardiovascular: RRR, no murmur, no edema Gastrointestinal (Abdomen): normal bowel sounds, soft, nontender, no hepatosplenomegaly Musculoskeletal: Extremities: extremities normal to inspection Skin: no rashes, warm and dry Lymphatic: no cervical lymphadenopathy Results & Data Results & Data ([facility]) Vital Signs (Past 12 Hours) Vital Signs Temp Pulse Resp BP Pulse Ox 05/21/20 06:33 36.7 C 81 20 160/89 H 96 05/21/20 06:14 36.8 C 80 24 122/78 98 05/21/20 05:57 78 25 H 165/97 H 99 05/21/20 04:56 75 23 165/85 H 99 05/21/20 03:56 78 25 H 99 05/21/20 02:56 72 23 150/81 H 98 05/21/20 01:57 73 23 133/101 H 95 05/21/20 00:56 36.8 C 74 27 H 131/67 100 05/20/20 23:56 76 20 139/96 100 05/20/20 22:56 76 24 134/76 99 05/20/20 21:02 78 21 128/56 L 100 05/20/20 20:31 36.7 C 77 24 143/62 H 100 Laboratory Results 05/21/20 04:18 05/21/20 04:18 Blood cultures still with gram-negative rods not speciated Diagnostic Findings X-ray from this morning pending Coding Level of Care Code 30613 Subseq Hosp Care Lvl 3 Diagnoses Severe sepsis with septic shock A41.9; R65.21 Anemia D64.9 Sepsis A41.9 Ureteral stone N20.1
[2020-05-21] MEDS ORDERED: POTASSIUM CHLORIDE / WTR 20 MEQ/100 ML PLCT IV ONE (08:00)
[2020-05-21] MEDS ORDERED: CALCIUM CHLORIDE 10% 1,000 MG in SODIUM CHLORIDE 0.9% 50 ML IV ONE (08:00)
[2020-05-21] MEDS ORDERED: FUROSEMIDE 20 MG in SYRINGE 0 ML IV ONE (08:00)
[2020-05-21] MEDS: POTASSIUM CHLORIDE PWD 20 MEQ PACK PO SCH ×3 (08:16→21:48)
[2020-05-21] MEDS: METOPROLOL TARTRATE 25 MG TAB PO SCH ×2 (08:17→21:48)
[2020-05-21] MEDS: FLECAINIDE ACETATE 100 MG TABLET PO SCH ×2 (08:17→21:48)
--- NOTE | 2020-05-21 08:55 | XRay Report ---
SINGLE VIEW CHEST CLINICAL HISTORY: Wheezing. Hypoxia. FINDINGS: An AP, portable, upright chest radiograph is compared to chest x-ray and chest CT dated . The examination is degraded by portable technique and patient rotation. A right internal jug ular central venous catheter is unchanged in position. The heart is enlarged noting atherosclerotic c alcification and uncoiling of the thoracic aorta. The pulmonary vasculature is noncongested. There is patchy airspace consolidation the right midlung. Airspace consolidation is also seen at the left isai g base. Trace pleural effusions are suspected. No pneumothorax is seen. The skeletal structures are o steopenic. The bony thorax is grossly intact. There are bilateral shoulder arthroplasties. IMPRESSION: 1. Cardiomegaly without radiographic evidence of congestive failure. 2. There are patchy airspace opacities in the right midlung as well as left basilar consolidation. Th is has increased from previous. Correlate clinically for evidence of an infectious/inflammatory pneum onitis. 3. Suspect trace pleural effusions. ACT 112: Negative or not required by law. Electronically signed by: Ibrahima Chase M.D. 05/21/2020 8:54 AM
--- NOTE | 2020-05-21 21:30 | Hospitalist Progress Note ---
Date of Service May 21, 2020 Assessment & Plan (1) Facial pain: Possible trigeminal neuralgia given symptoms. First episode. - Discuss with neurology tomorrow - Will get facial x-rays to r/o tooth/TMJ issue (2) Ureteral stone with hydronephrosis: S/p cystoscopy with retrograde urethrogram, urethral dilation, meatal dilation, dilation of bladder neck contracture, right aspiration, and right stent placement with Dr. Venegas on 05/19. - Follow cultures - growing Gram(-) at present. - Continue Zosyn - Keep Fernandez on discharge; will need urology follow up (3) Severe sepsis with septic shock: Severe sepsis with septic shock/hypotension/status post cystoscopy with ureteral stent placement for obstructing stone and pyelonephritis. - Pressors off since 05/20 (4) Paroxysmal atrial fibrillation: On flecainide 50 mg p.o. twice daily, and Xarelto, both of which will be held for now. - Restart flecainide and beta-donald - Hold anticoagulation (5) Transaminitis: Likely secondary to sepsis. - Monitor (6) DVT prophylaxis: SCDs - Low DVT risk per admission calculator. Will restart Xarelto when able for afib. Admission and Anticipated Discharge Date Admission Date: May 19, 2020 Subjective Experiencing pain in the right ear to right face overnight and this morning. Reports no fevers/chills, chest pain, shortness of breath, abdominal pain, nausea, or vomiting. Physical Exam Constitutional: WD/WN, vitals as above Eyes: EOM intact bilaterally; no conjunctival abnormality ENMT: external ear and nose normal, oropharynx normal Neck: trachea midline, no thyromegaly normal visual inspection Respiratory: + labored breathing and + tachypneic; no respiratory distress Cardiovascular: RRR, no murmur, no edema Gastrointestinal (Abdomen): Inspection/Auscultation: abdomen normal to inspection; abdomen not distended Musculoskeletal: no cyanosis or clubbing, extremities motor strength 5/5 Skin: no rashes, warm and dry Neurologic: moves all extremities and awake Psychiatric: Orientation: alert, oriented to person and cooperative Results & Data Results & Data ([place]) Vital Signs (Past 12 Hours) Vital Signs Temp Pulse Pulse Resp BP BP BP 05/21/20 19:46 36.6 C 75 20 148/75 H 05/21/20 16:21 36.4 C L 82 18 105/61 05/21/20 15:40 79 05/21/20 14:34 36.7 C 77 16 131/70 05/21/20 14:02 05/21/20 12:18 37.2 C 82 22 123/87 05/21/20 10:41 76 18 138/82 05/21/20 10:16 86 20 158/95 H 05/21/20 10:01 78 20 05/21/20 10:00 82 23 170/90 H 05/21/20 09:46 79 24 154/87 H 05/21/20 09:31 87 23 159/70 H 05/21/20 09:30 87 28 H Pulse Ox 05/21/20 19:46 94 05/21/20 16:21 93 05/21/20 15:40 05/21/20 14:34 95 05/21/20 14:02 94 05/21/20 12:18 94 05/21/20 10:41 100 05/21/20 10:16 100 05/21/20 10:01 100 05/21/20 10:00 100 05/21/20 09:46 100 05/21/20 09:31 100 05/21/20 09:30 98 PG Care Time/CCT Total # of Minutes Spent Total Time Spent with Patient: Total time spent is greater than 50% in coordination of care (as documented) at patient's floor/unit and/or counseling patient: Coding Level of Care Code 06783 Subseq Hosp Care Lvl 3 Diagnoses Facial pain R51.9 Ureteral stone with hydronephrosis N13.2 Severe sepsis with septic shock A41.9; R65.21 Paroxysmal atrial fibrillation I48.0 Transaminitis R74.01 DVT prophylaxis Z29.9
[2020-05-21] MEDS ORDERED: oxyCODONE HCL IR 5 MG TAB (IMMEDIATE RELEASE) PO STA (22:35)
[2020-05-22] MEDS: PIPERACILLIN/TAZOBACTAM 3.375 GM in DEXTROSE 5% 100 ML IV SCH ×2 (00:05→07:54)
[2020-05-22] MEDS: METOPROLOL TARTRATE 25 MG TAB PO SCH ×2 (07:54→20:21)
[2020-05-22] MEDS: FLECAINIDE ACETATE 100 MG TABLET PO SCH ×2 (07:54→20:21)
--- NOTE | 2020-05-22 08:05 | XRay Report ---
FACIAL BONES 3 VIEWS; TEMPOROMANDIBULAR JOINTS 5 VIEWS CLINICAL HISTORY: Facial/dental pain. FINDINGS: 3 views of the facial bones and 5 views of the temporal mandibular joints are correlated [facility] CT of the brain dated 05/19/2020. The skeletal structures are osteopenic. There is no evidence of facial bone fracture. The bony orbits appear intact. The mastoid air cells are well pneumatized. The paranasal sinuses appear clear. There is no radiographic evidence of mandibular fracture. Numerous de ntal prostheses are in place. The mandibular condyles are normal alignment within the temporomandibul ar joints on the closed mouth views. There is normal anterior translation of the mandibular condyles on the open-mouth views. A right internal jugular central venous catheter is partially imaged. IMPRESSION: 1. No acute bony abnormality is identified. 2. No abnormality is seen involving the temporomandibular joints. Electronically signed by: Ibrahima Chase M.D. 05/22/2020 8:04 AM
--- NOTE | 2020-05-22 08:05 | XRay Report ---
FACIAL BONES 3 VIEWS; TEMPOROMANDIBULAR JOINTS 5 VIEWS CLINICAL HISTORY: Facial/dental pain. FINDINGS: 3 views of the facial bones and 5 views of the temporal mandibular joints are correlated [facility] CT of the brain dated 05/19/2020. The skeletal structures are osteopenic. There is no evidence of facial bone fracture. The bony orbits appear intact. The mastoid air cells are well pneumatized. The paranasal sinuses appear clear. There is no radiographic evidence of mandibular fracture. Numerous de ntal prostheses are in place. The mandibular condyles are normal alignment within the temporomandibul ar joints on the closed mouth views. There is normal anterior translation of the mandibular condyles on the open-mouth views. A right internal jugular central venous catheter is partially imaged. IMPRESSION: 1. No acute bony abnormality is identified. 2. No abnormality is seen involving the temporomandibular joints. Electronically signed by: Ibrahima Chase M.D. 05/22/2020 8:04 AM
[2020-05-22 08:08] LABS: Basophils # (auto) 0.02 K/uL (0-0.2); Basophils % (auto) 0.1 %; Eosinophils # (auto) 0.15 K/uL (0-0.5); Eosinophils % (auto) 0.8 %; Hemoglobin 9.1 g/dL (14.0-18.0); Immature Granulocytes # (auto) 0.09 K/uL (0.00-0.02); Immature Granulocytes % (auto) 0.5 %; Lymphocytes # (auto) 1.01 K/uL (1.2-3.4); Lymphocytes % (auto) 5.2 %; Mean Corpuscular Hemoglobin 29.9 pg (25-34); Mean Corpuscular Hgb Conc 32.5 g/dL (32-36); Mean Corpuscular Volume 92.1 fL (80-100); Mean Platelet Volume 10.8 fL (7.4-10.4); Monocytes % (auto) 3.1 %; Neutrophils # (auto) 17.54 K/uL (1.4-6.5); Neutrophils % (auto) 90.3 %; Platelet Count 185 K/uL (130-400); RDW Coefficient of Variation 14.3 % (11.5-14.5); RDW Standard Deviation 48.3 fL (36.4-46.3); Red Blood Count 3.04 M/uL (4.7-6.1); White Blood Count 19.41 K/uL (4.8-10.8)
[2020-05-22 08:24] LABS: INR 1.2 (0.9-1.1); Partial Thromboplastin Ratio 1.2; Partial Thromboplastin Time 32.5 Seconds (21.0-31.0); Prothrombin Time 12.3 Seconds (9.0-12.0)
[2020-05-22 08:52] LABS: Albumin Globulin Ratio 0.5 (0.9-2); BUN Creatinine Ratio 20.1 (10-20); Bilirubin,Total 0.6 mg/dl (0.2-1); Calcium 8.7 mg/dl (8.5-10.1); Creatinine Clr Calc Pharmacy 56.9 ml/min; Est GFR (African American) 77.7; Globulin 3.9 gm/dl (2.5-4.0); Magnesium 2.1 mg/dl (1.8-2.4); Potassium 4.3 mmol/L (3.5-5.1); Total Protein 5.9 gm/dl (6.4-8.2)
--- NOTE | 2020-05-22 09:44 | Neurology Consultation ---
Date of Consultation May 22, 2020 Assessment & Plan (1) Facial pain: Possible trigeminal neuralgia localizing primarily to the right maxillary division, beginning 2 days ago in the context of patient's current hospitalization for urosepsis. It is not entirely clear what may have triggered his facial pain. I would recommend completion of an MRI of the brain with attention to the trigeminal nerves. Would also recommend symptomatic treatment with Trileptal, start with 150 mg twice daily and increase to 300 mg twice daily after 5 days. May also consider adding baclofen 10 mg twice daily as an adjunctive medication if necessary. I would also suggest an outpatient ENT assessment as he does have hearing loss to the right ear and his facial pain does seem to originate just anterior to the right ear. Also, this patient does have multiple dental implants and I am unable to completely exclude dental pathology as an underlying etiology for his facial pain at this point in time. He should also consult with his dentist or oral maxillofacial surgeon as an outpatient. Patient may follow-up with me in clinic for further management of presumed trigeminal neuralgia. History of Present Illness Reason for Consultation: Facial pain/trigeminal neuralgia/ Requesting Physician: Joselo Saxena MD Attending Physician: Joselo Saxena MD History of Present Illness The patient is an 84-year-old male who presented to the [facility] on May 19, 2020 for further evaluation of altered mental status. He was admitted with a diagnosis of sepsis status post cystoscopy with ureteral stent placement for obstructing stone and pyelonephritis. History also notable for paroxysmal atrial fibrillation and anticoagulation. His medical condition has stabilized. However, he began complaining of right sided facial pain about 2 days ago. The pain originates just anterior to the right ear and radiates to the front of the right side of the face. The pain has a stabbing quality and has been occurring intermittently. Speaking and chewing sometimes trigger these episodes. He denies experiencing similar episodes of facial pain in the past and does not have a known history of trigeminal neuralgia. He did have x-rays of the temporomandibular joint and facial bones last night. He does have multiple dental implants. Otherwise, the x-rays are unremarkable. The patient complained of a brief episode of right-sided facial pain as above during my assessment of him this morning. Allergies Allergy/AdvReac Type Severity Reaction Status Date / Time bee venom protein (honey bee) Allergy Severe SWELLING,SO Verified 05/19/20 20:11 B hornet venom Allergy Severe ANAPHYLAXIS Verified 05/19/20 20:10 black walnut Allergy Intermediate HIVES Verified 05/19/20 20:11 fire ant Allergy Intermediate HIVES Verified 05/19/20 20:11 Home Medications Medication Instructions Recorded Confirmed Type acetaminophen 500 mg tablet 1,000 mg PO TID PRN #90 tab 02/28/19 05/19/20 History epinephrine 0.3 mg/0.3 mL 0.3 ml IM DIRECTED PRN #1 ea 02/28/19 05/19/20 History injection, auto-injector multivitamin 1 tab PO DAILY 02/28/19 05/19/20 History methenamine hippurate 1 gram tablet 1 gm PO HS #30 tab 12/26/19 05/19/20 Rx Xarelto 20 mg PO QPM 03/29/20 05/19/20 History glucosamine sulfate [Glucosamine] 0 mg PO BID 03/29/20 05/19/20 History krill oil 0 mg PO QAM 03/29/20 05/19/20 History celecoxib [Celebrex] 100 mg PO DAILY PRN #14 cap 03/31/20 05/19/20 Rx budesonide 9 mg tablet,delayed and See Rx Instructions .ROUTE 04/03/20 05/19/20 Rx extended release .COMPLEX #30 tablet flecainide 50 mg tablet 50 mg PO BID tab 04/09/20 05/19/20 History cefuroxime axetil 250 mg tablet 250 mg PO BID 10 Days #20 tab 05/15/20 05/19/20 Rx Patient History Medical History Anemia Anticoagulant long-term use Chronic low back pain Chronic venous stasis History of prostate cancer (~1999) Followed by Urology Obstructive sleep apnea CPAP Osteitis pubis Paroxysmal atrial fibrillation Followed by Cardiology Urinary retention Self Catheterization Surgical History H/O elbow surgery History of colonoscopy History of prostate surgery S/P bunionectomy S/P cataract surgery S/P total knee arthroplasty Bilateral Status post total shoulder arthroplasty Bilateral Family History Father Prostate cancer Diabetes Mother Leukemia Cancer Denies family history of Ovarian cancer Alzheimer disease Crohn's disease Myocardial infarction Breast cancer Lung cancer Colorectal cancer Hypertension Stroke Social History Smoking Status: Never smoker Second Hand Exposure: No; Hx Alcohol Use: Yes Alcohol type: beer Hx Substance Use: No Preferred Language: Thai Communication Ability: Effective Visual Impairment: No Limitations Hearing Ability: Normal [employer] Required: No Beliefs That Will Affect Care: None marital status: Current Living Situation: Spouse current occupational status: retired Feels Safe at Home: Yes Childhood Exposure to Second-Hand Smoke: No Dental Care, Regularly: Yes Physical Activity Frequency: 1-2 Times per Week Seatbelt Use: always Sunscreen Use: No Assistive Devices: Walker Review of Systems Constitutional: no fever and no chills Eyes: no blind spots and no diplopia Ear, Nose, Mouth, Throat: + hearing loss (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) Respiratory: no cough and no dyspnea Cardiovascular: no chest pain and no palpitations Gastrointestinal: no nausea and no vomiting Genitourinary: + dysuria Musculoskeletal: no neck pain and no myalgia Integumentary: no rash and no lesions Neurologic: as per Subjective / HPI; no localized weakness, no loss of sensation, no abnormal movements and no memory loss Psychiatric: no depression and no anxiety Hematologic / Lymphatic: no easy bleeding and no easy bruising Exam (Neuro) Constitutional: well developed and well nourished; no acute distress Eyes: normal visual figueroa by confrontation, PERRL, normal accommodation and EOM intact bilaterally; no fundoscopic abnormality, no nystagmus and no papilledema Cardiovascular: Vessels: normal carotid upstroke; no carotid bruit Neurologic: Oriented to:: Person, Place and Time Memory: Short Term Intact and Remote Intact Attention: Span Intact and Concentration Intact Language: Naming Objects and Repeating Phrases Speech Fluency: negative Dysarthria Speech Aphasia: negative Aphasia Fund of Knowledge: Current Events, Past History and Vocabulary Cranial Nerves: Normal II (Visual figueroa full to confrontation, visual acuity normal), III, IV, (Pupils equal round reactive to light and accommodation, eye movements normal), V (Facial sensation intact), VII (There is no facial droop or weakness), IX, X (Palate elevates to midline), XI (Shoulder shrug intact) and XII (Tongue protrudes to midline); Abnorm VIII (Moderately diminished hearing to finger rub for the right ear noted.) Motor Strength: Normal Lower Extremities and Normal Upper Extremities; negative Pronator Drift Motor Tone: Normal Lower Extremities and Normal Upper Extremities Muscle Bulk/Involuntary Movements: No Involuntary Movements; negative Muscle Atrophy Sensation: Light Touch Intact, Pain/Temperature Intact, Vibration Intact and Proprioception Intact Coordination: Normal; negative Limited Balance, Dysdiadochokinesia, Finger-Nose Abnormal and Heel-Perez Abnormal Deep Tendon Reflexes: Rt Triceps: 1+, Lt Triceps: 1+, Rt Biceps: 1+, Lt Biceps: 1+, Rt Brachioradialis: 1+, Lt Brachioradialis: 1+, Rt Patellar: 1+, Lt Patellar: 1+, Rt Ankle: 1+ and Lt Ankle: 1+ Special Tests: negative Babinski Present Details: Gait not tested in the context of patient's current medical status. Results & Data ([facility]) Vital Signs (Past 12 Hours) Vital Signs Temp Pulse Pulse Resp BP BP Pulse Ox 05/22/20 07:38 67 05/22/20 07:14 36.5 C 69 18 154/82 H 93 05/22/20 03:38 36.7 C 66 18 135/89 92 05/22/20 00:07 36.6 C 70 18 137/78 93 Laboratory Results WBC 19.41, hemoglobin 9.1, hematocrit 28.0, platelet count 185, sodium 137, potassium 4.3, BUN 20, creatinine 1.01, glucose 78, calcium 8.7, magnesium 2.1, AST 23, ALT [address] of the head completed May 19, 2020 revealed atrophy and chronic microvascular ischemic disease, no hemorrhage or acute process. X-rays of the face and temporomandibular joints obtained last night revealed multiple dental prostheses. No acute bony abnormality. No abnormality involving the temporomandibular joints. These findings were observed by the interpreting radiologist. I reviewed the images pertaining to the studies and agree. Electrocardiogram completed May 13, 2020 revealed atrial fibrillation. A follow-up ECG completed May 19 revealed sinus tachycardia. Coding Level of Care Code 40735 Initial Inpt Care Lvl 3 Diagnoses Facial pain R51.9
[2020-05-22] MEDS: OXcarbazepine 150 MG TABLET PO SCH ×2 (10:38→20:22)
[2020-05-22] MEDS ORDERED: GADOBUTROL 65ML VIAL IV ONE (12:10)
--- NOTE | 2020-05-22 12:23 | Magnetic Resonance Report ---
MRI OF THE BRAIN COMBO TRIGEMINAL NERVE PROTOCOL CLINICAL HISTORY: Right-sided facial pain. COMPARISON STUDY: CT of the brain dated 05/19/2020. TECHNIQUE: MRI of the brain was performed utilizing various T1 and T2-weighted sequences in the axial , sagittal, and coronal planes. Contrast-enhanced sequences were acquired following the administratio n of 9 cc of Gadavist. Additional high-resolution imaging was performed through the skull base both p re and post contrast to assess the internal trigeminal nerves. The examination is modestly degraded b y motion artifact. FINDINGS: Brain parenchyma: There is age-related involutional change noting moderate subcortical and periventri cular microangiopathic disease. There is no hemorrhage or mass effect. There is no restricted diffusi on to suggest acute ischemia. No enhancing mass lesion is identified on the postcontrast images. Donato -white matter differentiation is preserved. No extra-axial fluid collection is seen. The cerebellar t onsils are normal in configuration. Ventricles, sulci, and cisterns: Prominent secondary to involutional change. Cavum septum pellucidum is incidentally noted. Trigeminal nerves: The trigeminal nerves are normal in morphology and symmetric bilaterally. No abnor mal postcontrast enhancement is identified. Internal auditory canal structures are normal as imaged. Pituitary and sella: Partially empty sella is incidentally noted. Intracranial vasculature: Normal flow voids are maintained at the skull base. Orbits: The bony orbits are grossly intact. Orbital contents are normal in appearance noting bilatera l ocular lens implants. Sinuses and mastoids: Clear. Calvarium: Unremarkable. Cervical cord: Partially visualized cervical spinal cord is normal in morphology and signal intensity . IMPRESSION: 1. No acute intracranial abnormality. 2. Unremarkable MRI assessment of the trigeminal nerves. ACT 112: Negative or not required by law. Electronically signed by: Ibrahima Chase M.D. 05/22/2020 12:21 PM
--- NOTE | 2020-05-22 14:47 | Hospitalist Progress Note ---
Date of Service May 22, 2020 Assessment & Plan (1) Facial pain: Possible trigeminal neuralgia given symptoms. First episode. - Facial x-rays on 05/21 showed no tooth/TMJ issue. Brain MRI on 05/22 did not show any abnormality of the trigeminal nerve. - Continue oxcarbazepine 150 mg PO BID x 5 days, then 300 mg PO BID. (2) Ureteral stone with hydronephrosis: S/p cystoscopy with retrograde urethrogram, urethral dilation, meatal dilation, dilation of bladder neck contracture, right aspiration, and right stent placement with Dr. Venegas on 05/19. - Follow cultures - growing barba-sensitive Klebsiella as well as Luz. - Continue ceftriaxone - Will need 6 weeks of antibiotics per ID. - Keep Fernandez on discharge; will need urology follow up (3) Severe sepsis with septic shock: Severe sepsis with septic shock/hypotension/status post cystoscopy with ureteral stent placement for obstructing stone and pyelonephritis. - Pressors off since 05/20 (4) Paroxysmal atrial fibrillation: On flecainide 50 mg p.o. twice daily, and Xarelto, both of which will be held for now. - Restart flecainide and beta-donald - Hold anticoagulation (5) Transaminitis: Likely secondary to sepsis. - Monitor (6) DVT prophylaxis: SCDs - Low DVT risk per admission calculator. Will restart Xarelto when able for afib. Admission and Anticipated Discharge Date Admission Date: May 19, 2020 Subjective Doing some better. Less facial pain. Some pain in the suprapubic area. Reports no fevers/chills, chest pain, shortness of breath, abdominal pain, nausea, or vomiting. Physical Exam Constitutional: WD/WN, vitals as above Eyes: EOM intact bilaterally; no conjunctival abnormality ENMT: external ear and nose normal, oropharynx normal Neck: trachea midline, no thyromegaly normal visual inspection Respiratory: + labored breathing and + tachypneic; no respiratory distress Cardiovascular: RRR, no murmur, no edema Gastrointestinal (Abdomen): Inspection/Auscultation: abdomen normal to inspection; abdomen not distended Musculoskeletal: no cyanosis or clubbing, extremities motor strength 5/5 Skin: no rashes, warm and dry Neurologic: moves all extremities and awake Psychiatric: Orientation: alert, oriented to person and cooperative Results & Data Results & Data ([facility]) Vital Signs (Past 12 Hours) Vital Signs Temp Pulse Pulse Resp BP BP Pulse Ox 05/22/20 07:38 67 05/22/20 07:14 36.5 C 69 18 154/82 H 93 05/22/20 03:38 36.7 C 66 18 135/89 92 PG Care Time/CCT Total # of Minutes Spent Total Time Spent with Patient: Total time spent is greater than 50% in coordination of care (as documented) at patient's floor/unit and/or counseling patient: Coding Level of Care Code 19768 Subseq Hosp Care Lvl 2 Diagnoses Facial pain R51.9 Ureteral stone with hydronephrosis N13.2 Severe sepsis with septic shock A41.9; R65.21 Paroxysmal atrial fibrillation I48.0 Transaminitis R74.01 DVT prophylaxis Z29.9
[2020-05-22] MEDS ORDERED: cefTRIAXone SODIUM 1,000 MG in DEXTROSE 5% 50 ML IV SCH (15:00)
[2020-05-22] MEDS: cefTRIAXone SODIUM 2,000 MG in DEXTROSE 5% 50 ML IV SCH (15:56)
[2020-05-22] MEDS: ACETAMINOPHEN 325 MG TAB PO PRN (20:22)
[2020-05-23 06:43] LABS: Hematocrit (blood only) 30.2 % (42-52); Hemoglobin 9.8 g/dL (14.0-18.0); Mean Corpuscular Hemoglobin 29.9 pg (25-34); Mean Corpuscular Hgb Conc 32.5 g/dL (32-36); Mean Corpuscular Volume 92.1 fL (80-100); Mean Platelet Volume 10.6 fL (7.4-10.4); Platelet Count 170 K/uL (130-400); RDW Coefficient of Variation 13.9 % (11.5-14.5); RDW Standard Deviation 46.5 fL (36.4-46.3); Red Blood Count 3.28 M/uL (4.7-6.1); White Blood Count 12.62 K/uL (4.8-10.8)
[2020-05-23 07:18] LABS: Potassium 3.9 mmol/L (3.5-5.1)
[2020-05-23 07:19] LABS: BUN Creatinine Ratio 20.6 (10-20); Calcium 8.5 mg/dl (8.5-10.1); Creatinine Clr Calc Pharmacy 73.8 ml/min; Est GFR (African American) 94.7; Est GFR (Non-African American) 81.7; Magnesium 2.1 mg/dl (1.8-2.4)
[2020-05-23] MEDS: OXcarbazepine 150 MG TABLET PO SCH ×2 (07:57→21:03)
[2020-05-23] MEDS: METOPROLOL TARTRATE 25 MG TAB PO SCH ×2 (07:57→21:01)
[2020-05-23] MEDS: FLECAINIDE ACETATE 100 MG TABLET PO SCH ×2 (07:57→21:02)
[2020-05-23] MEDS: cefTRIAXone SODIUM 2,000 MG in DEXTROSE 5% 50 ML IV SCH (16:14)
--- NOTE | 2020-05-23 18:26 | Hospitalist Progress Note ---
Date of Service May 23, 2020 Assessment & Plan (1) Facial pain: Possible trigeminal neuralgia given symptoms. First episode. - Facial x-rays on 05/21 showed no tooth/TMJ issue. Brain MRI on 05/22 did not show any abnormality of the trigeminal nerve. - Continue oxcarbazepine 150 mg PO BID x 5 days, then 300 mg PO BID. (Switch on 05/27). - Will need to follow up with dental and ENT to be sure no ear canal or tooth pathology. (2) Ureteral stone with hydronephrosis: S/p cystoscopy with retrograde urethrogram, urethral dilation, meatal dilation, dilation of bladder neck contracture, right aspiration, and right stent placement with Dr. Venegas on 05/19. - Follow cultures - grew barba-sensitive Klebsiella as well as Luz. - Continue ceftriaxone - Will need 6 weeks of antibiotics per ID. - Keep Fernandez on discharge; will need urology follow up (3) Severe sepsis with septic shock: Severe sepsis with septic shock/hypotension/status post cystoscopy with ureteral stent placement for obstructing stone and pyelonephritis. - Pressors off since 05/20 (4) Paroxysmal atrial fibrillation: On flecainide 50 mg p.o. twice daily, and Xarelto, both of which will be held for now. - Restart flecainide and beta-donald - Restart anticoagulation on 05/24 (5) Transaminitis: Likely secondary to sepsis. - Monitor (6) DVT prophylaxis: SCDs - Low DVT risk per admission calculator. Admission and Anticipated Discharge Date Admission Date: May 19, 2020 Subjective Doing well today. The pain in the right face is still present, but is improving overall. The suprapubic pain is improving. Physical Exam Constitutional: WD/WN, vitals as above Eyes: EOM intact bilaterally; no conjunctival abnormality ENMT: external ear and nose normal, oropharynx normal Neck: trachea midline, no thyromegaly normal visual inspection Respiratory: + tachypneic; no respiratory distress and no labored breathing Cardiovascular: RRR, no murmur, no edema Gastrointestinal (Abdomen): Inspection/Auscultation: abdomen normal to inspection; abdomen not distended Musculoskeletal: no cyanosis or clubbing, extremities motor strength 5/5 Skin: no rashes, warm and dry Neurologic: moves all extremities and awake Psychiatric: Orientation: alert, oriented to person and cooperative Results & Data Results & Data ([facility]) Vital Signs (Past 12 Hours) Vital Signs Temp Pulse Pulse Resp BP Pulse Ox 05/23/20 16:00 60 05/23/20 11:50 36.6 C 56 L 19 143/80 H 93 05/23/20 09:12 36.4 C L 63 18 156/80 H 94 05/23/20 07:12 65 PG Care Time/CCT Total # of Minutes Spent Total Time Spent with Patient: Total time spent is greater than 50% in coordination of care (as documented) at patient's floor/unit and/or counseling patient: Coding Level of Care Code 52125 Subseq Hosp Care Lvl 2 Diagnoses Facial pain R51.9 Ureteral stone with hydronephrosis N13.2 Severe sepsis with septic shock A41.9; R65.21 Paroxysmal atrial fibrillation I48.0 Transaminitis R74.01 DVT prophylaxis Z29.9
[2020-05-23] MEDS: ACETAMINOPHEN 325 MG TAB PO PRN (23:07)
[2020-05-24 06:14] LABS: Hemoglobin 9.8 g/dL (14.0-18.0); Mean Corpuscular Hemoglobin 30.1 pg (25-34); Mean Corpuscular Hgb Conc 32.7 g/dL (32-36); Mean Platelet Volume 10.6 fL (7.4-10.4); Platelet Count 165 K/uL (130-400); RDW Coefficient of Variation 13.9 % (11.5-14.5); RDW Standard Deviation 46.4 fL (36.4-46.3); Red Blood Count 3.26 M/uL (4.7-6.1); White Blood Count 9.58 K/uL (4.8-10.8)
[2020-05-24 06:50] LABS: Calcium 8.2 mg/dl (8.5-10.1); Creatinine Clr Calc Pharmacy 91.8 ml/min; Est GFR (African American) 104.1; Est GFR (Non-African American) 89.8; Magnesium 1.9 mg/dl (1.8-2.4); Potassium 3.8 mmol/L (3.5-5.1)
[2020-05-24] MEDS: OXcarbazepine 150 MG TABLET PO SCH (07:53)
[2020-05-24] MEDS: FLECAINIDE ACETATE 100 MG TABLET PO SCH (07:53)
[2020-05-24] MEDS: METOPROLOL TARTRATE 25 MG TAB PO SCH (07:54)
[2020-05-24] MEDS ORDERED: RIVAROXABAN 20 MG TAB PO SCH (09:00)
[2020-05-24] MEDS ORDERED: MICONAZOLE NITRATE POWDER 43 GM EXT PRN (09:44)
--- NOTE | 2020-05-24 17:09 | Discharge Summary ---
Date of Service May 24, 2020 Admission HPI Per Admitting Provider The patient is a 84-year-old male with a past medical history including anemia, sepsis, ureteral stone, bilateral nephrolithiasis, recurrent UTI, bladder neck contracture, paroxysmal atrial fibrillation, long-term anticoagulant use, chronic low back pain, osteitis pubis, lymphocytic colitis, frequent PVCs, history of prostate cancer, chronic venous stasis and obstructive sleep apnea. He had unresponsive episode prior to arrival, and was minimally responsive upon arrival to the ED, with increased heart rate and decreased blood pressure. Patient was assessed via septic protocol, was found to have an infected kidney stone as probable source, had a central line placed while in ED, and was given 3 L of normal saline IV, 50 g of albumin IV, and started on the Levophed drip. Patient was going to be taken to the OR emergently by urology Dr. Alek Venegas, with plan to admit to the ICU afterwards Principal Diagnosis Infected kidney stone; possible osteomyelitis Presumed trigeminal neuralgia Discharge Exam Constitutional WD/WN, vitals as above Eyes EOM intact bilaterally; no conjunctival abnormality ENMT external ear and nose normal, oropharynx normal Neck trachea midline, no thyromegaly normal visual inspection Respiratory + tachypneic; no respiratory distress and no labored breathing Cardiovascular RRR, no murmur, no edema Gastrointestinal (Abdomen) Inspection/Auscultation: abdomen normal to inspection; abdomen not distended Musculoskeletal no cyanosis or clubbing, extremities motor strength 5/5 Skin no rashes, warm and dry Neurologic moves all extremities and awake Psychiatric Orientation: alert, oriented to person and cooperative Discharge Data Allergies Allergy/AdvReac Type Severity Reaction Status Date / Time bee venom protein (honey bee) Allergy Severe SWELLING,SO Verified 05/19/20 20:11 B hornet venom Allergy Severe ANAPHYLAXIS Verified 05/19/20 20:10 black walnut Allergy Intermediate HIVES Verified 05/19/20 20:11 fire ant Allergy Intermediate HIVES Verified 05/19/20 20:11 Consultations 05/19/20 19:49 ED Decision to Admit Stat 05/19/20 20:23 Consult Dough Molder Stat Consult Urology Stat 05/19/20 23:37 Consult Case Management - Discharge Planning Routine Consult Dough Molder Routine 05/21/20 21:34 Consult Neurology Routine 05/22/20 10:35 Consult Infectious Diseases Routine Procedures Performed Operation Date: 05/19/20 21:00 Actual Procedures p Cystoscopy Retrograde; dilation; stent placement(Right) - Alek Venegas, DO Ordered Studies 05/19/20 [place] retrograde includes kub Routine 05/19/20 18:40 CT abd pelvis IV con only Stat CT angio chest PE protocol Stat CT head/brain wo con Stat 05/22/20 10:03 MR brain trigeminal wo/w con Routine Hospital Course (1) Ureteral stone with hydronephrosis: S/p cystoscopy with retrograde urethrogram, urethral dilation, meatal dilation, dilation of bladder neck contracture, right aspiration, and right stent placement with Dr. Venegas on 05/19. - Follow cultures - grew barba-sensitive Klebsiella as well as Luz. - Will need 6 weeks of antibiotics per ID. - Keep Fernandez in for 3-4 weeks. Discharge on Cipro 500 mg PO BID x 4-5 weeks. The reason ID recs longer is that they are presuming it is osteomyelitis; however, this may also be radiation damage from prostate cancer. No real way to tell on imaging alone. (2) Facial pain: Possible trigeminal neuralgia given symptoms. First episode. - Facial x-rays on 05/21 showed no tooth/TMJ issue. Brain MRI on 05/22 did not show any abnormality of the trigeminal nerve. - Continue oxcarbazepine 150 mg PO BID x 5 days, then 300 mg PO BID. (Switch on 05/27). - Will need to follow up with dental and ENT to be sure no ear canal or tooth pathology. (3) Severe sepsis with septic shock: Severe sepsis with septic shock/hypotension/status post cystoscopy with ureteral stent placement for obstructing stone and pyelonephritis. - Pressors off since 05/20 (4) Paroxysmal atrial fibrillation: On flecainide 50 mg p.o. twice daily, and Xarelto, both of which will be held for now. - Restarted flecainide - Restarted anticoagulation on 05/24 (5) Transaminitis: Likely secondary to sepsis. - Returned to normal by discharge. (6) DVT prophylaxis: SCDs - Low DVT risk per admission calculator. Total Time Total Time Spent Total Time Spent (In Minutes): 35 Discharge Plan Discharge Items Patient Disposition: Home - Home Health Services Reason For Visit: SEPSIS DUE TO INFECTED KIDNEY STONE Discharge Diagnosis: Infected kidney stone and possible infection of the pubic bone Activity: Resume your previous activity Non-emergency contact: Primary Care Provider and Urologist Call non-emergency contact if: your symptoms worsen Follow-up/Referrals: Tonny Ferreira MD [Physician] - 06/27/20 8:30 am (You have an appt with Dr. Ferreira on June 27 at 0830am. Please arrive 15 minutes prior to your appt. It is important that you keep this appt. If for any reason this appt does not fit into your schedule please call [phone] to reschedule. ) Alek Venegas DO [Physician] - (Please call Dr. Venegas's office to schedule a follow up.) Tonny Huber DO [Primary Care Provider] - 06/10/20 11:30 am (You have an appt with Dr. Huber on WednesdayJune 10 at 1130am. Please arrive 15 minutes prior to appt. It is important that you keep this appt, if for any reason this appt does not fit your schedule please call [phone] to reschedule. ) Diet: Heart Healthy Addtl Attending Provider Instructions: You were admitted for confusion resulting from an infection. The infection was in your bladder and by the kidney from a kidney stone. The urology team put in a stent and this has allowed the bacteria to be flushed out. Please keep the Fernandez in place for at least [address] Venegas removes it in the office. Because of your prior prostate cancer and radiation, there is some damage to the pubic bone from the radiation. There is also a chance some of the bacteria got into the bone from the bladder. This isn't entirely clear because even CT scans can't see that closely into the bone to see if there are bacteria there. The infectious disease doctors feels that taking an antibiotic for at least 4-5 weeks is important to fully eliminate the possible bacteria, but fortunately, the antibiotic can be a pill. Please take the pill two times every day for the next [address] Venegas feels you need to take it for another week, he can prescribe it, or we can refer you to an infectious disease doctor. Second, you have been having pain on the right side of your face. We do not see any issue with the ear, teeth, or jaw. This may be something called trigeminal neuralgia which is an irritation of the nerves that cross the face. Dr. Ferreira saw you and recommended you follow up with the ENT and dentist to fully rule out any other issues with the jaw or teeth, but we have started you on a medication that will hopefully help reduce the pain and frequency of the attacks. Please follow up with him in the clinic in 2-3 weeks to see how you are doing. Pending Studies at Discharge: No Stand-Alone Forms: My [facility] [address], Smoking Cessation Medications and DC Order Prescriptions: New oxcarbazepine 300 mg tablet 300 mg PO BID Qty: 60 RF: 0 ciprofloxacin HCl 500 mg tablet 500 mg PO BID Qty: 60 RF: 0 Continued budesonide 9 mg tablet,delayed and ext.release See Rx Instructions .ROUTE .COMPLEX Qty: 30 RF: 1 flecainide 50 mg tablet 50 mg PO BID RF: 0 multivitamin [Daily Multi-Vitamin] tablet 1 tab PO DAILY RF: 0 acetaminophen 500 mg tablet 1,000 mg PO TID PRN (Reason: Fever Or Pain) Qty: 90 RF: 0 epinephrine 0.3 mg/0.3 mL auto-injector 0.3 ml IM DIRECTED PRN (Reason: hypersensitivity reaction) Qty: 1 RF: 0 glucosamine sulfate [Glucosamine] 500 mg Tablet 0 mg PO BID RF: 0 krill oil 500 mg Capsule 0 mg PO QAM RF: 0 Xarelto 20 mg Tablet 20 mg PO QPM RF: 0 celecoxib [Celebrex] 100 mg Capsule 100 mg PO DAILY PRN (Reason: Pain) Qty: 14 RF: 0 Discontinued cefuroxime axetil 250 mg tablet 250 mg PO BID 10 Days Qty: 20 RF: 0 methenamine hippurate 1 gram tablet 1 gm PO HS Qty: 30 RF: 11 Discharge Orders: Discharge Order (Routine); Ordered 05/24/20 Ordered By: Joselo Ruiz/Other Patient Handouts: Emptying and Cleaning Your ..., Indwelling Urinary Catheter Dc, Discharge Instructions Caring for ..., ED Trigeminal Neuralgia Admission Data Admit Date/Time: 05/19/20 21:09 Attending Provider: Joselo Saxena Admit Provider: Humberto Mendoza Primary Care Provider: Tonny Huber Other Providers: Tonny Pham ; Joselo Saxena ; Humberto Mendoza ; Alek Venegas ; Tonny Ferreira ; Zachariah Coates ; Bobbi Jain ; Eugenio Bledsoe I. ; Vini Zamorano II ; Mony Hemphill ; Pierre Ford ; [facility] Other Interventions: Discharge Summary Assessment (RN) Last Done: 05/24/20 11:54 Coding Level of Care Code D/C Day Management >30 mins Diagnoses Ureteral stone with hydronephrosis N13.2 Facial pain R51.9 Severe sepsis with septic shock A41.9; R65.21 Paroxysmal atrial fibrillation I48.0 Transaminitis R74.01 DVT prophylaxis Z29.9
--- NOTE | 2020-05-25 06:10 | Electrocardiogram Report ---
Test Reason : Blood Pressure : / mmHG Vent. Rate : 067 BPM Atrial Rate : 067 BPM P-R Int : 188 ms QRS Dur : 098 ms QT Int : 446 ms P-R-T Axes : 058 -42 -21 degrees QTc Int : 471 ms Sinus rhythm with Premature supraventricular complexes Left axis deviation Minimal voltage criteria for LVH, may be normal variant Cannot rule out Anterior infarct , age undetermined Abnormal ECG When compared with ECG of 19-MAY-2020 18:41, HR has decreased by 82 bpm T wave inversion now evident in Inferior leads Confirmed by Martín De Leon ([id number]) on 05/25/2020 6:10:11 AM Referred By: REFERRED SELF Confirmed By:Martín De Leon
== END 2020-05-24 14:50 | disposition home health service (06) | DRG 853 ==
LOC: ED 18:26 → OR 21:08 → 1E 21:09 → SUATTDRO 21:09 → 2N 05-21 11:53

== ENCOUNTER 2021-06-02 15:11 | Observation (INO) ==
[2021-06-02] MEDS ORDERED: SODIUM CHLORIDE 0.9% 500 ML IV STA (15:19)
[2021-06-02] MEDS ORDERED: PANTOprazole 80 MG in DEXTROSE 5% 100 ML IV ONE (15:24)
[2021-06-02] MEDS ORDERED: PANTOPRAZOLE BOLUS/DRIP 1 EA IV STA (15:24)
--- NOTE | 2021-06-02 15:24 | Emergency Department Note ---
Impression & Plan Anemia ADMIT ED Provider Note HPI: Patient arrived to the ED via EMS ambulance The patient is an 85-year-old male with history of paroxysmal atrial fibrillation, he is on anticoagulation with Xarelto which was recently held, indwelling suprapubic Fernandez catheter, presents the emergency department from [facility] over concern for GI bleeding. Patient is a poor historian, tells me "I think I have been bleeding from my stool". He denies any focal complaint of pain on arrival. On arrival here to the ED the patient is hemodynamically stable, he is in no acute distress, denies any focal complaint of pain, states he did have an episode of emesis recently but he is unsure exactly when that was. He is a relatively poor historian. Per EMS report he did require blood transfusion earlier this month, he has not had a recent colonoscopy or EGD, per EMS report he is on Xarelto for atrial fibrillation but this was held over the past several days over concern for dropping hemoglobin. He reportedly had a hemoglobin less than 8 today at his facility and therefore was sent to the ED. ROS: -General: Abnormal lab work/anemia on outpatient labs *10 point review systems was conducted and is otherwise negative unless stated above *Outpatient medications and allergy history reviewed PE: General: Alert, NAD HEENT: Normocephalic, atraumatic, trachea midline Eyes: Extraocular eye movement is intact, no scleral erythema Pulmonary: Clear to auscultation bilaterally, no wheezing Cardio: Regular rate and rhythm GI: Abdomen is soft, nontender, rectal examination performed with female RN to bedside, no evidence of gross bleeding, occult stool test is negative : No suprapubic tenderness MSK: No evidence of trauma or malformation of the extremities, no edema Skin: No evidence of rash Neuro: Alert, no focal deficits Psychiatric: Cooperative hospitalist physician: - An order was placed for continuous cardiac monitoring - Patient was noted to be in sinus rhythm with rate of 80 EKG: Rate: 84 Rhythm: Sinus rhythm Intervals: Within normal limits ST changes: No ST elevation Time: 1523 Medical Decision Making: Patient presented with concern for anemia on outpatient lab work, he has had some recent rectal bleeding according to EMS report. I also did speak with his daughter, Kaitlynn, on the phone, tells me he has had some blood per rectum recently at the nursing facility. He was scheduled for colonoscopy earlier this month but he became ill and had some vomiting prior to the procedure therefore it was not done. He did require blood transfusion in early May for anemia less than 7. Labwork here in the ED shows evidence of a hemoglobin of 8.7, patient is otherwise hemodynamically stable. His occult stool test is negative. Patient states he has had some vomiting recently that was dark in coloration, unclear whether or not he may have been experiencing upper GI bleed. Therefore he was started on Protonix gtt following a bolus. Interventions included IV fluids, IV Protonix. Imaging was obtained including chest x-ray that does not show any evidence of pneumonia or acute process. COVID-19 testing is negative. On re-evaluation the patient remains hemodynamically stable, I did discuss the case with on-call gastroenterology for Dr. Cardona, Dr. Oconnor, who recommended the patient be admitted and prepped for colonoscopy and EGD this evening in preparation for procedure likely tomorrow morning. I discussed this with the patient he is in agreement. Patient was admitted in stable condition to the hospitalist service of [facility] for further care. Diagnosis: 1. Anemia 2. Concern for upper GI bleed 3. Nausea and vomiting 4. History of blood per rectum on oral anticoagulation Disposition: Admission Pierre Almaraz DO Emergency Medicine Past Med/Surg History Medical History SCARLET (acute kidney injury) Anemia Anticoagulant long-term use Chronic low back pain Chronic venous stasis Facial pain History of Clostridioides difficile colitis History of prostate cancer (~1999) Followed by Urology History of UTI Hypotension Lymphocytic colitis Obstructive sleep apnea CPAP Osteitis pubis Paroxysmal atrial fibrillation Followed by Cardiology Presence of suprapubic catheter Right foot pain Sacral decubitus ulcer Severe sepsis with septic shock hx Syncope Ureteral stone with hydronephrosis Urinary retention Self Catheterization Walker as ambulation aid Surgical History H/O elbow surgery H/O pelvic surgery [place] a [place] [facility] [place] History of colonoscopy History of prostate surgery S/P bunionectomy S/P cataract surgery S/P cystoscopy with ureteral stent placement S/P total knee arthroplasty Bilateral Status post total shoulder arthroplasty Bilateral Family History Father Prostate cancer Diabetes Mother Leukemia Cancer Denies family history of Ovarian cancer Alzheimer disease Crohn's disease Myocardial infarction Breast cancer Lung cancer Colorectal cancer Hypertension Stroke Social History Smoking Status: Never smoker Second Hand Exposure: No; Hx Alcohol Use: Yes Alcohol type: beer Hx Substance Use: No Preferred Language: [place] Communication Ability: Effective Visual Impairment: No Limitations Hearing Ability: Normal Level Vial Sealer Required: No Beliefs That Will Affect Care: None marital status: Current Living Situation: Alf current occupational status: retired Feels Safe at Home: Yes Childhood Exposure to Second-Hand Smoke: No Dental Care, Regularly: Yes Physical Activity Frequency: 1-2 Times per Week Seatbelt Use: always Sunscreen Use: No Assistive Devices: Cane, Glasses and Walker Allergies Allergies Allergy/AdvReac Type Severity Reaction Status Date / Time bee venom protein (honey bee) Allergy Severe SWELLING,SO Verified 06/02/21 16:06 B hornet venom Allergy Severe ANAPHYLAXIS Verified 06/02/21 16:06 black walnut Allergy Intermediate HIVES Verified 06/02/21 16:06 fire ant Allergy Intermediate HIVES Verified 06/02/21 16:06 Home Meds Home Medications Medication Instructions Recorded Confirmed epinephrine 0.3 mg/0.3 mL 0.3 ml IM DIRECTED PRN #1 ea 02/28/19 06/02/21 injection, auto-injector multivitamin (Daily Multi-Vitamin) 1 tab PO QAM 02/28/19 06/02/21 glucosamine sulfate 500 mg tablet 500 mg PO BID 03/29/20 06/02/21 (Glucosamine) krill oil 500 mg capsule 500 mg PO QAM 03/29/20 06/02/21 docusate sodium 100 mg capsule 100 mg PO DAILY PRN 07/02/20 06/02/21 polyethylene glycol 3350 17 17 g PO DAILY PRN 07/02/20 06/02/21 gram/dose oral powder (Miralax) budesonide 9 mg tablet,delayed and 9 mg PO QAM 05/07/21 06/02/21 extended release cyanocobalamin (vitamin B-12) 1,000 mcg PO QAM 05/07/21 06/02/21 1,000 mcg tablet sertraline 100 mg tablet 100 mg PO HS 05/07/21 06/02/21 sulfamethoxazole 400 1 tab PO QAM 05/07/21 06/02/21 mg-trimethoprim 80 mg tablet (Bactrim) zinc oxide-cod liver oil 40 % 1 applic TOPICAL BID 05/07/21 06/02/21 topical paste (Desitin) omeprazole 40 mg capsule,delayed 40 mg PO BID 05/14/21 06/02/21 release acetaminophen 325 mg tablet 650 mg PO Q4 PRN MDD 3 GRAMS/24 06/02/21 06/02/21 (Tylenol) HOURS sodium chloride 0.9 % 10 ml Q12H 06/02/21 06/02/21 Previous Rx's Medication Instructions Recorded flecainide 50 mg tablet 50 mg PO BID #60 tab 08/09/20 midodrine 2.5 mg tablet 2.5 mg PO TID #90 tab 02/24/21 Results & Data (ED) Vital Signs Vital Signs - 24 hr 06/02/21 15:20 06/02/21 15:21 06/02/21 16:30 Temperature 36.8 C Temperature Source Oral Pulse Rate 86 Pulse Rate [Left Finger] 78 Pulse Rhythm Regular Pulse Rhythm [Left Finger] Regular Pulse Strength Normal Pulse Strength [Left Finger] Normal Respiratory Rate 20 20 Respiratory Effort / Characteristics Non-Labored Spontaneous Non-Labored Spontaneous Respiratory Depth Normal Normal Respiratory Pattern Regular Regular Blood Pressure 115/82 Blood Pressure [Right Arm] 132/70 Blood Pressure Mean 93 Blood Pressure Mean [Right Arm] 90 Blood Pressure Position Sitting Blood Pressure Position [Right Arm] Sitting Pulse Oximetry 96 94 95 Oxygen Delivery Method Room Air Room Air Room Air Sepsis Recent Fever Within 48 Hours No Sepsis New/Unexplained Change in Mental Status No Sepsis Action Taken by Nursing No Action Required Laboratory Data Result diagrams: 06/02/21 15:46 06/02/21 15:46 Lab Results 06/02/21 06/02/21 06/02/21 Range/Units 15:46 15:46 15:46 WBC (4.8-10.8) K/uL RBC (4.7-6.1) M/uL Hgb (14.0-18.0) g/dL Hct (42-52) % MCV (80-100) fL MCH (25-34) pg MCHC (32-36) g/dL RDW Std Deviation (36.4-46.3) fL RDW Coeff of Gordo (11.5-14.5) % Plt Count (130-400) K/uL MPV (7.4-10.4) fL Immature Gran % (Auto) % Neut % (Auto) % Lymph % (Auto) % [place] % (Auto) % Eos % (Auto) % Baso % (Auto) % Neut # (Auto) (1.4-6.5) K/uL Lymph # (Auto) (1.2-3.4) K/uL [place] # (Auto) (0.11-0.59) K/uL Eos # (Auto) (0-0.5) K/uL Baso # (Auto) (0-0.2) K/uL Immature Gran # (Auto) (0.00-0.02) K/uL Tear Drop Cells PT 9.9 (9.0-12.0) Seconds INR 1.0 (0.9-1.1) Sodium 136 (136-145) mmol/L Potassium 3.7 (3.5-5.1) mmol/L Chloride 103 (98-107) mmol/L Carbon Dioxide 25 (21-32) mmol/L Anion Gap 8.0 (3-11) BUN 20 H (7-18) mg/dl Creatinine 0.97 (0.6-1.4) mg/dl Est Cr Clr Drug Dosing 59.0 ml/min Est GFR ( Amer) 81.0 ml/min Est GFR (Non-Af Amer) 69.9 ml/min BUN/Creatinine Ratio 20.5 H (10-20) Glucose 118 H (70-99) mg/dl Lactate 2.2 H* (0.4-2.0) mmol/L Calcium 8.7 (8.5-10.1) mg/dl Total Bilirubin 0.2 (0.2-1) mg/dl AST 9 L (15-37) U/L ALT 21 (12-78) Alkaline Phosphatase 87 D (45-117) U/L Troponin I < 0.015 (0-0.045) ng/ml Total Protein 6.3 L (6.4-8.2) gm/dl Albumin 2.3 L (3.4-5.0) gm/dl Globulin 4.0 (2.5-4.0) gm/dl Albumin/Globulin Ratio 0.6 L (0.9-2) Lipase 110 (73-393) U/L SARS-CoV-2, RNA, NAAT (NEGATIVE) Blood Type Antibody Screen 06/02/21 06/02/21 06/02/21 Range/Units 15:46 15:46 16:31 WBC 11.74 H (4.8-10.8) K/uL RBC 3.13 L (4.7-6.1) M/uL Hgb 8.7 L (14.0-18.0) g/dL Hct 28.8 L (42-52) % MCV 92.0 (80-100) fL MCH 27.8 (25-34) pg MCHC 30.2 L (32-36) g/dL RDW Std Deviation 57.8 H (36.4-46.3) fL RDW Coeff of Gordo 17.2 H (11.5-14.5) % Plt Count 243 (130-400) K/uL MPV 9.7 (7.4-10.4) fL Immature Gran % (Auto) 0.7 % Neut % (Auto) 82.7 % Lymph % (Auto) 13.6 % [place] % (Auto) 2.0 % Eos % (Auto) 0.8 % Baso % (Auto) 0.2 % Neut # (Auto) 9.71 H (1.4-6.5) K/uL Lymph # (Auto) 1.60 (1.2-3.4) K/uL [place] # (Auto) 0.24 (0.11-0.59) K/uL Eos # (Auto) 0.09 (0-0.5) K/uL Baso # (Auto) 0.02 (0-0.2) K/uL Immature Gran # (Auto) 0.08 H (0.00-0.02) K/uL Tear Drop Cells 1+ PT (9.0-12.0) Seconds INR (0.9-1.1) Sodium (136-145) mmol/L Potassium (3.5-5.1) mmol/L Chloride (98-107) mmol/L Carbon Dioxide (21-32) mmol/L Anion Gap (3-11) BUN (7-18) mg/dl Creatinine (0.6-1.4) mg/dl Est Cr Clr Drug Dosing ml/min Est GFR ( Amer) ml/min Est GFR (Non-Af Amer) ml/min BUN/Creatinine Ratio (10-20) Glucose (70-99) mg/dl Lactate (0.4-2.0) mmol/L Calcium (8.5-10.1) mg/dl Total Bilirubin (0.2-1) mg/dl AST (15-37) U/L ALT (12-78) Alkaline Phosphatase (45-117) U/L Troponin I (0-0.045) ng/ml Total Protein (6.4-8.2) gm/dl Albumin (3.4-5.0) gm/dl Globulin (2.5-4.0) gm/dl Albumin/Globulin Ratio (0.9-2) Lipase (73-393) U/L SARS-CoV-2, RNA, NAAT NEGATIVE (NEGATIVE) Blood Type A Positive Antibody Screen NEGATIVE Administered Medications Pantoprazole Sodium 40 mg/ (Dextrose) 100 mls @ 20 mls/hr IV Q5H HERLINDA Stop: 07/02/21 15:44 Last Admin: 06/02/21 16:25 Dose: 8 mg/hr, 20 mls/hr Documented by: [id number] Discontinued Medications Sodium Chloride (Nss) 500 mls @ 999 mls/hr IV .Q31M STA Stop: 06/02/21 15:49 Last Infusion: 06/02/21 16:08 Dose: 0 mls/hr Documented by: [id number] Admin: 06/02/21 15:37 Dose: 999 mls/hr Documented by: [id number] Pantoprazole Sodium (Protonix Bolus/Drip) 0 mls @ 1 mls/hr IV ONE STA Stop: 06/02/21 15:25 Last Admin: 06/02/21 16:08 Dose: 1 mls/hr Documented by: [id number] Pantoprazole Sodium 80 mg/ (Dextrose) 120 mls @ 400 mls/hr IV NOW ONE Stop: 06/02/21 15:41 Last Infusion: 06/02/21 16:22 Dose: 0 mls/hr Documented by: [id number] Admin: 06/02/21 16:04 Dose: 400 mls/hr Documented by: [id number] Imaging Data Radiologist's Impression: Chest X-Ray 06/02/21 15:20 SINGLE VIEW CHEST CLINICAL HISTORY: Hematemesis FINDINGS: An AP, portable, upright chest radiograph is compared to study dated 02/10/2021. The heart is enlarged noting atherosclerotic calcification of the thoracic aorta. The pulmonary vasculature is noncongested. Chronic interstitial thickening is similar to previous. There is bibasilar scarring/atelectasis. The lungs and pleural spaces are otherwise clear. No pneumothorax is seen. The skeletal structures are osteopenic. The bony thorax is grossly intact. Bilateral shoulder arthroplasties are in place. IMPRESSION: Cardiomegaly with no acute cardiopulmonary abnormality. ACT 112: Negative or not required by law. Electronically signed by: Ibrahima Chase M.D. 06/02/2021 4:09 PM Discharge Plan Visit Data Chief Complaint: GI Bleed ED Provider: Pierre Almaraz Discharge Problem: Anemia Forms Stand Alone Forms: [facility] Prescriptions Prescriptions: No Action flecainide 50 mg tablet 50 mg PO BID Qty: 60 RF: 5 midodrine 2.5 mg tablet 2.5 mg PO TID Qty: 90 RF: 3 polyethylene glycol 3350 [Miralax] 17 gram/dose powder 17 g PO DAILY PRN (Reason: Constipation) RF: 0 docusate sodium 100 mg capsule 100 mg PO DAILY PRN (Reason: Constipation) RF: 0 omeprazole 40 mg capsule,delayed release(DR/EC) 40 mg PO BID RF: 0 multivitamin [Daily Multi-Vitamin] tablet 1 tab PO QAM RF: 0 epinephrine 0.3 mg/0.3 mL auto-injector 0.3 ml IM DIRECTED PRN (Reason: hypersensitivity reaction) Qty: 1 RF: 0 glucosamine sulfate [Glucosamine] 500 mg Tablet 500 mg PO BID RF: 0 krill oil 500 mg Capsule 500 mg PO QAM RF: 0 sulfamethoxazole-trimethoprim [Bactrim] 400-80 mg Tablet 1 tab PO QAM RF: 0 sertraline 100 mg Tablet 100 mg PO HS RF: 0 cyanocobalamin (vitamin B-12) 1,000 mcg Tablet 1,000 mcg PO QAM RF: 0 Desitin 40 % Paste 1 applic TOPICAL BID RF: 0 budesonide 9 mg tablet,delayed and ext.release 9 mg PO QAM RF: 0 acetaminophen [Tylenol] 325 mg Tablet 650 mg PO Q4 MDD 3 GRAMS/24 HOURS PRN (Reason: PAIN/FEVER=>100) RF: 0 sodium chloride 0.9 % [Normal Saline] Solution 10 ml Q12H RF: 0 Referrals Referrals: Ping Salmeron Chaplin [Primary Care Provider] - Discharge Problem: Anemia Qualifiers: Anemia type: unspecified type Qualified Code(s): D64.9 - Anemia, unspecified
[2021-06-02 15:55] LABS: Hematocrit (blood only) 28.8 % (42-52); Hemoglobin 8.7 g/dL (14.0-18.0); Mean Corpuscular Hemoglobin 27.8 pg (25-34); Mean Corpuscular Hgb Conc 30.2 g/dL (32-36); Mean Platelet Volume 9.7 fL (7.4-10.4); Platelet Count 243 K/uL (130-400); RDW Coefficient of Variation 17.2 % (11.5-14.5); RDW Standard Deviation 57.8 fL (36.4-46.3); Red Blood Count 3.13 M/uL (4.7-6.1); White Blood Count 11.74 K/uL (4.8-10.8)
[2021-06-02 16:05] LABS: Prothrombin Time 9.9 Seconds (9.0-12.0)
--- NOTE | 2021-06-02 16:10 | XRay Report ---
SINGLE VIEW CHEST CLINICAL HISTORY: Hematemesis FINDINGS: An AP, portable, upright chest radiograph is compared to study dated 02/10/2021. The heart is enlarged noting atherosclerotic calcification of the thoracic aorta. The pulmonary vasculature is no ncongested. Chronic interstitial thickening is similar to previous. There is bibasilar scarring/atele ctasis. The lungs and pleural spaces are otherwise clear. No pneumothorax is seen. The skeletal struc tures are osteopenic. The bony thorax is grossly intact. Bilateral shoulder arthroplasties are in jc ce. IMPRESSION: Cardiomegaly with no acute cardiopulmonary abnormality. ACT 112: Negative or not required by law. Electronically signed by: Ibrahima Chase M.D. 06/02/2021 4:09 PM
[2021-06-02 16:20] LABS: Alanine Aminotransferase 21 (12-78); Albumin Level 2.3 gm/dl (3.4-5.0); Aspartate Aminotransferase 9 U/L (15-37); BUN Creatinine Ratio 20.5 (10-20); Blood Urea Nitrogen 20 mg/dl (7-18); Calcium 8.7 mg/dl (8.5-10.1); Carbon Dioxide 25 mmol/L (21-32); Chloride 103 mmol/L (98-107); Est GFR (Non-African American) 69.9 ml/min; Glucose 118 mg/dl (70-99); Lipase 110 U/L (73-393); Potassium 3.7 mmol/L (3.5-5.1); Sodium 136 mmol/L (136-145)
[2021-06-02 16:24] LABS: Albumin Globulin Ratio 0.6 (0.9-2); Alkaline Phosphatase 87 U/L (45-117); Bilirubin,Total 0.2 mg/dl (0.2-1); Total Protein 6.3 gm/dl (6.4-8.2); Troponin I < 0.015 ng/ml (0-0.045)
[2021-06-02] MEDS: PANTOprazole 40 MG in DEXTROSE 5% 100 ML IV SCH ×2 (16:25→22:02)
--- NOTE | 2021-06-02 17:05 | History & Physical Report ---
Date of Service June 02, 2021 Assessment & Plan (1) Symptomatic anemia: (2) Rectal bleeding: Plan: This is an 85yo M with a PMH paroxysmal atrial fibrillation on Coumadin, idiopathic hypotension, history of prostate cancer and obstructive uropathy with suprapubic catheter, JOSE and other medical problems listed below who presents from [facility] with rectal bleeding. Downtrending hgb over past few months requiring transfusion of 1u prbc on 05/12/21 Intermittent rectal bleeding over the past few weeks, Xarelto has been held Hgb 8.7 today (baseline ~10). VSS, no nausea, vomiting or abdominal pain Due for EGD/colonoscopy in AM. Dr. Oconnor of [facility] consulted Golytely prep to begin at 1800 Continue Protonix bolus and drip Consented for blood products, type and screen ordered Holding Xarelto Keep NPO H&H Q12H (3) Obstructive and reflux uropathy: Plan: Follows with Dr. 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 Briggs. Please see addendum. History of Present Illness Chief Complaint: rectal bleeding Primary Care Provider: [facility] [place] This is an 85yo M with a PMH paroxysmal atrial fibrillation on Coumadin, idiopathic hypotension, history of prostate cancer and obstructive uropathy with suprapubic catheter, histoory of lymphocytic colitis, JOSE and other medical problems listed below who presents from [facility] with rectal bleeding. Downtrending hgb over past few months requiring transfusion of 1u prbc on 05/12/21. Has continued to feel weak and had intermittent rectal bleeding since then. Per [facility] notes, bright red rectal bleeding reported on 05/25/21. His Xarelto has been on hold due to anemia and suspected GI bleeding but was incidentally resumed on 05/20/21. Was placed on hold again yesterday after rectal bleeding was again apparent. Patient states bleeding yesterday was darker red in color. Denies any lightheadedness, dizziness, nausea, vomiting or abdominal pain. Was scheduled for outpatient EGD and colonoscopy given suspected GI bleeding but procedure was rescheduled. No fever, chills, chest pain, palpitations, SOB, dysuria, hematuria or diarrhea. Ambulates with walker but has been more sedentary lately due to recent infection and weakness in setting of ongoing anemia. Allergies Allergy/AdvReac Type Severity Reaction Status Date / Time bee venom protein (honey bee) Allergy Severe SWELLING,SO Verified 06/02/21 16:06 B hornet venom Allergy Severe ANAPHYLAXIS Verified 06/02/21 16:06 black walnut Allergy Intermediate HIVES Verified 06/02/21 16:06 fire ant Allergy Intermediate HIVES Verified 06/02/21 16:06 Home Medications Medication Instructions Recorded Confirmed Type epinephrine 0.3 mg/0.3 mL 0.3 ml IM DIRECTED PRN #1 ea 02/28/19 06/02/21 History injection, auto-injector multivitamin (Daily Multi-Vitamin) 1 tab PO QAM 02/28/19 06/02/21 History glucosamine sulfate 500 mg tablet 500 mg PO BID 03/29/20 06/02/21 History (Glucosamine) krill oil 500 mg capsule 500 mg PO QAM 03/29/20 06/02/21 History docusate sodium 100 mg capsule 100 mg PO DAILY PRN 07/02/20 06/02/21 History polyethylene glycol 3350 17 17 g PO DAILY PRN 07/02/20 06/02/21 History gram/dose oral powder (Miralax) flecainide 50 mg tablet 50 mg PO BID #60 tab 08/09/20 06/02/21 Rx midodrine 2.5 mg tablet 2.5 mg PO TID #90 tab 02/24/21 06/02/21 Rx budesonide 9 mg tablet,delayed and 9 mg PO QAM 05/07/21 06/02/21 History extended release cyanocobalamin (vitamin B-12) 1,000 mcg PO QAM 05/07/21 06/02/21 History 1,000 mcg tablet sertraline 100 mg tablet 100 mg PO HS 05/07/21 06/02/21 History sulfamethoxazole 400 1 tab PO QAM 05/07/21 06/02/21 History mg-trimethoprim 80 mg tablet (Bactrim) zinc oxide-cod liver oil 40 % 1 applic TOPICAL BID 05/07/21 06/02/21 History topical paste (Desitin) omeprazole 40 mg capsule,delayed 40 mg PO BID 05/14/21 06/02/21 History release acetaminophen 325 mg tablet 650 mg PO Q4 PRN MDD 3 GRAMS/24 06/02/21 06/02/21 History (Tylenol) HOURS rivaroxaban 20 mg tablet (Xarelto) 20 mg PO DAILY@1800 06/02/21 06/02/21 History sodium chloride 0.9 % 10 ml Q12H 06/02/21 06/02/21 History Past Med/Surg History Medical History (Updated 06/02/21 @ 18:15 by Colleen Bledsoe PA-C) Anemia Anticoagulant long-term use Chronic low back pain Chronic venous stasis Depression Facial pain History of Clostridioides difficile colitis History of prostate cancer (~1999) Followed by Urology History of UTI Hypotension Lymphocytic colitis Lymphocytic colitis Obstructive and reflux uropathy Obstructive sleep apnea CPAP Osteitis pubis Paroxysmal atrial fibrillation Followed by Cardiology Presence of suprapubic catheter Right foot pain Sacral decubitus ulcer Severe sepsis with septic shock hx Syncope Ureteral stone with hydronephrosis Urinary retention Self Catheterization Walker as ambulation aid Surgical History H/O elbow surgery H/O pelvic surgery repair of a bladder fistula at [facility] in 11/2020. History of colonoscopy History of prostate surgery S/P bunionectomy S/P cataract surgery S/P cystoscopy with ureteral stent placement S/P total knee arthroplasty Bilateral Status post total shoulder arthroplasty Bilateral Family History Father Prostate cancer Diabetes Mother Leukemia Cancer Denies family history of Ovarian cancer Alzheimer disease Crohn's disease Myocardial infarction Breast cancer Lung cancer Colorectal cancer Hypertension Stroke Social History Smoking Status: Never smoker Second Hand Exposure: No; Hx Alcohol Use: Yes Alcohol type: beer Hx Substance Use: No Preferred Language: Greek Communication Ability: Effective Visual Impairment: No Limitations Hearing Ability: Normal Negative Turner Required: No Beliefs That Will Affect Care: None marital status: Current Living Situation: Senior Care current occupational status: retired Feels Safe at Home: Yes Childhood Exposure to Second-Hand Smoke: No Dental Care, Regularly: Yes Physical Activity Frequency: 1-2 Times per Week Seatbelt Use: always Sunscreen Use: No Assistive Devices: Cane, Glasses and Walker Review of Systems Review of Systems: At least ten systems reviewed and negative except as noted in the HPI. Physical Exam Physical Exam: General Appearance: WD/WN, vitals as above, NAD, sitting up in bed, pleasant, conversing easily Head: normocephalic, atraumatic Eyes: normal inspection, PERRL, conjunctivae normal, anicteric sclerae ENT: hard of hearing, external ear and nose normal, oropharynx normal Neck: normal visual inspection, trachea midline, no thyromegaly Respiratory: normal respiratory effort, lungs clear to auscultation, no wheeze, rales, rhonchi. No accessory muscle use Cardiovascular: regular rate, rhythm, no murmur, normal peripheral pulses, no BLE edema. Vessels: no JVD Chest: normal inspection of chest Abdomen/GI: normal bowel sounds, soft, nontender, no hepatosplenomegaly Extremities/Musculoskeletal: no cyanosis or clubbing, extremities motor strength 5/5 Neurologic: PERRL, EOMI, accommodation nl, no face palsy, no dysarthria, CN's II-XI intact bilaterally and moves all extremities Psychiatric: A+Ox3, euthymic affect Skin: no rashes, normal color, warm/dry Results & Data Results & Data ([facility]) Vital Signs (Past 12 Hours) Vital Signs Temp Pulse Pulse Resp BP BP Pulse Ox 06/02/21 16:30 78 20 132/70 95 06/02/21 15:21 36.8 C 86 20 115/82 94 06/02/21 15:20 96 Laboratory Results Short CBC 06/02/21 Range/Units 15:46 WBC 11.74 H (4.8-10.8) K/uL Hgb 8.7 L (14.0-18.0) g/dL Hct 28.8 L (42-52) % Plt Count 243 (130-400) K/uL BMP 06/02/21 15:46 Sodium 136 Potassium 3.7 Chloride 103 Carbon Dioxide 25 BUN 20 H Creatinine 0.97 Glucose 118 H Calcium 8.7 Cardiac Enzymes 06/02/21 Range/Units 15:46 Troponin I < 0.015 (0-0.045) ng/ml Liver Function 06/02/21 Range/Units 15:46 Total Bilirubin 0.2 (0.2-1) mg/dl AST 9 L (15-37) U/L ALT 21 (12-78) Alkaline Phosphatase 87 D (45-117) U/L Albumin 2.3 L (3.4-5.0) gm/dl Diagnostic Findings Chest X-Ray 06/02/21 15:20 SINGLE VIEW CHEST CLINICAL HISTORY: Hematemesis FINDINGS: An AP, portable, upright chest radiograph is compared to study dated 02/10/2021. The heart is enlarged noting atherosclerotic calcification of the thoracic aorta. The pulmonary vasculature is noncongested. Chronic interstitial thickening is similar to previous. There is bibasilar scarring/atelectasis. The lungs and pleural spaces are otherwise clear. No pneumothorax is seen. The skeletal structures are osteopenic. The bony thorax is grossly intact. Bilateral shoulder arthroplasties are in place. IMPRESSION: Cardiomegaly with no acute cardiopulmonary abnormality. ACT 112: Negative or not required by law. Electronically signed by: Ibrahima Chase M.D. 06/02/2021 4:09 PM Supervising Physician Co-Signing Physician Notes History and exam performed by me as detailed by Colleen Mak PA-C Agree with plans as detailed above
[2021-06-02 17:06] LABS: Basophils # (auto) 0.02 K/uL (0-0.2); Basophils % (auto) 0.2 %; Eosinophils # (auto) 0.09 K/uL (0-0.5); Eosinophils % (auto) 0.8 %; Immature Granulocytes # (auto) 0.08 K/uL (0.00-0.02); Immature Granulocytes % (auto) 0.7 %; Lymphocytes % (auto) 13.6 %; Monocytes # (auto) 0.24 K/uL (0.11-0.59); Neutrophils # (auto) 9.71 K/uL (1.4-6.5); Neutrophils % (auto) 82.7 %; Tear Drop Cells 1+
[2021-06-02] MEDS ORDERED: ACETAMINOPHEN 325 MG TAB PO PRN (17:42)
[2021-06-02] MEDS ORDERED: LAVAGE SOLUTION 4000ML PO SCH (18:00)
[2021-06-02 18:58] LABS: Hematocrit (blood only) 26.1 % (42-52); Hemoglobin 7.9 g/dL (14.0-18.0)
[2021-06-02] MEDS ORDERED: ONDANSETRON INJ 2 MG/ML 2 ML VIAL IV PRN (19:58)
[2021-06-02] MEDS ORDERED: EPINEPHrine INJ 1 MG/ML AMP IM PRN (20:01)
[2021-06-02] MEDS ORDERED: NON-FORMULARY MEDICATION (Zinc Oxide-Cod Liver Oil [Desitin] 40 % Paste) TOP SCH (21:00)
[2021-06-02] MEDS: FLECAINIDE ACETATE 100 MG TABLET PO SCH (22:00)
[2021-06-02] MEDS: SODIUM CHLORIDE 0.9% 10ML FLUSH IV SCH (22:00)
[2021-06-02] MEDS: MIDODRINE HCL 2.5 MG TAB PO SCH (22:01)
[2021-06-02] MEDS: SERTRALINE HCL 100 MG TABLET PO SCH (22:01)
[2021-06-03] MEDS: PANTOprazole 40 MG in DEXTROSE 5% 100 ML IV SCH ×5 (02:32→23:11)
[2021-06-03 06:57] LABS: Appearance Urine Turbid (Clear); Bacteria Urine Automated 3+ (Negative); Bilirubin Urine Negative (Negative); Blood Urine 2+ (Negative); Color Urine Yellow; Glucose Urine UA Negative (Negative); Ketones Urine Negative (Negative); Leukocyte Esterase Urine 3+ (Negative); Nitrite Urine Positive (Negative); Protein Urine 2+ (Negative); Specific Gravity Urine 1.014 (1.000-1.030); Urobilinogen Urine Negative (Negative); WBC Urine Automated >30 /hpf (0-5); pH Urine 5.5 (4.5-7.5)
--- NOTE | 2021-06-03 07:32 | Anesthesiology Consultation ---
Date of Service June 03, 2021 Assessment & Plan (1) Encounter for pre-operative examination: Covid negative 06/02/21 Chart Review Chart Review: Acceptable Risk for Surgery and Patient NOT seen in Pre Admission Testing Assessment & Plan (1) Symptomatic anemia: (2) Rectal bleeding: Plan: This is an 85yo M with a PMH paroxysmal atrial fibrillation on Coumadin, idiopathic hypotension, history of prostate cancer and obstructive uropathy with suprapubic catheter, JOSE and other medical problems listed below who presents from [facility] with rectal bleeding. Downtrending hgb over past few months requiring transfusion of 1u prbc on 05/12/21 Intermittent rectal bleeding over the past few weeks, Xarelto has been held Hgb 8.7 today (baseline ~10). VSS, no nausea, vomiting or abdominal pain Due for EGD/colonoscopy in AM. Dr. Oconnor of [facility] consulted Golytely prep to begin at 1800 Continue Protonix bolus and drip Consented for blood products, type and screen ordered Holding Xarelto Keep NPO H&H Q12H Consults Requested none History Surgery Operation Date: 06/03/21 11:40 Proposed Procedures p Colonoscopy - Obed Oconnor MD s Esophagogastroduodenoscopy - Obed Oconnor MD Height/Weight Height: 5 ft 8 in Weight: 91.9 kg Allergies Allergy/AdvReac Type Severity Reaction Status Date / Time bee venom protein (honey bee) Allergy Severe SWELLING,SO Verified 06/02/21 16:06 B hornet venom Allergy Severe ANAPHYLAXIS Verified 06/02/21 16:06 black walnut Allergy Intermediate HIVES Verified 06/02/21 16:06 fire ant Allergy Intermediate HIVES Verified 06/02/21 16:06 Medications Home Medications Medication Instructions Recorded Confirmed Last Taken epinephrine 0.3 mg/0.3 mL 0.3 ml IM DIRECTED PRN #1 ea 02/28/19 06/02/21 Unknown injection, auto-injector multivitamin (Daily Multi-Vitamin) 1 tab PO QAM 02/28/19 06/02/21 06/02/21 glucosamine sulfate 500 mg tablet 500 mg PO BID 03/29/20 06/02/21 06/02/21 08:00 (Glucosamine) krill oil 500 mg capsule 500 mg PO QAM 03/29/20 06/02/21 06/02/21 docusate sodium 100 mg capsule 100 mg PO DAILY PRN 07/02/20 06/02/21 Unknown polyethylene glycol 3350 17 17 g PO DAILY PRN 07/02/20 06/02/21 Unknown gram/dose oral powder (Miralax) flecainide 50 mg tablet 50 mg PO BID #60 tab 08/09/20 06/02/21 06/02/21 08:00 midodrine 2.5 mg tablet 2.5 mg PO TID #90 tab 02/24/21 06/02/21 06/02/21 08:00 budesonide 9 mg tablet,delayed and 9 mg PO QAM 05/07/21 06/02/21 06/02/21 extended release cyanocobalamin (vitamin B-12) 1,000 mcg PO QAM 05/07/21 06/02/21 06/02/21 1,000 mcg tablet sertraline 100 mg tablet 100 mg PO HS 05/07/21 06/02/21 06/01/21 sulfamethoxazole 400 1 tab PO QAM 05/07/21 06/02/21 06/02/21 mg-trimethoprim 80 mg tablet (Bactrim) zinc oxide-cod liver oil 40 % 1 applic TOPICAL BID 05/07/21 06/02/21 06/02/21 08:00 topical paste (Desitin) omeprazole 40 mg capsule,delayed 40 mg PO BID 05/14/21 06/02/21 06/02/21 08:00 release acetaminophen 325 mg tablet 650 mg PO Q4 PRN MDD 3 GRAMS/24 06/02/21 06/02/21 Unknown (Tylenol) HOURS rivaroxaban 20 mg tablet (Xarelto) 20 mg PO DAILY@1800 06/02/21 06/02/21 Unknown sodium chloride 0.9 % 10 ml Q12H 06/02/21 06/02/21 06/02/21 08:00 Active Medications Generic Name Dose Route Start Last Admin Trade Name Freq PRN Reason Stop Dose Admin Flecainide Acetate 50 mg 06/02/21 21:00 06/02/21 22:00 Flecainide Acetate 100 Mg Tablet PO 07/02/21 20:59 50 mg BID HERLINDA Administration Pantoprazole Sodium 40 mg/ 100 mls @ 20 mls/hr 06/02/21 15:45 06/03/21 07:33 Dextrose IV 07/02/21 15:44 8 mg/hr Q5H HERLINDA 20 mls/hr Administration 8 MG/HR Midodrine 2.5 mg 06/02/21 21:00 06/02/21 22:01 Midodrine Hcl 2.5 Mg Tab PO 07/02/21 20:59 2.5 mg TID HERLINDA Administration Sertraline HCl 100 mg 06/02/21 21:00 06/02/21 22:01 Sertraline Hcl 100 Mg Tablet PO 07/02/21 20:59 100 mg HS HERLINDA Administration Sodium Chloride 10 ml 06/02/21 21:00 06/02/21 22:00 Sodium Chloride 0.9% 10ml Flush IV 07/02/21 20:59 10 ml Q12H HERLINDA Administration Past Medical History Medical History (Updated 06/03/21 @ 07:43 by Adama Onofre MD) Anemia Anticoagulant long-term use Chronic low back pain Chronic venous stasis Depression Encounter for pre-operative examination Facial pain History of Clostridioides difficile colitis History of prostate cancer (~1999) Followed by Urology History of UTI Hypotension Lymphocytic colitis Lymphocytic colitis Obstructive and reflux uropathy Obstructive sleep apnea CPAP Osteitis pubis Paroxysmal atrial fibrillation Followed by Cardiology Presence of suprapubic catheter Right foot pain Sacral decubitus ulcer Severe sepsis with septic shock hx Syncope Ureteral stone with hydronephrosis Urinary retention Self Catheterization Walker as ambulation aid Cardiology note 05/14/21: 1. Paroxysmal atrial fibrillation: He has not had recurrence of atrial fibrillation to my knowledge. I would recommend that he remain on flecainide. He should be on anticoagulation over the long run however with his current anemia and possible blood loss I would recommend holding it for now. Past Family History Family History Father Prostate cancer Diabetes Mother Leukemia Cancer Denies family history of Ovarian cancer Alzheimer disease Crohn's disease Myocardial infarction Breast cancer Lung cancer Colorectal cancer Hypertension Stroke Past Surgical History Surgical History H/O elbow surgery H/O pelvic surgery repair of a bladder fistula at [facility] in 11/2020. History of colonoscopy History of prostate surgery S/P bunionectomy S/P cataract surgery S/P cystoscopy with ureteral stent placement S/P total knee arthroplasty Bilateral Status post total shoulder arthroplasty Bilateral Social History Smoking Status: Unknown if ever smoked Do You Dip or Chew Tobacco: No Hx Alcohol Use: No Alcohol type: beer alcohol intake frequency: a few times a week Hx Substance Use: No substance use type: does not use Physical Exam Vital Signs Last Vital Signs Temp 36.7 C 06/03/21 04:11 Pulse 68 06/03/21 06:43 Resp 20 06/03/21 04:11 BP 135/78 06/03/21 04:11 Pulse Ox 95 06/03/21 04:11 Testing Laboratory Results 06/02/21 22:55 06/02/21 15:46 PT 9.9 Seconds (9.0-12.0) 06/02/21 15:46 INR 1.0 (0.9-1.1) 06/02/21 15:46 Urine Color Yellow 06/03/21 Unknown Urine Appearance Turbid (Clear) A 06/03/21 Unknown Urine pH 5.5 (4.5-7.5) 06/03/21 Unknown Ur Specific [place] 1.014 (1.000-1.030) 06/03/21 Unknown Urine Protein 2+ (Negative) H 06/03/21 Unknown Urine Glucose (UA) Negative (Negative) 06/03/21 Unknown Urine Ketones Negative (Negative) 06/03/21 Unknown Urine Nitrite Positive (Negative) A 06/03/21 Unknown Ur Leukocyte Esterase 3+ (Negative) H 06/03/21 Unknown Urine WBC (Auto) >30 /hpf (0-5) H 06/03/21 Unknown Urine RBC (Auto) 10-30 /hpf (0-4) H 06/03/21 Unknown U Hyaline Cast (Auto) 1-5 /lpf (0-5) 06/03/21 Unknown U Epithel Cells (Auto) 10-20 /lpf (0-5) H 06/03/21 Unknown Urine Bacteria (Auto) 3+ (Negative) H 06/03/21 Unknown Blood Type A Positive 06/02/21 15:46 Antibody Screen NEGATIVE 06/02/21 15:46 Electrocardiogram Date: 06/02/21 HR 71. NSR. LAD. Non-specific intra-ventricular conduction delay. Chest X-Ray Date: 06/02/21 SINGLE VIEW CHEST CLINICAL HISTORY: Hematemesis FINDINGS: An AP, portable, upright chest radiograph is compared to study dated 02/10/2021. The heart is enlarged noting atherosclerotic calcification of the thoracic aorta. The pulmonary vasculature is noncongested. Chronic interstitial thickening is similar to previous. There is bibasilar scarring/atelectasis. The lungs and pleural spaces are otherwise clear. No pneumothorax is seen. The skeletal structures are osteopenic. The bony thorax is grossly intact. Bilateral shoulder arthroplasties are in place. IMPRESSION: Cardiomegaly with no acute cardiopulmonary abnormality. Echocardiogram Date: 05/30/20 LV is normal in size. LV systolic function is normal. EF 55-60% LV wall motion is normal. There is mild concentric left ventricular hypertrophy. Grade 1 DD. Mild MR. LA is moderately dilated. Mild TR. RV systolic pressure is normal.
[2021-06-03 07:41] LABS: Hematocrit (blood only) 26.9 % (42-52); Hemoglobin 8.4 g/dL (14.0-18.0)
[2021-06-03 08:17] LABS: BUN Creatinine Ratio 20.2 (10-20); Calcium 8.1 mg/dl (8.5-10.1); Creatinine Clr Calc Pharmacy 74.4 ml/min; Est GFR (African American) 94.6 ml/min; Est GFR (Non-African American) 81.6 ml/min; Potassium 3.7 mmol/L (3.5-5.1)
[2021-06-03] MEDS: MIDODRINE HCL 2.5 MG TAB PO SCH ×3 (08:19→21:04)
[2021-06-03] MEDS: SULFA/TRIMETH 400/80MG TAB PO SCH (08:24)
[2021-06-03] MEDS: FLECAINIDE ACETATE 100 MG TABLET PO SCH ×2 (08:24→21:04)
[2021-06-03] MEDS: MULTIVITAMIN TAB PO SCH (08:24)
[2021-06-03] MEDS: BUDESONIDE EC 3 MG CAP PO SCH (08:25)
[2021-06-03] MEDS: SODIUM CHLORIDE 0.9% 10ML FLUSH IV SCH ×2 (08:31→21:06)
--- NOTE | 2021-06-03 09:39 | Gastrointestinal Consultation ---
Date of Consultation June 03, 2021 Assessment & Plan (1) Symptomatic anemia: (2) Rectal bleeding: GI bleeding, source unclear, diverticular vs. avm vs. pud, unfortunately he is still drinking his prep and having solid bowel movements recs: --complete prep today --clear liquid diet today, NPO post midnight --egd and colonoscopy will now be tomorrow --supportive care, IVFs Thank you for allowing me to participate in the care of this patient History of Present Illness Attending Physician: Odalis Briggs MD History of Present Illness 85yo M with a PMH paroxysmal atrial fibrillation on Coumadin, idiopathic hypotension, history of prostate cancer and obstructive uropathy with suprapubic catheter, history of lymphocytic colitis, JOSE and other medical problems here with hematochezia. was scheduled for outpatient egd and colonoscopy for suspected gi bleeding but this has worsened in the last week or so, hgb noted to be less than 8. notes weakness. xarelto has been held due to his bleeding. labs reviewed. Allergies Allergy/AdvReac Type Severity Reaction Status Date / Time bee venom protein (honey bee) Allergy Severe SWELLING,SO Verified 06/02/21 16:06 B hornet venom Allergy Severe ANAPHYLAXIS Verified 06/02/21 16:06 black walnut Allergy Intermediate HIVES Verified 06/02/21 16:06 fire ant Allergy Intermediate HIVES Verified 06/02/21 16:06 Home Medications Medication Instructions Recorded Confirmed Type epinephrine 0.3 mg/0.3 mL 0.3 ml IM DIRECTED PRN #1 ea 02/28/19 06/02/21 History injection, auto-injector multivitamin (Daily Multi-Vitamin) 1 tab PO QAM 02/28/19 06/02/21 History glucosamine sulfate 500 mg tablet 500 mg PO BID 03/29/20 06/02/21 History (Glucosamine) krill oil 500 mg capsule 500 mg PO QAM 03/29/20 06/02/21 History docusate sodium 100 mg capsule 100 mg PO DAILY PRN 07/02/20 06/02/21 History polyethylene glycol 3350 17 17 g PO DAILY PRN 07/02/20 06/02/21 History gram/dose oral powder (Miralax) flecainide 50 mg tablet 50 mg PO BID #60 tab 08/09/20 06/02/21 Rx midodrine 2.5 mg tablet 2.5 mg PO TID #90 tab 02/24/21 06/02/21 Rx budesonide 9 mg tablet,delayed and 9 mg PO QAM 05/07/21 06/02/21 History extended release cyanocobalamin (vitamin B-12) 1,000 mcg PO QAM 05/07/21 06/02/21 History 1,000 mcg tablet sertraline 100 mg tablet 100 mg PO HS 05/07/21 06/02/21 History sulfamethoxazole 400 1 tab PO QAM 05/07/21 06/02/21 History mg-trimethoprim 80 mg tablet (Bactrim) zinc oxide-cod liver oil 40 % 1 applic TOPICAL BID 05/07/21 06/02/21 History topical paste (Desitin) omeprazole 40 mg capsule,delayed 40 mg PO BID 05/14/21 06/02/21 History release acetaminophen 325 mg tablet 650 mg PO Q4 PRN MDD 3 GRAMS/24 06/02/21 06/02/21 History (Tylenol) HOURS rivaroxaban 20 mg tablet (Xarelto) 20 mg PO DAILY@1800 06/02/21 06/02/21 History sodium chloride 0.9 % 10 ml Q12H 06/02/21 06/02/21 History Patient History Medical History Anemia Anticoagulant long-term use Chronic low back pain Chronic venous stasis Depression Encounter for pre-operative examination Facial pain History of Clostridioides difficile colitis History of prostate cancer (~1999) Followed by Urology History of UTI Hypotension Lymphocytic colitis Lymphocytic colitis Obstructive and reflux uropathy Obstructive sleep apnea CPAP Osteitis pubis Paroxysmal atrial fibrillation Followed by Cardiology Presence of suprapubic catheter Right foot pain Sacral decubitus ulcer Severe sepsis with septic shock hx Syncope Ureteral stone with hydronephrosis Urinary retention Self Catheterization Walker as ambulation aid Surgical History H/O elbow surgery H/O pelvic surgery repair of a bladder fistula at [facility] [place] in 11/2020. History of colonoscopy History of prostate surgery S/P bunionectomy S/P cataract surgery S/P cystoscopy with ureteral stent placement S/P total knee arthroplasty Bilateral Status post total shoulder arthroplasty Bilateral Family History Father Prostate cancer Diabetes Mother Leukemia Cancer Denies family history of Ovarian cancer Alzheimer disease Crohn's disease Myocardial infarction Breast cancer Lung cancer Colorectal cancer Hypertension Stroke Social History Smoking Status: Unknown if ever smoked Second Hand Exposure: No; Do You Dip or Chew Tobacco: No; Tobacco Cessation Education Requested by Patient: No Hx Alcohol Use: No Hx Substance Use: No Preferred Language: Tanzanian Communication Ability: Effective Visual Impairment: No Limitations Hearing Ability: Normal Face Boss Required: No Beliefs That Will Affect Care: None marital status: Current Living Situation: Other current occupational status: retired Other Information That Helps Us Care for You: No Feels Safe at Home: Yes Childhood Exposure to Second-Hand Smoke: No Dental Care, Regularly: Yes Physical Activity Frequency: 1-2 Times per Week Seatbelt Use: always Sunscreen Use: No Assistive Devices: Denture - Upper Review of Systems Constitutional: no fever, no chills and no weight loss Eyes: as per Subjective / HPI Ear, Nose, Mouth, Throat: as per Subjective / HPI Respiratory: no dyspnea and no dyspnea on exertion Cardiovascular: no chest pain and no palpitations Gastrointestinal: as per Subjective / HPI Musculoskeletal: no joint pain and no swelling Integumentary: no rash and no lesions Neurologic: no numbness and no paresthesia Psychiatric: no depression and no anxiety Endocrine: no fatigue Hematologic / Lymphatic: no easy bleeding and no easy bruising Physical Exam Constitutional: WD/WN, vitals as above Eyes: EOM intact bilaterally Neck: normal visual inspection Respiratory: normal respiratory effort, lungs clear to auscultation Cardiovascular: RRR, no murmur, no edema Gastrointestinal (Abdomen): Inspection/Auscultation: abdomen normal to inspection; abdomen not distended Percussion/Palpation: abdomen soft; abdomen nontender and no hepatosplenomegaly Musculoskeletal: Extremities: no cyanosis Gait: normal gait Skin: no rashes, warm and dry Neurologic: moves all extremities Psychiatric: A+Ox3, euthymic affect Results & Data ([facility]) Vital Signs (Past 12 Hours) Vital Signs Temp Pulse Pulse Resp BP Pulse Ox 06/03/21 08:03 36.4 C L 71 20 152/72 H 96 06/03/21 06:43 68 06/03/21 04:11 36.7 C 72 20 135/78 95 06/03/21 03:39 36.4 C L 69 20 119/75 95 06/02/21 22:52 36.6 C 69 18 143/77 H 95 PG Care Time/CCT Total # of Minutes Spent Total Time Spent with Patient: Total time spent is greater than 50% in coordination of care (as documented) at patient's floor/unit and/or counseling patient: Coding Level of Care Code 79731 Initial Inpt Care Lvl 3 Diagnoses Symptomatic anemia D64.9 Rectal bleeding K62.5
--- NOTE | 2021-06-03 10:35 | Hospitalist Progress Note ---
Date of Service June 03, 2021 Assessment & Plan (1) Symptomatic anemia: (2) Rectal bleeding: Plan: 85yo M with a PMH paroxysmal atrial fibrillation on Coumadin, idiopathic hypotension, history of prostate cancer and obstructive uropathy with suprapubic catheter, JOSE and other medical problems listed below who presents from [facility] with rectal bleeding. Downtrending hgb over past few months requiring transfusion of 1u prbc on 05/12/21 Intermittent rectal bleeding over the past few weeks, Xarelto has been held Hb stable in 8s (baseline of 10) Patient supposed to go for EGD/colonoscopy this AM but did not complete prep and stool not clear. Discussed with Dr. Oconnor of [facility] Will continue prep and clear liquid today. NPO PMN for scopes tomorrow Continue holding Xarelto H&H Q12H (3) Obstructive and reflux uropathy: Plan: Follows with Dr. 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 Suprapubic catheter in place NSS flushes BID (4) Recurrent UTI (urinary tract infection): Plan: Continue Bactrim, to complete ppx 3 month course on 06/05/21 UA has leuk est, WBC Possible colonization based on hx/previous cultures F/u Urine cultures (5) Paroxysmal atrial fibrillation: Plan: Holding Xarelto in setting of rectal bleeding Continue flecainide BID (6) Depression: Plan: Continue Zoloft (7) Lymphocytic colitis: Plan: Continue Budesonide (8) Obstructive sleep apnea: Plan: Not compliant with CPAP DVT Ppx: SCDs Code status: FULL PCP: [facility] Admission and Anticipated Discharge Date Admission Date: June 02, 2021 Subjective 85yo M with a PMH paroxysmal atrial fibrillation on xarelto, idiopathic hypotension, history of prostate cancer and obstructive uropathy with suprapubic catheter, JOSE and other medical problems who presented from [facility] with rectal bleeding. Patient seen and examined Reports no rectal bleeding overnight Denied any chest pain, cough, shortness of breath Denies any fevers, chills Denies any nausea, vomiting, abdominal pain Denies dysuria, frequency. Has chronic right hand tremors. Physical Exam Constitutional: + well hydrated; no acute distress Elderly man Eyes: PERRL, conjunctivae normal, anicteric sclerae ENMT: external ear and nose normal, oropharynx normal Respiratory: normal respiratory effort, lungs clear to auscultation Cardiovascular: Rate/Rhythm: regular rate and regular rhythm S1-S2 Gastrointestinal (Abdomen): normal bowel sounds, soft, nontender, no hepatosplenomegaly Neurologic: PERRL, EOMI, accommodation nl, no face palsy, no dysarthria Occasional tremors in the right hand Psychiatric: A+Ox3, euthymic affect Results & Data Results & Data ([facility]) Vital Signs (Past 12 Hours) Vital Signs Temp Pulse Pulse Resp BP Pulse Ox 06/03/21 08:03 36.4 C L 71 20 152/72 H 96 06/03/21 06:43 68 06/03/21 04:11 36.7 C 72 20 135/78 95 06/03/21 03:39 36.4 C L 69 20 119/75 95 06/02/21 22:52 36.6 C 69 18 143/77 H 95 Laboratory Results Abnormal lab results 06/02/21 06/02/21 06/02/21 Range/Units 15:46 15:46 15:46 WBC 11.74 H (4.8-10.8) K/uL RBC 3.13 L (4.7-6.1) M/uL Hgb 8.7 L (14.0-18.0) g/dL Hct 28.8 L (42-52) % MCHC 30.2 L (32-36) g/dL RDW Std Deviation 57.8 H (36.4-46.3) fL RDW Coeff of Gordo 17.2 H (11.5-14.5) % Neut # (Auto) 9.71 H (1.4-6.5) K/uL Immature Gran # (Auto) 0.08 H (0.00-0.02) K/uL BUN 20 H (7-18) mg/dl BUN/Creatinine Ratio 20.5 H (10-20) Glucose 118 H (70-99) mg/dl Lactate 2.2 H* (0.4-2.0) mmol/L Calcium (8.5-10.1) mg/dl AST 9 L (15-37) U/L Total Protein 6.3 L (6.4-8.2) gm/dl Albumin 2.3 L (3.4-5.0) gm/dl Albumin/Globulin Ratio 0.6 L (0.9-2) Urine Appearance (Clear) Urine Protein (Negative) Urine Blood (Negative) Urine Nitrite (Negative) Ur Leukocyte Esterase (Negative) Urine WBC (Auto) (0-5) /hpf Urine RBC (Auto) (0-4) /hpf U Epithel Cells (Auto) (0-5) /lpf Urine Bacteria (Auto) (Negative) Nasal Screen MRSA (PCR) (Negative) 06/02/21 06/02/21 06/03/21 Range/Units 18:44 22:55 07:17 WBC (4.8-10.8) K/uL RBC (4.7-6.1) M/uL Hgb 7.9 L 8.0 L 8.4 L (14.0-18.0) g/dL Hct 26.1 L 26.0 L 26.9 L (42-52) % MCHC (32-36) g/dL RDW Std Deviation (36.4-46.3) fL RDW Coeff of Gordo (11.5-14.5) % Neut # (Auto) (1.4-6.5) K/uL Immature Gran # (Auto) (0.00-0.02) K/uL BUN (7-18) mg/dl BUN/Creatinine Ratio (10-20) Glucose (70-99) mg/dl Lactate (0.4-2.0) mmol/L Calcium (8.5-10.1) mg/dl AST (15-37) U/L Total Protein (6.4-8.2) gm/dl Albumin (3.4-5.0) gm/dl Albumin/Globulin Ratio (0.9-2) Urine Appearance (Clear) Urine Protein (Negative) Urine Blood (Negative) Urine Nitrite (Negative) Ur Leukocyte Esterase (Negative) Urine WBC (Auto) (0-5) /hpf Urine RBC (Auto) (0-4) /hpf U Epithel Cells (Auto) (0-5) /lpf Urine Bacteria (Auto) (Negative) Nasal Screen MRSA (PCR) (Negative) 06/03/21 06/03/21 06/03/21 Range/Units 07:17 Unknown Unknown WBC (4.8-10.8) K/uL RBC (4.7-6.1) M/uL Hgb (14.0-18.0) g/dL Hct (42-52) % MCHC (32-36) g/dL RDW Std Deviation (36.4-46.3) fL RDW Coeff of [place] (11.5-14.5) % Neut # (Auto) (1.4-6.5) K/uL Immature Gran # (Auto) (0.00-0.02) K/uL BUN (7-18) mg/dl BUN/Creatinine Ratio 20.2 H (10-20) Glucose 100 H (70-99) mg/dl Lactate (0.4-2.0) mmol/L Calcium 8.1 L (8.5-10.1) mg/dl AST (15-37) U/L Total Protein (6.4-8.2) gm/dl Albumin (3.4-5.0) gm/dl Albumin/Globulin Ratio (0.9-2) Urine Appearance Turbid A (Clear) Urine Protein 2+ H (Negative) Urine Blood 2+ H (Negative) Urine Nitrite Positive A (Negative) Ur Leukocyte Esterase 3+ H (Negative) Urine WBC (Auto) >30 H (0-5) /hpf Urine RBC (Auto) 10-30 H (0-4) /hpf U Epithel Cells (Auto) 10-20 H (0-5) /lpf Urine Bacteria (Auto) 3+ H (Negative) Nasal Screen MRSA (PCR) Positive A (Negative)
[2021-06-03] MEDS ORDERED: cefTRIAXone SODIUM 1,000 MG in DEXTROSE 5% 50 ML IV SCH (16:00)
--- NOTE | 2021-06-03 17:39 | Electrocardiogram Report ---
Test Reason : Blood Pressure : / mmHG Vent. Rate : 084 BPM Atrial Rate : 084 BPM P-R Int : 198 ms QRS Dur : 114 ms QT Int : 386 ms P-R-T Axes : 058 -47 024 degrees QTc Int : 456 ms Poor data quality, interpretation may be adversely affected Sinus rhythm with Premature atrial complexes Left axis deviation Poor R wave progression, consider anterior [place] vs. lead placement vs. LVH Abnormal ECG When compared with ECG of 10-FEB-2021 11:41, Premature atrial complexes are now Present Confirmed by Warner Rust ([id number]) on 06/03/2021 5:39:31 PM Referred By: Ping gaspar [facility] Confirmed By:Spencer Rust
--- NOTE | 2021-06-03 17:46 | Electrocardiogram Report ---
Test Reason : Blood Pressure : / mmHG Vent. Rate : 075 BPM Atrial Rate : 075 BPM P-R Int : 188 ms QRS Dur : 120 ms QT Int : 434 ms P-R-T Axes : 044 -53 040 degrees QTc Int : 484 ms Sinus rhythm with Premature atrial complexes Left axis deviation Cannot rule out Anterior infarct , age undetermined Abnormal ECG When compared with ECG of 02-JUN-2021 15:23, (unconfirmed) No significant change was found Confirmed by Warner Rust ([id number]) on 06/03/2021 5:45:59 PM Referred By: Ping gaspar [facility] Confirmed By:Spencer Rust
--- NOTE | 2021-06-03 17:46 | Electrocardiogram Report ---
Test Reason : Blood Pressure : / mmHG Vent. Rate : 071 BPM Atrial Rate : 071 BPM P-R Int : 190 ms QRS Dur : 122 ms QT Int : 436 ms P-R-T Axes : 064 -57 042 degrees QTc Int : 473 ms Normal sinus rhythm Left axis deviation Non-specific intra-ventricular conduction delay Abnormal ECG When compared with ECG of 02-JUN-2021 20:25, (unconfirmed) Premature atrial complexes are no longer Present Confirmed by Warner Rust ([id number]) on 06/03/2021 5:46:07 PM Referred By: Ping gaspar [facility] Confirmed By:Spencer Rust
--- NOTE | 2021-06-03 17:50 | Electrocardiogram Report ---
Test Reason : Blood Pressure : / mmHG Vent. Rate : 069 BPM Atrial Rate : 069 BPM P-R Int : 190 ms QRS Dur : 126 ms QT Int : 448 ms P-R-T Axes : 054 -53 034 degrees QTc Int : 480 ms Normal sinus rhythm Left axis deviation Non-specific intra-ventricular conduction block Abnormal ECG When compared with ECG of 02-JUN-2021 20:27, (unconfirmed) No significant change was found Confirmed by Warner Rust ([id number]) on 06/03/2021 5:50:06 PM Referred By: Ping gaspar [facility] Confirmed By:Spencer Rust
[2021-06-03 19:26] LABS: Hematocrit (blood only) 25.9 % (42-52)
[2021-06-03] MEDS: SERTRALINE HCL 100 MG TABLET PO SCH (21:05)
[2021-06-04] MEDS: PANTOprazole 40 MG in DEXTROSE 5% 100 ML IV SCH ×4 (03:51→22:30)
[2021-06-04 07:20] LABS: Hematocrit (blood only) 26.7 % (42-52); Mean Corpuscular Hemoglobin 27.3 pg (25-34); Mean Corpuscular Volume 91.1 fL (80-100); Mean Platelet Volume 9.8 fL (7.4-10.4); Platelet Count 231 K/uL (130-400); RDW Coefficient of Variation 17.2 % (11.5-14.5); RDW Standard Deviation 57.8 fL (36.4-46.3); Red Blood Count 2.93 M/uL (4.7-6.1); White Blood Count 8.84 K/uL (4.8-10.8)
[2021-06-04 07:50] LABS: BUN Creatinine Ratio 13.6 (10-20); Calcium 8.7 mg/dl (8.5-10.1); Creatinine Clr Calc Pharmacy 73.3 ml/min; Est GFR (African American) 95.1 ml/min; Potassium 3.3 mmol/L (3.5-5.1)
[2021-06-04] MEDS: SODIUM CHLORIDE 0.9% 10ML FLUSH IV SCH ×2 (09:30→20:01)
[2021-06-04] MEDS ORDERED: POTASSIUM CHLORIDE CRTAB 20 MEQ TABCR PO STA (09:55)
[2021-06-04] MEDS: CYANOCOBALAMIN 500 MCG TABLET (VITAMIN B-12) PO SCH (11:53)
[2021-06-04] MEDS: BUDESONIDE EC 3 MG CAP PO SCH (11:53)
[2021-06-04] MEDS: FLECAINIDE ACETATE 100 MG TABLET PO SCH ×2 (11:53→20:01)
[2021-06-04] MEDS: MIDODRINE HCL 2.5 MG TAB PO SCH ×3 (11:54→20:05)
[2021-06-04] MEDS: MULTIVITAMIN TAB PO SCH (11:54)
[2021-06-04] MEDS: SULFA/TRIMETH 400/80MG TAB PO SCH (11:54)
[2021-06-04] MEDS ORDERED: LIDOCAINE 2% 2 ML VIAL/AMP(20MG/ML) INFIL ONE (13:37)
[2021-06-04] MEDS ORDERED: PROPOFOL IV EMULSION 10 MG/ML 20 ML VIAL IV ONE (13:37)
--- NOTE | 2021-06-04 14:14 | History & Physical Bridge Note ---
Date of Service June 04, 2021 History & Physical Bridge Note I have examined the patient, reviewed the History & Physical and in the interval since the performance of the History & Physical I have noted the following changes of clinical significance: no changes noted Proceed with EGD and colonoscopy risks/benefits and procedure discussed with patient, who agrees to proceed
--- NOTE | 2021-06-04 14:42 | Procedure Note ---
Procedure Note Date of Service June 04, 2021 Note GI brief procedure note EGD and colonoscopy findings: EGD: normal exam, no evidence of blood nor ulcers or AVMs colonoscopy: poor prep, no evidence of active bleeding or old blood; aborted in the sigmoid colon due to poor prep recs: --diet as tolerated --supportive care, trend H/H Obed Oconnor MD Gastroenterology Coding
--- NOTE | 2021-06-04 14:51 | GI REPORT ---
Patient Name: Barry Saxena Procedure Date: 06/04/2021 1:56 PM Date of : 1935 Admit Type: Inpatient Age: 85 Gender: Male Attending MD: Obed Oconnor MD Procedure: Upper GI endoscopy Providers: Obed Oconnor MD Referring MD: Ping Colin Indications: Iron deficiency anemia secondary to chronic blood loss, Hematochezia Medicines: Monitored Anesthesia Care Complications: No immediate complications. Estimated blood loss: None. Estimated Blood Loss: Estimated blood loss: none. Procedure: Pre-Anesthesia Assessment: - Prior Anticoagulants: The patient has taken no previous anticoagulant or antiplatelet agents. - ASA Grade Assessment: II - A patient with mild systemic disease. After obtaining informed consent, the endoscope was passed under direct vision. Throughout the procedure, the patient's blood pressure, pulse, and oxygen saturations were monitored continuously. The Colonoscope was introduced through the mouth, and advanced to the second part of duodenum. The upper GI endoscopy was accomplished without difficulty. The patient tolerated the procedure well. Findings: The examined esophagus was normal. The entire examined stomach was normal. Estimated blood loss: none. The duodenal bulb and second portion of the duodenum were normal. Impression: - Normal esophagus. - Normal stomach. - Normal duodenal bulb and second portion of the duodenum. - No specimens collected. Recommendation: - [facility]. - Resume regular diet today. Obed Oconnor MD 06/04/2021 2:51:22 PM This report has been signed electronically. Note Initiated On: 06/04/2021 1:56 PM Number of Addenda: 0 I attest to the content of the Intraoperative Record and orders documented therein, exceptions below {[id number]}
--- NOTE | 2021-06-04 14:54 | GI REPORT ---
Patient Name: Barry Saxena Procedure Date: 06/04/2021 1:55 PM Date of : 1935 Admit Type: Inpatient Age: 85 Gender: Male Attending MD: Obed Oconnor MD Procedure: Colonoscopy Providers: Obed Oconnor MD Referring MD: Ping Colin Indications: Hematochezia, Iron deficiency anemia secondary to chronic blood loss Medicines: Monitored Anesthesia Care Complications: No immediate complications. Estimated blood loss: None. Estimated Blood Loss: Estimated blood loss: none. Procedure: Pre-Anesthesia Assessment: - Prior Anticoagulants: The patient has taken no previous anticoagulant or antiplatelet agents. - ASA Grade Assessment: III - A patient with severe systemic disease. After I obtained informed consent, the scope was passed under direct vision. Throughout the procedure, the patient's blood pressure, pulse, and oxygen saturations were monitored continuously. The Colonoscope was introduced through the anus with the intention of advancing to the cecum. The scope was advanced to the sigmoid colon before the procedure was aborted. Medications were given. The colonoscopy was performed without difficulty. The patient tolerated the procedure well. The quality of the bowel preparation was poor. Findings: A large amount of semi-liquid semi-solid solid stool was found in the rectum, in the recto-sigmoid colon and in the sigmoid colon, precluding visualization. No evidence of blood or active bleeding. procedure aborted in the sigmoid colon due to the poor prep. Impression: - Preparation of the colon was poor. - Stool in the rectum, in the recto-sigmoid colon and in the sigmoid colon. - No specimens collected. Recommendation: - [facility]. - Advance diet as tolerated today. -trend H/H, transfuse prn Obed Oconnor MD 06/04/2021 2:54:10 PM This report has been signed electronically. Note Initiated On: 06/04/2021 1:55 PM Number of Addenda: 0 I attest to the content of the Intraoperative Record and orders documented therein, exceptions below {[id number]}
--- NOTE | 2021-06-04 15:21 | Anesthesiology Progress Note ---
Date of Service June 04, 2021 Anesthesia Post Procedure Vital Signs Vital Signs: Temp Pulse Pulse Pulse Resp BP BP 06/04/21 15:10 72 18 129/94 06/04/21 15:00 36.4 C L 74 17 158/71 H 06/04/21 14:50 75 17 152/73 H 06/04/21 14:48 36.1 C L 79 15 115/59 L 06/04/21 13:34 36.7 C 76 16 143/70 H 06/04/21 11:38 36.6 C 77 22 130/73 06/04/21 11:34 36.8 C 74 18 141/72 H 06/04/21 07:51 67 06/04/21 07:43 36.5 C 72 22 135/67 06/04/21 03:00 36.8 C 71 16 114/63 06/04/21 00:04 68 06/03/21 22:43 36.6 C 70 18 103/61 06/03/21 19:35 37 C 72 18 118/64 Pulse Ox 06/04/21 15:10 96 06/04/21 15:00 96 06/04/21 14:50 96 06/04/21 14:48 97 06/04/21 13:34 95 06/04/21 11:38 96 06/04/21 11:34 92 06/04/21 07:51 06/04/21 07:43 92 06/04/21 03:00 95 06/04/21 00:04 06/03/21 22:43 92 06/03/21 19:35 93 Transfer of Care Handoff Completed per policy Notes Mental Status: alert / awake / arousable and participated in evaluation Patient Amnestic to Procedure: Yes Nausea / Vomiting: adequately controlled Pain: adequately controlled Airway Patency, RR, SpO2: stable & adequate BP & HR: stable & adequate Hydration State: stable & adequate Anesthetic Complications: no major complications apparent and Pt Satisfied with anesthetic care
--- NOTE | 2021-06-04 19:34 | Hospitalist Progress Note ---
Date of Service June 04, 2021 Assessment & Plan (1) Lower GI bleed: (2) Symptomatic anemia: Plan: 85yo M with a PMH of microscopic colitis, C. difficile [status post treatment in December 2020], paroxysmal atrial fibrillation on Coumadin, idiopathic hypotension, history of prostate cancer and obstructive uropathy with suprapubic catheter, JOSE presented 06/02 from [facility] with rectal bleeding. He is being managed for the following: (1) Symptomatic anemia: (2) GI bleeding: likely lower GI, EGD scope wnl Plan: Downtrending hgb over past few months requiring transfusion of 1u prbc on 05/12/21 Intermittent rectal bleeding over the past few weeks, Xarelto has been held Hb stable in 8s (baseline of 10) 06/03-->Patient supposed to go for EGD/colonoscopy this AM but did not complete prep and stool not clear. 06/04: EGD scope: Normal esophagus/stomach/duodenal up to second portion/no specimens collected. Colonoscopy: Preparation was poor, stool in the rectum and in the rectosigmoid colon and sigmoid colon. Resume diet and advance as tolerated per GI. Continue to hold Xarelto, await further recommendation from GI for further plan and timeline for resuming Xarelto Patient denies any dizziness/chest pain/palpitation, continue to monitor hemoglobin. (3) Obstructive and reflux uropathy: Plan: Follows with Dr. 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 (5) Paroxysmal atrial fibrillation: Plan: Holding Xarelto in setting of rectal bleeding Continue flecainide BID (6) Depression: Plan: Continue Zoloft (7) Lymphocytic colitis: Plan: Continue Budesonide (8) Obstructive sleep apnea: Plan: Not compliant with CPAP DVT Ppx: SCDs Code status: FULL PCP: [facility] 06/04: Called his daughter [[phone]] over the phone and updated her about his current status, discussed about his colonoscopy/esophagogastroduodenoscopy done today. Discussed about plan of care, see voiced understanding and was agreeable to the plan of care. Admission and Anticipated Discharge Date Admission Date: June 02, 2021 Subjective Patient was lying in bed, on room air, NAD, no new acute events overnight. Patient is n.p.o. for scope today, and reports feeling hungry and would like to eat something. We will wait for the school first and await GI recommendation. Patient denies any fever/chills/headache/chest pain/palpitation/other review of symptoms. Physical Exam Physical Exam: GENERAL: Alert and oriented x3. NAD, on RA. HEENT: No pallor, no icterus. Pupils equal, round and reactive to light. Oral mucosa moist. NECK: No JVD, no neck masses. HEART: S1 and S2 heard. Regular rate and rhythm. No murmur, no gallop. RESPIRATORY SYSTEM: Normal AP diameter. No accessory muscle use. No wheezing, no crackles. ABDOMEN: Soft, bowel sounds present, nontender, no distention. Suprapubic catheter noted with no surrounding erythema/tenderness. CENTRAL NERVOUS SYSTEM: No facial droop. Speech is clear. Obeys simple commands. Moves extremities. EXTREMITIES: No edema, no erythema seen. Bilateral hand tremor noted. Results & Data Results & Data ([facility]) Vital Signs (Past 12 Hours) Vital Signs Temp Pulse Pulse Pulse Resp BP BP 06/04/21 19:00 36.8 C 78 18 143/71 H 06/04/21 16:35 82 06/04/21 16:20 36.5 C 81 18 168/77 H 06/04/21 15:33 36.7 C 76 20 151/76 H 06/04/21 15:10 72 18 129/94 06/04/21 15:00 36.4 C L 74 17 158/71 H 06/04/21 14:50 75 17 152/73 H 06/04/21 14:48 36.1 C L 79 15 115/59 L 06/04/21 13:34 36.7 C 76 16 143/70 H 06/04/21 11:38 36.6 C 77 22 130/73 06/04/21 11:34 36.8 C 74 18 141/72 H 06/04/21 07:51 67 06/04/21 07:43 36.5 C 72 22 135/67 Pulse Ox 06/04/21 19:00 91 06/04/21 16:35 06/04/21 16:20 95 06/04/21 15:33 96 06/04/21 15:10 96 06/04/21 15:00 96 06/04/21 14:50 96 06/04/21 14:48 97 06/04/21 13:34 95 06/04/21 11:38 96 06/04/21 11:34 92 06/04/21 07:51 06/04/21 07:43 92
[2021-06-04] MEDS: SERTRALINE HCL 100 MG TABLET PO SCH (20:04)
[2021-06-05] MEDS: PANTOprazole 40 MG in DEXTROSE 5% 100 ML IV SCH ×2 (03:50→08:50)
[2021-06-05] MEDS ORDERED: Nursing to Pharmacy Communication SCH (06:00)
[2021-06-05 07:57] LABS: Hematocrit (blood only) 26.4 % (42-52); Mean Corpuscular Hemoglobin 27.4 pg (25-34); Mean Corpuscular Hgb Conc 30.3 g/dL (32-36); Mean Corpuscular Volume 90.4 fL (80-100); Mean Platelet Volume 9.4 fL (7.4-10.4); Platelet Count 199 K/uL (130-400); RDW Coefficient of Variation 17.3 % (11.5-14.5); RDW Standard Deviation 57.6 fL (36.4-46.3); Red Blood Count 2.92 M/uL (4.7-6.1); White Blood Count 9.11 K/uL (4.8-10.8)
[2021-06-05 08:32] LABS: BUN Creatinine Ratio 12.2 (10-20); Calcium 8.4 mg/dl (8.5-10.1); Creatinine Clr Calc Pharmacy 78.6 ml/min; Est GFR (African American) 97.2 ml/min; Est GFR (Non-African American) 83.9 ml/min; Potassium 3.5 mmol/L (3.5-5.1)
[2021-06-05] MEDS: BUDESONIDE EC 3 MG CAP PO SCH (08:41)
[2021-06-05] MEDS: FLECAINIDE ACETATE 100 MG TABLET PO SCH ×2 (08:41→20:49)
[2021-06-05] MEDS: MULTIVITAMIN TAB PO SCH (08:41)
[2021-06-05] MEDS: SULFA/TRIMETH 400/80MG TAB PO SCH (08:41)
[2021-06-05] MEDS: MIDODRINE HCL 2.5 MG TAB PO SCH ×3 (08:42→20:51)
[2021-06-05] MEDS: SODIUM CHLORIDE 0.9% 10ML FLUSH IV SCH ×2 (08:43→20:51)
[2021-06-05] MEDS: CYANOCOBALAMIN 500 MCG TABLET (VITAMIN B-12) PO SCH (08:49)
--- NOTE | 2021-06-05 10:18 | Communication Note ---
Date of Service: June 05, 2021 GI brief note hgb stable, VSS stable, bleeding appears to have stopped. recs: --ok to resume xarelto at this time --would recommend capsule endoscopy as an outpatient to further evaluate for GI bleeding sources --the daughter was concerned about hematuria previously, perhaps check a urinalysis to further evaluate --supportive care, rest as per primary team Obed Oconnor MD Gastroenterology
--- NOTE | 2021-06-05 12:56 | Urology Consultation ---
Date of Consultation June 05, 2021 Assessment & Plan (1) History of prostate cancer: (2) Fistula, bladder: (3) Osteitis pubis: (4) Chronic suprapubic catheter: 85 yo M with with multiple comorbidities admitted for symptomatic anemia and rectal bleeding. - Urology consulted for SP tube evaluation/change. 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 Agree with plan. SP tube exchanged and flushed without difficulty. No clear hematuria and anemia is likely related to GI bleed or other cause as opposed to hematuria. Urine culture will likely be positive due to colonization, only recommend treating if symptomatic as otherwise will just contribute to antibiotic resistance in future. Urology to sign off. Continue outpatient SP tube exchanges. History of Present Illness Reason for Consultation: SP tube catheter change Requesting Physician: Dr. Cash Attending Physician: Ryan Cruz MD History of Present Illness 85 yo M with past medical history of paroxysmal atrial fibrillation, chronic anticoagulation, history of prostate cancer, osteitis pubis, indwelling suprapubic catheter, bladder fistula, JOSE admitted for symptomatic anemia and rectal bleeding. Patient presented to [facility] ED on 06/02/21 from [facility] for concern for GI/rectal bleeding. Per notes, downtrending Hgb over the past few months requiring transfusion of 1 unit PRBC on 05/12/21. He has continued to have intermittent rectal bleeding and associated weakness, symptomatic anemia. He was admitted by hospital medicine for further evaluation and management. Hospital course reviewed. Xarelto has been on hold. GI consulted during admission and patient underwent EGD and colonoscopy on 06/04/21. Urology service is consulted for possible SP tube catheter change. Patient is known to our service. He has a complicated past urologic history significant for an open radical prostatectomy with salvage radiation approximately 20 to 22 years ago. He developed a pubovesical fistula and underwent bladder repair with fistulectomy on 11/17/[address] Carter at [facility]. His postoperative course was complicated by an obstructed SP tube which led to bladder distention and breakdown of his bladder repair. He continues to have SP tube exchanges with our service, last exchange was done on 05/29/21. There was concern from nursing today that SP tube catheter was leaking and not draining well. Chart review: Afebrile Creatinine 0.72 WBC 9.11 HGB 8.0 Urine culture 06/03 - prelim gram positive cocci On PO Bactrim (3 month ppx course per hospital notes) Patient seen and examined at bedside. He is awake, alert and resting in bed. No abdominal, suprapubic or flank pain. No dysuria or hematuria. Notes urine on his gown, but does not know whether he is leaking from SP tube or urethra. No fever, chills, nausea or vomiting. Offers no other complaints at present. Allergies Allergy/AdvReac Type Severity Reaction Status Date / Time bee venom protein (honey bee) Allergy Severe SWELLING,SO Verified 06/02/21 16:06 B hornet venom Allergy Severe ANAPHYLAXIS Verified 06/02/21 16:06 black walnut Allergy Intermediate HIVES Verified 06/02/21 16:06 fire ant Allergy Intermediate HIVES Verified 06/02/21 16:06 Home Medications Medication Instructions Recorded Confirmed Type epinephrine 0.3 mg/0.3 mL 0.3 ml IM DIRECTED PRN #1 ea 02/28/19 06/02/21 History injection, auto-injector multivitamin (Daily Multi-Vitamin) 1 tab PO QAM 02/28/19 06/02/21 History glucosamine sulfate 500 mg tablet 500 mg PO BID 03/29/20 06/02/21 History (Glucosamine) krill oil 500 mg capsule 500 mg PO QAM 03/29/20 06/02/21 History docusate sodium 100 mg capsule 100 mg PO DAILY PRN 07/02/20 06/02/21 History polyethylene glycol 3350 17 17 g PO DAILY PRN 07/02/20 06/02/21 History gram/dose oral powder (Miralax) flecainide 50 mg tablet 50 mg PO BID #60 tab 08/09/20 06/02/21 Rx midodrine 2.5 mg tablet 2.5 mg PO TID #90 tab 02/24/21 06/02/21 Rx budesonide 9 mg tablet,delayed and 9 mg PO QAM 05/07/21 06/02/21 History extended release cyanocobalamin (vitamin B-12) 1,000 mcg PO QAM 05/07/21 06/02/21 History 1,000 mcg tablet sertraline 100 mg tablet 100 mg PO HS 05/07/21 06/02/21 History sulfamethoxazole 400 1 tab PO QAM 05/07/21 06/02/21 History mg-trimethoprim 80 mg tablet (Bactrim) zinc oxide-cod liver oil 40 % 1 applic TOPICAL BID 05/07/21 06/02/21 History topical paste (Desitin) omeprazole 40 mg capsule,delayed 40 mg PO BID 05/14/21 06/02/21 History release acetaminophen 325 mg tablet 650 mg PO Q4 PRN MDD 3 GRAMS/24 06/02/21 06/02/21 History (Tylenol) HOURS rivaroxaban 20 mg tablet (Xarelto) 20 mg PO DAILY@1800 06/02/21 06/02/21 History sodium chloride 0.9 % 10 ml Q12H 06/02/21 06/02/21 History Patient History Medical History Anemia Anticoagulant long-term use Chronic low back pain Chronic venous stasis Depression Encounter for pre-operative examination Facial pain History of Clostridioides difficile colitis History of prostate cancer (~1999) Followed by Urology History of UTI Hypotension Lymphocytic colitis Lymphocytic colitis Obstructive and reflux uropathy Obstructive sleep apnea CPAP Osteitis pubis Paroxysmal atrial fibrillation Followed by Cardiology Presence of suprapubic catheter Right foot pain Sacral decubitus ulcer Severe sepsis with septic shock hx Syncope Ureteral stone with hydronephrosis Urinary retention Self Catheterization Walker as ambulation aid Surgical History H/O elbow surgery H/O pelvic surgery repair of a bladder fistula at [facility] in 11/2020. History of colonoscopy History of prostate surgery S/P bunionectomy S/P cataract surgery S/P cystoscopy with ureteral stent placement S/P total knee arthroplasty Bilateral Status post total shoulder arthroplasty Bilateral Family History Father Prostate cancer Diabetes Mother Leukemia Cancer Denies family history of Ovarian cancer Alzheimer disease Crohn's disease Myocardial infarction Breast cancer Lung cancer Colorectal cancer Hypertension Stroke Social History Smoking Status: Unknown if ever smoked Second Hand Exposure: No; Hx Alcohol Use: No Hx Substance Use: No Preferred Language: French Communication Ability: Effective Visual Impairment: No Limitations Hearing Ability: Normal Placement Director Required: No Beliefs That Will Affect Care: None marital status: Current Living Situation: Other current occupational status: retired Feels Safe at Home: Yes Childhood Exposure to Second-Hand Smoke: No Dental Care, Regularly: Yes Physical Activity Frequency: 1-2 Times per Week Seatbelt Use: always Sunscreen Use: No Review of Systems Constitutional: as per Subjective / HPI Gastrointestinal: as per Subjective / HPI Genitourinary: + as per Subjective / HPI Physical Exam 2 Constitutional: comfortable; no acute distress Chronically ill-appearing Respiratory: able to speak in complete sentences; no respiratory distress and no labored breathing Gastrointestinal (Abdomen): Inspection/Auscultation: abdomen normal to inspection; abdomen not distended Percussion/Palpation: abdomen soft; abdomen nontender and no guarding Musculoskeletal: Head/Neck/Chest: normocephalic and head atraumatic Neurologic: moves all extremities and awake Psychiatric: Orientation: alert and oriented x 3 Genitourinary: SP tube in right lower quadrant, draining cloudy yellow urine with moderate sediment. First irrigated catheter and met some resistance with aspiration, no leakage from SP tube site, but some leakage noted from urethra. Using aseptic technique, 18 F silicone SP tube was exchanged at bedside without difficulty. Balloon was inflated to 10 mL. Catheter was easily irrigated after exchange, no leaking was noted from SP tube site, very minimal leaking noted from urethra. Patient tolerated procedure well, mild discomfort. Results & Data ([facility]) Vital Signs (Past 12 Hours) Vital Signs Temp Pulse Pulse Pulse Resp BP BP 06/05/21 11:12 36.3 C L 75 18 162/77 H 06/05/21 08:00 74 06/05/21 07:49 36.9 C 75 17 131/66 06/05/21 03:25 37.0 C 73 18 119/69 Pulse Ox 06/05/21 11:12 95 06/05/21 08:00 06/05/21 07:49 95 06/05/21 03:25 94 PG Care Time/CCT Total # of Minutes Spent Total Time Spent with Patient: Total time spent is greater than 50% in coordination of care (as documented) at patient's floor/unit and/or counseling patient: Coding Level of Care Code 67068 Initial Inpt Care Lvl 2 Diagnoses History of prostate cancer Z85.46 Fistula, bladder N32.2 Osteitis pubis M86.9 Chronic suprapubic catheter Z93.59
--- NOTE | 2021-06-05 15:23 | Hospitalist Progress Note ---
Date of Service June 05, 2021 Assessment & Plan (1) Lower GI bleed: (2) Symptomatic anemia: Plan: 85yo M with a PMH of microscopic colitis, C. difficile [status post treatment in December 2020], paroxysmal atrial fibrillation on Coumadin, idiopathic hypotension, history of prostate cancer and obstructive uropathy with suprapubic catheter, JOSE presented 06/02 from [facility] with rectal bleeding. 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 06/04: EGD scope: Normal esophagus/stomach/duodenal up to second portion/no specimens collected. Colonoscopy: Preparation was poor, stool in the rectum and in the rectosigmoid colon and sigmoid colon. Pt back on diet, GI recommends resuming Xarelto, outpatient capsule endoscopy to evaluate further for GI bleeding sources. Urology evaluated, doubt the anemia is from sources. Patient denies any dizziness/chest pain/palpitation, continue to monitor hemoglobin. Patient will need CBC in 3 days upon discharge, follow-up with GI after discharge. (3) Obstructive and reflux uropathy: Plan: Follows with Dr. 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 Minimal leaking noted from penis. Follow-up with urology as an outpatient. (4) Recurrent UTI (urinary tract infection): Plan: Continue Bactrim, to complete ppx 3 month course on 06/05/21 UA has leuk est, WBC Possible colonization based on hx/previous cultures F/u Urine cultures ---> gram-positive cocci noted. Follow-up final results, patient was on Bactrim until today, could likely be colonization There were minimal collection in his urinary bag, will evaluate again if the urine looks dirty/cloudy to decide on treatment. (5) Paroxysmal atrial fibrillation: Plan: Holding Xarelto in setting of rectal bleeding Continue flecainide BID (6) Depression: Plan: Continue Zoloft (7) Lymphocytic colitis: Plan: Continue Budesonide (8) Obstructive sleep apnea: Plan: Not compliant with CPAP DVT Ppx: SCDs Code status: FULL PCP: Faviola Feng [facility] 06/04: Called his daughter [[phone]] over the phone and updated her about his current status, discussed about his colonoscopy/esophagogastroduodenoscopy done today. Discussed about plan of care, see voiced understanding and was agreeable to the plan of care. 06/05: Called his daughter Kaitlynn over the phone and updated about his current status and the evaluation done by urology today. Discussed about the plan of care and evaluation done by GI for outpatient capsule endoscopy. Patient voiced understanding and was agreeable to the plan of care. Disposition: Probable discharge tomorrow to [facility]. Admission and Anticipated Discharge Date Admission Date: June 02, 2021 Subjective Patient was lying in bed, on room air, NAD, no new acute events overnight. Patient back on diet, moving bowels okay per patient. No blood in the stool per RN. No new acute events overnight per RN. Patient denies any fever/chills/headache/chest pain/palpitation/other review of symptoms. Physical Exam Physical Exam: GENERAL: Alert and oriented x3. NAD, on RA. HEENT: No pallor, no icterus. Pupils equal, round and reactive to light. Oral mucosa moist. NECK: No JVD, no neck masses. HEART: S1 and S2 heard. Regular rate and rhythm. No murmur, no gallop. RESPIRATORY SYSTEM: Normal AP diameter. No accessory muscle use. No wheezing, no crackles. ABDOMEN: Soft, bowel sounds present, nontender, no distention. Suprapubic catheter noted with no surrounding erythema/tenderness. CENTRAL NERVOUS SYSTEM: No facial droop. Speech is clear. Obeys simple commands. Moves extremities. EXTREMITIES: No edema, no erythema seen. Bilateral hand tremor noted. Results & Data Results & Data ([facility]) Vital Signs (Past 12 Hours) Vital Signs Temp Pulse Pulse Pulse Resp BP BP 06/05/21 15:19 83 06/05/21 11:12 36.3 C L 75 18 162/77 H 06/05/21 08:00 74 06/05/21 07:49 36.9 C 75 17 131/66 06/05/21 03:25 37.0 C 73 18 119/69 Pulse Ox 06/05/21 15:19 06/05/21 11:12 95 06/05/21 08:00 06/05/21 07:49 95 06/05/21 03:25 94
[2021-06-05] MEDS: RIVAROXABAN 20 MG TAB PO SCH (17:09)
[2021-06-05] MEDS ORDERED: POTASSIUM CHLORIDE CRTAB 20 MEQ TABCR PO STA (17:44)
[2021-06-05] MEDS: SERTRALINE HCL 100 MG TABLET PO SCH (20:53)
[2021-06-05] MEDS: PANTOprazole 40 MG TAB PO SCH (20:54)
[2021-06-06 07:55] LABS: Hematocrit (blood only) 24.3 % (42-52); Hemoglobin 7.5 g/dL (14.0-18.0); Mean Corpuscular Hemoglobin 27.3 pg (25-34); Mean Corpuscular Hgb Conc 30.9 g/dL (32-36); Mean Corpuscular Volume 88.4 fL (80-100); Mean Platelet Volume 9.6 fL (7.4-10.4); Platelet Count 215 K/uL (130-400); RDW Coefficient of Variation 17.1 % (11.5-14.5); RDW Standard Deviation 55.9 fL (36.4-46.3); Red Blood Count 2.75 M/uL (4.7-6.1); White Blood Count 8.18 K/uL (4.8-10.8)
[2021-06-06] MEDS: CYANOCOBALAMIN 500 MCG TABLET (VITAMIN B-12) PO SCH (08:23)
[2021-06-06] MEDS: PANTOprazole 40 MG TAB PO SCH ×2 (08:23→21:38)
[2021-06-06] MEDS: MULTIVITAMIN TAB PO SCH (08:23)
[2021-06-06] MEDS: BUDESONIDE EC 3 MG CAP PO SCH (08:23)
[2021-06-06] MEDS: MIDODRINE HCL 2.5 MG TAB PO SCH ×3 (08:23→21:38)
[2021-06-06] MEDS: FLECAINIDE ACETATE 100 MG TABLET PO SCH ×2 (08:24→21:39)
[2021-06-06] MEDS: SODIUM CHLORIDE 0.9% 10ML FLUSH IV SCH ×2 (08:24→22:21)
[2021-06-06 08:32] LABS: Calcium 8.4 mg/dl (8.5-10.1); Creatinine Clr Calc Pharmacy 83.1 ml/min; Est GFR (African American) 99.5 ml/min; Est GFR (Non-African American) 85.9 ml/min; Potassium 3.9 mmol/L (3.5-5.1)
[2021-06-06 12:14] LABS: Hematocrit (blood only) 26.9 % (42-52); Hemoglobin 8.1 g/dL (14.0-18.0)
--- NOTE | 2021-06-06 13:57 | Hospitalist Progress Note ---
Date of Service June 06, 2021 Assessment & Plan (1) Lower GI bleed: (2) Symptomatic anemia: Plan: 85yo M with a PMH of microscopic colitis, C. difficile [status post treatment in December 2020], paroxysmal atrial fibrillation on Coumadin, idiopathic hypotension, history of prostate cancer and obstructive uropathy with suprapubic catheter, JOSE presented 06/02 from [facility] with rectal bleeding. He is being managed for the following: (1) Symptomatic anemia: (2) GI bleeding on the background of chronic anticoagulation: likely lower GI vs Small Intestine source on the background of chronic anticoagulation, EGD scope wnl, Colonoscopy not helpful, plan for capsule endoscopy. 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 06/04: EGD scope: Normal esophagus/stomach/duodenal up to second portion/no specimens collected. Colonoscopy: Preparation was poor, stool in the rectum and in the rectosigmoid colon and sigmoid colon. Pt back on diet, Xarelto resumed with GI recommendation 06/05, outpatient capsule endoscopy to evaluate further for GI bleeding sources. Urology evaluated, doubt the anemia is from sources. Patient denies any dizziness/chest pain/palpitation, continue to monitor hemoglobin. Patient will need CBC in 3 days upon discharge, follow-up with GI after disc harge. (3) Obstructive and reflux uropathy: Plan: Follows with Dr. 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 Minimal leaking noted from penis. Follow-up with urology as an outpatient. (4) Recurrent UTI (urinary tract infection): Plan: Continue Bactrim, to complete ppx 3 month course on 06/05/21 UA has leuk est, WBC Possible colonization based on hx/previous cultures F/u Urine cultures ---> gram-positive cocci noted. Follow-up final results, patient was on Bactrim until today, could likely be colonization There were minimal collection in his urinary bag, will evaluate again if the urine looks dirty/cloudy to decide on treatment. (5) Paroxysmal atrial fibrillation: Plan: Holding Xarelto in setting of rectal bleeding Continue flecainide BID (6) Depression: Plan: Continue Zoloft (7) Lymphocytic colitis: Plan: Continue Budesonide (8) Obstructive sleep apnea: Plan: Not compliant with CPAP DVT Ppx: SCDs Code status: FULL PCP: [facility]ola [facility] 06/04: Called his daughter [[phone]] over the phone and updated her about his current status, discussed about his colonoscopy/esophagogastroduodenoscopy done today. Discussed about plan of care, see voiced understanding and was agreeable to the plan of care. 06/05: Called his daughter Kaitlynn over the phone and updated about his current status and the evaluation done by urology today. Discussed about the plan of care and evaluation done by GI for outpatient capsule endoscopy. Patient voiced understanding and was agreeable to the plan of care. Disposition: Probable discharge tomorrow to [facility]. Admission and Anticipated Discharge Date Admission Date: June 02, 2021 Subjective Patient was lying in bed, on room air, NAD, no new acute events overnight. Patient back on diet, moving bowels okay per patient. 1 light brown stool with no blood per RN. No new acute events overnight per RN. Patient denies any fever/chills/headache/chest pain/palpitation/other review of symptoms. Physical Exam Physical Exam: GENERAL: Alert and oriented x3. NAD, on RA. HEENT: No pallor, no icterus. Pupils equal, round and reactive to light. Oral mucosa moist. NECK: No JVD, no neck masses. HEART: S1 and S2 heard. Regular rate and rhythm. No murmur, no gallop. RESPIRATORY SYSTEM: Normal AP diameter. No accessory muscle use. No wheezing, no crackles. ABDOMEN: Soft, bowel sounds present, nontender, no distention. Suprapubic catheter noted with no surrounding erythema/tenderness. CENTRAL NERVOUS SYSTEM: No facial droop. Speech is clear. Obeys simple commands. Moves extremities. EXTREMITIES: No edema, no erythema seen. Bilateral hand tremor noted. Results & Data Results & Data ([place]) Vital Signs (Past 12 Hours) Vital Signs Temp Pulse Pulse Pulse Resp BP BP 06/06/21 13:57 87 122/68 06/06/21 07:25 36.8 C 71 18 141/72 H 06/06/21 07:00 75 06/06/21 04:00 36.6 C 74 18 113/60 Pulse Ox 06/06/21 13:57 06/06/21 07:25 94 06/06/21 07:00 06/06/21 04:00 94
[2021-06-06] MEDS: RIVAROXABAN 20 MG TAB PO SCH (17:32)
[2021-06-06] MEDS: ADVANCED PROBIOTIC 1250 MG CAPSULE PO SCH (17:32)
[2021-06-06] MEDS: AMOXICILLIN 500 MG CAP PO SCH (21:38)
[2021-06-06] MEDS: SERTRALINE HCL 100 MG TABLET PO SCH (21:39)
[2021-06-07] MEDS: MULTIVITAMIN TAB PO SCH (07:45)
[2021-06-07] MEDS: ADVANCED PROBIOTIC 1250 MG CAPSULE PO SCH (07:45)
[2021-06-07] MEDS: PANTOprazole 40 MG TAB PO SCH (07:45)
[2021-06-07] MEDS: MIDODRINE HCL 2.5 MG TAB PO SCH (07:45)
[2021-06-07] MEDS: FLECAINIDE ACETATE 100 MG TABLET PO SCH (07:45)
[2021-06-07] MEDS: AMOXICILLIN 500 MG CAP PO SCH (07:46)
[2021-06-07] MEDS: CYANOCOBALAMIN 500 MCG TABLET (VITAMIN B-12) PO SCH (07:46)
[2021-06-07] MEDS: BUDESONIDE EC 3 MG CAP PO SCH (07:46)
[2021-06-07 08:16] LABS: Hematocrit (blood only) 25.7 % (42-52); Hemoglobin 7.8 g/dL (14.0-18.0); Mean Corpuscular Hemoglobin 27.3 pg (25-34); Mean Corpuscular Hgb Conc 30.4 g/dL (32-36); Mean Corpuscular Volume 89.9 fL (80-100); Mean Platelet Volume 9.7 fL (7.4-10.4); Platelet Count 231 K/uL (130-400); RDW Standard Deviation 56.8 fL (36.4-46.3); Red Blood Count 2.86 M/uL (4.7-6.1)
[2021-06-07] MEDS: SODIUM CHLORIDE 0.9% 10ML FLUSH IV SCH (09:23)
--- NOTE | 2021-06-07 10:09 | Discharge Summary ---
Date of Service June 07, 2021 Admission HPI Per Admitting Provider This is an 85yo M with a PMH paroxysmal atrial fibrillation on Coumadin, idiopathic hypotension, history of prostate cancer and obstructive uropathy with suprapubic catheter, histoory of lymphocytic colitis, JOSE and other medical problems listed below who presents from [facility] with rectal bleeding. Downtrending hgb over past few months requiring transfusion of 1u prbc on 05/12/21. Has continued to feel weak and had intermittent rectal bleeding since then. Per [facility] notes, bright red rectal bleeding reported on 05/25/21. His Xarelto has been on hold due to anemia and suspected GI bleeding but was incidentally resumed on 05/20/21. Was placed on hold again yesterday after rectal bleeding was again apparent. Patient states bleeding yesterday was darker red in color. Denies any lightheadedness, dizziness, nausea, vomiting or abdominal pain. Was scheduled for outpatient EGD and colonoscopy given suspected GI bleeding but procedure was rescheduled. No fever, chills, chest pain, palpitations, SOB, dysuria, hematuria or diarrhea. Ambulates with walker but has been more sedentary lately due to recent infection and weakness in setting of ongoing anemia. Admission Exam Per Admitting Provider General Appearance:WD/WN, vitals as above, NAD, sitting up in bed, pleasant, conversing easily Head: normocephalic, atraumatic Eyes:normal inspection, PERRL, conjunctivae normal, anicteric sclerae ENT: hard of hearing, external ear and nose normal, oropharynx normal Neck: normal visual inspection, trachea midline, no thyromegaly Respiratory:normal respiratory effort, lungs clear to auscultation, no wheeze, rales, rhonchi. No accessory muscle use Cardiovascular: regular rate, rhythm, no murmur, normal peripheral pulses, no BLE edema. Vessels: no JVD Chest: normal inspection of chest Abdomen/GI: normal bowel sounds, soft, nontender, no hepatosplenomegaly Extremities/Musculoskeletal: no cyanosis or clubbing, extremities motor strength 5/5 Neurologic: PERRL, EOMI, accommodation nl, no face palsy, no dysarthria, CN's II-XI intact bilaterally and moves all extremities Psychiatric:A+Ox3, euthymic affect Skin: no rashes, normal color, warm/dry Principal Diagnosis Symptomatic anemia GI bleeding on the background of chronic anticoagulation Obstructive and reflux uropathy Recurrent UTI Discharge Exam GENERAL: Alert and oriented x3. NAD, on RA. HEENT: No pallor, no icterus. Pupils equal, round and reactive to light. Oral mucosa moist. NECK: No JVD, no neck masses. HEART: S1 and S2 heard. Regular rate and rhythm. No murmur, no gallop. RESPIRATORY SYSTEM: Normal AP diameter. No accessory muscle use. No wheezing, no crackles. ABDOMEN: Soft, bowel sounds present, nontender, no distention. Suprapubic catheter noted with no surrounding erythema/tenderness. CENTRAL NERVOUS SYSTEM: No facial droop. Speech is clear. Obeys simple commands. Moves extremities. EXTREMITIES: No edema, no erythema seen. Bilateral hand tremor noted. Discharge Data Allergies Allergy/AdvReac Type Severity Reaction Status Date / Time bee venom protein (honey bee) Allergy Severe SWELLING,SO Verified 06/02/21 16:06 B hornet venom Allergy Severe ANAPHYLAXIS Verified 06/02/21 16:06 black walnut Allergy Intermediate HIVES Verified 06/02/21 16:06 fire ant Allergy Intermediate HIVES Verified 06/02/21 16:06 Consultations 06/02/21 16:42 ED Decision to Admit Stat 06/02/21 17:45 Consult Gastroenterology Routine 06/05/21 08:00 Consult Urology Routine Procedures Performed Operation Date: 06/03/21 11:40 <No data on this case meets the specified criteria> Operation Date: 06/04/21 14:00 Actual Procedures p Esophagogastroduodenoscopy - Obed Oconnor MD s Colonoscopy - Obed Oconnor MD Hospital Course (1) Lower GI bleed: (2) Symptomatic anemia: 85yo M with a PMH of microscopic colitis, C. difficile [status post treatment in December 2020], paroxysmal atrial fibrillation on Coumadin, idiopathic hypotension, history of prostate cancer and obstructive uropathy with suprapubic catheter, JOSE presented 06/02 from [facility] with rectal bleeding. He was managed for the following: (1) Symptomatic anemia: (2) GI bleeding on the background of chronic anticoagulation: likely lower GI vs Small Intestine source on the background of chronic anticoagulation, EGD scope wnl, Colonoscopy not helpful, plan for capsule endoscopy. Plan: Downtrending hgb over past few months requiring transfusion of 1u prbc on 05/12/21 Concern for Intermittent rectal bleeding over the past few weeks [employer] Hb stable in 8s (baseline of 10) 06/03-->Patient supposed to go for EGD/colonoscopy this AM but did not complete prep and stool not clear. 06/04: EGD scope: Normal esophagus/stomach/duodenal up to second portion/no specimens collected. Colonoscopy: Preparation was poor, stool in the rectum and in the rectosigmoid colon and sigmoid colon. Pt back on diet, Xarelto resumed with GI recommendation 06/05, outpatient capsule endoscopy to evaluate further for GI bleeding sources. Urology evaluated, doubt the anemia is from sources. Patient denies any dizziness/chest pain/palpitation on the day of Discharge, hemodynamically stable. Patient will need CBC in 3 days upon discharge, follow-up with GI after discharge. (3) Obstructive and reflux uropathy: Plan: Follows with Dr. 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 Minimal leaking noted from penis. Follow-up with urology as an outpatient. (4) Recurrent UTI (urinary tract infection): Plan: Completed ppx 3 month course of Bactrim on 06/05/21 UA has leuk est, WBC F/u Urine cultures ---> E. Faecalis sensitive to ampicillin Rx w/ amoxicillin, pt dc'd with 7 days course, probiotic added. (5) Paroxysmal atrial fibrillation: Plan: Holding Xarelto in setting of rectal bleeding Continue flecainide BID (6) Depression: Plan: Continue Zoloft (7) Lymphocytic colitis: Plan: Continue Budesonide (8) Obstructive sleep apnea: Plan: Not compliant with CPAP DVT Ppx: SCDs Code status: FULL PCP: Faviola Feng [facility] 06/04: Called his daughter [[phone]] over the phone and updated her about his current status, discussed about his colonoscopy/esophagogastroduodenoscopy done today. Discussed about plan of care, see voiced understanding and was agreeable to the plan of care. 06/05: Called his daughter Kaitlynn over the phone and updated about his current status and the evaluation done by urology today. Discussed about the plan of care and evaluation done by GI for outpatient capsule endoscopy. Patient voiced understanding and was agreeable to the plan of care. Patient being discharged to [facility] with following instruction at the point of discharge: Follow-up with your primary care physician within a week time. Get your blood work CBC done in 3 days upon discharge. Have the results forwarded to your PCP. EGD scope and colonoscopy was done while inpatient, has a plan to do outpatient capsule endoscopy to evaluate for the source of GI bleeding. Follow- up with GI doctor within a week time. Follow-up with urology per your scheduled routine. Your urine culture was positive for infection, you were started on antibiotic, complete the course. You are also prescribed probiotic for the duration of antibiotic. Take medications as prescribed. Total Time Total Time Spent Total Time Spent (In Minutes): 35 Discharge Plan Discharge Items Patient Disposition: Transfer Care Home Fac Reason For Visit: RECTAL BLEED Discharge Diagnosis: Symptomatic anemia GI bleeding on the background of chronic anticoagulation Obstructive and reflux uropathy Recurrent UTI Activity: Resume your previous activity Non-emergency contact: Primary Care Provider Call non-emergency contact if: you have any medication questions, your symptoms worsen and your temperature is above 101 Follow-up/Referrals: Ping Salmeron at [place] [Primary Care Provider] - Diet: Heart Healthy Diet Texture: Easy to Chew Diet Comment: soft diet, heart healthy Addtl Attending Provider Instructions: Follow-up with your primary care physician within a week time. Get your blood work CBC done in 3 days upon discharge. Have the results forwarded to your PCP. EGD scope and colonoscopy was done while inpatient, has a plan to do outpatient capsule endoscopy to evaluate for the source of GI bleeding. Follow- up with GI doctor within a week time. Follow-up with urology per your scheduled routine. Your urine culture was positive for infection, you were started on antibiotic, complete the course. You are also prescribed probiotic for the duration of antibiotic. Take medications as prescribed. Pending Studies at Discharge: No Stand-Alone Forms: My [employer] Skilled Items Patient informed of condition?: Yes DNR: No Discharge Level of Care: Skilled Communicable Disease: No Discharge Prognosis: Stable Lines: None Urinary Catheter: Yes Medications and DC Order Prescriptions: New amoxicillin 500 mg Capsule 500 mg PO TID 7 Days Qty: 21 RF: 0 Advanced Probiotic 625 mg (10 billion cell) Capsule 2 cap PO DAILY 7 Days Qty: 14 RF: 0 Continued flecainide 50 mg tablet 50 mg PO BID Qty: 60 RF: 5 midodrine 2.5 mg tablet 2.5 mg PO TID Qty: 90 RF: 3 polyethylene glycol 3350 [Miralax] 17 gram/dose powder 17 g PO DAILY PRN (Reason: Constipation) RF: 0 docusate sodium 100 mg capsule 100 mg PO DAILY PRN (Reason: Constipation) RF: 0 omeprazole 40 mg capsule,delayed release(DR/EC) 40 mg PO BID RF: 0 multivitamin [Daily Multi-Vitamin] tablet 1 tab PO QAM RF: 0 epinephrine 0.3 mg/0.3 mL auto-injector 0.3 ml IM DIRECTED PRN (Reason: hypersensitivity reaction) Qty: 1 RF: 0 glucosamine sulfate [Glucosamine] 500 mg Tablet 500 mg PO BID RF: 0 krill oil 500 mg Capsule 500 mg PO QAM RF: 0 sertraline 100 mg Tablet 100 mg PO HS RF: 0 cyanocobalamin (vitamin B-12) 1,000 mcg Tablet 1,000 mcg PO QAM RF: 0 Desitin 40 % Paste 1 applic TOPICAL BID RF: 0 budesonide 9 mg tablet,delayed and ext.release 9 mg PO QAM RF: 0 acetaminophen [Tylenol] 325 mg Tablet 650 mg PO Q4 MDD 3 GRAMS/24 HOURS PRN (Reason: PAIN/FEVER=>100) RF: 0 sodium chloride 0.9 % [Normal Saline] Solution 10 ml Q12H RF: 0 Xarelto 20 mg tablet 20 mg PO DAILY@1800 RF: 0 Discontinued sulfamethoxazole-trimethoprim [Bactrim] 400-80 mg Tablet 1 tab PO QAM RF: 0 Discharge Orders: Discharge Order (Routine); Ordered 06/07/21 Ordered By: Ryan Cruz Admission Data Admit Date/Time: 06/02/21 17:09 Attending Provider: Ryan Cruz Admit Provider: Odalis Briggs I. Primary Care Provider: Ping Salmeron [place] Other Providers: Ping Salmeron [facility] ; Odalis Briggs I. ; Obed Oconnor ; Chilango Jacinto ; Jeremías Ríos ; Trevon Flower ; Tash Craft ; Alek Venegas ; Mireille Montano ; Alyce Díaz ; Freya Gottlieb ; Jordan Shahid ; Ghassan Serrato ; Danielle Zelaya ; Bianca Gottlieb ; Errol Bullock Other Interventions: Discharge Summary Assessment (RN) Last Done: 06/07/21 09:59
== END 2021-06-07 10:49 ==
LOC: ED 15:11 → SUATTDRO 17:09 → 2N 17:09 → INTOOBSV 17:09 → 2N 20:12

== ENCOUNTER 2021-11-17 19:23 | Observation (INO) ==
[2021-11-17] MEDS ORDERED: CEFEPIME 2,000 MG/20 ML VIAL IV STA (19:41)
[2021-11-17] MEDS ORDERED: VANCOMYCIN HCL 1,500 MG in SODIUM CHLORIDE 0.9% 500 ML IV ONE (19:41)
[2021-11-17] MEDS ORDERED: VANCOMYCIN CONSULT ACTIVE PRN (19:41)
--- NOTE | 2021-11-17 19:42 | Emergency Department Note ---
Impression & Plan Sepsis ADMIT ED Provider Note HPI: The patient is an 86-year-old gentleman with history of paroxysmal atrial fibrillation, recurrent urinary tract infections, history of prostate cancer with indwelling suprapubic Fernandez catheter, presents to the emergency department today with declining mentation from [facility]. According to the patient's at the bedside, the patient seems to have not been feeling well yesterday, he was very listless, he was not eating or drinking very much, he seemed very tired, he apparently has had worsening symptoms today at the nursing facility and he was transferred to the ED for further assessment. On arrival here to the ED the patient is somewhat drowsy appearing, he is alert to verbal stimuli, no focal deficits are appreciated. Patient is tachycardic, he is noted to be tachycardic in the 120s with hypotension in the 80s systolic, he is noted to be febrile at 39.1 on arrival. ROS: -General: Generalized weakness, lethargy *10 point review systems was conducted and is otherwise negative unless stated above *Outpatient medications and allergy history reviewed PE: General: Frail appearing, listless HEENT: Normocephalic, atraumatic Eyes: Extraocular eye movement is intact, no scleral erythema Pulmonary: Clear to auscultation bilaterally, no wheezing Cardio: Tachycardic rate with regular rhythm GI: Abdomen is soft, nontender : No suprapubic tenderness suprapubic Fernandez catheter is in place without surrounding erythema MSK: No evidence of trauma or malformation of the extremities, no edema Skin: No evidence of rash Neuro: Listless appearing, responds to verbal stimuli, no focal deficits and ambulates extremities spontaneously Psychiatric: Cooperative/not aggressive phototypesetting equipment monitor: - An order was placed for continuous cardiac monitoring - Patient was noted to be in atrial fibrillation with a rate of 122 EKG: Rate: 123 Rhythm: Atrial fibrillation Intervals: Within normal limits ST changes: No ST elevation Time: 2028 Medical Decision Making: Patient presented to the emergency department with vital signs concerning for sepsis, he has had some declining mentation at his nursing facility over about the past day, he has not been eating as much, he has had less energy, he has been less talkative. On arrival here to the ED he is tachycardic in the 120s, he is noted to be hypotensive in the 80s, he is alert to verbal stimuli, he ambulates his extremity spontaneously, shortly after arrival IV was established, lab work obtained, patient was placed on phototypesetting equipment monitor, he was started on IV fluid bolus. Blood cultures were drawn, patient was started on broad-spectrum antibiotics with vancomycin and cefepime. Lab work that was obtained shows leukocytosis of 15.6, no acute kidney injury, stable anemia with a hemoglobin of 9.8, lactic acid is noted to be within normal limits. Urinalysis is likely infected although contaminated sample, 3+ leukocyte esterase, greater than 30 white blood cells, patient was treated with broad-spectrum antibiotics for likely urosepsis. Patient's blood pressure did improve here in the ED to greater than 100 systolic with IV fluid bolus, he was given 2 L prior to admission and none further secondary to improved hemodynamics and concern for potential fluid overload. Chest x-ray does show cardiomegaly without any obvious pneumonia. COVID-19 testing was obtained and is negative. An extensive discussion with the patient's at the bedside as well as his daughter on the phone, Kaitlynn, who is the POA, they are aware that the patient is in serious condition and is at high risk for deterioration. At this time the patient is full code however they are aware that he is critically ill. Patient had voiced his wishes to be full code previously to them therefore at this time he is still full code according to his daughter. I discussed all of the above findings with the on-call hospitalist for [facility], Dr. Cash, and the patient was admitted in improved condition for further care. Full 30 cc/kg of IV fluid not given for potential sepsis secondary to improved hemodynamics, normal lactic acid, and concern for potential fluid overload Critical care time: 45 minutes -Management of sepsis including initiation of IV fluid bolus for tachycardia and hypotension, initiation of broad-spectrum antibiotics for suspected sepsis, interpretation of diagnostic studies, time spent at the bedside, discussion with other physicians and arrangement of admission Diagnosis: 1. Sepsis 2. Urinary tract infection, indwelling suprapubic catheter 3. Leukocytosis 4. Acute on chronic anemia Disposition: Admission Pierre Almaraz DO Emergency Medicine Past Med/Surg History Medical History Anemia Anticoagulant long-term use Chronic low back pain Chronic venous stasis Depression Encounter for pre-operative examination Facial pain History of Clostridioides difficile colitis History of prostate cancer (~1999) History of UTI Hypotension Lymphocytic colitis Lymphocytic colitis Obstructive and reflux uropathy Obstructive sleep apnea Osteitis pubis Paroxysmal atrial fibrillation Presence of suprapubic catheter Right foot pain Sacral decubitus ulcer Severe sepsis with septic shock Syncope Ureteral stone with hydronephrosis Urinary retention Walker as ambulation aid Surgical History H/O elbow surgery H/O pelvic surgery History of colonoscopy History of prostate surgery S/P bunionectomy S/P cataract surgery S/P cystoscopy with ureteral stent placement S/P total knee arthroplasty Status post total shoulder arthroplasty Family History Father Prostate cancer Diabetes Mother Leukemia Cancer Denies family history of Ovarian cancer Alzheimer disease Crohn's disease Myocardial infarction Breast cancer Lung cancer Colorectal cancer Hypertension Stroke Social History Smoking Status: Never smoker Second Hand Exposure: No; Hx Alcohol Use: No Hx Substance Use: No Preferred Language: Citizen Of [place] Communication Ability: Effective Visual Impairment: No Limitations Hearing Ability: Normal Lithographic Etcher Required: No Beliefs That Will Affect Care: None marital status: Current Living Situation: Other current occupational status: retired Feels Safe at Home: Yes Childhood Exposure to Second-Hand Smoke: No Dental Care, Regularly: Yes Physical Activity Frequency: 1-2 Times per Week Seatbelt Use: always Sunscreen Use: No Assistive Devices: Glasses Allergies Allergies Allergy/AdvReac Type Severity Reaction Status Date / Time bee venom protein (honey bee) Allergy Severe SWELLING,SO Verified 11/17/21 21:06 B hornet venom Allergy Severe ANAPHYLAXIS Verified 11/17/21 21:06 black walnut Allergy Intermediate HIVES Verified 11/17/21 21:06 fire ant Allergy Intermediate HIVES Verified 11/17/21 21:06 Home Meds Home Medications Medication Instructions Recorded Confirmed epinephrine 0.3 mg/0.3 mL 0.3 ml IM DIRECTED PRN #1 ea 02/28/19 11/17/21 injection, auto-injector multivitamin (Daily Multi-Vitamin) 1 tab PO QAM 02/28/19 11/17/21 glucosamine sulfate 500 mg tablet 500 mg PO BID 03/29/20 11/17/21 (Glucosamine) krill oil 500 mg capsule 500 mg PO QAM 03/29/20 11/17/21 docusate sodium 100 mg capsule 100 mg PO DAILY PRN 07/02/20 11/17/21 polyethylene glycol 3350 17 17 g PO DAILY PRN 07/02/20 11/17/21 gram/dose oral powder (Miralax) budesonide 9 mg tablet,delayed and 9 mg PO QAM 05/07/21 11/17/21 extended release sertraline 100 mg tablet 100 mg PO HS 05/07/21 11/17/21 zinc oxide-cod liver oil 40 % 1 applic TOPICAL BID PRN 05/07/21 11/17/21 topical paste (Desitin) omeprazole 40 mg capsule,delayed 40 mg PO BID 05/14/21 11/17/21 release acetaminophen 325 mg tablet 650 mg PO Q4 PRN MDD 3 /24 06/02/21 11/17/21 (Tylenol) HOURS sodium chloride 0.9 % 10 ml Q12H 06/02/21 11/17/21 cyanocobalamin (vitamin B-12) 1,000 mcg PO QAM 06/18/21 11/17/21 1,000 mcg capsule ferrous sulfate 325 mg (65 mg 325 mg PO BID 06/18/21 11/17/21 iron) tablet acetaminophen 650 mg rectal 650 mg TN Q4H PRN 11/17/21 11/17/21 suppository albuterol sulfate 90 mcg/actuation 2 puff INHALATION Q4H PRN 11/17/21 11/17/21 aerosol inhaler bisacodyl 10 mg rectal suppository 10 mg TN DAILY PRN 11/17/21 11/17/21 ceftriaxone 1 gram solution for 1 g IM DIRECTED 11/17/21 11/17/21 injection colchicine 0.6 mg tablet 0.6 mg PO QAM 11/17/21 11/17/21 dimethicone 1 % topical cream 1 applic TOPICAL TID PRN 11/17/21 11/17/21 flecainide 50 mg tablet 50 mg PO BID 11/17/21 11/17/21 mirtazapine 7.5 mg tablet 7.5 mg PO HS 11/17/21 11/17/21 ondansetron HCl 4 mg tablet 4 mg PO Q4H PRN 11/17/21 11/17/21 potassium chloride 10 mEq 10 meq PO DAILY 11/17/21 11/17/21 tablet,extended release (Klor-Con) zinc 50 mg tablet 50 mg PO BID 11/17/21 11/17/21 Previous Rx's Medication Instructions Recorded midodrine 2.5 mg tablet 2.5 mg PO TID #90 tab 02/24/21 Results & Data (ED) Vital Signs Vital Signs - 24 hr 11/17/21 19:30 11/17/21 19:56 11/17/21 20:27 Temperature 39.1 C H Temperature Source Oral Pulse Rate 135 H Pulse Rate [Right Finger] 121 H 122 H Pulse Rhythm [Right Finger] Regular Pulse Strength [Right Finger] Normal Respiratory Rate 31 H 30 H 20 Respiratory Effort / Characteristics Non-Labored Respiratory Depth Normal Blood Pressure [Right Arm] 87/60 L 83/55 L Blood Pressure Mean [Right Arm] 69 64 Blood Pressure Position [Right Arm] Lying Pulse Oximetry 90 93 92 Oxygen Delivery Method Room Air Room Air Sepsis Recent Fever Within 48 Hours Yes Sepsis New/Unexplained Change in Mental Status N/A Sepsis Action Taken by Nursing No Action Required 11/17/21 20:30 11/17/21 21:12 11/17/21 22:16 Temperature Temperature Source Pulse Rate Pulse Rate [Right Finger] 123 H 125 H 113 H Pulse Rhythm [Right Finger] Regular Pulse Strength [Right Finger] Normal Respiratory Rate 20 18 Respiratory Effort / Characteristics Non-Labored Non-Labored Non-Labored Respiratory Depth Normal Blood Pressure [Right Arm] 109/52 L 110/62 89/52 L Blood Pressure Mean [Right Arm] 71 78 64 Blood Pressure Position [Right Arm] Sitting Pulse Oximetry 93 93 98 Oxygen Delivery Method Room Air Room Air Sepsis Recent Fever Within 48 Hours Sepsis New/Unexplained Change in Mental Status Sepsis Action Taken by Nursing 11/17/21 22:36 11/17/21 23:04 Temperature Temperature Source Pulse Rate Pulse Rate [Right Finger] 109 H 76 Pulse Rhythm [Right Finger] Pulse Strength [Right Finger] Respiratory Rate 18 18 Respiratory Effort / Characteristics Non-Labored Non-Labored Respiratory Depth Blood Pressure [Right Arm] 87/55 L 85/50 L Blood Pressure Mean [Right Arm] 65 61 Blood Pressure Position [Right Arm] Pulse Oximetry 98 97 Oxygen Delivery Method Sepsis Recent Fever Within 48 Hours Sepsis New/Unexplained Change in Mental Status Sepsis Action Taken by Nursing Laboratory Data Result diagrams: 11/17/21 19:40 11/17/21 19:40 Lab Results 11/17/21 11/17/21 11/17/21 Range/Units 19:40 19:40 19:40 WBC 15.26 H (4.8-10.8) K/uL RBC 3.38 L (4.7-6.1) M/uL Hgb 9.8 L (14.0-18.0) g/dL Hct 30.5 L (42-52) % MCV 90.2 (80-100) fL MCH 29.0 (25-34) pg MCHC 32.1 (32-36) g/dL RDW Std Deviation 51.8 H (36.4-46.3) fL RDW Coeff of Gordo 15.7 H (11.5-14.5) % Plt Count 276 (130-400) K/uL MPV 11.0 H (7.4-10.4) fL Immature Gran % (Auto) 0.3 % Neut % (Auto) 90.8 % Lymph % (Auto) 3.3 % Taney % (Auto) 5.6 % Eos % (Auto) 0.0 % Baso % (Auto) 0.0 % Neut # (Auto) 13.85 H (1.4-6.5) K/uL Lymph # (Auto) 0.50 L (1.2-3.4) K/uL Taney # (Auto) 0.86 H (0.11-0.59) K/uL Eos # (Auto) 0.00 (0-0.5) K/uL Baso # (Auto) 0.00 (0-0.2) K/uL Immature Gran # (Auto) 0.05 H (0.00-0.02) K/uL PT 12.9 H (9.0-12.0) Seconds INR 1.2 H (0.9-1.1) APTT 34.5 H (21.0-31.0) Seconds PTT Ratio 1.3 Sodium 139 (136-145) mmol/L Potassium 4.2 (3.5-5.1) mmol/L Chloride 105 (98-107) mmol/L Carbon Dioxide 25 (21-32) mmol/L Anion Gap 9 (3-11) BUN 32 H (6-23) mg/dl Creatinine 1.38 (0.6-1.4) mg/dl Est Cr Clr Drug Dosing 38.2 ml/min Est GFR ( Amer) 52.5 ml/min Est GFR (Non-Af Amer) 45.3 ml/min BUN/Creatinine Ratio 23.2 H (10-20) Glucose 146 H (70-99(Fasting)) mg/dl Lactate (0.4-2.0) mmol/L Calcium 7.8 L (8.5-10.1) mg/dl Magnesium 1.3 L (1.7-2.4) mg/dl Total Bilirubin 0.5 (0.2-1.0) mg/dl AST 31 (13-39) U/L ALT 25 (7-52) U/L Alkaline Phosphatase 140 H (34-104) U/L Troponin I High Sens 47.9 H (0-20) pg/ml Total Protein 6.1 (6.0-8.3) gm/dl Albumin 2.8 L (3.4-5.0) gm/dl Globulin 3.3 (2.5-4.0) gm/dl Albumin/Globulin Ratio 0.8 L (0.9-2) Urine Color Urine Appearance (Clear) Urine pH (4.5-7.5) Ur Specific Hunt (1.000-1.030) Urine Protein (Negative) Urine Glucose (UA) (Negative) Urine Ketones (Negative) Urine Blood (Negative) Urine Nitrite (Negative) Urine Bilirubin (Negative) Urine Urobilinogen (Negative) Ur Leukocyte Esterase (Negative) Urine WBC (Auto) (0-5) /hpf Urine RBC (Auto) (0-4) /hpf U Hyaline Cast (Auto) (0-5) /lpf U Epithel Cells (Auto) (0-5) /lpf Urine Bacteria (Auto) (Negative) Urine Yeast SARS-CoV-2 (PCR) (Negative) Influenza Type A (PCR) (Neg) Influenza Type B (PCR) (Neg) RSV (RT-PCR) (Neg) 11/17/21 11/17/21 11/17/21 Range/Units 19:54 21:00 Unknown WBC (4.8-10.8) K/uL RBC (4.7-6.1) M/uL Hgb (14.0-18.0) g/dL Hct (42-52) % MCV (80-100) fL MCH (25-34) pg MCHC (32-36) g/dL RDW Std Deviation (36.4-46.3) fL RDW Coeff of Gordo (11.5-14.5) % Plt Count (130-400) K/uL MPV (7.4-10.4) fL Immature Gran % (Auto) % Neut % (Auto) % Lymph % (Auto) % Taney % (Auto) % Eos % (Auto) % Baso % (Auto) % Neut # (Auto) (1.4-6.5) K/uL Lymph # (Auto) (1.2-3.4) K/uL Taney # (Auto) (0.11-0.59) K/uL Eos # (Auto) (0-0.5) K/uL Baso # (Auto) (0-0.2) K/uL Immature Gran # (Auto) (0.00-0.02) K/uL PT (9.0-12.0) Seconds INR (0.9-1.1) APTT (21.0-31.0) Seconds PTT Ratio Sodium (136-145) mmol/L Potassium (3.5-5.1) mmol/L Chloride (98-107) mmol/L Carbon Dioxide (21-32) mmol/L Anion Gap (3-11) BUN (6-23) mg/dl Creatinine (0.6-1.4) mg/dl Est Cr Clr Drug Dosing ml/min Est GFR ( Amer) ml/min Est GFR (Non-Af Amer) ml/min BUN/Creatinine Ratio (10-20) Glucose (70-99(Fasting)) mg/dl Lactate 1.4 (0.4-2.0) mmol/L Calcium (8.5-10.1) mg/dl Magnesium (1.7-2.4) mg/dl Total Bilirubin (0.2-1.0) mg/dl AST (13-39) U/L ALT (7-52) U/L Alkaline Phosphatase (34-104) U/L Troponin I High Sens (0-20) pg/ml Total Protein (6.0-8.3) gm/dl Albumin (3.4-5.0) gm/dl Globulin (2.5-4.0) gm/dl Albumin/Globulin Ratio (0.9-2) Urine Color Dark Yellow Urine Appearance Turbid A (Clear) Urine pH >= 9.0 H (4.5-7.5) Ur Specific Hunt 1.017 (1.000-1.030) Urine Protein 2+ H (Negative) Urine Glucose (UA) Negative (Negative) Urine Ketones Negative (Negative) Urine Blood 1+ H (Negative) Urine Nitrite Negative (Negative) Urine Bilirubin Negative (Negative) Urine Urobilinogen Negative (Negative) Ur Leukocyte Esterase 3+ H (Negative) Urine WBC (Auto) >30 H (0-5) /hpf Urine RBC (Auto) 0-4 (0-4) /hpf U Hyaline Cast (Auto) 10-30 H (0-5) /lpf U Epithel Cells (Auto) 5-10 H (0-5) /lpf Urine Bacteria (Auto) 4+ H (Negative) Urine Yeast Not Reportable SARS-CoV-2 (PCR) NEGATIVE (Negative) Influenza Type A (PCR) Negative (Neg) Influenza Type B (PCR) Negative (Neg) RSV (RT-PCR) Negative (Neg) Administered Medications Discontinued Medications Sodium Chloride (Nss 1000ml) 1,000 mls @ 999 mls/hr IV .Q1H1M HERLINDA Stop: 11/17/21 20:45 Last Infusion: 11/17/21 21:03 Dose: 0 mls/hr Documented by: [id number] Admin: 11/17/21 19:46 Dose: 999 mls/hr Documented by: [id number] Vancomycin HCl 1,500 mg/ (Sodium Chloride) 530 mls @ 200 mls/hr IV NOW ONE Stop: 11/17/21 22:19 Last Infusion: 11/17/21 22:58 Dose: 0 mls/hr Documented by: [id number] Admin: 11/17/21 20:16 Dose: 200 mls/hr Documented by: [id number] Cefepime HCl (Maxipime) 2,000 mg in 20 mls @ 5 mls/min IV NOW STA; Protocol Stop: 11/17/21 19:44 Last Admin: 11/17/21 20:17 Dose: 5 mls/min Documented by: [id number] Acetaminophen (Ofirmev) 1,000 mg in 100 mls @ 400 mls/hr IV NOW STA Stop: 11/17/21 20:22 Last Infusion: 11/17/21 20:38 Dose: 0 mls/hr Documented by: [id number] Admin: 11/17/21 20:19 Dose: 400 mls/hr Documented by: [id number] Sodium Chloride (Nss 1000ml) 1,000 mls @ 999 mls/hr IV .Q1H1M ONE Stop: 11/17/21 21:45 Last Infusion: 11/17/21 22:03 Dose: 0 mls/hr Documented by: [id number] Admin: 11/17/21 21:00 Dose: 999 mls/hr Documented by: [id number] Imaging Data Radiologist's Impression: Chest X-Ray 11/17/21 19:40 SINGLE VIEW CHEST CLINICAL HISTORY: Sepsis. FINDINGS: An AP, portable, upright chest radiograph is compared to study dated 06/02/2021. Correlation is made with chest CT dated 05/19/2020. The heart is enlarged noting atherosclerotic calcification of the thoracic aorta. The pulmonary vasculature is noncongested. Chronic interstitial thickening is similar to previous. There is bibasilar scarring/atelectasis. The lungs and pleural spaces are otherwise clear. No pneumothorax is seen. The skeletal structures are osteopenic. The bony thorax is grossly intact. Bilateral shoulder arthroplasties are in place. IMPRESSION: Cardiomegaly with no acute cardiopulmonary abnormality. ACT 112: Negative or not required by law. Electronically signed by: Ibrahima Chase M.D. 11/17/2021 8:23 PM Discharge Plan Visit Data Chief Complaint: Illness Stated Complaint: sepsis ED Provider: Pierre Almaraz Discharge Problem: Sepsis Patient Disposition: Admitted As Inpatient Forms Stand Alone Forms: [facility] Prescriptions Prescriptions: No Action midodrine 2.5 mg tablet 2.5 mg PO TID Qty: 90 RF: 3 polyethylene glycol 3350 [Miralax] 17 gram/dose powder 17 g PO DAILY PRN (Reason: Constipation) RF: 0 docusate sodium 100 mg capsule 100 mg PO DAILY PRN (Reason: Constipation) RF: 0 omeprazole 40 mg capsule,delayed release(DR/EC) 40 mg PO BID RF: 0 cyanocobalamin (vitamin B-12) 1,000 mcg capsule 1,000 mcg PO QAM RF: 0 ferrous sulfate 325 mg (65 mg iron) tablet 325 mg PO BID RF: 0 multivitamin [Daily Multi-Vitamin] tablet 1 tab PO QAM RF: 0 epinephrine 0.3 mg/0.3 mL auto-injector 0.3 ml IM DIRECTED PRN (Reason: hypersensitivity reaction) Qty: 1 RF: 0 glucosamine sulfate [Glucosamine] 500 mg Tablet 500 mg PO BID RF: 0 krill oil 500 mg Capsule 500 mg PO QAM RF: 0 sertraline 100 mg Tablet 100 mg PO HS RF: 0 Desitin 40 % Paste 1 applic TOPICAL BID PRN (Reason: Rash) RF: 0 budesonide 9 mg tablet,delayed and ext.release 9 mg PO QAM RF: 0 acetaminophen [Tylenol] 325 mg Tablet 650 mg PO Q4 MDD 3 GRAMS/24 HOURS PRN (Reason: PAIN/FEVER=>100) RF: 0 sodium chloride 0.9 % Solution 10 ml Q12H RF: 0 acetaminophen 650 mg Suppository 650 mg TN Q4H PRN (Reason: Fever) RF: 0 dimethicone 1 % Cream 1 applic TOPICAL TID PRN (Reason: Rash) RF: 0 ondansetron HCl 4 mg tablet 4 mg PO Q4H PRN (Reason: Nausea) RF: 0 potassium chloride [Klor-Con 10] 10 mEq tablet extended release 10 meq PO DAILY RF: 0 ceftriaxone 1 gram recon soln 1 g IM DIRECTED RF: 0 bisacodyl 10 mg Suppository 10 mg TN DAILY PRN (Reason: Constipation) RF: 0 flecainide 50 mg tablet 50 mg PO BID RF: 0 zinc 50 mg Tablet 50 mg PO BID RF: 0 albuterol sulfate 90 mcg/actuation HFA aerosol inhaler 2 puff INHALATION Q4H PRN (Reason: Shortness Of Breath) RF: 0 colchicine 0.6 mg tablet 0.6 mg PO QAM RF: 0 mirtazapine 7.5 mg tablet 7.5 mg PO HS RF: 0 Referrals Referrals: Tonny Huber DO [Primary Care Provider] - Discharge Problem: Sepsis Qualifiers: Sepsis type: sepsis due to unspecified organism Sepsis acute organ dysfunction status: unspecified Qualified Code(s): A41.9 - Sepsis, unspecified organism
[2021-11-17] MEDS ORDERED: SODIUM CHLORIDE 0.9% 1000ML 1,000 ML IV SCH (19:45)
[2021-11-17 19:57] LABS: Hematocrit (blood only) 30.5 % (42-52); Hemoglobin 9.8 g/dL (14.0-18.0); Immature Granulocytes # (auto) 0.05 K/uL (0.00-0.02); Immature Granulocytes % (auto) 0.3 %; Lymphocytes % (auto) 3.3 %; Mean Corpuscular Hgb Conc 32.1 g/dL (32-36); Mean Corpuscular Volume 90.2 fL (80-100); Monocytes # (auto) 0.86 K/uL (0.11-0.59); Monocytes % (auto) 5.6 %; Neutrophils # (auto) 13.85 K/uL (1.4-6.5); Neutrophils % (auto) 90.8 %; Platelet Count 276 K/uL (130-400); RDW Coefficient of Variation 15.7 % (11.5-14.5); RDW Standard Deviation 51.8 fL (36.4-46.3); Red Blood Count 3.38 M/uL (4.7-6.1); White Blood Count 15.26 K/uL (4.8-10.8)
[2021-11-17 20:06] LABS: INR 1.2 (0.9-1.1); Partial Thromboplastin Ratio 1.3; Partial Thromboplastin Time 34.5 Seconds (21.0-31.0); Prothrombin Time 12.9 Seconds (9.0-12.0)
[2021-11-17] MEDS ORDERED: ACETAMINOPHEN 1,000 MG/100 ML VIAL IV STA (20:08)
[2021-11-17 20:19] LABS: Albumin Globulin Ratio 0.8 (0.9-2); Albumin Level 2.8 gm/dl (3.4-5.0); BUN Creatinine Ratio 23.2 (10-20); Bilirubin,Total 0.5 mg/dl (0.2-1.0); Calcium 7.8 mg/dl (8.5-10.1); Creatinine Clr Calc Pharmacy 38.2 ml/min; Est GFR (African American) 52.5 ml/min; Est GFR (Non-African American) 45.3 ml/min; Globulin 3.3 gm/dl (2.5-4.0); Magnesium 1.3 mg/dl (1.7-2.4); Potassium 4.2 mmol/L (3.5-5.1); Total Protein 6.1 gm/dl (6.0-8.3)
[2021-11-17 20:24] LABS: Troponin I High Sensitivity 47.9 pg/ml (0-20)
--- NOTE | 2021-11-17 20:26 | XRay Report ---
SINGLE VIEW CHEST CLINICAL HISTORY: Sepsis. FINDINGS: An AP, portable, upright chest radiograph is compared to study dated 06/02/2021. Correlatio n is made with chest CT dated 05/19/2020. The heart is enlarged noting atherosclerotic calcification of the thoracic aorta. The pulmonary vasculature is noncongested. Chronic interstitial thickening is similar to previous. There is bibasilar scarring/atelectasis. The lungs and pleural spaces are otherw ise clear. No pneumothorax is seen. The skeletal structures are osteopenic. The bony thorax is grossl y intact. Bilateral shoulder arthroplasties are in place. IMPRESSION: Cardiomegaly with no acute cardiopulmonary abnormality. ACT 112: Negative or not required by law. Electronically signed by: Ibrahima Chase M.D. 11/17/2021 8:23 PM
[2021-11-17 20:33] LABS: Appearance Urine Turbid (Clear); Bacteria Urine Automated 4+ (Negative); Bilirubin Urine Negative (Negative); Blood Urine 1+ (Negative); Color Urine Dark Yellow; Glucose Urine UA Negative (Negative); Ketones Urine Negative (Negative); Leukocyte Esterase Urine 3+ (Negative); Nitrite Urine Negative (Negative); RBC Urine Automated 0-4 /hpf (0-4); Specific Gravity Urine 1.017 (1.000-1.030); Urobilinogen Urine Negative (Negative); WBC Urine Automated >30 /hpf (0-5); pH Urine >= 9.0 (4.5-7.5)
[2021-11-17 20:36] LABS: Protein Urine 2+ (Negative)
[2021-11-17] MEDS ORDERED: SODIUM CHLORIDE 0.9% 1000ML 1,000 ML IV ONE (20:45)
[2021-11-17 21:58] LABS: Influenza A virus by PCR Negative (Neg); Influenza B virus by PCR Negative (Neg); RSV by PCR Negative (Neg); SARS CoV2 RNA(COVID-19) InHosp NEGATIVE (Negative)
[2021-11-18] MEDS ORDERED: SODIUM CHLORIDE 0.9% 500 ML IV SCH (01:32)
[2021-11-18] MEDS ORDERED: ONDANSETRON INJ 2 MG/ML 2 ML VIAL IV PRN (01:32)
[2021-11-18] MEDS ORDERED: HYDROCORTISONE SOD SUCCINATE 100 MG/2 ML VIAL IV STA (01:32)
[2021-11-18] MEDS ORDERED: ALBUTEROL HFA 8 GM INHALER INH PRN (01:32)
[2021-11-18] MEDS ORDERED: DESITIN TOP PRN (01:32)
[2021-11-18] MEDS ORDERED: POLYETHYLENE (MIRALAX) 17 GM PACK PO PRN (01:32)
[2021-11-18] MEDS ORDERED: NITROGLYCERIN SL 0.4 MG/TAB TAB SL PRN (01:32)
[2021-11-18] MEDS ORDERED: EPINEPHrine INJ 1 MG/ML AMP IM PRN (01:32)
[2021-11-18] MEDS ORDERED: bisacodyL 10 MG SUPP PR PRN (01:32)
[2021-11-18] MEDS ORDERED: HYDROCORTISONE SOD 100 MG in SYRINGE 0 ML IV ONE (02:30)
--- NOTE | 2021-11-18 02:36 | History and Physical Report ---
DATE OF ADMISSION: 11/17/2021. CHIEF COMPLAINT: Lethargy, confusion, severe sepsis. HISTORY OF PRESENT ILLNESS: This is an 86-year-old male with past medical history significant for atrial fibrillation, used to be on Xarelto, which was held for GI bleed, history of idiopathic hypotension, history of prostate cancer and obstructive uropathy with suprapubic catheter, history of lymphocytic colitis, obstructive sleep apnea, noncompliant with CPAP, venous insufficiency, history of urogenital candidiasis, gout arthropathy, seems to be he is losing weight 20 pounds in the last 5 weeks and he was added low-dose Remeron 3 weeks ago due to poor appetite and zinc was added for hematology for zinc deficiency found during anemia workup. Seems like last few days, he has been so weak almost shaky, not like himself, confused and today he was spiking temperatures and they found his UA was positive, thus they gave 1 gram of Rocephin IM, but as he was not getting better, he was transferred here. Currently, the patient is not alert and awake, not speaking, could not get any history from the patient.As per group home, generally he is alert and oriented. He needs lot of assistance to ambulating. For the last couple of days, he has difficulty swallowing;. No nausea or vomiting. No diarrhea as per the group home. No other complaints. 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 Currently, the patient received vancomycin and cefepime in the ER, his blood pressure is soft, lactate is okay at 1.4, white count is elevated at 15.2. Urine looks infected. Magnesium is 1.3. COVID is negative. Chest x-ray, no acute findings. Tried to call his daughter and , going to voicemail. ALLERGIES: TO BEE VENOM, HORNET VENOM, BLACK WALNUT, FIRE ANT. PAST MEDICAL HISTORY: As mentioned above. PAST SURGICAL HISTORY: Bilateral knee arthroplasty, bunion correction surgery, bilateral cataract surgery, colonoscopy, left sternal fracture repair, radical prostate removal, repair of the bladder opening, bilateral reverse total shoulder arthroplasty, right ureteral stent placement. MEDICATIONS: The patient is on Tylenol 650 mg p.o. q. 4 hours p.r.n., albuterol 2 puffs inhalation q. 4 hours p.r.n., bisacodyl 10 mg per rectal daily p.r.n., budesonide 9 mg p.o. a.m., colchicine 0.6 mg p.o. a.m., vitamin B12 1000 mcg p.o. a.m., Colace 100 mg p.o. daily p.r.n., epinephrine p.r.n., ferrous sulfate 325 mg p.o. b.i.d., flecainide 50 mg p.o. b.i.d., glucosamine 500 mg p.o. b.i.d., Krill oil 500 mg p.o. a.m., midodrine 2.5 mg p.o. t.i.d., mirtazapine 7.5 mg p.o. at bedtime, multivitamin one tablet p.o. a.m., omeprazole 40 mg p.o. b.i.d., Zofran 4 mg p.o. q. 4 hours p.r.n., MiraLax 17 g p.o. daily p.r.n., potassium chloride 10 mEq p.o. daily, sertraline 100 mg p.o. at bedtime, sodium chloride 10 mL b.i.d., zinc 50 mg p.o. b.i.d. FAMILY HISTORY: Significant for father has diabetes and prostate cancer. Mother has Leukemia. SOCIAL HISTORY: , no smoking, no alcohol, no drug use. REVIEW OF SYSTEMS: As per HPI. Rest of the review of systems is negative. PHYSICAL EXAMINATION: GENERAL: The patient is old and frail, not in acute distress. VITAL SIGNS: Temperature T-max 39.1, pulse 76, respiratory rate 18, blood pressure 87/51, oxygen 97% on room air. HEENT: Pupils equal, round and reactive to light. Oral mucosa moist. NECK: No JVD, no neck masses. CARDIOVASCULAR: S1 and S2 heard. Ejection systolic murmur heard. RESPIRATORY SYSTEM: Normal AP diameter. No accessory muscle use. No wheezing, no crackles. ABDOMEN: Soft. Bowel sounds present, no distention. Suprapubic catheter site clean. No drainage seen. No erythema seen. CENTRAL NERVOUS SYSTEM: Alert and awake, but not oriented, not talking. No facial droop seen. Moves extremities with painful stimuli. EXTREMITIES: No edema, no erythema seen. LABORATORY: WBC 15.2, hemoglobin 9.8, hematocrit 30.5, platelets 276. PT 12.9, INR 1.2, APTT 34.5. Sodium 139, potassium 4.2, chloride 105, bicarb 25, BUN 32, creatinine 1.3, serum glucose 146. Lactate 1.4, calcium is 7.8, magnesium 1.3, total bilirubin 0.5, AST 31, ALT 25, alkaline phosphatase 140. Troponin I high sensitivity 47.9. Urinalysis, +3 leukocyte esterase, +4 bacteria. SARS-CoV-2 PCR negative. Influenza A and B PCR negative. RSV PCR negative. IMAGING: Chest x-ray: Cardiomegaly with no acute cardiopulmonary abnormalities. EKG: Poor quality interpretation with tachycardia, rate of 123. ASSESSMENT AND PLAN: This 86-year-old male presents with altered mental status, lethargy, severe sepsis. 1. Altered mental status, lethargy, severe sepsis most likely secondary to urinary tract infection. In the ER, he was placed on vancomycin and we will continue with vancomycin and Zosyn, IV fluids. Follow the cultures. The patient is chronically on budesonide for microscopic colitis. We will give stress dose steroid with IV hydrocortisone 100 mg t.i.d. We will give a fluid bolus and continue with IV normal saline at 125 mL per hour and closely monitor in tele floor. 2. History of idiopathic hypotension,Continue his home midodrine. 3. History of gout. Continue colchicine when able to take p.o. 4. History of lymphocytic colitis. On budesonide, which is on hold as placed on i hydrocortisone. Will tape back to home budesonide. 5. History of anemia, hemoglobin of 9.8, seems to be close to baseline. We will follow the labs. 6. History of atrial fibrillation, on flecainide, not on anticoagulation because of GI bleed. 7. History of gastroesophageal reflux disease, on omeprazole. 8. 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 9. Obstructive sleep apnea, noncompliant with CPAP, as per records. 10. Depression, on Zoloft. 11. Recurrent urinary tract infections, may need to consult with Urology for long-term antibiotics. 12. Deep venous thrombosis prophylaxis. Place him on heparin subQ and SCDs. DISPOSITION: Closely monitor in tele floor. CODE STATUS: Full code as per Faviola and as per previous notes. Tried to call the daughter, not able to reach. Job ID: [id number] [facility]
[2021-11-18] MEDS: MIDODRINE HCL 2.5 MG TAB PO SCH ×4 (02:39→15:04)
[2021-11-18] MEDS ORDERED: PIPERACILLIN/TAZOBACTAM 3.375 GM in DEXTROSE 5% 100 ML IV ONE (03:00)
[2021-11-18] MEDS: SODIUM CHLORIDE 0.9% 1000ML 1,000 ML IV SCH ×4 (03:05→20:37)
[2021-11-18] MEDS: MAGNESIUM SULFATE / D5W 1 GM/100 ML BAG IV SCH ×2 (03:06→04:39)
[2021-11-18 05:13] LABS: Eosinophils # (auto) 0.01 K/uL (0-0.5); Eosinophils % (auto) 0.1 %; Hematocrit (blood only) 26.7 % (42-52); Hemoglobin 8.5 g/dL (14.0-18.0); Immature Granulocytes # (auto) 0.05 K/uL (0.00-0.02); Immature Granulocytes % (auto) 0.4 %; Lymphocytes % (auto) 1.7 %; Mean Corpuscular Hemoglobin 29.5 pg (25-34); Mean Corpuscular Hgb Conc 31.8 g/dL (32-36); Mean Corpuscular Volume 92.7 fL (80-100); Mean Platelet Volume 9.9 fL (7.4-10.4); Monocytes # (auto) 0.52 K/uL (0.11-0.59); Monocytes % (auto) 4.3 %; Neutrophils % (auto) 93.5 %; Platelet Count 191 K/uL (130-400); RDW Coefficient of Variation 15.7 % (11.5-14.5); RDW Standard Deviation 53.2 fL (36.4-46.3); Red Blood Count 2.88 M/uL (4.7-6.1); White Blood Count 11.98 K/uL (4.8-10.8)
[2021-11-18 05:36] LABS: BUN Creatinine Ratio 23.1 (10-20); Calcium 7.2 mg/dl (8.5-10.1); Creatinine Clr Calc Pharmacy 39.3 ml/min; Est GFR (African American) 54.4 ml/min; Magnesium 1.8 mg/dl (1.7-2.4); Phosphorus 3.4 mg/dl (2.5-4.9); Potassium 3.9 mmol/L (3.5-5.1)
[2021-11-18 05:39] LABS: Troponin I High Sensitivity 46.5 pg/ml (0-20)
[2021-11-18] MEDS: PIPERACILLIN/TAZOBACTAM 3.375 GM in DEXTROSE 5% 100 ML IV SCH ×3 (05:44→20:22)
[2021-11-18] MEDS: VANCOMYCIN HCL 1,000 MG in SODIUM CHLORIDE 0.9% 250 ML IV SCH (08:34)
[2021-11-18] MEDS: PANTOprazole 40 MG TAB PO SCH ×2 (08:34→20:28)
[2021-11-18] MEDS: FERROUS SULFATE 325 MG TAB PO SCH ×2 (08:34→20:26)
[2021-11-18] MEDS: HEPARIN SOD 5,000 UNIT/0.5 ML VIAL SQ SCH ×2 (08:34→20:23)
[2021-11-18] MEDS: COLCHICINE 0.6 MG TAB PO SCH (08:34)
[2021-11-18] MEDS: POTASSIUM CHLORIDE 10 MEQ TABCR PO SCH (08:35)
[2021-11-18] MEDS: CYANOCOBALAMIN (B-12) 500 MCG TABLET PO SCH (08:35)
[2021-11-18] MEDS: ZINC SULFATE 220 MG CAPSULE PO SCH ×2 (08:35→20:29)
[2021-11-18] MEDS: SODIUM CHLORIDE 0.9% INJ 10 ML VIAL FLUSH SCH ×2 (08:36→20:30)
[2021-11-18] MEDS: FLECAINIDE ACETATE 100 MG TABLET PO SCH ×2 (08:36→20:25)
[2021-11-18] MEDS: MULTIVITAMIN TAB PO SCH (08:36)
[2021-11-18] MEDS ORDERED: HYDROCORTISONE SOD SUCCINATE 100 MG/2 ML VIAL IV SCH (09:00)
[2021-11-18] MEDS ORDERED: BUTT PASTE (ZINC OXIDE 16%) 171 APPLN/57 GM JAR EXT PRN (10:24)
--- NOTE | 2021-11-18 11:08 | Pharmacy Report ---
Pharmacy PK ABX Note - Date of Service November 18, 2021 - Assessment and Plan Assessment 86 year old M receiving Vancomycin and Zosyn for treatment of sepsis, likely secondary to a UTI. 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 Comes from retirement. * Presented for confusion and fevers. [facility] did urinalysis and it was positive so they administered 1 g of IM Ceftriaxone prior to admission. * Febrile at 39.1oC upon admit. Leukocytosis improved today (15.3k-->12k). SCr elevated from baseline (~0.8) at 1.34 mg/dL. * UA appears infected with 3+ leukocyte esterase, >30 WBC and minimal epithelials. Urine and blood cultures pending. * Started on Vancomycin and Zosyn. Random vanc level was 11.8 mcg/mL following loading dose so moved scheduled vanc time up to 8 am. Plan Vancomycin * Loading dose: 1500 mg IV x 1 * Maintenance dose: 1000 mg IV every 24 hours * Regimen is predicted to achieve target AUC/PRADEEP of 400-600 mg/L.hr * Random level ordered for: 11/19/21 Zosyn * 3.375 g IV x 1 followed by 3.375 g IV every 8 hours Pharmacy will continue to follow and will adjust dose/frequency as necessary. Thank you. Pharmacy has transitioned to AUC monitoring for vancomycin. AUC/PRADEEP is the preferred PK/PD target and is associated with decreased risk of nephrotoxicity compared to traditional trough targets.
[2021-11-18] MEDS ORDERED: HYDROCORTISONE SOD 100 MG in SYRINGE 0 ML IV SCH (12:00)
[2021-11-18] MEDS ORDERED: VANCOMYCIN HCL 1,000 MG in SODIUM CHLORIDE 0.9% 250 ML IV SCH (12:00)
--- NOTE | 2021-11-18 14:40 | Hospitalist Progress Note ---
Date of Service November 18, 2021 Assessment & Plan (1) Recurrent UTI (urinary tract infection): Plan: 85yo M with a PMH of microscopic colitis on budesonide, C. difficile [status post treatment in December 2020], paroxysmal atrial fibrillation not on AC (d/t GI bleed), idiopathic hypotension, history of prostate cancer and obstructive uropathy with suprapubic catheter, JOSE noncompliant w/ cpap presented 11/17 from [facility] with worsening confusion. 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 In the last few days TRIP RIDER, he became weak/shaky/not himself/confused and spiked temperature on the day of arrival; urinalysis was positive for UTI and was given 1 g of Rocephin with no improvement and hence brought to the hospital. He is being managed for the following: #. Acute metabolic encephalopathy #. Severe sepsis POA likely secondary to UTI, catheter related #. Recurrent UTI As above patient presents with outpatient diagnosis of UTI and worsening confusion along with temperature spike At presentation, severe sepsis. Follow-up admitting blood and urine culture. Since the patient is chronically on budesonide for microscopic colitis, stress dose steroid being given. Continue with IV fluids, continue with Zosyn 11/18 and vancomycin 11/17 Patient remains confused, temperature is getting better, WBC trending down. #. Failure to thrive Patient lost 20 pounds in last 5 weeks, appetite has not been good Dietary consult #. Idiopathic hypotension, history of Continue with home midodrine #. Other chronic medical conditions: Lymphocytic colitis, chronic anemia, A. fib, GERD, depression, JOSE [noncompliant with CPAP] Continue home meds, budesonide on hold as patient on hydrocortisone Monitor hemoglobin Patient on flecainide, not on anticoagulation because of GI bleed for A. fib #. History of obstructive and reflux uropathy Follows with Dr. 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 Follow-up with urology as an outpatient. #. DVT prophylaxis: Heparin subcu #. 11/18 D/w Pt's dtr Kaitlynn, updated pt's status, discussed about code status, she deferred to patient's May about the decision but wouldn't want him on machine. Called May over the phone, updated patient's status, and di scussed about code status, she would want nature to take its course in an event of cardiopulmonary arrest. #. DNR/DNI. PT/OT when able. Admission and Anticipated Discharge Date Admission Date: November 17, 2021 Subjective Patient seen and examined at bedside as a follow-up of acute metabolic encephalopathy, severe sepsis most likely secondary to UTI. Patient was lying in bed, on 3 L nasal cannula oxygen, remains confused, not oriented, denies pain or discomfort. ROS n/a. Overnight patient had tmax of 39.1C. Physical Exam Physical Exam: GENERAL: confused. NAD, on 3L NC O2. Looks old, frail and ill. HEENT: No pallor, no icterus. Pupils equal, round and reactive to light. Oral mucosa moist. NECK: No JVD, no neck masses. HEART: S1 and S2 heard. Regular rate and rhythm. + ejection murmur, no gallop. RESPIRATORY SYSTEM: Normal AP diameter. No accessory muscle use. No wheezing, no crackles.decreased breath sounds ? decreased inspiratory effort. ABDOMEN: Soft, bowel sounds present, nontender, no distention. Suprapubic catheter in place, no signs of infection at point of catheter entry. CENTRAL NERVOUS SYSTEM: No facial droop. Speech is clear. Obeys simple commands. Moves extremities. EXTREMITIES: No edema, no erythema seen. Results & Data Results & Data ([facility]) Vital Signs (Past 12 Hours) Vital Signs Temp Pulse Resp BP Pulse Ox 11/18/21 08:00 67 11/18/21 06:57 66 11/18/21 05:00 37.7 C H 71 20 100 11/18/21 04:30 37.6 C H 73 21 99 11/18/21 04:01 37.4 C 72 18 117/62 99 11/18/21 04:00 37.4 C 74 23 99 11/18/21 03:30 37.3 C 75 18 100 11/18/21 03:01 37.2 C 67 11 L 93/55 L 99 11/18/21 03:00 37.2 C 69 25 H 100 06/14/22 02:30 37.2 C 69 20 99
[2021-11-18] MEDS: HYDROCORTISONE SOD 50 MG in SYRINGE 0 ML IV SCH (20:23)
[2021-11-18] MEDS: MIRTAZAPINE TAB 15 MG TAB PO SCH (20:27)
[2021-11-18] MEDS: SERTRALINE HCL 100 MG TABLET PO SCH (20:28)
[2021-11-19] MEDS: SODIUM CHLORIDE 0.9% 1000ML 1,000 ML IV SCH ×2 (03:51→07:16)
[2021-11-19] MEDS: PIPERACILLIN/TAZOBACTAM 3.375 GM in DEXTROSE 5% 100 ML IV SCH ×3 (05:22→23:19)
[2021-11-19] MEDS: HYDROCORTISONE SOD 50 MG in SYRINGE 0 ML IV SCH (05:22)
[2021-11-19 05:57] LABS: Hematocrit (blood only) 25.7 % (42-52); Hemoglobin 8.5 g/dL (14.0-18.0); Mean Corpuscular Hgb Conc 33.1 g/dL (32-36); Mean Corpuscular Volume 90.8 fL (80-100); Mean Platelet Volume 10.8 fL (7.4-10.4); Platelet Count 220 K/uL (130-400); RDW Coefficient of Variation 15.7 % (11.5-14.5); RDW Standard Deviation 53.5 fL (36.4-46.3); Red Blood Count 2.83 M/uL (4.7-6.1)
[2021-11-19 06:14] LABS: BUN Creatinine Ratio 25.4 (10-20); Calcium 7.1 mg/dl (8.5-10.1); Creatinine Clr Calc Pharmacy 46.2 ml/min; Est GFR (African American) 66.2 ml/min; Est GFR (Non-African American) 57.1 ml/min; Magnesium 1.8 mg/dl (1.7-2.4); Phosphorus 3.6 mg/dl (2.5-4.9); Potassium 3.7 mmol/L (3.5-5.1)
[2021-11-19] MEDS ORDERED: SODIUM CHLORIDE 0.45 % 1,000 ML IV SCH (07:30)
[2021-11-19] MEDS: COLCHICINE 0.6 MG TAB PO SCH (08:28)
[2021-11-19] MEDS: CYANOCOBALAMIN (B-12) 500 MCG TABLET PO SCH (08:28)
[2021-11-19] MEDS: FERROUS SULFATE 325 MG TAB PO SCH ×2 (08:28→20:53)
[2021-11-19] MEDS: FLECAINIDE ACETATE 100 MG TABLET PO SCH ×2 (08:29→20:54)
[2021-11-19] MEDS: VANCOMYCIN HCL 1,000 MG in SODIUM CHLORIDE 0.9% 250 ML IV SCH (08:39)
--- NOTE | 2021-11-19 08:41 | Pharmacy Report ---
Pharmacy PK ABX Note - Date of Service November 19, 2021 - Assessment and Plan Assessment 11/20: * Blood and urine cultures with no growth thus far. Scr improved today to 1.14. * Will increase maintenance dose today given improvement in renal function and check a level in ~48 hours. 11/19: 86 year old M receiving Vancomycin and Zosyn for treatment of sepsis, likely secondary to a UTI. 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 Comes from custodial. * Presented for confusion and fevers. [facility] did urinalysis and it was positive so they administered 1 g of IM Ceftriaxone prior to admission. * Febrile at 39.1oC upon admit. Leukocytosis improved today (15.3k-->12k). SCr elevated from baseline (~0.8) at 1.34 mg/dL. * UA appears infected with 3+ leukocyte esterase, >30 WBC and minimal epithelials. Urine and blood cultures pending. * Started on Vancomycin and Zosyn. Random vanc level was 11.8 mcg/mL following l oading dose so moved scheduled vanc time up to 8 am. Plan Vancomycin * Maintenance dose: increase to 1250 mg IV every 24 hours * Regimen is predicted to achieve target AUC/PRADEEP of 400-600 mg/L.hr * Random level ordered for: 11/19/21 Zosyn * 3.375 g IV x 1 followed by 3.375 g IV every 8 hours Pharmacy will continue to follow and will adjust dose/frequency as necessary. Thank you. Pharmacy has transitioned to AUC monitoring for vancomycin. AUC/PRADEEP is the preferred PK/PD target and is associated with decreased risk of nephrotoxicity compared to traditional trough targets.
[2021-11-19] MEDS: MIDODRINE HCL 2.5 MG TAB PO SCH ×3 (08:50→20:55)
[2021-11-19] MEDS: MULTIVITAMIN TAB PO SCH (08:50)
[2021-11-19] MEDS: HEPARIN SOD 5,000 UNIT/0.5 ML VIAL SQ SCH ×2 (08:50→20:56)
[2021-11-19] MEDS: PANTOprazole 40 MG TAB PO SCH ×2 (08:50→20:56)
[2021-11-19] MEDS: POTASSIUM CHLORIDE 10 MEQ TABCR PO SCH (08:51)
[2021-11-19] MEDS: ZINC SULFATE 220 MG CAPSULE PO SCH ×2 (08:51→20:57)
[2021-11-19] MEDS: SODIUM CHLORIDE 0.9% INJ 10 ML VIAL FLUSH SCH ×2 (08:51→20:57)
[2021-11-19] MEDS ORDERED: VANCOMYCIN HCL 1,250 MG in SODIUM CHLORIDE 0.9% 250 ML IV SCH (09:00)
--- NOTE | 2021-11-19 15:39 | Hospitalist Progress Note ---
Date of Service November 19, 2021 Assessment & Plan (1) Recurrent UTI (urinary tract infection): Plan: 85yo M with a PMH of microscopic colitis on budesonide, C. difficile [status post treatment in December 2020], paroxysmal atrial fibrillation not on AC (d/t GI bleed), idiopathic hypotension, history of prostate cancer and obstructive uropathy with suprapubic catheter, JOSE noncompliant w/ cpap presented 11/17 from [facility] with worsening confusion. Of note, he has been losing weight lately, 20 pounds in the last 5 weeks [employer], low-dose Remeron was added 3 weeks ago [employer] due to poor appetite and zinc was added for zinc deficiency found during anemia work-up. In the last few days [employer], he became weak/shaky/not himself/confused and spiked temperature on the day of arrival; urinalysis was positive for UTI and was given 1 g of Rocephin with no improvement and hence brought to the hospital. He is being managed for the following: #. Acute metabolic encephalopathy - improving #. Severe sepsis POA likely secondary to UTI, catheter related #. Recurrent UTI As above patient presents with outpatient diagnosis of UTI and worsening confusion along with temperature spike At presentation, severe sepsis. Follow-up admitting blood and urine culture --> admitting urine culture contaminated, repeat culture sent 11/19. 11/17 blood culture no growth so far. Since the patient is chronically on budesonide for microscopic colitis, stress d ose steroid being given --> to home dose steroid from gabino AM. Pt eating OK, dc ivf, continue with Zosyn 11/18 and vancomycin 11/17; await repeat urine culture. Patient appears lethargic but oriented, temperature better, WBC slightly elevated. #. Failure to thrive Patient lost 20 pounds in last 5 weeks [employer], appetite has not been good Dietary consult #. Idiopathic hypotension, history of Continue with home midodrine #. Other chronic medical conditions: Lymphocytic colitis, chronic anemia, A. fib, GERD, depression, JOSE [noncompliant with CPAP] Continue home meds, budesonide on hold as patient on hydrocortisone Monitor hemoglobin Patient on flecainide, not on anticoagulation because of GI bleed for A. fib #. History of obstructive and reflux uropathy Follows with Dr. 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 Follow-up with urology as an outpatient. #. DVT prophylaxis: Heparin subcu #. 11/18 D/w Pt's dtr Kaitlynn, updated pt's status, discussed about code status, she deferred to patient's May about the decision but wouldn't want him on machine. Called May over the phone, updated patient's status, and discussed about code status, she would want nature to take its course in an event of cardiopulmonary arrest. #. DNR/DNI. PT/OT when able. Admission and Anticipated Discharge Date Admission Date: November 17, 2021 Subjective Patient seen and examined at bedside as a follow-up of acute metabolic encephalopathy, severe sepsis most likely secondary to UTI. Patient was lying in bed, on 1 L nasal cannula oxygen, AOx3, denies pain/discomfort/trouble breathing/headache/chest pain. Per RN, no new issues overnight and pt is eating ok. Temperature getting better. Physical Exam Physical Exam: GENERAL: AOx3 but appears lethargic. NAD, on 1L NC O2. Looks old, frail and ill. HEENT: No pallor, no icterus. Pupils equal, round and reactive to light. Oral mucosa moist. NECK: No JVD, no neck masses. HEART: S1 and S2 heard. Regular rate and rhythm. + ejection murmur, no gallop. RESPIRATORY SYSTEM: Normal AP diameter. No accessory muscle use. No wheezing, no crackles. decreased breath sounds ? decreased inspiratory effort. ABDOMEN: Soft, bowel sounds present, nontender, no distention. Suprapubic catheter in place. CENTRAL NERVOUS SYSTEM: No facial droop. Speech is clear. Obeys simple commands. Moves extremities. EXTREMITIES: No edema, no erythema seen. Results & Data Results & Data ([facility]) Vital Signs (Past 12 Hours) Vital Signs Temp Pulse Resp BP Pulse Ox 11/19/21 08:00 36.5 C 62 18 152/77 H 98
[2021-11-19] MEDS ORDERED: HYDROCORTISONE SOD 50 MG in SYRINGE 0 ML IV ONE (18:00)
[2021-11-19] MEDS: MIRTAZAPINE TAB 15 MG TAB PO SCH (20:53)
[2021-11-19] MEDS: SERTRALINE HCL 100 MG TABLET PO SCH (20:56)
[2021-11-20] MEDS: PIPERACILLIN/TAZOBACTAM 3.375 GM in DEXTROSE 5% 100 ML IV SCH ×3 (06:09→21:42)
[2021-11-20 06:17] LABS: Hemoglobin 9.1 g/dL (14.0-18.0); Mean Corpuscular Hemoglobin 28.9 pg (25-34); Mean Corpuscular Hgb Conc 32.5 g/dL (32-36); Mean Corpuscular Volume 88.9 fL (80-100); Mean Platelet Volume 11.1 fL (7.4-10.4); Platelet Count 256 K/uL (130-400); RDW Coefficient of Variation 15.8 % (11.5-14.5); RDW Standard Deviation 51.3 fL (36.4-46.3); Red Blood Count 3.15 M/uL (4.7-6.1); White Blood Count 11.58 K/uL (4.8-10.8)
[2021-11-20 06:42] LABS: Anion Gap 10 (3-11); BUN Creatinine Ratio 23.9 (10-20); Blood Urea Nitrogen 27 mg/dl (6-23); Calcium 7.2 mg/dl (8.5-10.1); Carbon Dioxide 19 mmol/L (21-32); Chloride 108 mmol/L (98-107); Creatinine Clr Calc Pharmacy 46.7 ml/min; Est GFR (African American) 66.9 ml/min; Est GFR (Non-African American) 57.7 ml/min; Glucose 93 mg/dl (70-99(Fasting)); Magnesium 1.7 mg/dl (1.7-2.4); Phosphorus 2.7 mg/dl (2.5-4.9); Sodium 137 mmol/L (136-145)
[2021-11-20] MEDS: POTASSIUM CHLORIDE CRTAB 20 MEQ TABCR PO SCH ×2 (08:43→11:21)
[2021-11-20] MEDS: MAGNESIUM SULFATE / D5W 1 GM/100 ML BAG IV SCH ×2 (08:43→10:33)
[2021-11-20] MEDS: FERROUS SULFATE 325 MG TAB PO SCH ×2 (08:44→21:35)
[2021-11-20] MEDS: COLCHICINE 0.6 MG TAB PO SCH (08:44)
[2021-11-20] MEDS: FLECAINIDE ACETATE 100 MG TABLET PO SCH ×2 (08:44→21:38)
[2021-11-20] MEDS: BUDESONIDE EC 3 MG CAP PO SCH (08:44)
[2021-11-20] MEDS: CYANOCOBALAMIN (B-12) 500 MCG TABLET PO SCH (08:44)
[2021-11-20] MEDS: HEPARIN SOD 5,000 UNIT/0.5 ML VIAL SQ SCH ×2 (08:45→21:36)
[2021-11-20] MEDS: MIDODRINE HCL 2.5 MG TAB PO SCH ×3 (08:46→21:37)
[2021-11-20] MEDS: MULTIVITAMIN TAB PO SCH (08:46)
[2021-11-20] MEDS: PANTOprazole 40 MG TAB PO SCH ×2 (08:46→21:39)
[2021-11-20] MEDS: SODIUM CHLORIDE 0.9% INJ 10 ML VIAL FLUSH SCH ×2 (08:46→21:35)
[2021-11-20] MEDS: ZINC SULFATE 220 MG CAPSULE PO SCH ×2 (08:47→21:35)
[2021-11-20] MEDS: POTASSIUM CHLORIDE 10 MEQ TABCR PO SCH (10:03)
--- NOTE | 2021-11-20 12:41 | Urology Consultation ---
Date of Consultation November 20, 2021 Assessment & Plan (1) Sepsis: (2) Chronic suprapubic catheter: (3) Recurrent UTI (urinary tract infection): 86yo M with multiple comorbidities including hx of prostate cancer and chronic suprapubic catheter admitted with acute metabolic encephalopathy and severe sepsis most likely secondary to UTI. - Plan of care reviewed with Dr. Venegas, on-call urologist. - Afebrile, hemodynamically stable. - Labs reviewed - White count 11.58, Creatinine 1.13. - Urine culture final with more than three types of organisms present, all high counts, repeat urine culture pending. - Blood cultures preliminary no growth x 48hours. - On IV Zosyn, follow cultures. - Suprapubic catheter intact, draining clear yellow urine. - Continue supportive care, antibiotic therapy, and close monitoring. - Maintain suprapubic catheter. Plan for outpatient catheter exchange as scheduled with urology. - Thank you for allowing us to participate in the acute care of Mr. Saxena. Please reconsult us with additional questions, concerns or changes in patient status. History of Present Illness Reason for Consultation: Recurrent UTI, Suprapubic cath Attending Physician: Ryan Cruz MD History of Present Illness 86-year-old male with a past medical history significant for microscopic colitis on budesonide, C. difficile [status post treatment in December 2020], paroxysmal atrial fibrillation not on AC (d/t GI bleed), idiopathic hypotension, history of prostate cancer and obstructive uropathy with suprapubic catheter, JOSE noncompliant w/ cpapwho presented 11/17 from [facility] with outpatient diagnosis of UTI with worsening confusion and fever. He was admitted to medicine service for sepsis, altered mental status, and lethargy. Urology consulted for recurrent UTI, suprapubic catheter. Patient is known to our service. He has a complicated past urologic history significant for an open radical prostatectomy with salvage radiation approximately 20 to 22 years ago. He developed a pubovesical fistula and underwent bladder repair with fistulectomy on 11/17/[address] Carter at [facility]. His postoperative course was complicated by an obstructed SP tube which led to bladder distention and breakdown of his bladder repair. He continues to have SP tube exchanges with our service, last exchange was done on 10/30/21. Pt examined at bedside in ICU this morning. Asleep on arrival, awakened to name. No acute distress. Answer some questions, but with limited responses. No fevers overnight. Denied any pain or discomfort. Suprapubic catheter intact, draining clear yellow urine. No leakage or erythema noted to SP tube site. Allergies Allergy/AdvReac Type Severity Reaction Status Date / Time bee venom protein (honey bee) Allergy Severe SWELLING,SO Verified 11/17/21 21:06 B hornet venom Allergy Severe ANAPHYLAXIS Verified 11/17/21 21:06 black walnut Allergy Intermediate HIVES Verified 11/17/21 21:06 fire ant Allergy Intermediate HIVES Verified 11/17/21 21:06 Home Medications Medication Instructions Recorded Confirmed Type epinephrine 0.3 mg/0.3 mL 0.3 ml IM DIRECTED PRN #1 ea 02/28/19 11/17/21 History injection, auto-injector multivitamin (Daily Multi-Vitamin) 1 tab PO QAM 02/28/19 11/17/21 History glucosamine sulfate 500 mg tablet 500 mg PO BID 03/29/20 11/17/21 History (Glucosamine) krill oil 500 mg capsule 500 mg PO QAM 03/29/20 11/17/21 History docusate sodium 100 mg capsule 100 mg PO DAILY PRN 07/02/20 11/17/21 History polyethylene glycol 3350 17 17 g PO DAILY PRN 07/02/20 11/17/21 History gram/dose oral powder (Miralax) midodrine 2.5 mg tablet 2.5 mg PO TID #90 tab 02/24/21 11/17/21 Rx budesonide 9 mg tablet,delayed and 9 mg PO QAM 05/07/21 11/17/21 History extended release sertraline 100 mg tablet 100 mg PO HS 05/07/21 11/17/21 History zinc oxide-cod liver oil 40 % 1 applic TOPICAL BID PRN 05/07/21 11/17/21 History topical paste (Desitin) omeprazole 40 mg capsule,delayed 40 mg PO BID 05/14/21 11/17/21 History release acetaminophen 325 mg tablet 650 mg PO Q4 PRN MDD 3 GRAMS/24 06/02/21 11/17/21 History (Tylenol) HOURS sodium chloride 0.9 % 10 ml Q12H 06/02/21 11/17/21 History cyanocobalamin (vitamin B-12) 1,000 mcg PO QAM 06/18/21 11/17/21 History 1,000 mcg capsule ferrous sulfate 325 mg (65 mg 325 mg PO BID 06/18/21 11/17/21 History iron) tablet acetaminophen 650 mg rectal 650 mg WV Q4H PRN 11/17/21 11/17/21 History suppository albuterol sulfate 90 mcg/actuation 2 puff INHALATION Q4H PRN 11/17/21 11/17/21 History aerosol inhaler bisacodyl 10 mg rectal suppository 10 mg WV DAILY PRN 11/17/21 11/17/21 History ceftriaxone 1 gram solution for 1 g IM DIRECTED 11/17/21 11/17/21 History injection colchicine 0.6 mg tablet 0.6 mg PO QAM 11/17/21 11/17/21 History dimethicone 1 % topical cream 1 applic TOPICAL TID PRN 11/17/21 11/17/21 History flecainide 50 mg tablet 50 mg PO BID 11/17/21 11/17/21 History mirtazapine 7.5 mg tablet 7.5 mg PO HS 11/17/21 11/17/21 History ondansetron HCl 4 mg tablet 4 mg PO Q4H PRN 11/17/21 11/17/21 History potassium chloride 10 mEq 10 meq PO DAILY 11/17/21 11/17/21 History tablet,extended release (Klor-Con) zinc 50 mg tablet 50 mg PO BID 11/17/21 11/17/21 History Patient History Medical History Anemia Anticoagulant long-term use Chronic low back pain Chronic venous stasis Depression Encounter for pre-operative examination Facial pain History of Clostridioides difficile colitis History of prostate cancer (~1999) Followed by Urology History of UTI Hypotension Lymphocytic colitis Lymphocytic colitis Obstructive and reflux uropathy Obstructive sleep apnea CPAP Osteitis pubis Paroxysmal atrial fibrillation Followed by Cardiology Presence of suprapubic catheter Right foot pain Sacral decubitus ulcer Severe sepsis with septic shock hx Syncope Ureteral stone with hydronephrosis Urinary retention Self Catheterization Walker as ambulation aid Surgical History H/O elbow surgery H/O pelvic surgery repair [place] bladder [place] [facility] [place]. History of colonoscopy History of prostate surgery S/P bunionectomy S/P cataract surgery S/P cystoscopy with ureteral stent placement S/P total knee arthroplasty Bilateral Status post total shoulder arthroplasty Bilateral Family History Father Prostate cancer Diabetes Mother Leukemia Cancer Denies family history of Ovarian cancer Alzheimer disease Crohn's disease Myocardial infarction Breast cancer Lung cancer Colorectal cancer Hypertension Stroke Social History Smoking Status: Never smoker Second Hand Exposure: No; Hx Alcohol Use: No Hx Substance Use: No Preferred Language: Taiwanese Communication Ability: Effective Visual Impairment: No Limitations Hearing Ability: Normal [employer] Required: No Beliefs That Will Affect Care: None marital status: Current Living Situation: Other current occupational status: retired Feels Safe at Home: Yes Safety Concerns: Feels Safe At This Time Childhood Exposure to Second-Hand Smoke: No Dental Care, Regularly: Yes Physical Activity Frequency: 1-2 Times per Week Seatbelt Use: always Sunscreen Use: No Assistive Devices: Glasses Review of Systems Review of Systems: All systems reviewed & are unremarkable except as noted in HPI & below Physical Exam Constitutional: Chronically ill-appearing, appears fatigued, no acute distress Neck: normal visual inspection Respiratory: no respiratory distress and no labored breathing Gastrointestinal (Abdomen): Inspection/Auscultation: abdomen normal to inspection Percussion/Palpation: abdomen soft; abdomen nontender and no guarding Musculoskeletal: Head/Neck/Chest: normocephalic Skin: No visible rashes or lesions Psychiatric: Orientation: oriented to person Genitourinary: Suprapubic catheter intact to right lower quadrant. No erythema or drainage noted around site. Catheter is draining clear yellow urine Results & Data ([facility]) Vital Signs (Past 12 Hours) Vital Signs Temp Pulse Pulse Resp BP BP Pulse Ox 11/20/21 12:00 36.4 C L 72 21 101/61 99 11/20/21 08:00 36.8 C 64 19 150/72 H 99 11/20/21 04:00 36.4 C L 52 L 17 139/73 96 11/20/21 03:01 54 L 19 151/82 H 97 11/20/21 02:00 55 L 18 162/77 H 97 11/20/21 01:00 56 L 17 163/85 H 97 PG Care Time/CCT Total # of Minutes Spent Total Time Spent with Patient: Total time spent is greater than 50% in coordination of care (as documented) at patient's floor/unit and/or counseling patient: Coding Level of Care Code 53970 Initial Inpt Care Lvl 2 Diagnoses Sepsis A41.9 Sepsis acute organ dysfunction status: unspecified Sepsis type: sepsis due to unspecified organism Chronic suprapubic catheter Z93.59 Recurrent UTI (urinary tract infection) N39.0 (1) Sepsis Sepsis acute organ dysfunction status: unspecified Sepsis type: sepsis due to unspecified organism Qualified Code(s): A41.9 - Sepsis, unspecified organism
--- NOTE | 2021-11-20 14:07 | Palliative Care Consultation ---
Date of Consultation November 20, 2021 Assessment & Plan (1) Weakness generalized: Had been receiving rehab at [facility]. He is frustrated by his functional decline and would like to resume therapy when appropriate. (2) Palliative care encounter: I talked with Mr. Saxena about his understanding of his illness. He understands that he has a "blood infection" and had been very ill when he came to the hospital. He feels that he has not been well for the last two years and this is discouraging for him. 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 Depending on others is a quality of life issue for him. I asked him if he had worries or concerns about his health and he said that he wasn't really worried. We talked about whether he had ever considered what he would want his care to look like if he were seriously ill. He tells me that he has a living will but does not really describe what is in the living will. He also said that he hasn't really discussed his wishes with his family. I also spoke with his son, Errol Saxena, , about family discussion yesterday regarding code status. Errol tells me that his sister is POA. He also tells me that his father's living will is consistent with DNR/DNI in the event of cardiopulmonary arrest but is unsure of his broader wishes for things such as artificial feeding, hospitalization, etc. I also met with Mrs. Saxena and Ed at bedside. They are in agreement that they would not want CPR or intubation, and generally would not want to prolong life artificially. "I'm 86, my time is short". I asked several times what would make life worth living for him or what would be a clear sign that life wasn't worth living. At this time, they feel that they want to take that on a day to day basis. They do want to continue current treatment and have seen steady improvement over the last few days. However, Mrs. Saxena told me that if things did not go well, she would want to talk again. (3) Sepsis: Sepsis acute organ dysfunction status: unspecified Sepsis type: sepsis due to unspecified organism Qualified Code(s): A41.9 - Sepsis, unspecified organism History of Present Illness Reason for Consultation: goals of care Requesting Physician: Dr. Cruz Attending Physician: Ryan Cruz MD History of Present Illness 86yo gentleman admitted with UTI and sepsis from [facility] where he has been getting rehab. He has chronic hypotension which was exacerbated but sepsis. He also has a history of prostate cancer with obstructive uropathy and chronic suprapubic catheter. He was encephalopathic on admission his cognition has improved. He was able to talk with me and answer questions appropriately. We have been consulted to assist with goals of care. Allergies Allergy/AdvReac Type Severity Reaction Status Date / Time bee venom protein (honey bee) Allergy Severe SWELLING,SO Verified 11/17/21 21:06 B hornet venom Allergy Severe ANAPHYLAXIS Verified 11/17/21 21:06 black walnut Allergy Intermediate HIVES Verified 11/17/21 21:06 fire ant Allergy Intermediate HIVES Verified 11/17/21 21:06 Home Medications Medication Instructions Recorded Confirmed Type epinephrine 0.3 mg/0.3 mL 0.3 ml IM DIRECTED PRN #1 ea 02/28/19 11/17/21 History injection, auto-injector multivitamin (Daily Multi-Vitamin) 1 tab PO QAM 02/28/19 11/17/21 History glucosamine sulfate 500 mg tablet 500 mg PO BID 03/29/20 11/17/21 History (Glucosamine) krill oil 500 mg capsule 500 mg PO QAM 03/29/20 11/17/21 History docusate sodium 100 mg capsule 100 mg PO DAILY PRN 07/02/20 11/17/21 History polyethylene glycol 3350 17 17 g PO DAILY PRN 07/02/20 11/17/21 History gram/dose oral powder (Miralax) midodrine 2.5 mg tablet 2.5 mg PO TID #90 tab 02/24/21 11/17/21 Rx budesonide 9 mg tablet,delayed and 9 mg PO QAM 05/07/21 11/17/21 History extended release sertraline 100 mg tablet 100 mg PO HS 05/07/21 11/17/21 History zinc oxide-cod liver oil 40 % 1 applic TOPICAL BID PRN 05/07/21 11/17/21 History topical paste (Desitin) omeprazole 40 mg capsule,delayed 40 mg PO BID 05/14/21 11/17/21 History release acetaminophen 325 mg tablet 650 mg PO Q4 PRN MDD 3 GRAMS/24 06/02/2111/17/22 History (Tylenol) HOURS sodium chloride 0.9 % 10 ml Q12H 06/02/21 11/17/21 History cyanocobalamin (vitamin B-12) 1,000 mcg PO QAM 06/18/21 11/17/21 History 1,000 mcg capsule ferrous sulfate 325 mg (65 mg 325 mg PO BID 06/18/21 11/17/21 History iron) tablet acetaminophen 650 mg rectal 650 mg MD Q4H PRN 11/17/21 11/17/21 History suppository albuterol sulfate 90 mcg/actuation 2 puff INHALATION Q4H PRN 11/17/21 11/17/21 History aerosol inhaler bisacodyl 10 mg rectal suppository 10 mg MD DAILY PRN 11/17/21 11/17/21 History ceftriaxone 1 gram solution for 1 g IM DIRECTED 11/17/21 11/17/21 History injection colchicine 0.6 mg tablet 0.6 mg PO QAM 11/17/21 11/17/21 History dimethicone 1 % topical cream 1 applic TOPICAL TID PRN 11/17/21 11/17/21 History flecainide 50 mg tablet 50 mg PO BID 11/17/21 11/17/21 History mirtazapine 7.5 mg tablet 7.5 mg PO HS 11/17/21 11/17/21 History ondansetron HCl 4 mg tablet 4 mg PO Q4H PRN 11/17/21 11/17/21 History potassium chloride 10 mEq 10 meq PO DAILY 11/17/21 11/17/21 History tablet,extended release (Klor-Con) zinc 50 mg tablet 50 mg PO BID 11/17/21 11/17/21 History Patient History Medical History Anemia Anticoagulant long-term use Chronic low back pain Chronic venous stasis Depression Encounter for pre-operative examination Facial pain History of Clostridioides difficile colitis History of prostate cancer (~1999) Followed by Urology History of UTI Hypotension Lymphocytic colitis Lymphocytic colitis Obstructive and reflux uropathy Obstructive sleep apnea CPAP Osteitis pubis Paroxysmal atrial fibrillation Followed by Cardiology Presence of suprapubic catheter Right foot pain Sacral decubitus ulcer Severe sepsis with septic shock hx Syncope Ureteral stone with hydronephrosis Urinary retention Self Catheterization Walker as ambulation aid Surgical History H/O elbow surgery H/O pelvic surgery [place] [facility] [place]. History of colonoscopy History of prostate surgery S/P bunionectomy S/P cataract surgery S/P cystoscopy with ureteral stent placement S/P total knee arthroplasty Bilateral Status post total shoulder arthroplasty Bilateral Family History Father Prostate cancer Diabetes Mother Leukemia Cancer Denies family history of Ovarian cancer Alzheimer disease Crohn's disease Myocardial infarction Breast cancer Lung cancer Colorectal cancer Hypertension Stroke Social History Smoking Status: Never smoker Second Hand Exposure: No; Hx Alcohol Use: No Hx Substance Use: No Preferred Language: Macedonian Communication Ability: Effective Visual Impairment: No Limitations Hearing Ability: Normal Cigarette Book Maker Required: No Beliefs That Will Affect Care: None marital status: Current Living Situation: Other current occupational status: retired Feels Safe at Home: Yes Safety Concerns: Feels Safe At This Time Childhood Exposure to Second-Hand Smoke: No Dental Care, Regularly: Yes Physical Activity Frequency: 1-2 Times per Week Seatbelt Use: always Sunscreen Use: No Assistive Devices: Glasses Review of Systems Review of Systems: ESAS Pain 0/3 Dyspnea 0/3 Fatigue 2/3 Nausea 0/3 Drowsiness 0/3 PPS 30% Physical Exam Constitutional: no acute distress ENMT: Mouth: oral mucous membranes not dry Respiratory: normal respiratory effort; no labored breathing Cardiovascular: RUE edema Skin: warm and dry Results & Data ([facility]) Vital Signs (Past 12 Hours) Vital Signs Temp Pulse Pulse Resp BP BP Pulse Ox 11/20/21 12:00 97.5 F L 72 21 101/61 99 11/20/21 08:00 98.2 F 64 19 150/72 H 99 11/20/21 04:00 97.5 F L 52 L 17 139/73 96 11/20/21 03:01 54 L 19 151/82 H 97 PG Care Time/CCT Total # of Minutes Spent Total Time Spent: 80 Total Time Spent with Patient: Total time spent is greater than 50% in coordination of care (as documented) at patient's floor/unit and/or counseling patient: goals of care, advance directives, patient and family education and support Coding Level of Care Code 29625 Initial Inpt Care Lvl 3 Diagnoses Palliative care encounter Z51.5 Sepsis A41.9 Sepsis acute organ dysfunction status: unspecified Sepsis type: sepsis due to unspecified organism Weakness generalized R53.1
--- NOTE | 2021-11-20 16:30 | Hospitalist Progress Note ---
Date of Service November 20, 2021 Assessment & Plan (1) Recurrent UTI (urinary tract infection): Plan: 85yo M with a PMH of microscopic colitis on budesonide, C. difficile [status post treatment in December 2020], paroxysmal atrial fibrillation not on AC (d/t GI bleed), idiopathic hypotension, history of prostate cancer and obstructive uropathy with suprapubic catheter, JOSE noncompliant w/ cpap presented 11/17 from [facility] with worsening confusion. Of note, he has been losing weight lately, 20 pounds in the last 5 weeks [employer], low-dose Remeron was added 3 weeks ago [employer] due to poor appetite and zinc was added for zinc deficiency found during anemia work-up. In the last few days [employer], he became weak/shaky/not himself/confused and spiked temperature on the day of arrival; urinalysis was positive for UTI and was given 1 g of Rocephin with no improvement and hence brought to the hospital. He is being managed for the following: #. Acute metabolic encephalopathy - improving #. Severe sepsis POA likely secondary to UTI, catheter related #. Recurrent UTI As above patient presents with outpatient diagnosis of UTI and worsening confusion along with temperature spike At presentation, severe sepsis. Follow-up admitting blood and urine culture --> admitting urine culture contaminated, repeat culture sent 11/19. 11/17 blood culture no growth so far. Pt eating OK, advance diet as di., continue with Zosyn 11/18 and vancomycin 11/17 (dropped 11/20); await repeat urine culture. Await final C/S of OP Urine Cx (epic emr) --> taper ATB when c/s out. Patient appears lethargic, oriented x1, temperature better, WBC slightly elevated. #. Failure to thrive Patient lost 20 pounds in last 5 weeks [employer], appetite has not been good Dietary consulted #. Idiopathic hypotension, history of Continue with home midodrine #. Other chronic medical conditions: Lymphocytic colitis, chronic anemia, A. fib, GERD, depression, JOSE [noncompliant with CPAP] Continue home meds, budesonide on hold as patient on hydrocortisone Monitor hemoglobin Patient on flecainide, not on anticoagulation because of GI bleed for A. fib #. History of obstructive and reflux uropathy Follows with Dr. 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 Follow-up with urology as an outpatient. #. DVT prophylaxis: Heparin subcu #. 11/18 D/w Pt's dtr Kaitlynn, updated pt's status, discussed about code status, she deferred to patient's May about the decision but wouldn't want him on machine. Called May over the phone, updated patient's status, and discussed about code status, she would want nature to take its course in an event of cardiopulmonary arrest. #. DNR/DNI. PT/OT when able. Admission and Anticipated Discharge Date Admission Date: November 17, 2021 Subjective Patient seen and examined at bedside as a follow-up of acute metabolic encephalopathy, severe sepsis most likely secondary to UTI. Patient was lying in bed, on RA, AOx1, denies pain/discomfort/trouble breathing/headache/chest pain. Per RN, no new issues overnight and pt is eating ok. Has loose BM and is on/off confused. Physical Exam Physical Exam: GENERAL: AOx1. NAD, on RA. Looks old, frail and ill. HEENT: No pallor, no icterus. Pupils equal, round and reactive to light. Oral mucosa moist. NECK: No JVD, no neck masses. HEART: S1 and S2 heard. Regular rate and rhythm. + ejection murmur, no gallop. RESPIRATORY SYSTEM: Normal AP diameter. No accessory muscle use. No wheezing, occasional crackles. ABDOMEN: Soft, bowel sounds present, nontender, no distention. Suprapubic catheter in place. CENTRAL NERVOUS SYSTEM: No facial droop. Speech is clear. Obeys simple commands. Moves extremities. EXTREMITIES: No edema, no erythema seen. Results & Data Results & Data ([facility]) Vital Signs (Past 12 Hours) Vital Signs Temp Pulse Resp BP Pulse Ox 11/20/21 12:00 36.4 C L 72 21 101/61 99 11/20/21 08:00 36.8 C 64 19 150/72 H 99
[2021-11-20] MEDS: SERTRALINE HCL 100 MG TABLET PO SCH (21:35)
[2021-11-20] MEDS: MIRTAZAPINE TAB 15 MG TAB PO SCH (21:38)
[2021-11-21] MEDS: PIPERACILLIN/TAZOBACTAM 3.375 GM in DEXTROSE 5% 100 ML IV SCH (05:23)
[2021-11-21 05:36] LABS: Hematocrit (blood only) 28.1 % (42-52); Mean Corpuscular Hemoglobin 28.6 pg (25-34); Mean Corpuscular Volume 89.2 fL (80-100); Mean Platelet Volume 10.6 fL (7.4-10.4); Platelet Count 228 K/uL (130-400); RDW Coefficient of Variation 15.9 % (11.5-14.5); RDW Standard Deviation 51.1 fL (36.4-46.3); Red Blood Count 3.15 M/uL (4.7-6.1); White Blood Count 9.31 K/uL (4.8-10.8)
[2021-11-21 06:09] LABS: Calcium 7.7 mg/dl (8.5-10.1); Creatinine Clr Calc Pharmacy 42.2 ml/min; Est GFR (African American) 59.2 ml/min; Est GFR (Non-African American) 51.1 ml/min; Magnesium 2.1 mg/dl (1.7-2.4); Potassium 3.4 mmol/L (3.5-5.1)
--- NOTE | 2021-11-21 07:13 | Ultrasound Report ---
LEFT UPPER EXTREMITY VENOUS DOPPLER ULTRASOUND CLINICAL HISTORY: edema and tender left upper arm. dvt? COMPARISON STUDY: No previous studies for comparison. TECHNIQUE: Sonography of the deep venous system of the left upper extremity was performed. FINDINGS: The left internal jugular, subclavian, axillary, brachial, radial internal veins are patent . The left basilic vein is patent. The left cephalic vein was not visualized. Left forearm edema is n oted. No fluid collection is identified. IMPRESSION: No deep venous thrombus within the left upper extremity. ACT 112: Negative or not required by law. Electronically signed by: Armando Resendiz M.D. 11/21/2021 7:11 AM
[2021-11-21] MEDS ORDERED: VANCOMYCIN CONSULT ACTIVE PRN (08:12)
[2021-11-21] MEDS ORDERED: VANCOMYCIN HCL 1,250 MG in SODIUM CHLORIDE 0.9% 500 ML IV SCH (08:15)
[2021-11-21] MEDS: POTASSIUM CHLORIDE 10 MEQ TABCR PO SCH (08:21)
[2021-11-21] MEDS: ZINC SULFATE 220 MG CAPSULE PO SCH ×2 (08:22→19:46)
[2021-11-21] MEDS: MIDODRINE HCL 2.5 MG TAB PO SCH ×3 (08:23→19:46)
[2021-11-21] MEDS: FERROUS SULFATE 325 MG TAB PO SCH ×2 (08:23→19:45)
[2021-11-21] MEDS: PANTOprazole 40 MG TAB PO SCH ×2 (08:24→19:47)
[2021-11-21] MEDS: CYANOCOBALAMIN (B-12) 500 MCG TABLET PO SCH (08:24)
[2021-11-21] MEDS: MULTIVITAMIN TAB PO SCH (08:27)
[2021-11-21] MEDS: FLECAINIDE ACETATE 100 MG TABLET PO SCH ×2 (08:28→19:49)
[2021-11-21] MEDS: BUDESONIDE EC 3 MG CAP PO SCH (08:28)
[2021-11-21] MEDS: COLCHICINE 0.6 MG TAB PO SCH (08:28)
[2021-11-21] MEDS: HEPARIN SOD 5,000 UNIT/0.5 ML VIAL SQ SCH ×3 (08:29→19:48)
[2021-11-21] MEDS: POTASSIUM CHLORIDE CRTAB 20 MEQ TABCR PO SCH ×2 (08:31→10:39)
[2021-11-21] MEDS: SODIUM CHLORIDE 0.9% INJ 10 ML VIAL FLUSH SCH ×2 (08:33→19:48)
[2021-11-21] MEDS ORDERED: VANCOMYCIN HCL 1,000 MG in SODIUM CHLORIDE 0.9% 250 ML IV ONE (09:00)
[2021-11-21] MEDS: AMPICILLIN 2,000 MG in SODIUM CHLOR 0.9% AD-VAN 100 ML IV SCH ×4 (09:42→19:44)
--- NOTE | 2021-11-21 11:12 | Pharmacy Report ---
Pharmacy Vanc AUC Short Note - Date of Service November 21, 2021 - Assessment & Plan Assessment 86 year old M receiving IV vancomycin and ampicillin for treatment of urosepsis. 11/17 urine culture (outside facility) (+) MRSA, proteus mirabilis, and enterococcus spp. Repeat suprapubic culture 11/19 (+) GPC. Blood cultures no growth to date. Renal function stable. Patient was receiving scheduled vancomycin 11/17 through 11/19 prior to discontinuation. Vancomycin re-started today. Day #4 of (total) antimicrobial therapy Plan Vancomycin * AUC/PRADEEP is the preferred PK/PD target for vancomycin. AUC guided dosing is effective and associated with decreased risk of nephrotoxicity compared to traditional trough targets * Trough level of 18.3 mcg/mL is predicted to achieve target AUC/PRADEEP of 400-600 mg/L.hr and may be associated with a 15 % risk of nephrotoxicity * Last dose of vancomycin 11/19 AM. Vanc 1gm IV X 1 now. Will begin 1gm IV q18h tonight ~2100. * Random level ordered tomorrow AM. Pharmacy will continue to follow and will adjust dose/frequency as necessary. Michelle lazo.
--- NOTE | 2021-11-21 14:46 | Electrocardiogram Report ---
Test Reason : Blood Pressure : / mmHG Vent. Rate : 123 BPM Atrial Rate : 122 BPM P-R Int : 000 ms QRS Dur : 120 ms QT Int : 348 ms P-R-T Axes : 000 -65 093 degrees QTc Int : 498 ms Poor data quality, interpretation may be adversely affected Sinus tachycardia Left axis deviation Inferior infarct , age undetermined Possible Anterolateral infarct , age undetermined Abnormal ECG When compared with ECG of 03-JUN-2021 06:21, Vent. rate has increased BY 54 BPM Confirmed by Warner Rust ([id number]) on 11/21/2021 2:45:56 PM Referred By: REFERRED SELF Confirmed By:Spencer Rust
--- NOTE | 2021-11-21 17:25 | Hospitalist Progress Note ---
Date of Service November 21, 2021 Assessment & Plan (1) Recurrent UTI (urinary tract infection): Plan: 85yo M with a PMH of microscopic colitis on budesonide, C. difficile [status post treatment in December 2020], paroxysmal atrial fibrillation not on AC (d/t GI bleed), idiopathic hypotension, history of prostate cancer and obstructive uropathy with suprapubic catheter, JOSE noncompliant w/ cpap presented 11/17 from [facility] with worsening confusion. 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 He is being managed for the following: #. Acute metabolic encephalopathy - improving #. Severe sepsis POA likely secondary to UTI, catheter related #. Recurrent UTI As above patient presents with outpatient diagnosis of UTI and worsening confusion along with temperature spike At presentation, severe sepsis. Follow-up admitting blood and urine culture --> admitting urine culture contaminated, repeat culture sent 11/19. OP 11/17 blood culture w/ Proteus, Enterococcus and MRSA. Pt eating OK, advance diet as di., continue with Zosyn 11/18 and vancomycin 11/17 (dropped 11/20) --> 11/17 OP U Cx out, Ampicillin from 11/21 and restart vanco 11/21. * Patient appears lethargic, oriented x1, WBC wnl, afebrile. Monitor and replete electrolytes. #. 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 Idiopathic hypotension, history of Continue with home midodrine #. Other chronic medical conditions: Lymphocytic colitis, chronic anemia, A. fib, GERD, depression, JOSE [noncompliant with CPAP] Continue home meds, budesonide on hold as patient on hydrocortisone Monitor hemoglobin Patient on flecainide, not on anticoagulation because of GI bleed for A. fib #. History of obstructive and reflux uropathy Follows with Dr. 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 Follow-up with urology as an outpatient. #. DVT prophylaxis: Heparin subcu #. 11/18 D/w Pt's dtr Kaitlynn, updated pt's status, discussed about code status, s he deferred to patient's May about the decision but wouldn't want him on machine. Called May over the phone, updated patient's status, and discussed about code status, she would want nature to take its course in an event of cardiopulmonary arrest. #. DNR/DNI. PT/OT when able. Admission and Anticipated Discharge Date Admission Date: November 17, 2021 Subjective Patient seen and examined at bedside as a follow-up of acute metabolic encephalopathy, severe sepsis most likely secondary to UTI. Patient was lying in bed, on RA, AOx2, denies pain/discomfort/trouble breathing/headache/chest pain. Per RN, no new issues overnight and pt is eating ok. Has loose BM and is on/off confused. FOBT negative. Will start probiotic. Physical Exam Physical Exam: GENERAL: AOx2. NAD, on RA. Looks old, frail and ill. HEENT: No pallor, no icterus. Pupils equal, round and reactive to light. Oral mucosa moist. NECK: No JVD, no neck masses. HEART: S1 and S2 heard. Regular rate and rhythm. + ejection murmur, no gallop. RESPIRATORY SYSTEM: Normal AP diameter. No accessory muscle use. No wheezing, occasional crackles. ABDOMEN: Soft, bowel sounds present, nontender, no distention. Suprapubic catheter in place. CENTRAL NERVOUS SYSTEM: No facial droop. Speech is clear. Obeys simple commands. Moves extremities. EXTREMITIES: No edema, no erythema seen. BUE 1 + edema. Results & Data Results & Data ([facility]) Vital Signs (Past 12 Hours) Vital Signs Pulse Resp BP Pulse Ox 11/21/21 16:00 72 11/21/21 14:00 75 19 98 11/21/21 12:00 70 14 136/69 95 11/21/21 10:00 67 14 85 L 11/21/21 08:00 71 20 111/60 97 11/21/21 06:00 73 19 96
[2021-11-21] MEDS ORDERED: FUROSEMIDE INJ 20 MG/2 ML VIAL IV ONE (17:30)
[2021-11-21] MEDS: ADVANCED PROBIOTIC 1250 MG CAPSULE PO SCH (18:14)
[2021-11-21] MEDS: MIRTAZAPINE TAB 15 MG TAB PO SCH (19:45)
[2021-11-21] MEDS: SERTRALINE HCL 100 MG TABLET PO SCH (19:45)
[2021-11-21] MEDS: VANCOMYCIN HCL 1,000 MG in SODIUM CHLORIDE 0.9% 250 ML IV SCH (20:34)
[2021-11-22] MEDS: AMPICILLIN 2,000 MG in SODIUM CHLOR 0.9% AD-VAN 100 ML IV SCH ×4 (02:53→20:10)
[2021-11-22] MEDS: FLECAINIDE ACETATE 100 MG TABLET PO SCH ×2 (09:26→20:11)
[2021-11-22] MEDS: PANTOprazole 40 MG TAB PO SCH ×2 (09:27→20:14)
[2021-11-22] MEDS: ADVANCED PROBIOTIC 1250 MG CAPSULE PO SCH (09:27)
[2021-11-22] MEDS: MIDODRINE HCL 2.5 MG TAB PO SCH ×3 (09:27→20:12)
[2021-11-22] MEDS: ZINC SULFATE 220 MG CAPSULE PO SCH ×2 (09:27→20:13)
[2021-11-22] MEDS: FERROUS SULFATE 325 MG TAB PO SCH ×2 (09:27→20:11)
[2021-11-22] MEDS: HEPARIN SOD 5,000 UNIT/0.5 ML VIAL SQ SCH ×2 (09:27→20:12)
[2021-11-22] MEDS: COLCHICINE 0.6 MG TAB PO SCH (09:28)
[2021-11-22] MEDS: CYANOCOBALAMIN (B-12) 500 MCG TABLET PO SCH (09:28)
[2021-11-22] MEDS: BUDESONIDE EC 3 MG CAP PO SCH (09:28)
[2021-11-22] MEDS: POTASSIUM CHLORIDE 10 MEQ TABCR PO SCH (09:28)
[2021-11-22] MEDS: MULTIVITAMIN TAB PO SCH (09:28)
[2021-11-22] MEDS: SODIUM CHLORIDE 0.9% INJ 10 ML VIAL FLUSH SCH ×2 (09:29→20:15)
[2021-11-22] MEDS: VANCOMYCIN HCL 1,000 MG in SODIUM CHLORIDE 0.9% 250 ML IV SCH (14:29)
--- NOTE | 2021-11-22 15:33 | Pharmacy Report ---
Pharmacy PK ABX Note - Date of Service November 22, 2021 - Assessment and Plan Assessment 11/21: * Random level this morning was 18.9. Per [employer] current regimen will be slightly above goal AUC at steady state. Will decrease frequency accordingly to better achieve target attainment 11/20: * Blood and urine cultures with no growth thus far. Scr improved today to 1.14. * Will increase maintenance dose today given improvement in renal function and check a level in ~48 hours. 11/19: 86 year old M receiving Vancomycin and Zosyn for treatment of sepsis, likely secondary to a UTI. 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 Comes from residential. * Presented for confusion and fevers. halfway did urinalysis and it was positive so they administered 1 g of IM Ceftriaxone prior to admission. * Febrile at 39.1oC upon admit. Leukocytosis improved today (15.3k-->12k). SCr elevated from baseline (~0.8) at 1.34 mg/dL. * UA appears infected with 3+ leukocyte esterase, >30 WBC and minimal epithelials. Urine and blood cultures pending. * Started on Vancomycin and Zosyn. Random vanc level was 11.8 mcg/mL following loading dose so moved scheduled vanc time up to 8 am. Plan Vancomycin * Maintenance dose: decrease to 1000 mg IV every 24 hours * Regimen is predicted to achieve target AUC/PRADEEP of 400-600 mg/L.hr * Random level ordered for: repeat in ~48 hours Pharmacy will continue to follow and will adjust dose/frequency as necessary. Thank you. Pharmacy has transitioned to AUC monitoring for vancomycin. AUC/PRADEEP is the preferred PK/PD target and is associated with decreased risk of nephrotoxicity compared to traditional trough targets.
--- NOTE | 2021-11-22 16:55 | Hospitalist Progress Note ---
Date of Service November 22, 2021 Assessment & Plan (1) Recurrent UTI (urinary tract infection): Plan: 85yo M with a PMH of microscopic colitis on budesonide, C. difficile [status post treatment in December 2020], paroxysmal atrial fibrillation not on AC (d/t GI bleed), idiopathic hypotension, history of prostate cancer and obstructive uropathy with suprapubic catheter, JOSE noncompliant w/ cpap presented 11/[address] [facility] with worsening confusion. 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 He is being managed for the following: #. Acute metabolic encephalopathy - improving #. Severe sepsis POA likely secondary to UTI, catheter related #. Recurrent UTI As above patient presents with outpatient diagnosis of UTI and worsening confusion along with temperature spike At presentation, severe sepsis. Follow-up admitting blood and urine culture --> admitting urine culture contaminated, repeat culture sent 11/19 w/ E. Faecalis. OP 11/17 blood culture w/ Proteus, Enterococcus and MRSA. Pt eating OK, advance diet as di., Zosyn 11/18 and vancomycin 11/17 (dropped 11/20) --> 11/17 OP U Cx out, Ampicillin from 11/21 and restarted vanco 11/21. * Patient appears alert but lethargic which is likely his baseline per his , oriented x2, WBC wnl, afebrile. Monitor and replete electrolytes. * Maintain Catheter care, OP uro f/u for exchange as scheduled. #. 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 #. Idiopathic hypotension, history of Continue with home midodrine #. Other chronic medical conditions: Lymphocytic colitis, chronic anemia, A. fib, GERD, depression, JOSE [noncompliant with CPAP] Continue home meds, budesonide on hold as patient on hydrocortisone Monitor hemoglobin Patient on flecainide, not on anticoagulation because of GI bleed for A. fib #. History of obstructive and reflux uropathy Follows with Dr. 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 Follow-up with urology as an outpatient. #. DVT prophylaxis: Heparin subcu #. 11/18 D/w Pt's dtr Kaitlynn, updated pt's status, discussed about code status, she deferred to patient's May about the decision but wouldn't want him on machine. Called May over the phone, updated patient's status, and discussed about code status, she would want nature to take its course in an event of cardiopulmonary arrest. #. DNR/DNI. 11/22: Long discussion held with patient's daughter and POA Kaitlynn regarding patient's current status and quality of life going forward given multiple comorbidities, decreasing appetite and poor quality of life. Hospice has been discussed with the patient in the past but patient has denied then. Patient's daughter and POA would like to explore the option of hospice and palliative care , which I think is an appropriate step at this point in time. PT/OT when able. CM to assist w/ DC planning. Admission and Anticipated Discharge Date Admission Date: November 17, 2021 Subjective Patient seen and examined at bedside as a follow-up of acute metabolic encephalopathy, severe sepsis most likely secondary to UTI. Patient was lying in bed, on RA, AOx2, denies pain/discomfort/trouble breathing/headache/chest pain. Per RN, no new issues overnight. Physical Exam Physical Exam: GENERAL: AOx2. NAD, on RA. Looks old, frail and ill. HEENT: No pallor, no icterus. Pupils equal, round and reactive to light. Oral mucosa moist. NECK: No JVD, no neck masses. HEART: S1 and S2 heard. Regular rate and rhythm. + ejection murmur, no gallop. RESPIRATORY SYSTEM: Normal AP diameter. No accessory muscle use. No wheezing, occasional crackles. ABDOMEN: Soft, bowel sounds present, nontender, no distention. Suprapubic catheter in place. CENTRAL NERVOUS SYSTEM: No facial droop. Speech is clear. Obeys simple commands. Moves extremities. EXTREMITIES: No edema, no erythema seen. BUE 1 + edema, no erythema or s/s of infection. Results & Data Results & Data ([facility]) Vital Signs (Past 12 Hours) Vital Signs Temp Pulse Resp BP Pulse Ox 11/22/21 10:00 74 19 100 11/22/21 08:15 79 22 90/51 L 94 11/22/21 08:02 74 23 178/138 H 94 11/22/21 08:00 36.5 C 64
[2021-11-22] MEDS: MIRTAZAPINE TAB 15 MG TAB PO SCH (20:13)
[2021-11-22] MEDS: SERTRALINE HCL 100 MG TABLET PO SCH (20:14)
[2021-11-23] MEDS: AMPICILLIN 2,000 MG in SODIUM CHLOR 0.9% AD-VAN 100 ML IV SCH ×4 (02:43→21:30)
[2021-11-23 06:08] LABS: BUN Creatinine Ratio 16.8 (10-20); Calcium 7.3 mg/dl (8.5-10.1); Creatinine Clr Calc Pharmacy 52.2 ml/min; Est GFR (African American) 76.6 ml/min; Est GFR (Non-African American) 66.1 ml/min; Magnesium 1.7 mg/dl (1.7-2.4); Potassium 3.6 mmol/L (3.5-5.1)
[2021-11-23 07:56] LABS: Hematocrit (blood only) 26.5 % (42-52); Hemoglobin 8.5 g/dL (14.0-18.0); Mean Corpuscular Hemoglobin 28.3 pg (25-34); Mean Corpuscular Volume 88.3 fL (80-100); Mean Platelet Volume 10.8 fL (7.4-10.4); Platelet Count 222 K/uL (130-400); RDW Coefficient of Variation 15.9 % (11.5-14.5); RDW Standard Deviation 50.9 fL (36.4-46.3); White Blood Count 13.28 K/uL (4.8-10.8)
[2021-11-23 07:58] LABS: Mean Corpuscular Hgb Conc 32.1 g/dL (32-36)
[2021-11-23] MEDS ORDERED: POTASSIUM CHLORIDE CRTAB 20 MEQ TABCR PO STA (08:00)
[2021-11-23] MEDS: MIDODRINE HCL 2.5 MG TAB PO SCH ×3 (08:54→21:25)
[2021-11-23] MEDS: PANTOprazole 40 MG TAB PO SCH ×2 (08:54→21:24)
[2021-11-23] MEDS: CYANOCOBALAMIN (B-12) 500 MCG TABLET PO SCH (08:55)
[2021-11-23] MEDS: COLCHICINE 0.6 MG TAB PO SCH (08:55)
[2021-11-23] MEDS: FERROUS SULFATE 325 MG TAB PO SCH ×2 (08:55→21:26)
[2021-11-23] MEDS: ADVANCED PROBIOTIC 1250 MG CAPSULE PO SCH (08:55)
[2021-11-23] MEDS: MULTIVITAMIN TAB PO SCH (08:55)
[2021-11-23] MEDS: ZINC SULFATE 220 MG CAPSULE PO SCH ×2 (08:55→21:23)
[2021-11-23] MEDS: FLECAINIDE ACETATE 100 MG TABLET PO SCH ×2 (08:56→21:26)
[2021-11-23] MEDS: HEPARIN SOD 5,000 UNIT/0.5 ML VIAL SQ SCH ×2 (08:56→21:25)
[2021-11-23] MEDS: BUDESONIDE EC 3 MG CAP PO SCH (08:56)
[2021-11-23] MEDS: POTASSIUM CHLORIDE 10 MEQ TABCR PO SCH (08:56)
[2021-11-23] MEDS: SODIUM CHLORIDE 0.9% INJ 10 ML VIAL FLUSH SCH ×2 (08:57→21:30)
[2021-11-23] MEDS: MAGNESIUM SULFATE / D5W 1 GM/100 ML BAG IV SCH ×2 (09:02→11:06)
--- NOTE | 2021-11-23 10:36 | Pharmacy Report ---
Pharmacy PK ABX Note - Date of Service November 23, 2021 - Assessment and Plan Assessment 11/23: Scr improved from 1.25 to 1.01 today, dose empirically increased but frequency will remain the same. 11/22: * Random level this morning was 18.9. Per [employer] current regimen will be s lightly above goal AUC at steady state. Will decrease frequency accordingly to better achieve target attainment 11/20: * Blood and urine cultures with no growth thus far. Scr improved today to 1.14. * Will increase maintenance dose today given improvement in renal function and check a level in ~48 hours. 11/19: 86 year old M receiving Vancomycin and Zosyn for treatment of sepsis, likely secondary to a UTI. 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 Comes from assisted. * Presented for confusion and fevers. [facility] and it was positive so they administered 1 g of IM Ceftriaxone prior to admission. * Febrile at 39.1oC upon admit. Leukocytosis improved today (15.3k-->12k). SCr elevated from baseline (~0.8) at 1.34 mg/dL. * UA appears infected with 3+ leukocyte esterase, >30 WBC and minimal epithelials. Urine and blood cultures pending. * Started on Vancomycin and Zosyn. Random vanc level was 11.8 mcg/mL following loading dose so moved scheduled vanc time up to 8 am. Plan Vancomycin * Maintenance dose: decrease to 1250 mg IV every 24 hours * Regimen is predicted to achieve target AUC/PRADEEP of 400-600 mg/L.hr * Random level ordered for: 11/25 @1130 Pharmacy will continue to follow and will adjust dose/frequency as necessary. Thank you. Pharmacy has transitioned to AUC monitoring for vancomycin. AUC/PRADEEP is the preferred PK/PD target and is associated with decreased risk of nephrotoxicity compared to traditional trough targets.
[2021-11-23] MEDS: VANCOMYCIN HCL 1,250 MG in SODIUM CHLORIDE 0.9% 250 ML IV SCH (12:01)
[2021-11-23] MEDS ORDERED: VANCOMYCIN HCL 1,000 MG in SODIUM CHLORIDE 0.9% 250 ML IV SCH (15:00)
--- NOTE | 2021-11-23 15:20 | Hospitalist Progress Note ---
Date of Service November 23, 2021 Assessment & Plan (1) Recurrent UTI (urinary tract infection): Plan: 85yo M with a PMH of microscopic colitis on budesonide, C. difficile [status post treatment in December 2020], paroxysmal atrial fibrillation not on AC (d/t GI bleed), idiopathic hypotension, history of prostate cancer and obstructive uropathy with suprapubic catheter, JOSE noncompliant w/ cpap presented 11/17 from [facility] with worsening confusion. 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 He is being managed for the following: #. Acute metabolic encephalopathy - improving #. Severe sepsis POA likely secondary to UTI, catheter related #. Recurrent UTI As above patient presents with outpatient diagnosis of UTI and worsening confusion along with temperature spike At presentation, severe sepsis. Follow-up admitting blood and urine culture --> admitting urine culture contaminated, repeat culture sent 11/19 w/ E. Faecalis. OP 11/17 blood culture w/ Proteus, Enterococcus and MRSA. Pt eating OK, advance diet as di., Zosyn 11/18 and vancomycin 11/17 (dropped 11/20) --> 11/17 OP U Cx out, Ampicillin from 11/21 and restarted vanco 11/21. * Patient seems at baseline mentating, procal negative, WBC borderline elevated, afebrile. Monitor and replete electrolytes. * Maintain Catheter care, OP uro f/u for exchange as scheduled. #. 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 #. Idiopathic hypotension, history of Continue with home midodrine #. Other chronic medical conditions: Lymphocytic colitis, chronic anemia, A. fib, GERD, depression, JOSE [noncompliant with CPAP] Continue home meds, budesonide on hold as patient on hydrocortisone Monitor hemoglobin Patient on flecainide, not on anticoagulation because of GI bleed for A. fib #. History of obstructive and reflux uropathy Follows with Dr. 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 Follow-up with urology as an outpatient. #. DVT prophylaxis: Heparin subcu #. 11/18 D/w Pt's dtr Kaitlynn, updated pt's status, discussed about code status, she deferred to patient's May about the decision but wouldn't want him on machine. Called May over the phone, updated patient's status, and discussed about code status, she would want nature to take its course in an event of cardiopulmonary arrest. #. DNR/DNI. 11/22: Long discussion held with patient's daughter and POA Kaitlynn regarding patient's current status and quality of life going forward given multiple comorbidities, decreasing appetite and poor quality of life. Hospice has been discussed with the patient in the past but patient has denied then. Patient's daughter and POA would like to explore the option of hospice and palliative c are, which I think is an appropriate step at this point in time. PT/OT when able. CM to assist w/ DC planning. Awaiting palcement. Admission and Anticipated Discharge Date Admission Date: November 17, 2021 Subjective Patient seen and examined at bedside as a follow-up of acute metabolic encephalopathy, severe sepsis most likely secondary to UTI. Patient was lying in bed, on RA, AOx3, denies pain/discomfort/trouble breathing/headache/chest pain. Reports feeling better. Reports ongoing left elbow pain, patient reports hitting his left elbow a while back. We will get an x-ray. Physical Exam Physical Exam: GENERAL: AOx3. NAD, on RA. Looks old, frail and ill. HEENT: No pallor, no icterus. Pupils equal, round and reactive to light. Oral mucosa moist. NECK: No JVD, no neck masses. HEART: S1 and S2 heard. Regular rate and rhythm. + ejection murmur, no gallop. RESPIRATORY SYSTEM: Normal AP diameter. No accessory muscle use. No wheezing, occasional crackles. ABDOMEN: Soft, bowel sounds present, nontender, no distention. Suprapubic catheter in place. CENTRAL NERVOUS SYSTEM: No facial droop. Speech is clear. Obeys simple commands. Moves extremities. EXTREMITIES: No edema, no erythema seen. LUE 1 + edema, no erythema or s/s of infection. Left elbow decreased ROM d/t pain. No erythema/swelling of eldow noted, tender +. Results & Data Results & Data ([facility]) Vital Signs (Past 12 Hours) Vital Signs Temp Pulse Pulse Resp BP Pulse Ox 11/23/21 11:22 36.5 C 67 20 131/65 98 11/23/21 07:32 36.4 C L 68 16 100/58 L 96 11/23/21 07:20 70 11/23/21 03:54 36.9 C 77 18 115/80 96
--- NOTE | 2021-11-23 15:55 | XRay Report ---
XR elbow LT min 3V routine CLINICAL HISTORY: left elbow pain. COMPARISON STUDY: No previous studies for comparison. TECHNIQUE: 4 left elbow views FINDINGS: Bones: The bones are osteopenic. There is no evidence for an acute fracture or dislocation. There is no lytic or blastic lesion. Joints: There is moderate to marked narrowing of the elbow joint spaces. There is no evidence for an intra-articular effusion or elevation of the fat pads. The bones are in anatomic alignment. Soft tissues: There is no focal soft tissue abnormality. There is no radiopaque foreign body. IMPRESSION: 1. No acute osseous pathology. 2. Osteopenia and osteoarthritis ACT 112: Negative or not required by law. Electronically signed by: Dinesh Sal M.D. 11/23/2021 3:54 PM
[2021-11-23] MEDS: SERTRALINE HCL 100 MG TABLET PO SCH (21:24)
[2021-11-23] MEDS: MIRTAZAPINE TAB 15 MG TAB PO SCH (21:24)
[2021-11-24] MEDS: AMPICILLIN 2,000 MG in SODIUM CHLOR 0.9% AD-VAN 100 ML IV SCH ×4 (03:03→20:34)
[2021-11-24] MEDS: CYANOCOBALAMIN (B-12) 500 MCG TABLET PO SCH (07:34)
[2021-11-24] MEDS: PANTOprazole 40 MG TAB PO SCH ×2 (07:35→20:34)
[2021-11-24] MEDS: COLCHICINE 0.6 MG TAB PO SCH (07:35)
[2021-11-24] MEDS: BUDESONIDE EC 3 MG CAP PO SCH (07:36)
[2021-11-24] MEDS: ADVANCED PROBIOTIC 1250 MG CAPSULE PO SCH (07:37)
[2021-11-24] MEDS: MULTIVITAMIN TAB PO SCH (07:37)
[2021-11-24] MEDS: ZINC SULFATE 220 MG CAPSULE PO SCH ×2 (07:38→20:36)
[2021-11-24] MEDS: FLECAINIDE ACETATE 100 MG TABLET PO SCH ×2 (07:39→20:35)
[2021-11-24] MEDS: HEPARIN SOD 5,000 UNIT/0.5 ML VIAL SQ SCH ×2 (07:39→20:35)
[2021-11-24] MEDS: MIDODRINE HCL 2.5 MG TAB PO SCH ×4 (07:39→20:11)
[2021-11-24] MEDS: FERROUS SULFATE 325 MG TAB PO SCH ×2 (07:41→20:36)
[2021-11-24 07:50] LABS: Hematocrit (blood only) 27.2 % (42-52); Hemoglobin 8.8 g/dL (14.0-18.0); Mean Corpuscular Hemoglobin 29.1 pg (25-34); Mean Corpuscular Hgb Conc 32.4 g/dL (32-36); Mean Corpuscular Volume 90.1 fL (80-100); Mean Platelet Volume 10.5 fL (7.4-10.4); Platelet Count 281 K/uL (130-400); RDW Standard Deviation 52.1 fL (36.4-46.3); Red Blood Count 3.02 M/uL (4.7-6.1); White Blood Count 9.65 K/uL (4.8-10.8)
[2021-11-24] MEDS: POTASSIUM CHLORIDE 10 MEQ TABCR PO SCH (07:50)
[2021-11-24] MEDS: SODIUM CHLORIDE 0.9% INJ 10 ML VIAL FLUSH SCH ×2 (07:51→20:38)
[2021-11-24 08:30] LABS: Calcium 7.8 mg/dl (8.5-10.1); Creatinine Clr Calc Pharmacy 45.8 ml/min; Est GFR (African American) 65.5 ml/min; Est GFR (Non-African American) 56.5 ml/min; Magnesium 2.1 mg/dl (1.7-2.4); Potassium 3.8 mmol/L (3.5-5.1)
[2021-11-24] MEDS: VANCOMYCIN HCL 1,250 MG in SODIUM CHLORIDE 0.9% 250 ML IV SCH (11:31)
--- NOTE | 2021-11-24 15:38 | Hospitalist Progress Note ---
Date of Service November 24, 2021 Assessment & Plan (1) Recurrent UTI (urinary tract infection): Plan: 85yo M with a PMH of microscopic colitis on budesonide, C. difficile [status post treatment in December 2020], paroxysmal atrial fibrillation not on AC (d/t GI bleed), idiopathic hypotension, history of prostate cancer and obstructive uropathy with suprapubic catheter, JOSE noncompliant w/ cpap presented 11/[facility] from [facility] with worsening confusion. 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 He is being managed for the following: #. Acute metabolic encephalopathy - improving #. Severe sepsis POA likely secondary to UTI, catheter related #. Recurrent UTI As above patient presents with outpatient diagnosis of UTI and worsening confusion along with temperature spike At presentation, severe sepsis. Follow-up admitting blood and urine culture --> admitting urine culture contaminated, repeat culture sent 11/19 w/ E. Faecalis. OP 11/17 blood culture w/ Proteus, Enterococcus and MRSA. Pt eating OK, advance diet as di., Zosyn 11/18 and vancomycin 11/17 (dropped 11/20) --> 11/17 OP U Cx out, Ampicillin from 11/21 and restarted vanco 11/21. * Patient seems at baseline mentating, procal negative, WBC nl, afebrile. Monitor and replete electrolytes. * Maintain Catheter care, OP uro f/u for exchange as scheduled. #. 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 #. Idiopathic hypotension, history of Continue with home midodrine #. Other chronic medical conditions: Lymphocytic colitis, chronic anemia, A. fib, GERD, depression, JOSE [noncompliant with CPAP] Continue home meds, budesonide on hold as patient on hydrocortisone Monitor hemoglobin Patient on flecainide, not on anticoagulation because of GI bleed for A. fib #. History of obstructive and reflux uropathy Follows with Dr. 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 Follow-up with urology as an outpatient. #. DVT prophylaxis: Heparin subcu #. 11/18 D/w Pt's dtr Kaitlynn, updated pt's status, discussed about code status, she deferred to patient's May about the decision but wouldn't want him on machine. Called May over the phone, updated patient's status, and discussed about code status, she would want nature to take its course in an event of cardiopulmonary arrest. #. DNR/DNI. 11/22: Long discussion held with patient's daughter and POA Kaitlynn regarding patient's current status and quality of life going forward given multiple comorbidities, decreasing appetite and poor quality of life. Hospice has been discussed with the patient in the past but patient has denied then. Patient's daughter and POA would like to explore the option of hospice and palliative care, which I think is an appropriate step at this point in time. PT/OT when able. CM to assist w/ DC planning. Awaiting palcement. Admission and Anticipated Discharge Date Admission Date: November 17, 2021 Subjective Patient seen and examined at bedside as a follow-up of acute metabolic ence phalopathy, severe sepsis most likely secondary to UTI. Patient was lying in bed, on RA, AOx3, denies pain/discomfort/trouble breathing/headache/chest pain. Reports feeling better. Reports ongoing left elbow pain, XR elbow negative for acute findings. Physical Exam Physical Exam: GENERAL: AOx3. NAD, on RA. Looks old, frail and ill. HEENT: No pallor, no icterus. Pupils equal, round and reactive to light. Oral mucosa moist. NECK: No JVD, no neck masses. HEART: S1 and S2 heard. Regular rate and rhythm. + ejection murmur, no gallop. RESPIRATORY SYSTEM: Normal AP diameter. No accessory muscle use. No wheezing, occasional crackles. ABDOMEN: Soft, bowel sounds present, nontender, no distention. Suprapubic catheter in place. CENTRAL NERVOUS SYSTEM: No facial droop. Speech is clear. Obeys simple commands. Moves extremities. EXTREMITIES: No edema, no erythema seen. LUE 1 + edema, no erythema or s/s of infection. Left elbow decreased ROM d/t pain. No erythema/swelling of eldow noted, tender +. Results & Data Results & Data ([facility]) Vital Signs (Past 12 Hours) Vital Signs Temp Pulse Pulse Pulse Resp BP Pulse Ox 11/24/21 15:18 36.8 C 71 18 94 11/24/21 10:32 36.8 C 70 18 150/67 H 98 11/24/21 09:36 67 11/24/21 07:48 36.5 C 92 H 16 138/64 95 11/24/21 03:44 36.5 C 70 18 165/80 H 94
[2021-11-24] MEDS: MIRTAZAPINE TAB 15 MG TAB PO SCH (20:36)
[2021-11-24] MEDS: SERTRALINE HCL 100 MG TABLET PO SCH (20:36)
[2021-11-25] MEDS: AMPICILLIN 2,000 MG in SODIUM CHLOR 0.9% AD-VAN 100 ML IV SCH ×2 (03:52→08:51)
[2021-11-25 06:33] LABS: Creatinine Clr Calc Pharmacy 43.6 ml/min; Est GFR (African American) 61.6 ml/min; Est GFR (Non-African American) 53.1 ml/min
[2021-11-25] MEDS: BUDESONIDE EC 3 MG CAP PO SCH (08:52)
[2021-11-25] MEDS: FLECAINIDE ACETATE 100 MG TABLET PO SCH (08:52)
[2021-11-25] MEDS: COLCHICINE 0.6 MG TAB PO SCH (08:52)
[2021-11-25] MEDS: HEPARIN SOD 5,000 UNIT/0.5 ML VIAL SQ SCH (08:53)
[2021-11-25] MEDS: PANTOprazole 40 MG TAB PO SCH (08:53)
[2021-11-25] MEDS: MIDODRINE HCL 2.5 MG TAB PO SCH (08:53)
[2021-11-25] MEDS: CYANOCOBALAMIN (B-12) 500 MCG TABLET PO SCH (08:54)
[2021-11-25] MEDS: POTASSIUM CHLORIDE 10 MEQ TABCR PO SCH (08:54)
[2021-11-25] MEDS: FERROUS SULFATE 325 MG TAB PO SCH (08:54)
[2021-11-25] MEDS: ZINC SULFATE 220 MG CAPSULE PO SCH (08:54)
[2021-11-25] MEDS: SODIUM CHLORIDE 0.9% INJ 10 ML VIAL FLUSH SCH (08:54)
[2021-11-25] MEDS: MULTIVITAMIN TAB PO SCH (08:54)
[2021-11-25] MEDS: ADVANCED PROBIOTIC 1250 MG CAPSULE PO SCH (08:54)
--- NOTE | 2021-11-25 11:08 | Discharge Summary ---
Date of Service November 25, 2021 Admission HPI Per Admitting Provider DATE OF ADMISSION: 11/17/2021. CHIEF COMPLAINT: Lethargy, confusion, severe sepsis. HISTORY OF PRESENT ILLNESS: This is an 86-year-old male with past medical history significant for atrial fibrillation, used to be on Xarelto, which was held for GI bleed, history of idiopathic hypotension, history of prostate cancer and obstructive uropathy with suprapubic catheter, history of lymphocytic colitis, obstructive sleep apnea, noncompliant with CPAP, venous insufficiency, history of urogenital candidiasis, gout arthropathy, seems to be he is losing weight 20 pounds in the last 5 weeks and he was added low-dose Remeron 3 weeks ago due to poor appetite and zinc was added for hematology for zinc deficiency found during anemia workup. Seems like last few days, he has been so weak almost shaky, not like himself, confused and today he was spiking temperatures and they found his UA was positive, thus they gave 1 gram of Rocephin IM, but as he was not getting better, he was transferred here. Currently, the patient is not alert and awake, not speaking, could not get any history from the patient.As per senior living, generally he is alert and oriented. He needs lot of assistance to ambulating. For the last couple of days, he has difficulty swallowing;. No nausea or vomiting. No diarrhea as per the senior living. No other complaints. 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 Currently, the patient received vancomycin and cefepime in the ER, his blood pressure is soft, lactate is okay at 1.4, white count is elevated at 15.2. Urine looks infected. Magnesium is 1.3. COVID is negative. Chest x-ray, no acute findings. Tried to call his daughter and , going to voicemail. ALLERGIES: TO BEE VENOM, HORNET VENOM, BLACK WALNUT, FIRE ANT. PAST MEDICAL HISTORY: As mentioned above. PAST SURGICAL HISTORY: Bilateral knee arthroplasty, bunion correction surgery, bilateral cataract surgery, colonoscopy, left sternal fracture repair, radical prostate removal, repair of the bladder opening, bilateral reverse total shoulder arthroplasty, right ureteral stent placement. MEDICATIONS: The patient is on Tylenol 650 mg p.o. q. 4 hours p.r.n., albuterol 2 puffs inhalation q. 4 hours p.r.n., bisacodyl 10 mg per rectal daily p.r.n., budesonide 9 mg p.o. a.m., colchicine 0.6 mg p.o. a.m., vitamin B12 1000 mcg p.o. a.m., Colace 100 mg p.o. daily p.r.n., epinephrine p.r.n., ferrous sulfate 325 mg p.o. b.i.d., flecainide 50 mg p.o. b.i.d., glucosamine 500 mg p.o. b.i.d., Krill oil 500 mg p.o. a.m., midodrine 2.5 mg p.o. t.i.d., mirtazapine 7.5 mg p.o. at bedtime, multivitamin one tablet p.o. a.m., omeprazole 40 mg p.o. b.i.d., Zofran 4 mg p.o. q. 4 hours p.r.n., MiraLax 17 g p.o. daily p.r.n., potassium chloride 10 mEq p.o. daily, sertraline 100 mg p.o. at bedtime, sodium chloride 10 mL b.i.d., zinc 50 mg p.o. b.i.d. FAMILY HISTORY: Significant for father has diabetes and prostate cancer. Mother has Leukemia. SOCIAL HISTORY: , no smoking, no alcohol, no drug use. REVIEW OF SYSTEMS: As per HPI. Rest of the review of systems is negative. Admission Exam Per Admitting Provider GENERAL: The patient is old and frail, not in acute distress. VITAL SIGNS: Temperature T-max 39.1, pulse 76, respiratory rate 18, blood pressure 87/51, oxygen 97% on room air. HEENT: Pupils equal, round and reactive to light. Oral mucosa moist. NECK: No JVD, no neck masses. CARDIOVASCULAR: S1 and S2 heard. Ejection systolic murmur heard. RESPIRATORY SYSTEM: Normal AP diameter. No accessory muscle use. No wheezing, no crackles. ABDOMEN: Soft. Bowel sounds present, no distention. Suprapubic catheter site clean. No drainage seen. No erythema seen. CENTRAL NERVOUS SYSTEM: Alert and awake, but not oriented, not talking. No facial droop seen. Moves extremities with painful stimuli. EXTREMITIES: No edema, no erythema seen. Principal Diagnosis Recurrent UTI Acute metabolic encephalopathy Failure to thrive History of obstructive and reflux uropathy Discharge Exam GENERAL: AOx3. NAD, on RA. Looks old, frail and ill. HEENT: No pallor, no icterus. Pupils equal, round and reactive to light. Oral mucosa moist. NECK: No JVD, no neck masses. HEART: S1 and S2 heard. Regular rate and rhythm. + ejection murmur, no gallop. RESPIRATORY SYSTEM: Normal AP diameter. No accessory muscle use. No wheezing, occasional crackles. ABDOMEN: Soft, bowel sounds present, nontender, no distention. Suprapubic catheter in place. CENTRAL NERVOUS SYSTEM: No facial droop. Speech is clear. Obeys simple commands. Moves extremities. EXTREMITIES: No edema BLE, no erythema seen. BUE 1 + edema, no erythema or s/s of infection. Left elbow decreased ROM d/t pain. No erythema/swelling of eldow noted, tender +. Discharge Data Allergies Allergy/AdvReac Type Severity Reaction Status Date / Time bee venom protein (honey bee) Allergy Severe SWELLING,SO Verified 11/17/21 21:06 B hornet venom Allergy Severe ANAPHYLAXIS Verified 11/17/21 21:06 black walnut Allergy Intermediate HIVES Verified 11/17/21 21:06 fire ant Allergy Intermediate HIVES Verified 11/17/21 21:06 Consultations 11/17/21 21:37 ED Decision to Admit Stat 11/19/21 16:59 Consult Urology Routine 11/19/21 17:01 Consult Palliative Care Routine Ordered Studies 11/21/21 05:59 US venous doppler UE LT Urgent Hospital Course (1) Recurrent UTI (urinary tract infection): 85yo M with a PMH of microscopic colitis on budesonide, C. difficile [status post treatment in December 2020], paroxysmal atrial fibrillation not on AC (d/t GI bleed), idiopathic hypotension, history of prostate cancer and obstructive uropathy with suprapubic catheter, JOSE noncompliant w/ cpap presented 11/17 from [facility] with worsening confusion. Of note, he has been losing weight lately, 20 pounds in the last 5 weeks [employer], low-dose Remeron was added 3 weeks ago [employer] due to poor appetite and zinc was added for zinc deficiency found during anemia work-up. In the last few days [employer], he became weak/shaky/not himself/confused and spiked temperature on the day of arrival; urinalysis was positive for UTI and was given 1 g of Rocephin with no improvement and hence brought to the hospital. He was managed for the following: #. Acute metabolic encephalopathy - resolved #. Severe sepsis POA likely secondary to UTI, catheter related #. Recurrent UTI As above patient presents with outpatient diagnosis of UTI and worsening confusion along with temperature spike At presentation, severe sepsis. Follow-up admitting blood and urine culture --> admitting urine culture contaminated, repeat culture sent 11/19 w/ E. Faecalis. OP 11/17 blood culture w/ Proteus, Enterococcus and MRSA. Pt eating OK, advance diet as di., Zosyn 11/18 and vancomycin 11/17 (dropped 11/20) --> 11/17 OP U Cx out, Ampicillin from 11/21 and restarted vanco 11/21. Pt discharged on augmentin and bactrim for 4 more days. * Patient seems at baseline mentating, procal negative, WBC nl, afebrile. Monitor and replete electrolytes. * Maintain Catheter care, OP uro f/u for exchange as scheduled. #. Failure to thrive Patient lost 20 pounds in last 5 weeks [employer], appetite has not been good Dietary consulted, appreciate recs. #. Idiopathic hypotension, history of Continue with home midodrine #. Other chronic medical conditions: Lymphocytic colitis, chronic anemia, A. fib, GERD, depression, JOSE [noncompliant with CPAP] Continue home meds, budesonide on hold as patient on hydrocortisone Monitor hemoglobin Patient on flecainide, not on anticoagulation because of GI bleed for A. fib #. History of obstructive and reflux uropathy Follows with Dr. 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 Follow-up with urology as an outpatient. #. DVT prophylaxis: Heparin subcu #. 11/18 D/w Pt's dtr Kaitlynn, updated pt's status, discussed about code status, s he deferred to patient's May about the decision but wouldn't want him on machine. Called May over the phone, updated patient's status, and discussed about code status, she would want nature to take its course in an event of cardiopulmonary arrest. #. DNR/DNI. 11/22: Long discussion held with patient's daughter and POA Kaitlynn regarding patient's current status and quality of life going forward given multiple comorbidities, decreasing appetite and poor quality of life. Hospice has been discussed with the patient in the past but patient has denied then. Patient's daughter and POA would like to explore the option of hospice and palliative care, which I think is an appropriate step at this point in time. Patient being discharged to SNF with following instruction at the point of discharge: Follow-up with your primary care physician within a week time. Follow-up with urology as an outpatient for ongoing care of your suprapubic catheter and reflux uropathy. Suprapubic catheter care every other day. Warm compresses for bilateral upper extremities. Regarding diet, speech evaluation as an outpatient to continue to work toward return to " easy to chew diet". Maintain aspiration and reflux precaution. Get your blood work CBC and CMP done in a week time and have the results forwarded to your primary care physician. For your catheter related UTI, you will be discharged on 4 more days of antibiotics to complete the course. Take antibiotics as prescribed. Take your medications as prescribed. Total Time Total Time Spent Total Time Spent (In Minutes): 40 Discharge Plan Discharge Items Patient Disposition: Transfer [facility] Reason For Visit: ILLNESS Discharge Diagnosis: Recurrent UTI Acute metabolic encephalopathy Failure to thrive History of obstructive and reflux uropathy Activity: Resume your previous activity Non-emergency contact: Primary Care Provider Call non-emergency contact if: you have any medication questions, your symptoms worsen and your temperature is above 101 Follow-up/Referrals: Tonny Huber, DO [Primary Care Provider] - Diet: Heart Healthy Fluids: 1800ml (7 cups) Diet Comment: Minced and Moist diet. Addtl Attending Provider Instructions: Follow-up with your primary care physician within a week time. Follow-up with urology as an outpatient for ongoing care of your suprapubic catheter and reflux uropathy. Suprapubic catheter care every other day. Warm compresses for bilateral upper extremities. Regarding diet, speech evaluation as an outpatient to continue to work toward return to " easy to chew diet". Maintain aspiration and reflux precaution. Get your blood work CBC and CMP done in a week time and have the results forwarded to your primary care physician. For your catheter related UTI, you will be discharged on 4 more days of antibiotics to complete the course. Take antibiotics as prescribed. Take your medications as prescribed. Pending Studies at Discharge: No Stand-Alone Forms: My [facility] Skilled Items Patient informed of condition?: No DNR: Yes Discharge Level of Care: Skilled Communicable Disease: No Discharge Prognosis: Stable Lines: None Urinary Catheter: Yes Medications and DC Order Prescriptions: New Advanced Probiotic 625 mg (10 billion cell) Capsule 2 cap PO DAILY 7 Days Qty: 14 RF: 0 amoxicillin-pot clavulanate 875-125 mg tablet 1 tab PO BID 4 Days Qty: 8 RF: 0 sulfamethoxazole-trimethoprim [Bactrim DS] 800-160 mg tablet 1 tab PO BID 4 Days Qty: 8 RF: 0 Continued midodrine 2.5 mg tablet 2.5 mg PO TID Qty: 90 RF: 3 polyethylene glycol 3350 [Miralax] 17 gram/dose powder 17 g PO DAILY PRN (Reason: Constipation) RF: 0 docusate sodium 100 mg capsule 100 mg PO DAILY PRN (Reason: Constipation) RF: 0 omeprazole 40 mg capsule,delayed release(DR/EC) 40 mg PO BID RF: 0 cyanocobalamin (vitamin B-12) 1,000 mcg capsule 1,000 mcg PO QAM RF: 0 ferrous sulfate 325 mg (65 mg iron) tablet 325 mg PO BID RF: 0 multivitamin [Daily Multi-Vitamin] tablet 1 tab PO QAM RF: 0 epinephrine 0.3 mg/0.3 mL auto-injector 0.3 ml IM DIRECTED PRN (Reason: hypersensitivity reaction) Qty: 1 RF: 0 glucosamine sulfate [Glucosamine] 500 mg Tablet 500 mg PO BID RF: 0 krill oil 500 mg Capsule 500 mg PO QAM RF: 0 sertraline 100 mg Tablet 100 mg PO HS RF: 0 Desitin 40 % Paste 1 applic TOPICAL BID PRN (Reason: Rash) RF: 0 budesonide 9 mg tablet,delayed and ext.release 9 mg PO QAM RF: 0 acetaminophen [Tylenol] 325 mg Tablet 650 mg PO Q4 MDD 3 GRAMS/24 HOURS PRN (Reason: PAIN/FEVER=>100) RF: 0 sodium chloride 0.9 % Solution 10 ml Q12H RF: 0 acetaminophen 650 mg Suppository 650 mg MT Q4H PRN (Reason: Fever) RF: 0 dimethicone 1 % Cream 1 applic TOPICAL TID PRN (Reason: Rash) RF: 0 ondansetron HCl 4 mg tablet 4 mg PO Q4H PRN (Reason: Nausea) RF: 0 potassium chloride [Klor-Con 10] 10 mEq tablet extended release 10 meq PO DAILY RF: 0 bisacodyl 10 mg Suppository 10 mg MT DAILY PRN (Reason: Constipation) RF: 0 flecainide 50 mg tablet 50 mg PO BID RF: 0 zinc 50 mg Tablet 50 mg PO BID RF: 0 albuterol sulfate 90 mcg/actuation HFA aerosol inhaler 2 puff INHALATION Q4H PRN (Reason: Shortness Of Breath) RF: 0 colchicine 0.6 mg tablet 0.6 mg PO QAM RF: 0 mirtazapine 7.5 mg tablet 7.5 mg PO HS RF: 0 Discontinued ceftriaxone 1 gram recon soln 1 g IM DIRECTED RF: 0 Discharge Orders: Discharge Order (Routine); Ordered 11/25/21 Ordered By: Ryan Cruz Admission Data Admit Date/Time: 11/17/21 23:32 Attending Provider: Ryan Cruz Admit Provider: Dread Cash Primary Care Provider: Tonny Huber Other Providers: Dread Cash ; Ping Salmeron at [facility] ; Errol Bullock ; Evi Reza
[2021-11-25] MEDS ORDERED: VANCOMYCIN TROUGH ONE (11:30)
== END 2021-11-25 12:28 ==
LOC: ED 19:23 → INTOOBSV 23:32 → 1E 23:32 → 2E 11-22 22:07

== ENCOUNTER 2021-12-13 14:12 | Observation (INO) ==
[2021-12-13] MEDS ORDERED: SODIUM CHLORIDE 0.9% 500 ML IV ONE (14:52)
[2021-12-13 15:26] LABS: Hematocrit (blood only) 28.5 % (40.1-51.0); Hemoglobin 9.1 g/dl (14.0-18.0); Mean Corpuscular Hemoglobin 29.9 pg (25.0-34.0); Mean Corpuscular Hgb Conc 31.9 g/dL (32.0-36.0); Mean Corpuscular Volume 93.8 fL (80.0-100.0); Mean Platelet Volume 11.7 fL (9.4-12.4); Platelet Count 300 K/uL (130-400); RDW Coefficient of Variation 16.7 % (11.5-14.5); RDW Standard Deviation 57.4 fL (36.4-46.3); Red Blood Count 3.04 M/uL (4.63-6.08)
[2021-12-13 15:28] LABS: Bilirubin Urine Negative (Negative); Blood Urine 1+ (Negative); Color Urine Yellow; Glucose Urine UA Negative (Negative); Ketones Urine Negative (Negative); Leukocyte Esterase Urine 3+ (Negative); Nitrite Urine Positive (Negative); Protein Urine 3+ (Negative); Specific Gravity Urine 1.015 (1.000-1.030); Urobilinogen Urine Negative (Negative); pH Urine >= 9.0 (4.5-7.5)
[2021-12-13 15:35] LABS: Appearance Urine Cloudy (Clear)
[2021-12-13 15:42] LABS: INR 1.2 (0.9-1.1); Partial Thromboplastin Ratio 1.4; Partial Thromboplastin Time 37.7 Seconds (21.0-31.0)
[2021-12-13 15:43] LABS: Troponin I High Sensitivity 41.8 pg/ml (0-20)
[2021-12-13 15:48] LABS: Basophils # (auto) 0.05 K/uL (0-0.2); Basophils % (auto) 0.2 %; Eosinophils # (auto) 0.01 K/uL (0-0.50); Immature Granulocytes # (auto) 0.16 K/uL (0.00-0.02); Immature Granulocytes % (auto) 0.8 %; Lymphocytes # (auto) 0.19 K/uL (1.2-3.4); Lymphocytes % (auto) 0.9 %; Monocytes # (auto) 0.69 K/uL (0.24-0.82); Monocytes % (auto) 3.4 %; Neutrophils % (auto) 94.7 %; RBC Morphology Unremarkable
[2021-12-13 15:51] LABS: Bacteria Urine 2+ (Negative); Epithelial Cell Urine 0-5 /lpf (0-5); WBC Urine >30 /hpf (0-5)
[2021-12-13 16:08] LABS: Albumin Globulin Ratio 0.8 (0.9-2); Albumin Level 2.7 gm/dl (3.4-5.0); BUN Creatinine Ratio 16.5 (10-20); Bilirubin,Total 0.4 mg/dl (0.2-1.0); Calcium 8.4 mg/dl (8.5-10.1); Creatinine Clr Calc Pharmacy 18.8 ml/min; Est GFR (African American) 27.5 ml/min; Est GFR (Non-African American) 23.7 ml/min; Globulin 3.5 gm/dl (2.5-4.0); Magnesium 1.4 mg/dl (1.7-2.4); Phosphorus 3.2 mg/dl (2.5-4.9); Potassium 4.4 mmol/L (3.5-5.1); Total Protein 6.2 gm/dl (6.0-8.3)
--- NOTE | 2021-12-13 16:10 | XRay Report ---
XR chest 1V portable CLINICAL HISTORY: SEPSIS. COMPARISON STUDY: 11/17/2021 TECHNIQUE: 1 view of the chest FINDINGS: Single frontal view of the chest demonstrates the cardiomediastinal silhouette to be within normal li mits. The aorta is atherosclerotic and ectatic. There has been interval development of asymmetric den sity involving the right lower lung when compared to the left. The presence of a posterior infiltrate cannot be excluded. Follow-up PA and lateral radiographs are recommended for further evaluation. The re is no evidence for pleural effusion. There is no evidence for vascular congestion. There is no acu te osseous pathology. IMPRESSION: 1. Suspicion of a right lower lobe infiltrate posteriorly. Follow-up PA and lateral radiographs are r ecommended for further evaluation. ACT 112: Negative or not required by law. Electronically signed by: Dinesh Sal M.D. 12/13/2021 4:08 PM
--- NOTE | 2021-12-13 16:16 | CT Scan Report ---
CT head/brain wo con CLINICAL HISTORY: ams COMPARISON STUDY: 05/29/2020 CT DOSE: 537.48 mGy.cm TECHNIQUE: Standard CT of the Brain was performed without IV contrast. A dose lowering technique was utilized adhering to the principles of ALARA. FINDINGS: Extraaxial space: There is no evidence for subdural hematoma. There are no extra-axial fluid collecti ons. Ventricles and cisterns: The ventricles are mildly dilated bilaterally. There is no evidence for midl ine shift or mass effect. Parenchyma: There is no subarachnoid or intraparenchymal hemorrhage. There is no evidence for an acut e infarct or cerebral edema. There is mild cerebral cortical atrophy and decreased attenuation in the periventricular white matter representing remote small vessel disease. There are no gross mass lesio ns. Osseous structures: There is no evidence for an acute fracture. The visualized paranasal sinuses are clear. The mastoid air cells are clear bilaterally. Soft tissues: There is no evidence for focal soft tissue swelling. IMPRESSION: 1. No acute intracerebral pathology. 2. Mild cerebral cortical atrophy and remote small vessel disease. ACT 112: Negative or not required by law. Electronically signed by: Dinesh Sal M.D. 12/13/2021 4:14 PM
[2021-12-13] MEDS ORDERED: PIPERACILLIN/TAZOBACTAM 4.5 GM/120 ML BAG IV ONE (16:19)
[2021-12-13] MEDS ORDERED: SODIUM CHLORIDE 0.9% 1000ML 1,000 ML IV ONE (16:24)
[2021-12-13] MEDS: MAGNESIUM SULFATE / D5W 1 GM/100 ML BAG IV SCH ×2 (17:14→18:18)
--- NOTE | 2021-12-13 17:19 | Emergency Department Note ---
Impression & Plan Sepsis, Acute renal failure, Hypomagnesemia, Pneumonia, Acute UTI, Hydronephrosis due to obstruction of ureter, Ureterolithiasis, Elevated troponin ED Provider Note NAME: SEB DAVIS AGE: 86 SEX: M ARRIVES VIA: Ambulance INFORMANT: ED PROVIDER(S): Shin Diana MD CHIEF COMPLAINT: Weakness PLAN: Disposition: Admit MEDICAL DECISION MAKING: The patient is a pleasant 86-year-old gentleman with a past medical history of chronic suprapubic catheter, paroxysmal atrial fibrillation, JOSE who presents emergency department from his care home facility at [facility] for worsening mental status with decreased oral intake over the past 24 hours. The patient's did arrive to the bedside and explains that following the patient's recent hospitalization at the end of November they have been exploring and considering beginning hospice care as they understand that the patient is likely to continue to decline. However his clinical status has precipitously changed over the past 24 hours and they are open for admission for medical optimization prior to transitioning to hospice. He reports that yesterday he was doing okay in the morning when he saw family but became worse shortly thereafter and into this morning. Reports since his discharge he did fall but given he did not have any significant change in his mental status at that time last week he was not sent back to the hospital. On arrival, the patient is acute on chronically ill-appearing but no acute distress, afebrile with stable vital signs. His O2 saturation was 88% on room air and so was placed on nasal cannula. He has generalized weakness throughout without focal weakness. He has decubitus ulcer in the sacral region as well as mid thoracic back. EKG without overt acute ischemia. Chest x-ray with question of right lower lobe infiltrate/pneumonia. CT head negative for acute process. WBC 20K increased from prior with neutrophil predominance and left shift. H/H similar to prior. Platelets within normal limits. Chemistry without metabolic acidosis. However creatinine is 2.3 representing acute renal failure. Lactic acid 0.6 however procalcitonin is elevated at 12.3. UA is suspicious for infection in the setting of the patient's suprapubic catheter. High-sensitivity troponin 41.8, nonspecific. Magnesium 1.4 with repletion initiated. Patient's does agree with plan for admission for further management is interested in proceeding with transition to hospice care. Empiric Zosyn was ordered for sepsis secondary to pneumonia versus UTI per patient's most recent urine cultures. IVF hydration was provided cautiously in the setting of the patient's acute renal failure to avoid respiratory failure and so 30 cc/kg was not necessarily met. CT abd/pelvis pending. Case was discussed with Dr. Cruz, [facility] hospitalist, who will evaluate the patient for admission. CT abd/pelvis subsequently demonstrates moderate to marked right sided hydronephrosis and hydroureter with 2 obstructing ureteral stones. Admitting team aware and consult urology. Triage Nursing notes reviewed and agree them. Prior medical records reviewed Vital Signs: reviewed and remarkable for no significant abnormalities Differential diagnosis: Sepsis, UTI, pneumonia, metabolic, electrolyte abnormalities, cardiac sources, intracerebral event, toxicologic, neurologic, as well as other pathologies. ER treatment provided: See below. Diagnostics interpreted by me: ECG: NSR, 82 bpm, no ectopy, incomplete RBBB, no overt ST elevation or depression. Cardiac Monitoring: An order for continuous cardiac monitoring was placed and demonstrated NSR, 82 bpm, no ectopy. Laboratory studies: See below Imaging studies: See below Consultation(s): Case was discussed with Dr. Cruz, [facility] hospitalist, who will evaluate the patient for admission. HPI: The patient is a pleasant 86-year-old gentleman with a past medical history of chronic suprapubic catheter, paroxysmal atrial fibrillation, JOSE who presents emergency department from his care home facility at [facility] for worsening mental status with decreased oral intake over the past 24 hours. The patient's did arrive to the bedside and explains that following the patient's recent hospitalization at the end of November they have been exploring and considering beginning hospice care as they understand that the patient is likely to continue to decline. However his clinical status has precipitously changed over the past 24 hours and they are open for admission for medical optimization prior to transitioning to hospice. He reports that yesterday he was doing okay in the morning when he saw family but became worse shortly thereafter and into this morning. Reports since his discharge he did fall but given he did not have any significant change in his mental status at that time last week he was not sent back to the hospital. ROS: See above HPI for pertinent positives & negatives. A total of 10 systems reviewed and were otherwise negative. VITALS:See Below PHYSICAL EXAMINATION: GENERAL: Awake, alert, acute on chronically ill-appearing, in no distress HENT: Normocephalic, atraumatic. Oropharynx with dry mucous membranes. EYES: Normal conjunctiva. Sclera non-icteric. NECK: Supple. No nuchal rigidity. FROM. No JVD. RESPIRATORY: Clear to auscultation. CARDIAC: Regular rate, normal rhythm. Extremities warm and well perfused. Pulses equal. ABDOMEN: Soft, non-distended. No tenderness to palpation. No rebound or guarding. No masses. RECTAL: Deferred. MUSCULOSKELETAL: Chest examination reveals no tenderness. The back is symmetrical on inspection without obvious abnormality. There is no CVA tenderness to palpation. No joint edema. LOWER EXTREMITIES: Calves are equal size bilaterally and non-tender. No edema. No discoloration. NEURO: No focal sensory or motor deficits noted. Generalized weakness with 4/5 strength. SKIN: Decubitus ulcer to the sacral and mid thoracic region. No rash or jaundice noted. ED COURSE: Critical Care: I have personally spent greater than 75 minutes of critical care time in the d irect management of this patient. This includes bedside care, interpretation of diagnostic studies, and testing, discussion with consultants, patient, and family members, and other required patient management activities. This 75 minutes is in excess of all separately billable procedures. Shin Diana MD Past Med/Surg History Medical History Anemia Anticoagulant long-term use Chronic low back pain Chronic venous stasis Depression Encounter for pre-operative examination Facial pain History of Clostridioides difficile colitis History of prostate cancer (~1999) Followed by Urology History of UTI Hypotension Lymphocytic colitis Lymphocytic colitis Obstructive and reflux uropathy Obstructive sleep apnea CPAP Osteitis pubis Paroxysmal atrial fibrillation Followed by Cardiology Presence of suprapubic catheter Right foot pain Sacral decubitus ulcer Severe sepsis with septic shock hx Syncope Ureteral stone with hydronephrosis Urinary retention Self Catheterization Walker as ambulation aid Surgical History H/O elbow surgery H/O pelvic surgery repair of a bladder fistula at [facility] [place] in 11/2020. History of colonoscopy History of prostate surgery S/P bunionectomy S/P cataract surgery S/P cystoscopy with ureteral stent placement S/P total knee arthroplasty Bilateral Status post total shoulder arthroplasty Bilateral Family History Father Prostate cancer Diabetes Mother Leukemia Cancer Denies family history of Ovarian cancer Alzheimer disease Crohn's disease Myocardial infarction Breast cancer Lung cancer Colorectal cancer Hypertension Stroke Social History Smoking Status: Never smoker Second Hand Exposure: No; Hx Alcohol Use: No Hx Substance Use: No Preferred Language: Kazakh Communication Ability: Effective Visual Impairment: No Limitations Hearing Ability: Normal Community Health Nurse Required: No Beliefs That Will Affect Care: None marital status: Current Living Situation: [facility] current occupational status: retired Feels Safe at Home: Yes Childhood Exposure to Second-Hand Smoke: No Dental Care, Regularly: Yes Physical Activity Frequency: 1-2 Times per Week Seatbelt Use: always Sunscreen Use: No Assistive Devices: Glasses and Oxygen - Continuous Allergies Allergies Allergy/AdvReac Type Severity Reaction Status Date / Time bee venom protein (honey bee) Allergy Severe SWELLING,SO Verified 12/13/21 19:08 B hornet venom Allergy Severe ANAPHYLAXIS Verified 12/13/21 19:08 black walnut Allergy Intermediate HIVES Verified 12/13/21 19:08 fire ant Allergy Intermediate HIVES Verified 12/13/21 19:08 Home Meds Home Medications Medication Instructions Recorded Confirmed epinephrine 0.3 mg/0.3 mL 0.3 ml IM DIRECTED PRN #1 ea 02/28/19 12/13/21 injection, auto-injector multivitamin (Daily Multi-Vitamin) 1 tab PO QAM 02/28/19 12/13/21 budesonide 9 mg tablet,delayed and 9 mg PO QAM 05/07/21 12/13/21 extended release sertraline 100 mg tablet 100 mg PO HS 05/07/21 12/13/21 zinc oxide-cod liver oil 40 % 1 applic TOPICAL BID PRN 05/07/21 12/13/21 topical paste (Desitin) omeprazole 40 mg capsule,delayed 40 mg PO BID 05/14/21 12/13/21 release acetaminophen 325 mg tablet 650 mg PO Q4 PRN MDD 3 GRAMS/24 06/02/21 12/13/21 (Tylenol) HOURS sodium chloride 0.9 % 10 ml Q12H 06/02/21 12/13/21 cyanocobalamin (vitamin B-12) 1,000 mcg PO QAM 06/18/21 12/13/21 1,000 mcg capsule ferrous sulfate 325 mg (65 mg 325 mg PO BID 06/18/21 12/13/21 iron) tablet acetaminophen 650 mg rectal 650 mg WV Q4H PRN 11/17/21 12/13/21 suppository albuterol sulfate 90 mcg/actuation 2 puff INHALATION Q4H PRN 11/17/21 12/13/21 aerosol inhaler colchicine 0.6 mg tablet 0.6 mg PO QAM 11/17/21 12/13/21 dimethicone 1 % topical cream 1 applic TOPICAL Q8 PRN 11/17/21 12/13/21 flecainide 50 mg tablet 50 mg PO AMHS 11/17/21 12/13/21 mirtazapine 7.5 mg tablet 7.5 mg PO HS 11/17/21 12/13/21 ondansetron HCl 4 mg tablet 4 mg PO Q4H PRN 11/17/21 12/13/21 potassium chloride 10 mEq 10 meq PO DAILY 11/17/21 12/13/21 tablet,extended release (Klor-Con) zinc oxide-cod liver oil 40 % 1 applic TOPICAL QS 12/13/21 12/13/21 topical paste (Desitin) Previous Rx's Medication Instructions Recorded midodrine 2.5 mg tablet 2.5 mg PO TID #90 tab 02/24/21 Results & Data (ED) Vital Signs Vital Signs - 24 hr 12/13/21 14:05 12/13/21 14:24 12/13/21 14:30 Temperature 37.1 C Temperature Source Axillary Pulse Rate 81 81 Pulse Rate [Apical] 80 Pulse Rate from SpO2 Sensor 82 Pulse Rhythm [Apical] Regular Pulse Strength [Apical] Normal Respiratory Rate 18 21 23 Respiratory Effort / Characteristics Non-Labored Spontaneous Respiratory Depth Normal Respiratory Pattern Blood Pressure Blood Pressure [Right Arm] 131/72 Blood Pressure Mean Blood Pressure Mean [Right Arm] 91 Blood Pressure Position Blood Pressure Position [Right Arm] Lying Pulse Oximetry 99 99 Oxygen Delivery Method Nasal Cannula Oxygen Flow Rate 2 Sepsis Recent Fever Within 48 Hours Sepsis New/Unexplained Change in Mental Status Sepsis Action Taken by Nursing 12/13/21 14:36 12/13/21 15:00 12/13/21 15:06 Temperature Temperature Source Pulse Rate 81 79 Pulse Rate [Apical] Pulse Rate from SpO2 Sensor 82 Pulse Rhythm [Apical] Pulse Strength [Apical] Respiratory Rate 79 H 26 H 24 Respiratory Effort / Characteristics Non-Labored Spontaneous Respiratory Depth Normal Respiratory Pattern Regular Blood Pressure 131/72 124/69 Blood Pressure [Right Arm] Blood Pressure Mean 91 87 Blood Pressure Mean [Right Arm] Blood Pressure Position Lying Blood Pressure Position [Right Arm] Pulse Oximetry 99 96 Oxygen Delivery Method Nasal Cannula Oxygen Flow Rate 2 Sepsis Recent Fever Within 48 Hours No Sepsis New/Unexplained Change in Mental Status Yes Sepsis Action Taken by Nursing Physician Notified 12/13/21 15:30 12/13/21 16:04 12/13/21 16:30 Temperature Temperature Source Pulse Rate 77 77 73 Pulse Rate [Apical] Pulse Rate from SpO2 Sensor 77 77 73 Pulse Rhythm [Apical] Pulse Strength [Apical] Respiratory Rate 19 22 21 Respiratory Effort / Characteristics Respiratory Depth Respiratory Pattern Blood Pressure 116/58 L Blood Pressure [Right Arm] Blood Pressure Mean 77 Blood Pressure Mean [Right Arm] Blood Pressure Position Blood Pressure Position [Right Arm] Pulse Oximetry 98 95 93 Oxygen Delivery Method Room Air Oxygen Flow Rate Sepsis Recent Fever Within 48 Hours Sepsis New/Unexplained Change in Mental Status Sepsis Action Taken by Nursing 12/13/21 17:12 12/13/21 17:30 Temperature Temperature Source Pulse Rate Pulse Rate [Apical] Pulse Rate from SpO2 Sensor 79 74 Pulse Rhythm [Apical] Pulse Strength [Apical] Respiratory Rate Respiratory Effort / Characteristics Respiratory Depth Respiratory Pattern Blood Pressure Blood Pressure [Right Arm] Blood Pressure Mean Blood Pressure Mean [Right Arm] Blood Pressure Position Blood Pressure Position [Right Arm] Pulse Oximetry 92 94 Oxygen Delivery Method Oxygen Flow Rate Sepsis Recent Fever Within 48 Hours Sepsis New/Unexplained Change in Mental Status Sepsis Action Taken by Nursing Laboratory Data Attestation: I reviewed the patient's lab results. Result diagrams: 12/13/21 14:10 12/13/21 14:10 Lab Results 12/13/21 12/13/21 12/13/21 Range/Units 14:10 14:10 14:10 WBC 20.50 H (4.8-10.8) K/ul RBC 3.04 L (4.63-6.08) M/uL Hgb 9.1 L (14.0-18.0) g/dl Hct 28.5 L (40.1-51.0) % MCV 93.8 (80.0-100.0) fL MCH 29.9 (25.0-34.0) pg MCHC 31.9 L (32.0-36.0) g/dL RDW Std Deviation 57.4 H (36.4-46.3) fL RDW Coeff of Gordo 16.7 H (11.5-14.5) % Plt Count 300 (130-400) K/uL MPV 11.7 (9.4-12.4) fL Immature Gran % (Auto) 0.8 % Neut % (Auto) 94.7 % Lymph % (Auto) 0.9 % Calhoun % (Auto) 3.4 % Eos % (Auto) 0.0 % Baso % (Auto) 0.2 % Neut # (Auto) 19.40 H (1.4-6.5) K/uL Lymph # (Auto) 0.19 L (1.2-3.4) K/uL Calhoun # (Auto) 0.69 (0.24-0.82) K/uL Eos # (Auto) 0.01 (0-0.50) K/uL Baso # (Auto) 0.05 (0-0.2) K/uL Immature Gran # (Auto) 0.16 H (0.00-0.02) K/uL RBC Morphology Unremarkable PT 13.0 H (9.0-12.0) Seconds INR 1.2 H (0.9-1.1) APTT 37.7 H (21.0-31.0) Seconds PTT Ratio 1.4 Sodium 138 (136-145) mmol/L Potassium 4.4 (3.5-5.1) mmol/L Chloride 104 (98-107) mmol/L Carbon Dioxide 24 (21-32) mmol/L Anion Gap 10 (3-11) BUN 39 H (6-23) mg/dl Creatinine 2.36 H (0.6-1.4) mg/dl Est Cr Clr Drug Dosing 18.8 ml/min Est GFR ( Amer) 27.5 ml/min Est GFR (Non-Af Amer) 23.7 ml/min BUN/Creatinine Ratio 16.5 (10-20) Glucose 115 H (70-99(Fasting)) mg/dl Lactate (0.4-2.0) mmol/L Calcium 8.4 L (8.5-10.1) mg/dl Phosphorus 3.2 (2.5-4.9) mg/dl Magnesium 1.4 L (1.7-2.4) mg/dl Total Bilirubin 0.4 (0.2-1.0) mg/dl AST 13 (13-39) U/L ALT 10 (7-52) U/L Alkaline Phosphatase 114 H (34-104) U/L Troponin I High Sens 41.8 H (0-20) pg/ml Total Protein 6.2 (6.0-8.3) gm/dl Albumin 2.7 L (3.4-5.0) gm/dl Globulin 3.5 (2.5-4.0) gm/dl Albumin/Globulin Ratio 0.8 L (0.9-2) Procalcitonin (0-0.5) ng/ml 12/13/21 12/13/21 Range/Units 14:10 15:45 WBC (4.8-10.8) K/ul RBC (4.63-6.08) M/uL Hgb (14.0-18.0) g/dl Hct (40.1-51.0) % MCV (80.0-100.0) fL MCH (25.0-34.0) pg MCHC (32.0-36.0) g/dL RDW Std Deviation (36.4-46.3) fL RDW Coeff of Gordo (11.5-14.5) % Plt Count (130-400) K/uL MPV (9.4-12.4) fL Immature Gran % (Auto) % Neut % (Auto) % Lymph % (Auto) % Calhoun % (Auto) % Eos % (Auto) % Baso % (Auto) % Neut # (Auto) (1.4-6.5) K/uL Lymph # (Auto) (1.2-3.4) K/uL Calhoun # (Auto) (0.24-0.82) K/uL Eos # (Auto) (0-0.50) K/uL Baso # (Auto) (0-0.2) K/uL Immature Gran # (Auto) (0.00-0.02) K/uL RBC Morphology PT (9.0-12.0) Seconds INR (0.9-1.1) APTT (21.0-31.0) Seconds PTT Ratio Sodium (136-145) mmol/L Potassium (3.5-5.1) mmol/L Chloride (98-107) mmol/L Carbon Dioxide (21-32) mmol/L Anion Gap (3-11) BUN (6-23) mg/dl Creatinine (0.6-1.4) mg/dl Est Cr Clr Drug Dosing ml/min Est GFR ( Amer) ml/min Est GFR (Non-Af Amer) ml/min BUN/Creatinine Ratio (10-20) Glucose (70-99(Fasting)) mg/dl Lactate 0.6 (0.4-2.0) mmol/L Calcium (8.5-10.1) mg/dl Phosphorus (2.5-4.9) mg/dl Magnesium (1.7-2.4) mg/dl Total Bilirubin (0.2-1.0) mg/dl AST (13-39) U/L ALT (7-52) U/L Alkaline Phosphatase (34-104) U/L Troponin I High Sens (0-20) pg/ml Total Protein (6.0-8.3) gm/dl Albumin (3.4-5.0) gm/dl Globulin (2.5-4.0) gm/dl Albumin/Globulin Ratio (0.9-2) Procalcitonin 12.32 H (0-0.5) ng/ml Administered Medications Ferrous Sulfate (Ferrous Sulfate 325 Mg Tab) 325 mg PO BID HERLINDA Stop: 01/12/22 20:59 Last Admin: 12/13/21 22:07 Dose: 325 mg Documented by: [id number] Flecainide Acetate (Flecainide Acetate 100 Mg Tablet) 50 mg PO BID HERLINDA Stop: 01/12/22 20:59 Last Admin: 12/13/21 22:06 Dose: 50 mg Documented by: [id number] Glucosamine Sulfate (Glucosamine Sulfate 500 Mg Cap) 500 mg PO BID HERLINDA Stop: 01/12/22 20:59 Last Admin: 12/13/21 22:07 Dose: 500 mg Documented by: [id number] Heparin Sodium (Porcine) (Heparin Sod 5,000 Unit/0.5 Ml Vial) 5,000 units SQ Q12 HERLINDA Stop: 01/12/22 20:59 Last Admin: 12/13/21 22:08 Dose: Not Given Documented by: [id number] Sodium Chloride (Nss 1000ml) 1,000 mls @ 65 mls/hr IV .[id number] [facility] Stop: 12/15/21 00:46 Last Admin: 12/13/21 18:59 Dose: 65 mls/hr Documented by: [id number] Acetaminophen (Ofirmev) 1,000 mg in 100 mls @ 400 mls/hr IV Q8H PRN PRN Reason: pain/fever Stop: 12/17/21 00:39 Last Admin: 12/14/21 01:05 Dose: 400 mls/hr Documented by: [id number] Mirtazapine (Mirtazapine Tab 15 Mg Tab) 7.5 mg PO [facility] Stop: 01/12/22 20:59 Last Admin: 12/13/21 22:05 Dose: 7.5 mg Documented by: [id number] Pantoprazole Sodium (Pantoprazole 40 Mg Tab) 40 mg PO BID [facility]; Protocol Stop: 01/12/22 20:59 Last Admin: 12/13/21 22:05 Dose: 40 mg Documented by: [id number] Sertraline HCl (Sertraline Hcl 100 Mg Tablet) 100 mg PO [facility] Stop: 01/12/22 20:59 Last Admin: 12/13/21 22:04 Dose: 100 mg Documented by: [id number] Discontinued Medications Sodium Chloride (Nss) 500 mls @ 999 mls/hr IV .Q31M ONE Stop: 12/13/21 15:22 Last Infusion: 12/13/21 15:37 Dose: 0 mls/hr Documented by: [id number] Admin: 12/13/21 15:06 Dose: 999 mls/hr Documented by: [id number] Piperacillin Sod/Tazobactam Sod (Zosyn) 4.5 gm in 120 mls @ 240 mls/hr IV NOW ONE Stop: 12/13/21 16:48 Last Infusion: 12/13/21 17:44 Dose: 0 mls/hr Documented by: [id number] Admin: 12/13/21 17:13 Dose: 240 mls/hr Documented by: [id number] Magnesium Sulfate/Dextrose (Magnesium Sulfate / D5w) 1 gm in 100 mls @ 100 mls/hr IV Q1H [facility] Stop: 12/13/21 18:22 Last Infusion: 12/13/21 19:33 Dose: 0 mls/hr Documented by: [id number] Admin: 12/13/21 18:18 Dose: 100 mls/hr Documented by: [id number] Infusion: 12/13/21 18:18 Dose: 0 mls/hr Documented by: [id number] Admin: 12/13/21 17:14 Dose: 100 mls/hr Documented by: [id number] Sodium Chloride (Nss 1000ml) 1,000 mls @ 999 mls/hr IV .Q1H1M ONE Stop: 12/13/21 17:24 Last Infusion: 12/13/21 19:00 Dose: 0 mls/hr Documented by: [id number] Admin: 12/13/21 17:44 Dose: 999 mls/hr Documented by: [id number] Imaging Data Radiologist's Impression: Chest X-Ray 12/13/21 14:52 XR chest 1V portable CLINICAL HISTORY: SEPSIS. COMPARISON STUDY: 11/17/2021 TECHNIQUE: 1 view of the chest FINDINGS: Single frontal view of the chest demonstrates the cardiomediastinal silhouette to be within normal limits. The aorta is atherosclerotic and ectatic. There has been interval development of asymmetric density involving the right lower lung when compared to the left. The presence of a posterior infiltrate cannot be excluded. Follow-up PA and lateral radiographs are recommended for further evaluation. There is no evidence for pleural effusion. There is no evidence for vascular congestion. There is no acute osseous pathology. IMPRESSION: 1. Suspicion of a right lower lobe infiltrate posteriorly. Follow-up PA and lateral radiographs are recommended for further evaluation. ACT 112: Negative or not required by law. Electronically signed by: Dinesh Sal M.D. 12/13/2021 4:[address] 12/13/21 14:52 CT head/brain wo con CLINICAL HISTORY: ams COMPARISON STUDY: 05/29/2020 CT DOSE: 537.48 mGy.cm TECHNIQUE: Standard CT of the Brain was performed without IV contrast. A dose lowering technique was utilized adhering to the principles of ALARA. FINDINGS: Extraaxial space: There is no evidence for subdural hematoma. There are no extra-axial fluid collections. Ventricles and cisterns: The ventricles are mildly dilated bilaterally. There is no evidence for midline shift or mass effect. Parenchyma: There is no subarachnoid or intraparenchymal hemorrhage. There is no evidence for an acute infarct or cerebral edema. There is mild cerebral cortical atrophy and decreased attenuation in the periventricular white matter representing remote small vessel disease. There are no gross mass lesions. Osseous structures: There is no evidence for an acute fracture. The visualized paranasal sinuses are clear. The mastoid air cells are clear bilaterally. Soft tissues: There is no evidence for focal soft tissue swelling. IMPRESSION: 1. No acute intracerebral pathology. 2. Mild cerebral cortical atrophy and remote small vessel disease. ACT 112: Negative or not required by law. Electronically signed by: Dinesh Sal M.D. 12/13/2021 4:14 PM Abdomen/Pelvis CT 12/13/21 16:19 CT abd pelvis wo con CLINICAL HISTORY: ARF, sepsis COMPARISON STUDY: 02/10/2021 CT DOSE: 714.92 mGy.cm TECHNIQUE: Standard CT of the Abdomen and Pelvis was performed without IV contrast. The patient did not receive oral contrast. A dose lowering technique was utilized adhering to the principles of ALARA. FINDINGS: Lung base: There is a moderately large right pleural effusion with right basilar atelectasis now present. There is also small left pleural effusion now seen with linear atelectasis at the left lung base as well. The heart is enlarged with coronary artery calcification. Abdominal cavity: There is no evidence for abdominal mass, adenopathy or ascites. Liver: The liver is homogeneous in attenuation on these limited noncontrast images.. Spleen: The spleen is homogeneous in attenuation on these limited noncontrast images. Pancreas: The pancreas is homogeneous in attenuation on these limited nonco ntrast images. Gall Bladder: The gallbladder is distended with no evidence for cholelithiasis, wall thickening or pericholecystic edema.. Adrenal glands: The adrenal glands are normal in size and attenuation on these limited noncontrast images. Kidneys: There is swelling of the right kidney when compared to the left with moderate to marked hydronephrosis and hydroureter present. There are 2 calculi seen within the distal right ureter, one at the UPJ and one just proximal to the UPJ each measuring approximately 5 mm. Additional nonobstructing right renal calculi are present. There is also nonobstructing left renal calculus and renal vascular calcification. There is evidence for left renal cyst. Bowel: The bowel loops are normally placed within the abdomen and pelvis without evidence for dilatation or obstruction. There is no evidence for mass lesion. There are no inflammatory changes present. There is no evidence for free air. Bladder: There is collapse of the bladder with no evidence for focal bladder wall thickening, calculus or diverticulum. : There is no evidence for pelvic mass or adenopathy. Vasculature: There is no evidence for focal aneurysmal dilatation of the a bdominal aorta. Atherosclerotic calcification is present. Osseous structures: There is no acute osseous pathology. Bones are osteopenic. Degenerative changes are seen involving the lumbar spine and throughout the pelvis. IMPRESSION: 1. Moderate to marked right-sided hydronephrosis and hydroureter with 2 distal right ureteral calculi present. 2. Nonobstructing renal calculi are also present bilaterally with no evidence fo r left-sided hydronephrosis. 3. No other evidence for acute intra-abdominal or pelvic abnormality on these limited noncontrast images. 4. There is moderate to marked right pleural effusion and right basilar atelectasis. There is small left pleural effusion is also present. 5. Additional nonacute findings are delineated above. ACT 112: Negative or not required by law. Electronically signed by: Dinesh Sal M.D. 12/13/2021 5:27 PM Discharge Plan Visit Data Chief Complaint: Altered Mental Status Stated Complaint: AMS Discharge Problem: Sepsis, Acute renal failure, Hypomagnesemia, Pneumonia, Acute UTI, Hydronephrosis due to obstruction of ureter, Ureterolithiasis, Elevated troponin Patient Disposition: Admitted As Inpatient Discharge Instructions Interventions: ED Discharge Assessment Last Done: 12/13/21 19:53 Discharge Problem: Sepsis Qualifiers: Sepsis type: sepsis due to unspecified organism Sepsis acute organ dysfunction status: with acute organ dysfunction Severe sepsis acute organ dysfunction type: acute renal failure Acute renal failure type: unspecified Severe sepsis shock status: without septic shock Qualified Code(s): A41.9 - Sepsis, unspecified organism Acute renal failure Qualifiers: Acute renal failure type: unspecified Qualified Code(s): N17.9 - Acute kidney failure, unspecified Pneumonia Qualifiers: Pneumonia type: due to unspecified organism Laterality: right Lung location: lower lobe of lung Qualified Code(s): J18.9 - Pneumonia, unspecified organism
--- NOTE | 2021-12-13 17:29 | CT Scan Report ---
CT abd pelvis wo con CLINICAL HISTORY: ARF, sepsis COMPARISON STUDY: 02/10/2021 CT DOSE: 714.92 mGy.cm TECHNIQUE: Standard CT of the Abdomen and Pelvis was performed without IV contrast. The patient did not receive oral contrast. A dose lowering technique was utilized adhering to the principles of BUD Newsome. FINDINGS: Lung base: There is a moderately large right pleural effusion with right basilar atelectasis now pres ent. There is also small left pleural effusion now seen with linear atelectasis at the left lung base as well. The heart is enlarged with coronary artery calcification. Abdominal cavity: There is no evidence for abdominal mass, adenopathy or ascites. Liver: The liver is homogeneous in attenuation on these limited noncontrast images.. Spleen: The spleen is homogeneous in attenuation on these limited noncontrast images. Pancreas: The pancreas is homogeneous in attenuation on these limited noncontrast images. Gall Bladder: The gallbladder is distended with no evidence for cholelithiasis, wall thickening or pe richolecystic edema.. Adrenal glands: The adrenal glands are normal in size and attenuation on these limited noncontrast im ages. Kidneys: There is swelling of the right kidney when compared to the left with moderate to marked hydr onephrosis and hydroureter present. There are 2 calculi seen within the distal right ureter, one at t he UPJ and one just proximal to the UPJ each measuring approximately 5 mm. Additional nonobstructing right renal calculi are present. There is also nonobstructing left renal calculus and renal vascular calcification. There is evidence for left renal cyst. Bowel: The bowel loops are normally placed within the abdomen and pelvis without evidence for dilatat ion or obstruction. There is no evidence for mass lesion. There are no inflammatory changes present. There is no evidence for free air. Bladder: There is collapse of the bladder with no evidence for focal bladder wall thickening, calculu s or diverticulum. : There is no evidence for pelvic mass or adenopathy. Vasculature: There is no evidence for focal aneurysmal dilatation of the abdominal aorta. Atheroscler otic calcification is present. Osseous structures: There is no acute osseous pathology. Bones are osteopenic. Degenerative changes a re seen involving the lumbar spine and throughout the pelvis. IMPRESSION: 1. Moderate to marked right-sided hydronephrosis and hydroureter with 2 distal right ureteral calculi present. 2. Nonobstructing renal calculi are also present bilaterally with no evidence for left-sided hydronep hrosis. 3. No other evidence for acute intra-abdominal or pelvic abnormality on these limited noncontrast lynette ges. 4. There is moderate to marked right pleural effusion and right basilar atelectasis. There is small l eft pleural effusion is also present. 5. Additional nonacute findings are delineated above. ACT 112: Negative or not required by law. Electronically signed by: Dinesh Sal M.D. 12/13/2021 5:27 PM
[2021-12-13] MEDS ORDERED: ACETAMINOPHEN 325 MG TAB PO PRN (17:48)
[2021-12-13] MEDS ORDERED: MAGNESIUM HYDROXIDE SUSP 30 ML UDC PO PRN (17:48)
[2021-12-13] MEDS ORDERED: ALUMINUM/MAGNESIUM SUSP 30 ML UDC PO PRN (17:48)
--- NOTE | 2021-12-13 18:14 | History & Physical Report ---
Date of Service December 13, 2021 Assessment & Plan (1) Sepsis: Plan: #. Acute metabolic encephalopathy #. Sepsis POA: Respiratory rate and WBC elevated, CXR suggestive of RLL pneumonia, UA suggestive of UTI #. Likely aspiration pneumonia #. Likely complicated UTI, catheter associated UTI #. 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 for now, hold neuropsychotropic drugs, possibly speech eval, continue to monitor over telemetry. Likely will need palliative discussion #. SCARLET over CKD stage III #. Hypomagnesemia Admitting BUN and creatinine 39 and 2.36 Likely prerenal from decreased p.o. intake Status post 1.5 L IV fluid in the ED, continue with IV fluid Magnesium repleted, monitor electrolytes in a.m. #. Troponin elevated: Likely chronically elevated #. Failure to thrive: Patient with decreased appetite, has lost significant weight in the recent month per family. Dietary consult. #. Other chronic medical conditions: Idiopathic hypotension, chronic anemia, lymphocytic colitis, A. fib, GERD, depression, JOSE [noncompliant with CPAP] Continue with/resume meds as and when able Monitor hemoglobin Patient on flecainide, not on anticoagulation because of GI bleed for A. fib Continue to hold neuropsychotropic drugs for now #. History of obstructive and reflux uropathy Follows Dr. Venegas as an outpatient. #. DVT prophylaxis: Heparin subcu #. DNR/DNI #. Disposition: Patient's May states that the family as a whole is considering hospice since discharge last admission, states that family discussion needs to be done since per her " time has come". But would like to continue with the treatment and getting him better first. History of Present Illness Chief Complaint: ams, tired Primary Care Provider: [facility] [place] 85yo M with a PMH of microscopic colitis on budesonide, C. difficile [status post treatment in December 2020], paroxysmal atrial fibrillation not on AC (d/t GI bleed), idiopathic hypotension, history of prostate cancer and obstructive uropathy with suprapubic catheter, JOSE noncompliant w/ cpap presented 12/13 from [facility] with worsening confusion. Of note, patient was recently admitted in the hospital in November for worsening confusion likely secondary to complicated UTI. Also per family, patient has not been eating well and has been losing weights. He is currently on Remeron due to poor appetite. Since patient was confused, most of the history taken from chart review and by phone conversation with patient's May. Per his , patient was complaining of being tired yesterday afternoon, and became sluggish since yesterday evening. Patient is also having very poor appetite. She also mentions that they have been talking in the family and exploring hospice option. Patient remains confused, WBC elevated at admission, CXR suggestive of RLL pneumonia. Patient received Zosyn in the ED, will continue with the same. Upon asking, patient denies any discomfort but some low back pain but not able to engage in detailed conversation (confused) and hence ROS was not obtainable. Allergies Allergy/AdvReac Type Severity Reaction Status Date / Time bee venom protein (honey bee) Allergy Severe SWELLING,SO Verified 12/13/21 19:08 B hornet venom Allergy Severe ANAPHYLAXIS Verified 12/13/21 19:08 black walnut Allergy Intermediate HIVES Verified 12/13/21 19:08 fire ant Allergy Intermediate HIVES Verified 12/13/21 19:08 Home Medications Medication Instructions Recorded Confirmed Type epinephrine 0.3 mg/0.3 mL 0.3 ml IM DIRECTED PRN #1 ea 02/28/19 12/13/21 History injection, auto-injector multivitamin (Daily Multi-Vitamin) 1 tab PO QAM 02/28/19 12/13/21 History midodrine 2.5 mg tablet 2.5 mg PO TID #90 tab 02/24/21 12/13/21 Rx budesonide 9 mg tablet,delayed and 9 mg PO QAM 05/07/21 12/13/21 History extended release sertraline 100 mg tablet 100 mg PO HS 05/07/21 12/13/21 History zinc oxide-cod liver oil 40 % 1 applic TOPICAL BID PRN 05/07/21 12/13/21 History topical paste (Desitin) omeprazole 40 mg capsule,delayed 40 mg PO BID 05/14/21 12/13/21 History release acetaminophen 325 mg tablet 650 mg PO Q4 PRN MDD 3 GRAMS/24 06/02/21 12/13/21 History (Tylenol) HOURS sodium chloride 0.9 % 10 ml Q12H 06/02/21 12/13/21 History cyanocobalamin (vitamin B-12) 1,000 mcg PO QAM 06/18/21 12/13/21 History 1,000 mcg capsule ferrous sulfate 325 mg (65 mg 325 mg PO BID 06/18/21 12/13/21 History iron) tablet acetaminophen 650 mg rectal 650 mg KS Q4H PRN 11/17/21 12/13/21 History suppository albuterol sulfate 90 mcg/actuation 2 puff INHALATION Q4H PRN 11/17/21 12/13/21 History aerosol inhaler colchicine 0.6 mg tablet 0.6 mg PO QAM 11/17/21 12/13/21 History dimethicone 1 % topical cream 1 applic TOPICAL Q8 PRN 11/17/21 12/13/21 History flecainide 50 mg tablet 50 mg PO AMHS 11/17/21 12/13/21 History mirtazapine 7.5 mg tablet 7.5 mg PO HS 11/17/21 12/13/21 History ondansetron HCl 4 mg tablet 4 mg PO Q4H PRN 11/17/21 12/13/21 History potassium chloride 10 mEq 10 meq PO DAILY 11/17/21 12/13/21 History tablet,extended release (Klor-Con) zinc oxide-cod liver oil 40 % 1 applic TOPICAL QS 12/13/21 12/13/21 History topical paste (Desitin) Past Med/Surg History Medical History Anemia Anticoagulant long-term use Chronic low back pain Chronic venous stasis Depression Encounter for pre-operative examination Facial pain History of Clostridioides difficile colitis History of prostate cancer (~1999) Followed by Urology History of UTI Hypotension Lymphocytic colitis Lymphocytic colitis Obstructive and reflux uropathy Obstructive sleep apnea CPAP Osteitis pubis Paroxysmal atrial fibrillation Followed by Cardiology Presence of suprapubic catheter Right foot pain Sacral decubitus ulcer Severe sepsis with septic shock hx Syncope Ureteral stone with hydronephrosis Urinary retention Self Catheterization Walker as ambulation aid Surgical History H/O elbow surgery H/O pelvic surgery repair of a bladder fistula at [facility] [place] in 11/2020. History of colonoscopy History of prostate surgery S/P bunionectomy S/P cataract surgery S/P cystoscopy with ureteral stent placement S/P total knee arthroplasty Bilateral Status post total shoulder arthroplasty Bilateral Family History Father Prostate cancer Diabetes Mother Leukemia Cancer Denies family history of Ovarian cancer Alzheimer disease Crohn's disease Myocardial infarction Breast cancer Lung cancer Colorectal cancer Hypertension Stroke Social History Smoking Status: Never smoker Second Hand Exposure: No; Hx Alcohol Use: No Hx Substance Use: No Preferred Language: [place] Communication Ability: Effective Visual Impairment: No Limitations Hearing Ability: Normal Marketing Technologist Required: No Beliefs That Will Affect Care: None marital status: Current Living Situation: Other current occupational status: retired Feels Safe at Home: Yes Childhood Exposure to Second-Hand Smoke: No Dental Care, Regularly: Yes Physical Activity Frequency: 1-2 Times per Week Seatbelt Use: always Sunscreen Use: No Assistive Devices: Glasses Review of Systems Review of Systems: Negative otherwise mentioned in HPI. Physical Exam Physical Exam: GENERAL: Confused, NAD, on RA. Appearing old/frail/ill HEENT: No pallor, no icterus. Pupils equal, round and reactive to light. Oral mucosa moist. NECK: No JVD, no neck masses. HEART: S1 and S2 heard. Regular rate and rhythm. Ejection murmur, no gallop. RESPIRATORY SYSTEM: Normal AP diameter. No accessory muscle use. No wheezing, RLL crackles. ABDOMEN: Soft, bowel sounds present, nontender, no distention. Suprapubic catheter in place, no signs of infection at port of entry. CENTRAL NERVOUS SYSTEM: No facial droop. Rest n/a. EXTREMITIES: No edema, no erythema seen. Results & Data Results & Data ([facility]) Vital Signs (Past 12 Hours) Vital Signs Temp Pulse Pulse Resp BP BP Pulse Ox 12/13/21 16:30 73 21 93 12/13/21 16:04 77 22 116/58 L 95 12/13/21 15:30 77 19 98 12/13/21 15:06 79 24 124/69 12/13/21 15:00 81 26 H 96 12/13/21 14:36 79 H 131/72 99 12/13/21 14:30 81 23 12/13/21 14:24 81 21 99 12/13/21 14:05 37.1 C 80 18 131/72 99 Code Status & VTE Plan VTE Prophylaxis Plan VTE Prophylaxis will be ordered: Yes
[2021-12-13] MEDS: SODIUM CHLORIDE 0.9% 1000ML 1,000 ML IV SCH (18:59)
--- NOTE | 2021-12-13 20:33 | Urology Consultation ---
Date of Consultation December 13, 2021 Assessment & Plan (1) Sepsis: The patient has been admitted by the hospitalist service. The patient's underlying sepsis could be a combination of sepsis from urinary source as well as a respiratory source as there is evidence of pneumonia and urinary tract infection on his labs and imaging. We recommend proceeding as follows: Continue IV fluid resuscitation Broad-spectrum antibiotics in the form of Zosyn has been initiated. Blood and urine cultures have been sent and this should be followed and his antibiotics can be further tailored based on culture results as well as his clinical response Maintain suprapubic catheter for optimal bladder drainage Follow serial labs I discussed the case with my attending physician Dr. Venegas. He is considering performing his cystoscopy with ureteral stent placement this evening. Prior to doing this he plans on having conversation with patient's daughter Kaitlynn Florian who is his power of employment law attorney, to determine how best to proceed. A COVID test has been performed and is negative Additional recommendations be forthcoming based on Dr. Venegas conversation with patient's family Attending note: Independently assessed and reviewed. Agree with all above. Extensive conversation with patient's MPOA/daughter Kaitlynn florian at [phone]. 24 minutes spent on this call specifically. An additional 50 minutes in extensive review of the patient's history including his specific surgical history with the bladder closure. As well as direct management, recommendations, and coordinating care between the operative team, anesthesia, and ER. Patient has had considerable deconditioning and severe issues with malnutrition and inability eat. Has progressively worsened over the last few weeks. 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 Patient had undergone a near 8-hour long procedure in order to close the bladder neck and to reconstruct with a peritoneal flap. Patient subsequently had issues with obstruction and required assessment once again at [place] where he had his initial surgery done at that time he had undergone some sort of bladder rupture though is unclear the extent or the damage or if the bladder neck closure had been maintained. Very difficult to ascertain if there is the ability to access the bladder from the urethra due to his complex surgical history. Most recent records from [place] do indicate that the bladder neck was completely closed. Did discuss that this would require possible intervention through the suprapubic tract. Extensively reviewed with patient's MPOA risks benefits and expectations as well as possible concerns and issues. Discussed possible complexity and accessing. Had an extensive conversation about obstruction on the right and severity of obstruction. Concern for possible sepsis from a pyelonephritis with obstruction and the possible development of sepsis with bacteremia. Discussed patient's long-term expectations. Per patient's request he has remained a full CODE STATUS however there has been a major concern over the last few weeks that he may be deconditioning significantly and that some hospice or palliative type option may need to be initiated. Did discuss with the patient's severe appetite issues as well as ongoing issues with nausea and inability to tolerate food and drink may also be seen in issues related to obstruction especially the nausea and of the issues. Discussed risk and benefits extensively of different interventions with endoscopy. Discussed that all would need some sort of either sedation with monitored anesthesia care or a more significant anesthetic. Patient is also dealing with considerable lung findings on imaging and concern for early pneumonia or other lung related problem. Patient would be at extremely high risk for the need to maintain intubation if he did require full general anesthesia. Reviewed other alternatives including options such as nephrostomy tube. Did discuss the lack of interventional radiology at our facility and the need to transfer to another facility for this option. Did discuss that with his bladder neck closure in the past as well as his very complicated history that access to the ureter might not be possible even through the suprapubic tract with this in mind a nephrostomy tube may be a better option for that access. Also discussed the nephrostomy tubes can be done without anesthesia or sedation with only local blocks which would drastically lower his risks especially from lung related concerns. All options interventions and possible situations were reviewed and discussed. Patient is MPOA did state that the family has been aware of these ongoing issues and that based on this conversation she would prefer the nephrostomy tube option. Did discuss that this would need to be coordinated with the hospitalist team. Have already alerted the anesthesia team who were aware of the patient due to the possible need for urgent/emergent intervention with the concern for sepsis. Discussed extensively with Dr. Jacobson with anesthesia specifically the risks of the general anesthesia and possible need for endotracheal tube with possible need for postoperative continuation. We will finalize coordination with the chief growth officer managing the hospitalist team. We will work to help coordinate issues from a urologic standpoint he will need to go to a center with interventional radiology available. As he has had extensive and major surgical reconstruction through the [place] [facility] patient's family would prefer that as the facility if possible. Did discuss that patient did become severely septic or if began to decompensate considerably and concern for development of severe sepsis with poor response to resuscitative measures could consider urgent/emergent intervention with attempt at stent placement however would have considerable risks but at that point the risks would likely be outweighed by the severe risk of the decompensation or sepsis. Plan for continued supportive care. Patient has responded nicely to volume resuscitation. Blood pressures have elevated appropriately. He is on broad-spe ctrum antibiotics. Agree with plans for Zosyn. Patient has had recent C. difficile and this will also need to be monitored. We will plan to continue with active and supportive care with anticipated transfer to a larger center with interventional radiology likely being the next course of action. History of Present Illness Reason for Consultation: Sepsis with concern for urinary source Attending Physician: Ryan Cruz MD History of Present Illness This is an 85-year-old male who presented to [facility] emergency department from [facility] secondary to altered mental status. Due to the patient's altered mental status I was unable to obtain any meaningful history from this patient and I did obtain information from review of records, discussion with the treating staff in the emergency department, as well as conversation with his daughter Kaitlynn via phone. The patient's daughter was able to tell me that he has not been eating or drinking very well over the past several days and has been getting weak. She could not provide any other information. She does however note that he does have a history of a ruptured bladder where he underwent an extensive surgical procedure at [facility] she believes approximately 1 year ago. Unfortunately I cannot obtain any other information from the patient. While in the emergency department the patient did have labs and imaging which I independently reviewed. The patient had a chest x-ray that showed concern for a right lower lobe infiltrate. A CT scan of the head showed no acute intracerebral pathology. A CT scan of the abdomen and pelvis showed marked right-sided hydronephrosis and hydroureter with 2 distal right ureteral stones present. Labs include a CBC were white blood cell count was 20.5. Hemoglobin and hematocrit were noted to be 9.1 and 28.5. Platelet count was normal. His INR is 1.2. Chemistry profile showed sodium and potassium are both normal. His BUN and creatinine were both elevated at 39 and 2.3. A troponin level was elevated at 41.8. Lactic acid level was not elevated. Urinalysis did show cloudy urine which was positive for nitrites. There is also 3+ leukocyte Estrace. There were greater than 30 white blood cells per high-power field. There was 2+ bacteria on this urine specimen. A COVID test was noted be negative. This patient has a very extensive urologic history. He did have an history of prostate cancer for which he underwent an open radical prostatectomy with salvage radiation approximately 22 years ago. He separately developed a pubovesical fistula and underwent a bladder repair with fistulectomy on 11/17/2020 at [facility]. After this extensive surgery the patient had bladder distention and breakdown of his bladder repair secondary to an obstructed suprapubic tube. He ultimately has had a chronic suprapubic catheter in place. This patient was most recently seen by [facility] on November 20 of this year secondary to recurrent UTI. During this admission the patient received intravenous antibiotics and did not require any urologic procedures. I discussed with the treating nurse in the emergency department and she noted t hat the patient has been normotensive and not tachycardic throughout his stay in the emergency department. She notes that he has received intravenous fluids and antibiotics in form of Zosyn and has remained stable throughout his time in the emergency department. At the time of my interview the patient was in no distress. Allergies Allergy/AdvReac Type Severity Reaction Status Date / Time bee venom protein (honey bee) Allergy Severe SWELLING,SO Verified 12/13/21 19:08 B hornet venom Allergy Severe ANAPHYLAXIS Verified 12/13/21 19:08 black walnut Allergy Intermediate HIVES Verified 12/13/21 19:08 fire ant Allergy Intermediate HIVES Verified 12/13/21 19:08 Home Medications Medication Instructions Recorded Confirmed Type epinephrine 0.3 mg/0.3 mL 0.3 ml IM DIRECTED PRN #1 ea 02/28/19 12/13/21 History injection, auto-injector multivitamin (Daily Multi-Vitamin) 1 tab PO QAM 02/28/19 12/13/21 History midodrine 2.5 mg tablet 2.5 mg PO TID #90 tab 02/24/21 12/13/21 Rx budesonide 9 mg tablet,delayed and 9 mg PO QAM 05/07/21 12/13/21 History extended release sertraline 100 mg tablet 100 mg PO HS 05/07/21 12/13/21 History zinc oxide-cod liver oil 40 % 1 applic TOPICAL BID PRN 05/07/21 12/13/21 History topical paste (Desitin) omeprazole 40 mg capsule,delayed 40 mg PO BID 05/14/21 12/13/21 History release acetaminophen 325 mg tablet 650 mg PO Q4 PRN MDD 3 GRAMS/24 06/02/21 12/13/21 History (Tylenol) HOURS sodium chloride 0.9 % 10 ml Q12H 06/02/21 12/13/21 History cyanocobalamin (vitamin B-12) 1,000 mcg PO QAM 06/18/21 12/13/21 History 1,000 mcg capsule ferrous sulfate 325 mg (65 mg 325 mg PO BID 06/18/21 12/13/21 History iron) tablet acetaminophen 650 mg rectal 650 mg SD Q4H PRN 11/17/21 12/13/21 History suppository albuterol sulfate 90 mcg/actuation 2 puff INHALATION Q4H PRN 11/17/21 12/13/21 History aerosol inhaler colchicine 0.6 mg tablet 0.6 mg PO QAM 11/17/21 12/13/21 History dimethicone 1 % topical cream 1 applic TOPICAL Q8 PRN 11/17/21 12/13/21 History flecainide 50 mg tablet 50 mg PO AMHS 11/17/21 12/13/21 History mirtazapine 7.5 mg tablet 7.5 mg PO HS 11/17/21 12/13/21 History ondansetron HCl 4 mg tablet 4 mg PO Q4H PRN 11/17/21 12/13/21 History potassium chloride 10 mEq 10 meq PO DAILY 11/17/21 12/13/21 History tablet,extended release (Klor-Con) zinc oxide-cod liver oil 40 % 1 applic TOPICAL QS 12/13/21 12/13/21 History topical paste (Desitin) Patient History Medical History Anemia Anticoagulant long-term use Chronic low back pain Chronic venous stasis Depression Encounter for pre-operative examination Facial pain History of Clostridioides difficile colitis History of prostate cancer (~1999) Followed by Urology History of UTI Hypotension Lymphocytic colitis Lymphocytic colitis Obstructive and reflux uropathy Obstructive sleep apnea CPAP Osteitis pubis Paroxysmal atrial fibrillation Followed by Cardiology Presence of suprapubic catheter Right foot pain Sacral decubitus ulcer Severe sepsis with septic shock hx Syncope Ureteral stone with hydronephrosis Urinary retention Self Catheterization Walker as ambulation aid Surgical History H/O elbow surgery H/O pelvic surgery repair of a bladder fistula at [facility] in 11/2020. History of colonoscopy History of prostate surgery S/P bunionectomy S/P cataract surgery S/P cystoscopy with ureteral stent placement S/P total knee arthroplasty Bilateral Status post total shoulder arthroplasty Bilateral Family History Father Prostate cancer Diabetes Mother Leukemia Cancer Denies family history of Ovarian cancer Alzheimer disease Crohn's disease Myocardial infarction Breast cancer Lung cancer Colorectal cancer Hypertension Stroke Social History Smoking Status: Never smoker Second Hand Exposure: No; Hx Alcohol Use: No Hx Substance Use: No Preferred Language: Kuwaiti Communication Ability: Effective Visual Impairment: No Limitations Hearing Ability: Normal 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 Beliefs That Will Affect Care: None marital status: Current Living Situation: Other current occupational status: retired Feels Safe at Home: Yes Childhood Exposure to Second-Hand Smoke: No Dental Care, Regularly: Yes Physical Activity Frequency: 1-2 Times per Week Seatbelt Use: always Sunscreen Use: No Assistive Devices: Glasses Review of Systems Review of Systems: Unobtainable due to cognitive status Physical Exam Constitutional: well developed and well nourished; no acute distress Eyes: no conjunctival abnormality ENMT: Ears: no external ear abnormality Dry mucous membranes noted Neck: trachea midline Respiratory: normal respiratory effort; no respiratory distress and no labored breathing Breath sounds are decreased at the bases with the right greater than the left Cardiovascular: Rate/Rhythm: regular rate and regular rhythm Gastrointestinal (Abdomen): Abdomen is soft and nondistended. It is nonrigid. There is no pain noted with palpation. A suprapubic catheter was in place. There is a small amount of erythema near the insertion site but no warmth or drainage noted. Musculoskeletal: No calf tenderness. Feet are non-mottled Skin: no rashes Neurologic: moves all extremities Psychiatric: At the time of my exam patient was alert to person but confused to time and place Genitourinary: no CVA tenderness Suprapubic catheter in place as described above Results & Data ([facility]) Vital Signs (Past 12 Hours) Vital Signs Temp Pulse Pulse Resp BP BP Pulse Ox 12/13/21 20:00 69 21 127/73 97 12/13/21 19:30 74 19 123/69 100 12/13/21 18:30 72 18 94 12/13/21 18:00 108/70 95 12/13/21 17:30 94 12/13/21 17:12 92 12/13/21 16:30 73 21 93 12/13/21 16:04 77 22 116/58 L 95 12/13/21 15:30 77 19 98 12/13/21 15:06 79 24 124/69 12/13/21 15:00 81 26 H 96 12/13/21 14:36 79 H 131/72 99 12/13/21 14:30 81 23 12/13/21 14:24 81 21 99 12/13/21 14:05 37.1 C 80 18 131/72 99 PG Care Time/CCT Total # of Minutes Spent Total Time Spent with Patient: Total time spent is greater than 50% in coordination of care (as documented) at patient's floor/unit and/or counseling patient: Coding Level of Care Code 90150 Inpt Consult Level 5 Diagnoses Sepsis A41.9
[2021-12-13] MEDS ORDERED: DOCUSATE SODIUM 100 MG CAP PO PRN (20:38)
[2021-12-13] MEDS ORDERED: ONDANSETRON 4 MG OD TAB PO PRN (20:44)
[2021-12-13] MEDS ORDERED: SERTRALINE HCL 100 MG TABLET PO SCH (21:00)
[2021-12-13] MEDS ORDERED: MIRTAZAPINE TAB 15 MG TAB PO SCH (21:00)
[2021-12-13] MEDS ORDERED: HEPARIN SOD 5,000 UNIT/0.5 ML VIAL SQ SCH (21:00)
[2021-12-13] MEDS: PANTOprazole 40 MG TAB PO SCH (22:05)
[2021-12-13] MEDS: FLECAINIDE ACETATE 100 MG TABLET PO SCH (22:06)
[2021-12-13] MEDS: FERROUS SULFATE 325 MG TAB PO SCH (22:07)
[2021-12-13] MEDS: GLUCOSAMINE SULFATE 500 MG CAP PO SCH (22:07)
--- NOTE | 2021-12-13 22:23 | Communication Note ---
Date of Service: December 13, [address] Venegas (urologist on-call). After discussion with patient's daughter, Dr. Venegas recommends transfer to tertiary center with IR capability for nephrostomy tube placement. Patient daughter prefers [facility] given prior surgeries at the facility. Case discussed Dr. Wolf ([facility] urologist on-call) who recommends patient admission to the hospitalist service. Dr. Cheek ([facility] hospitalist) has kindly accepted patient for transfer. Patient (Ms. May Saxena) updated of developments over the phone as patient daughter was unable to answer her mobile phone.
--- NOTE | 2021-12-13 22:51 | Discharge Summary ---
Date of Service December 13, 2021 Admission HPI Per Admitting Provider 85yo M with a PMH of microscopic colitis on budesonide, C. difficile [status post treatment in December 2020], paroxysmal atrial fibrillation not on AC (d/t GI bleed), idiopathic hypotension, history of prostate cancer and obstructive uropathy with suprapubic catheter, JOSE noncompliant w/ cpap presented 12/13 from [facility] with worsening confusion. Of note, patient was recently admitted in the hospital in November for worsening confusion likely secondary to complicated UTI. Also per family, patient has not been eating well and has been losing weights. He is currently on Remeron due to poor appetite. Since patient was confused, most of the history taken from chart review and by phone conversation with patient's May. Per his , patient was complaining of being tired yesterday afternoon, and became sluggish since yesterday evening. Patient is also having very poor appetite. She also mentions that they have been talking in the family and exploring hospice option. Patient remains confused, WBC elevated at admission, CXR suggestive of RLL pneumonia. Patient received Zosyn in the ED, will continue with the same. Upon asking, patient denies any discomfort but some low back pain but not able t o engage in detailed conversation (confused) and hence ROS was not obtainable. Discharge Data Consultations 12/13/21 17:10 ED Decision to Admit Stat 12/13/21 19:40 Consult Urology Stat 12/13/21 22:23 Burn CD for patient Stat Procedures Performed Operation Date: 12/13/21 20:50 <No data on this case meets the specified criteria> Hospital Course (1) Sepsis: #. Acute metabolic encephalopathy #. Sepsis POA: Respiratory rate and WBC elevated, CXR suggestive of RLL pneumonia, UA suggestive of UTI #. Likely aspiration pneumonia #. Likely complicated UTI, catheter associated UTI #. Acute on chronic illness Patient presents with worsening mentation since 1 day [employer] Admitting WBC elevated, urinalysis suggestive of UTI, CXR positive for RLL infiltrate Await urine culture and blood culture, patient received Zosyn in ED, continue with Zosyn N.p.o. for now, hold neuropsychotropic drugs, possibly speech eval, continue to monitor over telemetry. Likely will need palliative discussion #. SCARLET over CKD stage III #. Hypomagnesemia Admitting BUN and creatinine 39 and 2.36 Likely prerenal from decreased p.o. intake Status post 1.5 L IV fluid in the ED, continue with IV fluid Magnesium repleted, monitor electrolytes in a.m. #. Troponin elevated: Likely chronically elevated #. Failure to thrive: Patient with decreased appetite, has lost significant weight in the recent month per family. Dietary consult. #. Other chronic medical conditions: Idiopathic hypotension, chronic anemia, lymphocytic colitis, A. fib, GERD, depression, JOSE [noncompliant with CPAP] Continue with/resume meds as and when able Monitor hemoglobin Patient on flecainide, not on anticoagulation because of GI bleed for A. fib Continue to hold neuropsychotropic drugs for now #. History of obstructive and reflux uropathy Follows Dr. Venegas as an outpatient. #. DVT prophylaxis: Heparin subcu #. DNR/DNI #. Disposition: Patient's May states that the family as a whole is considering hospice since discharge last admission, states that family discussion needs to be done since per her " time has come". But would like to continue with the treatment and getting him better first. Above documentation as per admitting provider. CT abdomen pelvis 1. Moderate to marked right-sided hydronephrosis and hydroureter with 2 distal right ureteral calculi present. 2. Nonobstructing renal calculi are also present bilaterally with no evidence for left-sided hydronephrosis. 3. No other evidence for acute intra-abdominal or pelvic abnormality on these limited noncontrast images. 4. There is moderate to marked right pleural effusion and right basilar atelectasis. There is small left pleural effusion is also present. 5. Additional nonacute findings are delineated above. Urology provider note as follows : Extensive conversation with patient's SERGA/daughter Kaitlynn moreno at [phone]. 24 minutes spent on this call specifically. An additional 50 minutes in extensive review of the patient's history including his specific surgical history with the bladder closure. As well as direct management, recommendations, and coordinating care between the operative team, anesthesia, and ER. Patient has had considerable deconditioning and severe issues with malnutrition and inability eat. Has progressively worsened over the last few weeks. 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 Patient had undergone a near 8-hour long procedure in order to close the bladder neck and to reconstruct with a peritoneal flap. Patient subsequently had issues with obstruction and required assessment once again at [facility] where he had his initial surgery done at that time he had undergone some sort of bladder rupture though is unclear the extent or the damage or if the bladder neck closure had been maintained. Very difficult to ascertain if there is the ability to access the bladder from the urethra due to his complex surgical history. Most recent records from [facility] do indicate that the bladder neck was completely closed. Did discuss that this would require possible intervention through the suprapubic tract. Extensively reviewed with patient's MPOA risks benefits and expectations as well as possible concerns and issues. Discussed possible complexity and accessing. Had an extensive conversation about obstruction on the right and severity of obstruction. Concern for possible sepsis from a pyelonephritis with obstruction and the possible development of sepsis with bacteremia. Discussed patient's long-term expectations. Per patient's request he has remained a full CODE STATUS however there has been a major concern over the last few weeks that he may be deconditioning significantly and that some hospice or palliative type option may need to be initiated. Did discuss with the patient's severe appetite issues as well as ongoing issues with nausea and inability to tolerate food and drink may also be seen in issues related to obstruction especially the nausea and of the issues. Discussed risk and benefits extensively of different interventions with endoscopy. Discussed that all would need some sort of either sedation with monitored anesthesia care or a more significant anesthetic. Patient is also dealing with considerable lung findings on imaging and concern for early pneumonia or other lung related problem. Patient would be at extremely high risk for the need to maintain intubation if he did require full general anesthesia. Reviewed other alternatives including options such as nephrostomy tube. Did discuss the lack of interventional radiology at our facility and the need to transfer to another facility for this option. Did discuss that with his bladder neck closure in the past as well as his very complicated history that access to the ureter might not be possible even through the suprapubic tract with this in mind a nephrostomy tube may be a better option for that access. Also discussed the nephrostomy tubes can be done without anesthesia or sedation with only local blocks which would drastically lower his risks especially from lung related concerns. All options interventions and possible situations were reviewed and discussed. Patient is MPOA did state that the family has been aware of these ongoing issues and that based on this conversation she would prefer the nephrostomy tube option. Did discuss that this would need to be coordinated with the hospitalist team. Have already alerted the anesthesia team who were aware of the patient due to the possible need for urgent/emergent intervention with the concern for sepsis. Discussed extensively with Dr. Jacobson with anesthesia specifically the risks of the general anesthesia and possible need for endotracheal tube with possible need for postoperative continuation. We will finalize coordination with the stitch wheeler managing the hospitalist team. We will work to help coordinate issues from a urologic standpoint he will need to go to a center with interventional radiology available. As he has had extensive and major surgical reconstruction through the [facility] patient's family would prefer that as the facility if possible. Did discuss that patient did become severely septic or if began to decompensate considerably and concern for development of severe sepsis with poor response to resuscitative measures could consider urgent/emergent intervention with attempt at stent placement however would have considerable risks but at that point the risks would likely be outweighed by the severe risk of the decompensation or sepsis. Plan for continued supportive care. Patient has responded nicely to volume resuscitation. Blood pressures have elevated appropriately. He is on broad- spectrum antibiotics. Agree with plans for Zosyn. Patient has had recent C. difficile and this will also need to be monitored. We will plan to continue with active and supportive care with anticipated transfer to a larger center with interventional radiology likely being the next course of action. [address] Venegas (urologist on-call). After discussion with patient's daughter, Dr. Venegas recommends transfer to tertiary center with IR capability for nephrostomy tube placement. Patient daughter prefers [facility] given prior surgeries at the facility. Case discussed Dr. Wolf ([facility] urologist on-call) who recommends patient admission to the hospitalist service. Dr. Cheek ([facility] hospitalist) has kindly accepted patient for transfer. Patient (Ms. May Saxena) updated of developments over the phone as patient daughter was unable to answer her mobile phone. Total Time Total Time Spent Total Time Spent (In Minutes): 20 minutes Total Time Includes: Discharge Planning, Medication Reconciliation, Communication With Other Providers and Other
[2021-12-14] MEDS ORDERED: ACETAMINOPHEN 1,000 MG/100 ML VIAL IV PRN (00:40)
[2021-12-14] MEDS ORDERED: PIPERACILLIN/TAZOBACTAM 3.375 GM in DEXTROSE 5% 100 ML IV SCH (02:00)
[2021-12-14 06:55] LABS: BUN Creatinine Ratio 18.3 (10-20); Calcium 7.4 mg/dl (8.5-10.1); Creatinine Clr Calc Pharmacy 19.8 ml/min; Est GFR (African American) 29.2 ml/min; Est GFR (Non-African American) 25.2 ml/min; Magnesium 1.9 mg/dl (1.7-2.4); Phosphorus 3.1 mg/dl (2.5-4.9); Potassium 3.6 mmol/L (3.5-5.1)
[2021-12-14 07:46] LABS: Hemoglobin 8.1 g/dl (14.0-18.0); Mean Corpuscular Hemoglobin 29.6 pg (25.0-34.0); Mean Corpuscular Hgb Conc 31.2 g/dL (32.0-36.0); Mean Corpuscular Volume 94.9 fL (80.0-100.0); Mean Platelet Volume 11.9 fL (9.4-12.4); Platelet Count 210 K/uL (130-400); RDW Coefficient of Variation 16.6 % (11.5-14.5); RDW Standard Deviation 57.9 fL (36.4-46.3); Red Blood Count 2.74 M/uL (4.63-6.08)
[2021-12-14] MEDS ORDERED: MIDODRINE HCL 2.5 MG TAB PO SCH (08:00)
[2021-12-14] MEDS ORDERED: COLCHICINE 0.6 MG TAB PO SCH (09:00)
[2021-12-14] MEDS ORDERED: POTASSIUM CHLORIDE 10 MEQ TABCR PO SCH (09:00)
[2021-12-14] MEDS ORDERED: CYANOCOBALAMIN (B-12) 500 MCG TABLET PO SCH (09:00)
[2021-12-14] MEDS ORDERED: BUDESONIDE EC 3 MG CAP PO SCH (09:00)
[2021-12-14] MEDS: FLECAINIDE ACETATE 100 MG TABLET PO SCH (09:03)
[2021-12-14] MEDS: GLUCOSAMINE SULFATE 500 MG CAP PO SCH (09:03)
[2021-12-14] MEDS: FERROUS SULFATE 325 MG TAB PO SCH (09:03)
[2021-12-14] MEDS: PANTOprazole 40 MG TAB PO SCH (09:09)
[2021-12-14] MEDS: SODIUM CHLORIDE 0.9% 1000ML 1,000 ML IV SCH (10:27)
--- NOTE | 2021-12-14 12:09 | Electrocardiogram Report ---
Test Reason : Blood Pressure : / mmHG Vent. Rate : 082 BPM Atrial Rate : 082 BPM P-R Int : 176 ms QRS Dur : 110 ms QT Int : 402 ms P-R-T Axes : 043 -58 046 degrees QTc Int : 469 ms Poor data quality, interpretation may be adversely affected Normal sinus rhythm Left axis deviation Incomplete right bundle branch block Abnormal ECG When compared with ECG of 17-NOV-2021 20:29, minimal change Confirmed by Warner Rust ([id number]) on 12/14/2021 12:09:00 PM Referred By: Ping Salmeron Confirmed By:Spencer Rust
--- NOTE | 2021-12-18 14:34 | Pharmacy Report ---
ED Pharmacist Culture FollowUP - Culture Follow Up Note Date of Service: December 18, 2021 Notes:: * Final urine culture grew Pseudomonas aeruginosa and Proteus vulgaris. Spoke with Jayna, hospice patient care secretary, and [facility]. Results were faxed to [phone], read back x 1. Fax confirmation was received at [phone].
== END 2021-12-14 10:59 | disposition short-term general hospital (02) | DRG 871 ==
LOC: ED 14:12 → 2W 17:48 → INTOOBSV 17:48 → SUATTDRO 17:48 → 2W 19:53